=== PATIENT | female | born 1950 | race Caucasian/White ===

== ENCOUNTER → 2018-02-27 09:40 | Outpatient (CLI) | payer OTHER, SELFPAY | LOC: MFPLAB 09:41 → LABSPEC 09:42 | PROVIDERS: Family Provider Family Medicine; Visit Provider Family Medicine | DX: R19.7 Diarrhea, unspecified (principal) | CPT/HCPCS: 87177; 87209; 87506 ==

== ENCOUNTER → 2018-04-19 08:34 | Outpatient (CLI) | payer OTHER, SELFPAY ==
--- NOTE | 2018-04-19 08:38 | BI_ITS ---
MAMMOGRAPHY - BILATERAL SCREENING REASON FOR EXAM: Female, 67 years old. Routine annual screening examination. PERTINENT HISTORY: Non-contributory. TECHNIQUE: Digital bilateral breast gautam (3D mammographic acquisition) in the CC and MLO projections. 2-D mediolateral oblique (MLO) and craniocaudad (CC) views of both breasts were obtained. CAD: Full Field Digital Mammography with Computer Added Detection was performed. COMPARISON: Comparison is made with prior examination dated April 23, 2017 and March 20, 2016. FINDINGS: Breast Composition: The breasts are heterogeneously dense, which may obscure small masses. There are no dominant masses or suspicious calcifications. Stable small benign appearing bilateral axillary lymph nodes. No other significant abnormalities are identified. There has been no significant change since the prior study. BI/SCREENING MAMM (CAD), BILAT IMPRESSION: Stable bilateral screening mammogram. Yearly follow-up mammogram recommended. (A) ASSESSMENT CATEGORY: BIRADS Category 2: Benign. A letter regarding these results will be sent to the patient by the facility within 30 days. Approximately 10% of breast cancers are not detected by mammography. A normal mammogram should not delay biopsy of a clinically suspicious abnormality. [id number] Electronically Signed: John Caceres MD at 8:18 EDT Tel [phone], Service support ,
== END ==
PROVIDERS: Family Provider Family Medicine; Visit Provider Family Medicine
DX: Z12.31 Encounter for screening mammogram for malignant neoplasm of breast (principal)
CPT/HCPCS: 77063; 77067

== ENCOUNTER → 2018-04-27 09:21 | Outpatient (CLI) | payer OTHER, SELFPAY ==
[2018-04-27 09:50] LABS: Absolute Neutrophil Count 3.9 X10^3/uL (2.0-7.7); Basophil# 0.04 X10^3/uL; Basophil% 0.7 % (0-1); Eosinophil# 0.11 X10^3/uL; Eosinophils% 1.9 % (0-5); Hematocrit 39.8 % (37-47); Hemoglobin 13.4 g/dl (12.0-15.0); Mean Corp Hgb Conc 33.7 g/gl (32-36); Mean Corpuscular Hgb 30.5 pg (27.0-32.0); Mean Corpuscular Volume 90.7 fL (81-99); Mean Platelet Vol. 10.8 fl (6.2-12.0); Monocyte# 0.38 X10^3/uL; Monocyte% 6.5 % (0-10); Neutrophil % 66.7 % (47-70); Platelet Count 254 K/mm3 (150-450); RBC Distribution Width SD 42.5 fl (35.1-43.9); Red Blood Count 4.39 M/mm3 (4.2-5.4); White Blood Count 5.8 K/mm3 (4.4-11.0)
[2018-04-27 09:53] LABS: POSITIVE COUNT NO; POSITIVE DIFFERENTIAL NO; POSITIVE MORPHOLOGY NO
[2018-04-27 10:15] LABS: Anion Gap 8 (5-15); BUN 19 mg/dL (7-18); BUN/Creat Ratio 21.7 RATIO (10-20); Chloride 108 mmol/L (98-107); Cholesterol 139 mg/dL (200); Creatinine, Serum 0.88 mg/dL (0.55-1.02); EST Glomerular Filtration Rate 68 mL/min (>60); Est Glom Filt Rate - Afr Amer 82 mL/min (>60); Glucose 98 mg/dL (74-106); High Density Lipoprotein 37 mg/dL; Potassium 4.2 mmol/L (3.5-5.1); Sodium Level 143 mmol/L (136-145); Triglycerides 54 mg/dL; Very Low Density Lipoprotein 11 mg/dL (5-40)
[2018-04-29 09:51] LABS: Vitamin D,25 Hydroxy 53.1 ng/mL (29.95-100.01)
== END ==
PROVIDERS: Family Provider Family Medicine; Visit Provider Family Medicine
DX: Z13.220 Encounter for screening for lipoid disorders (principal); E55.9 Vitamin D deficiency, unspecified; M51.36 Other intervertebral disc degeneration, lumbar region
CPT/HCPCS: 36415; 80048; 80061; 82306; 85025

== ENCOUNTER → 2018-06-10 08:27 | Outpatient (CLI) | payer MEDICARE, OTHER, SELFPAY ==
--- NOTE | 2018-06-10 08:32 | RAD_ITS ---
PROCEDURE: DOUBLE AIR-CONTRAST BARIUM ESOPHAGRAM. REASON FOR EXAM: Female, 68 years old. TECHNIQUE: After the administration of gas producing crystals, water, and barium solution orally, multiple images of the opacified gastrointestinal tract were obtained under fluoroscopic guidance. FLUOROSCOPY TIME (if supplied): (0:53) minutes/seconds COMPARISON: None available. FINDINGS: After the administration of gas producing crystals, water, and barium solution orally, multiple images of the opacified esophagus were obtained under fluoroscopic guidance. The swallowing mechanism appeared intact including with barium pill. There is mild delayed transit of barium bolus from the distal esophagus into the stomach with slight pooling of the barium within the distal esophagus and mildly delayed emptying into the stomach noted. However, no significant persistent mucosal irregularity is seen in the distal esophagus. No significant GE reflux is noted during the study with and without provocation. Esophagus appears normal in course and caliber without finding of abnormal stricture, dilatation, diverticula, intrinsic mass or extrinsic mass effect. There is no findings of hiatal hernia. IMPRESSION: Mild distal esophageal delayed emptying as described. Otherwise negative study. Electronically Signed: Alli Skinner, at 19:09 EDT Tel , Service support , RAD/Esophagus Only
== END ==
PROVIDERS: Family Provider Family Medicine; PCP Family Medicine; Visit Provider Family Medicine
DX: R13.10 Dysphagia, unspecified (principal)
CPT/HCPCS: 74220

== ENCOUNTER → 2019-03-14 11:05 | Outpatient (CLI) | payer MEDICARE, OTHER, SELFPAY ==
[2019-01-20 09:07] VITALS: BMI 35.7
--- NOTE | 2019-03-14 11:21 | EKG12_ITS ---
Test Reason : PREOP Blood Pressure : / mmHG Vent. Rate : 067 BPM Atrial Rate : 067 BPM P-R Int : 154 ms QRS Dur : 084 ms QT Int : 382 ms P-R-T Axes : 037 046 027 degrees QTc Int : 403 ms Normal sinus rhythm Normal ECG Confirmed by LILIANE ROSADO ([id number]), technical writer and editor KENDRA HURD ([id number]) on 03/17/2019 2:02:02 PM Referred By: Rahul Rolle Confirmed By:LILIANE ROSADO
[2019-03-14 11:53] LABS: Hematocrit 40.3 % (37-47); Hemoglobin 13.2 g/dl (12.0-15.0); Mean Corp Hgb Conc 32.8 g/gl (32-36); Mean Corpuscular Hgb 29.6 pg (27.0-32.0); Mean Corpuscular Volume 90.4 fL (81-99); Mean Platelet Vol. 10.7 fl (6.2-12.0); Platelet Count 282 K/mm3 (150-450); RBC Distribution Width SD 42.6 fl (35.1-43.9); Red Blood Count 4.46 M/mm3 (4.2-5.4); Scan Indicated on CBC? Y/N NO; White Blood Count 6.7 K/mm3 (4.4-11.0)
[2019-03-14 12:31] LABS: Anion Gap 5 (5-15); BUN 16 mg/dL (7-18); BUN/Creat Ratio 18.8 RATIO (10-20); Calcium,Total 8.8 mg/dL (8.5-10.1); Chloride 108 mmol/L (98-107); Creatinine, Serum 0.85 mg/dL (0.55-1.02); EST Glomerular Filtration Rate 70 mL/min (>60); Est Glom Filt Rate - Afr Amer 85 mL/min (>60); Glucose 90 mg/dL (74-106); Potassium 4.2 mmol/L (3.5-5.1); Sodium Level 140 mmol/L (136-145)
== END ==
PROVIDERS: Family Provider Family Medicine; PCP Family Medicine; Referring Provider Orthopaedic Surgery; Visit Provider Orthopaedic Surgery
DX: Z01.818 Encounter for other preprocedural examination (principal); Z01.810 Encounter for preprocedural cardiovascular examination
CPT/HCPCS: 36415; 80048; 85027; 93005

== ENCOUNTER → 2019-04-22 | Outpatient (CLI) | payer MEDICARE, OTHER, SELFPAY ==
[2019-01-20 09:07] VITALS: BMI 35.7
--- NOTE | 2019-04-22 08:05 | BI_ITS ---
MAMMOGRAPHY - BILATERAL SCREENING REASON FOR EXAM: Female, 68 years old. Routine annual screening examination. PERTINENT HISTORY: Non-contributory. TECHNIQUE: Digital bilateral breast ilda (3D mammographic acquisition) in the CC and MLO projections. 2-D mediolateral oblique (MLO) and craniocaudad (CC) views of both breasts were obtained. CAD: Full Field Digital Mammography with Computer Added Detection was performed. COMPARISON: Comparison is made with prior study dated April 19, 2018 and April 23, 2017. FINDINGS: Breast Composition: The breasts are heterogeneously dense, which may obscure small masses. There are no dominant masses or suspicious calcifications. Stable small bilateral axillary lymph nodes. No other significant abnormalities are identified. There has been no significant change since the prior study. BI/SCREEN MAMM (CAD) W/ILDA BILAT IMPRESSION: Stable bilateral screening mammogram. Yearly follow-up mammogram recommended. (A) ASSESSMENT CATEGORY: BIRADS Category 2: Benign. A letter regarding these results will be sent to the patient by the facility within 30 days. Approximately 10% of breast cancers are not detected by mammography. A normal mammogram should not delay biopsy of a clinically suspicious abnormality. [id number] Electronically Signed: John Caceres, at 8:57 EDT , Service support ,
== END | disposition home or self-care (01) ==
PROVIDERS: PCP Family Medicine; Referring Provider Obstetrics & Gynecology; Visit Provider Obstetrics & Gynecology
DX: Z12.31 Encounter for screening mammogram for malignant neoplasm of breast (principal)
CPT/HCPCS: 77063; 77067

== ENCOUNTER → 2020-04-16 09:26 | Outpatient (CLI) | payer MEDICARE, OTHER, SELFPAY ==
[2019-10-07 15:49] VITALS: BMI 35.7
[2020-04-16 10:20] LABS: Anion Gap 3 (5-15); BUN 20 mg/dL (7-18); BUN/Creat Ratio 23.6 RATIO (10-20); Chloride 110 mmol/L (98-107); Creatinine, Serum 0.85 mg/dL (0.55-1.02); EST Glomerular Filtration Rate 70 mL/min (>60); Est Glom Filt Rate - Afr Amer 85 mL/min (>60); Glucose 101 mg/dL (74-106); Potassium 4.1 mmol/L (3.5-5.1); Sodium Level 141 mmol/L (136-145)
== END ==
PROVIDERS: PCP Family Medicine; Referring Provider Family Medicine; Visit Provider Family Medicine
DX: Z13.1 Encounter for screening for diabetes mellitus (principal); Z13.220 Encounter for screening for lipoid disorders
CPT/HCPCS: 36415; 80048

== ENCOUNTER → 2020-04-23 10:34 | Outpatient (CLI) | payer MEDICARE, OTHER, SELFPAY ==
[2019-10-07 15:49] VITALS: BMI 35.7
--- NOTE | 2020-04-23 10:36 | BI_ITS ---
MAMMOGRAPHY - BILATERAL SCREENING REASON FOR EXAM: Female, 69 years old. Routine annual screening examination. PERTINENT HISTORY: Non-contributory. TECHNIQUE: Digital bilateral breast ilda (3D mammographic acquisition) in the CC and MLO projections. 2-D mediolateral oblique (MLO) and craniocaudad (CC) views of both breasts were obtained. CAD: Full Field Digital Mammography with Computer Added Detection was performed. COMPARISON: Comparison is made with prior study dated April 22, 2019 and April 19, 2018. FINDINGS: Breast Composition: The breasts are heterogeneously dense, which may obscure small masses. There are no dominant masses or suspicious calcifications. Small benign-appearing bilateral axillary lymph nodes. No other significant abnormalities are identified. There has been no significant change since the prior study. BI/SCREEN MAMM (CAD) W/ILDA BILAT IMPRESSION: Stable bilateral screening mammogram. Yearly follow-up mammogram recommended. (A) ASSESSMENT CATEGORY: BIRADS Category 2: Benign. A letter regarding these results will be sent to the patient by the facility within 30 days. Approximately 10% of breast cancers are not detected by mammography. A normal mammogram should not delay biopsy of a clinically suspicious abnormality. [id number] Electronically Signed: John Caceres, at 12:04 EDT , Service support ,
== END ==
PROVIDERS: PCP Family Medicine; Referring Provider Family Medicine; Visit Provider Family Medicine
DX: Z12.31 Encounter for screening mammogram for malignant neoplasm of breast (principal)
CPT/HCPCS: 77063; 77067

== ENCOUNTER → 2020-07-02 10:15 | Outpatient (CLI) | payer MEDICARE, OTHER, SELFPAY ==
[2020-05-20 10:41] VITALS: BMI 35.7
[2020-07-02 11:48] LABS: Erythrocyte Sedimentation Rate 34 mm/hr (0-30)
[2020-07-02 11:50] LABS: Absolute Lymphocyte Count 1.74 X10^3/uL (0.83-4.51); Absolute Neutrophil Count 5.3 X10^3/uL (2.0-7.7); Basophil# 0.07 X10^3/uL; Basophil% 0.9 % (0-1); Eosinophil# 0.17 X10^3/uL; Eosinophils% 2.2 % (0-5); Hematocrit 40.3 % (37-47); Hemoglobin 13.1 g/dL (12.0-15.0); Lymphocyte # 1.74 X10^3/ul (4.0); Lymphocyte % 22.2 % (19-41); Mean Corp Hgb Conc 32.5 g/dL (32-36); Mean Corpuscular Hgb 29.8 pg (27.0-32.0); Mean Corpuscular Volume 91.6 fL (81-99); Mean Platelet Vol. 10.7 fl (6.2-12.0); Monocyte# 0.51 X10^3/uL; Monocyte% 6.5 % (0-10); NRBC Flagged by Analyzer 0 % (0-5); Neutrophil # 5.26 X10^3/uL (2.7-7.7); Neutrophil % 67.2 % (47-70); Platelet Count 269 K/mm3 (150-450); RBC Distribution Width SD 43.2 fl (35.1-43.9); White Blood Count 7.8 K/mm3 (4.4-11.0)
[2020-07-02 12:17] LABS: CRP 8.03 mg/L (0.0-3.0)
== END ==
PROVIDERS: PCP Family Medicine; Referring Provider Physician Assistant Surgical; Visit Provider Physician Assistant Surgical
DX: M25.562 Pain in left knee (principal); Z96.652 Presence of left artificial knee joint
CPT/HCPCS: 36415; 85025; 85652; 86140

== ENCOUNTER → 2020-07-05 09:20 | Outpatient (CLI) | payer MEDICARE, OTHER, SELFPAY ==
[2020-05-20 10:41] VITALS: BMI 35.7
[2020-07-05 09:45] LABS: Pathologist Comment May follow
[2020-07-05 10:54] LABS: RBC /Synovial Fluid 0.085 10^6/uL (0); Synovial Fld Mononuclear WBC % 71.9 %; Synovial Fld Polynuclear WBC # 0.242 10^3/uL; Synovial Fld Polynuclear WBC % 28.1 %
[2020-07-05 10:59] LABS: AUTO B FLUID DILUENT BKGD CT WBC <0.1 RBC <0.01 (W<.1,R<.01); Appearance /Synovial Fluid Cloudy (CLEAR); Color / Synovial Fluid Red (Pale Yellow); Source- Body Fluid SYNOVIAL
[2020-07-05 11:07] LABS: CRYSTALS, BODY FLUID Other, see comment
[2020-07-05 11:36] LABS: Lymph 24 %; Monocyte /Synovial Fluid 50 %; Neutrophil 24 % (0-25); Plasma Cell /Synovial Fluid 2 %
[2020-07-05 11:37] LABS: Body Fluid QC Type(s) BF1Q,BF2Q
[2020-07-06 13:56] LABS: Pathologist Review Reviewed
== END ==
PROVIDERS: PCP Family Medicine; Referring Provider Physician Assistant Surgical; Visit Provider Physician Assistant Surgical
DX: Z96.652 Presence of left artificial knee joint (principal)
CPT/HCPCS: 87070; 87075; 87205; 89050; 89051; 89060

== ENCOUNTER → 2020-07-26 08:38 | Outpatient (CLI) | payer MEDICARE, OTHER, SELFPAY ==
[2020-07-14 10:13] VITALS: BMI 34.0
--- NOTE | 2020-07-26 08:40 | CDU_ITS ---
Reason For Study: Bruit Rt. Velocities/BP Lt. Velocities/BP Prox CCA 101/19 cm/sec. Prox CCA 98/25 cm/sec. Mid CCA 93/17 cm/sec. Mid CCA 83/22 cm/sec. Dist CCA 73/17 cm/sec. Dist CCA 81/22 cm/sec. Prox ICA 76/22 cm/sec. Prox ICA 109/30 cm/sec. Mid ICA 95/27 cm/sec. Mid ICA 121/36 cm/sec. Dist ICA 96/23 cm/sec. Dist ICA 111/32 cm/sec. Rt. ICA/CCA = 1.0. Lt. ICA/CCA = 1.5. Prox ECA 71/9 cm/sec. Prox ECA 71/7 cm/sec. Rt. Vert. 56/15 cm/sec. Lt. Vert. 60/18 cm/sec. Right Extracranial There is intimal thickening but no significant atherosclerotic plaque noted in the right common carotid artery. There is homogeneous, irregular atherosclerotic plaque noted in the right internal carotid artery. There is intimal thickening but no significant atherosclerotic plaque noted in the right external carotid artery. Antegrade flow is noted in the right vertebral artery. Left Extracranial There is intimal thickening but no significant atherosclerotic plaque noted in the left common carotid artery. There is heterogeneous, irregular atherosclerotic plaque noted in the left internal carotid artery. There is heterogeneous, smooth atherosclerotic plaque noted in the left external carotid artery. Antegrade flow is noted in the left vertebral artery. Procedure Carotid Duplex [id number]. Exam performed in department. Interpretation Summary Mild (<50%) stenosis right extracranial internal carotid. Mild (<50%) stenosis left extracranial internal carotid. Flow within the vertebral arteries is antegrade bilaterally. Ordering Physician: Ryan Moore Referring Physician: Aly Cruz Performed By: Marge Simon, MISTICS, RVT
--- NOTE | 2020-07-26 08:40 | ECHOD_ITS ---
Reason For Study: Murmur Procedure This was a 2D Doppler, Color Flow transthoracic echocardiogram. Exam performed in department. Left Ventricle Normal LV size. Left ventricular systolic function is normal. The estimated ejection fraction is 60 %. Stage 2 diastolic dysfunction. No regional wall motion abnormalities noted. Right Ventricle Normal right ventricle. Atria Normal left atrium. Normal right atrium. Mitral Valve There is moderate mitral annular calcification. Mild (1+) eccentric mitral valve insufficiency. Tricuspid Valve Normal tricuspid valve. Mild (1+) tricuspid valve insufficiency. Pulmonary artery systolic pressure is 35 mmHg. Aortic Valve Trisinus/trileaflet aortic valve. Mild focal aortic valve calcification. Peak aortic valve gradient 53 mmHg. Mean aortic valve gradient 25 mmHg. Calculated aortic valve area (continuity equation) is .98 cm2. Moderate aortic stenosis. Pulmonic Valve Normal pulmonic valve. Great Vessels Normal aortic root. The pulmonary artery is normal size. Normal inferior vena cava. Pericardium/Pleural No pericardial effusion. MMode/2D Measurements & Calculations LVIDd: 4.5 cm IVSd: 1.2 cm LVOT diam: 2.0 cm LVIDs: 2.4 cm LVPWd: 1.3 cm LVOT area: 3.3 cm2 RVDd: 3.1 cm FS: 47.4 % Ao root diam: 3.0 cm LAV(MOD-bp): 59.7 ml LVAd ap4: 22.5 cm2 LA dimension: 3.5 cm LAV(MOD-bp) Indexed: 30.8 ml/m2 EDV(MOD-sp4): 58.3 ml LAV(MOD-sp2): 51.9 ml EDV(sp4-el): 58.4 ml LAV(MOD-sp4): 61.6 ml LVAs ap4: 11.4 cm2 ESV(MOD-sp4): 20.0 ml ESV(sp4-el): 18.8 ml EF(MOD-sp4): 65.7 % EF(sp4-el): 67.9 % SV(MOD-sp4): 38.3 ml SV(sp4-el): 39.7 ml Aortic Valve Planimetry: 0.84 cm2 LA A4 area: 20.7 cm2 RA A4 area: 13.5 cm2 Time Measurements MV dec time: 0.33 sec Doppler Measurements & Calculations MV E max valdemar: 139.7 cm/sec Lat Peak E' Valdemar: 6.6 cm/sec Med Peak E' Valdemar: 5.6 cm/sec MV A max valdemar: 115.9 cm/sec E/E' lat: 21.2 E/E' med: 24.9 MV E/A: 1.2 MV V2 max: 160.8 cm/sec MV P1/2t max valdemar: 160.8 cm/sec Ao V2 max: 364.2 cm/sec MV max P.3 mmHg MV P1/2t: 107.0 msec Ao max P.1 mmHg MV V2 mean: 92.1 cm/sec Ao V2 mean: 225.8 cm/sec MV mean P.0 mmHg MV dec slope: 440.0 cm/sec2 Ao mean P.2 mmHg MV V2 VTI: 52.8 cm MVA(P1/2t): 2.1 cm2 Ao V2 VTI: 96.2 cm MVA(VTI): 1.9 cm2 JONAH(I,D): 1.0 cm2 JONAH(V,D): 0.98 cm2 LV V1 max: 108.8 cm/sec MR max valdemar: 630.1 cm/sec SV(LVOT): 98.0 ml LV V1 max P.7 mmHg MR max P.8 mmHg LV V1 mean P.6 mmHg MR mean valdemar: 506.0 cm/sec LV V1 mean: 75.3 cm/sec MR mean P.0 mmHg LV V1 VTI: 29.8 cm MR VTI: 249.6 cm PA V2 max: 81.9 cm/sec TR max valdemar: 277.6 cm/sec TR max P.8 mmHg Interpretation Summary Normal LV size. Left ventricular systolic function is normal. The estimated ejection fraction is 60 %. Stage 2 diastolic dysfunction. Mean aortic valve gradient 25 mmHg. Calculated aortic valve area (continuity equation) is .98 cm2. Moderate aortic stenosis. Ordering Physician: Ryan Moore Referring Physician: Aly Cruz Performed By: Vahe Friend RCS
== END ==
PROVIDERS: PCP Family Medicine; Referring Provider Internal Medicine Cardiovascular Disease; Visit Provider Internal Medicine Cardiovascular Disease
DX: R01.1 Cardiac murmur, unspecified (principal); R42 Dizziness and giddiness
CPT/HCPCS: 93306; 93880

== ENCOUNTER → 2021-01-12 11:28 | Outpatient (CLI) | payer MEDICARE, OTHER, SELFPAY ==
[2020-08-10 09:09] VITALS: BMI 34.0
[2021-01-12 10:15] VITALS: BMI 33.5
--- NOTE | 2021-01-12 11:28 | CT_ITS ---
STUDY: CT MAXILLOFACIAL SINUSES REASON FOR EXAM: Female, 70 years old. SINUSITIS RADIATION DOSAGE (If Supplied By Facility): CTDIvol = ( 33.06 ) mGy, DLP = ( 804.92 ) mGycm TECHNIQUE: The patient was scanned in a multi detector CT scanner. High resolution axial imaging was performed without the administration of intravenous contrast material. Sagittal and coronal images were reconstructed. Individualized dose optimization techniques were used for this CT. COMPARISON: None. FINDINGS: FRONTAL SINUSES: Normal aeration, without mucosal inflammatory disease. ETHMOIDAL SINUSES: Normal aeration, without mucosal inflammatory disease. MAXILLARY SINUSES: Normal aeration, without mucosal inflammatory disease. SPHENOIDAL SINUSES: Normal aeration, without mucosal inflammatory disease. There is patency of the bilateral maxillary infundibuli with normal uncinate processes, ethmoid bullae, and hiatus semilunaris. Normal bilateral middle turbinates. Normal bilateral inferior turbinates. Normal midline nasal septum. There is patency of the bilateral nasal airways. The visualized osseous structures are normal. The visualized bilateral orbital contents are normal. CT/Sinus/Facial Bone IMPRESSION: Normal CT examination of the maxillofacial sinuses. Electronically Signed: Joe Mendiola MD at 12:10 EST , Service support ,
[2021-01-12 12:06] LABS: Hematocrit 42.2 % (37-47); Hemoglobin 13.4 g/dL (12.0-15.0); Mean Corp Hgb Conc 31.8 g/dL (32-36); Mean Corpuscular Hgb 29.5 pg (27.0-32.0); Mean Platelet Vol. 10.4 fl (6.2-12.0); Platelet Count 276 K/mm3 (150-450); RBC Distribution Width CV 12.9 % (11.6-14.6); RBC Distribution Width SD 44.4 fl (35.1-43.9); Red Blood Count 4.54 M/mm3 (4.2-5.4); White Blood Count 8.1 K/mm3 (4.4-11.0)
[2021-01-12 12:09] LABS: International Normalized Ratio 1.1; Prothrombin Time (Protime)PT. 13.2 SECONDS (11.7-14.9)
[2021-01-12 12:55] LABS: Anion Gap 4 (5-15); BUN 20 mg/dL (7-18); BUN/Creat Ratio 22.9 RATIO (10-20); Calcium,Total 9.2 mg/dL (8.5-10.1); Chloride 107 mmol/L (98-107); Creatinine, Serum 0.87 mg/dL (0.55-1.02); EST Glomerular Filtration Rate 68 mL/min (>60); Est Glom Filt Rate - Afr Amer 82 mL/min (>60); Glucose 97 mg/dL (74-106); Potassium 4.5 mmol/L (3.5-5.1); Sodium Level 141 mmol/L (136-145)
== END ==
PROVIDERS: Internal Medicine Cardiovascular Disease; PCP Family Medicine; Referring Provider Otolaryngology; Visit Provider Otolaryngology
DX: J32.8 Other chronic sinusitis (principal); R07.89 Other chest pain
CPT/HCPCS: 36415; 70486; 71046; 80048; 85027; 85610

== ENCOUNTER 2021-01-13 06:59 | Day surgery (SDC) | payer MEDICARE, OTHER, SELFPAY ==
[2020-08-10 09:09] VITALS: BMI 34.0
[2021-01-12 09:01] VITALS: BMI 34.0
[2021-01-12 10:15] VITALS: BMI 33.5
--- NOTE | 2021-01-12 11:27 | RAD_ITS ---
STUDY: X-RAY CHEST REASON FOR EXAM: Female, 70 years old. Preop for heart catheter TECHNIQUE: PA and lateral views of the chest. COMPARISON: 2013 FINDINGS: The lungs are clear and expanded. There is no demonstrated pleural abnormality. Normal size heart. Normal mediastinum and blanka. Normal visualized pulmonary arteries. There is atherosclerotic calcification of the aortic arch with tortuosity. There are diffuse degenerative changes of the visualized thoracic spine. Normal visualized ribs, clavicles, and shoulders. There is no demonstrated abnormality of the visualized soft tissue structures of the upper abdomen. RAD/Chest PA and Lateral IMPRESSION: No acute pulmonary process Electronically Signed: Jeo Mendiola MD at 12:08 EST , Service support ,
--- NOTE | 2021-01-13 03:31 | HP_ITS ---
HPI HPI History of Present Illness Surgical H&P: Yes Details: 70-year-old lady with no previous cardiac history but a family history of coronary artery disease who underwent a coronary calcium score in April 2019. A coronary calcium score was noted to be 185. She went to see a primary care physician for routine physical and was noted to have a louder murmur. She has complained of occasional dizziness. She has had no diaphoresis no near syncope or syncope and no chest pain. She has been on very little medications. She underwent an echocardiogram on 07/26/2020 that showed moderate aortic valve stenosis. She states 3 days ago noting exertional back pain associated with bilateral arm heaviness and diaphoresis. This resolved with rest. She denied associated chest pain, SOB or nausea. She rated the back pain/heaviness a 4-5/10. She also notices arm heaviness when driving and while sitting. She notices an increase in fatigue over the last week. Pt denies chest, jaw, or neck discomfort. Her exercise tolerance is stable. Pt denies symptoms of CHF, palpitations, dizziness, near syncopal or syncopal episodes. Pt denies edema or claudication issues. Pt. denies orthopnea, PND, or myalgia. She states yesterday noting lower blood pressure at home with systolic 110s/40- 50s. She states lightheadedness infrequently. Intake Vital Signs 01/12/21 Height 5 ft 4 in 01/12/21 Weight: 195 lb 01/12/21 BMI 33.5 01/12/21 BP 132/78 H 01/12/21 Blood Pressure Location Lt brachial 01/12/21 Position Sitting 01/12/21 Respiration 18 01/12/21 Pulse 67 01/12/21 Pulse Source Monitor 01/12/21 Pulse Oximetry (%) 97 Intake Visit Reasons: CP needs cath per [employer] In[employer] Knitting Required: No Is patient in pain?: No Allergies latex Allergy (Verified 01/12/21 10:11) Rash adhesive tape Adverse Reaction (Verified 01/12/21 10:11) Rash duloxetine [From Cymbalta] Adverse Reaction (Verified 01/12/21 10:11) loopy Medications Escitalopram Oxalate [Lexapro] 5 mg PO DAILY 03/08/17 [History Confirmed 01/12/21] Ca 600 mg-D3 800 unit-magnes 40 cr-xnru-ias-dorita-boron chewable tablet 1 tab PO DAILY 07/13/20 [History Confirmed 01/12/21] cinnamon bark 500 mg capsule 500 mg PO DAILY 07/13/20 [History Confirmed 01/12/21] cholecalciferol (vitamin D3) 50 mcg (2,000 unit) capsule 50 mcg PO DAILY 07/14/20 [History Confirmed 01/12/21] aspirin 81 mg tablet,delayed release 81 mg PO DAILY 01/12/21 [History Confirmed 01/12/21] vitamin B complex 1 tab PO DAILY 01/12/21 [History Confirmed 01/12/21] [facility] Medical History (Updated 01/11/21 @ 15:39 by Tosin Blancas) Constricting chest pain often radiating down left arm (Acute) Diaphoresis (Acute) Exertional chest pain (Acute) Nonrheumatic aortic (valve) stenosis (Chronic) Segmental and somatic dysfunction of cervical region (Chronic) Segmental and somatic dysfunction of pelvic region (Chronic) Segmental and somatic dysfunction of lumbar region (Chronic) Segmental and somatic dysfunction of thoracic region (Chronic) DDD (degenerative disc disease), lumbar (Chronic) Anxiety and depression (Chronic) GERD (gastroesophageal reflux disease) (Chronic) Obesity (Chronic) Osteoarthritis (Chronic) Urethral caruncle (Chronic) Varicose veins of both lower extremities (Chronic) Surgical History History of bladder suspension procedure (Resolved) History of knee replacement procedure of left knee (Resolved) History of knee replacement procedure of right knee (Resolved) Family History Father , age 80 CAD (coronary artery disease), Onset Age: 62 Myocardial infarction, Onset Age: 62 Mother CAD (coronary artery disease), Onset Age: 68 CABG Diabetes Brother Diabetes CAD (coronary artery disease) Heart disease Valve replacement/ CABG/ CEA Brother Diabetes Heart disease Pacemaker Brother Heart disease Valve Replacement Social History (Updated 01/12/21 @ 12:45 by Aly Simon 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, 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) Smoking Status: Never smoker alcohol intake: never ROS Const Const: Positive for fatigue; negative for weakness, body ache, fever(s) or chills ENT ENT: Negative for dizziness or Nosebleed/epistaxis Cardio Chest Pain: No Palpitations: No Edema: None Muscle aches with walking: None Resp Respiratory: Positive for Cough; negative for SOB with activity, SOB at rest, SOB orthopnea\SOB lying down or paroxysmal nocturnal dyspnea GI GI: Negative nausea, vomiting blood/hematemesis, bright, red blood in stools or black,tarry stools : Negative for hematuria or frequent nighttime urination/ nocturia Musc Musc: Negative for muscle aches/ myalgia Skin Skin: Negative non-healing lesions or rash Neuro Neuro: Positive for lightheadedness; negative for dizziness, near syncope, syncope, orthostatic symptoms or weakness Endo Endo: Positive for fatigue Allergy Allergy/Immunology: Negative for rash Cardiology Exam Const Appearance: cooperative, healthy appearing, comfortable and no acute distress Nutritional Appearance: well nourished and obese Orientation: alert, awake and oriented x3 Head Head: normal to inspection Ears: hearing grossly normal bilaterally Nose: external nose normal Face and Sinus: face symmetric Mouth: oral mucosae normal Eyes General: appearance normal, both eyes and all related structures Eyelids: eyelids normal EOM: EOM intact bilaterally Neck Neck: normal visual inspection and no JVD Carotids: normal carotid upstroke Chest Chest inspection: normal inspection of the chest, symmetric chest movement and normal respiratory effort; negative cough Auscultation: Bilateral: Clear to Auscultation Cardio Palpation: normal PMI Rate: regular rate Rhythm: regular rhythm Heart sounds: S1 normal, S2 normal and murmur; negative rub or gallop Murmur: Grade 3/6, early systolic and RLSB GI GI: normal to inspection and obese Neuro General: alert, awake, oriented x3 and CN's II-XI intact bilaterally Skin Skin: no rashes or lesions noted Extremities Pulses: Normal: Right Posterior Tibial Pulse, Left Posterior Tibial Pulse, Right Radial Pulse, Left Radial Pulse Lower Extremity Edema: None: Bilateral Psych Psychological: normal affect Assessment & Plan 1. Shoulder blade pain M89.8X1 Plan This is the main concern today. She has noted exertional back pain, arm heaviness, and diaphoresis that may be considered an anginal equivalent. Her EKG today in office shows sinus rhythm at a rate of 71 beats minute, ME interval 150, QTc 389, and QRS 82. There are no acute ST or T wave changes. She will proceed with heart catheterization to assess further. Based on results, further recommendation will be made. 2. Nonrheumatic aortic (valve) stenosis I35.0 Plan Her most recent echocardiogram in July 2020 showed an ejection fraction of 60%, stage II diastolic dysfunction, moderate aortic valve stenosis with a peak aortic valve gradient of 53 mmHg, mean aortic valve gradient of 25 mmHg, and a calculated aortic valve area of 0.98 cm?. This will be followed over time. It is unclear if this is contributing to her symptoms. Depending on long-term progression, further recommendation will be made. Plan Detail Other Orders Orders: 12 Lead EKG performed by [facility] Today R07.89, R07.9 Additional Comments Thank you for allowing us to participate in the patients plan of care, if you have any questions please do not hesitate to call. This note was generated using a voice recognition system and there may be incorrect words, spelling or punctuation that were not noted when reviewing the office note prior to saving. Goals Decrease pain Decrease spasm Decrease inflammation Barriers DDD Follow Up Keep as is Coding Level of Care Code Off vis,est,level 4 Diagnoses Shoulder blade pain M89.8X1 Nonrheumatic aortic (valve) stenosis I35.0 Coding Level of Care Code Off vis,est,level 4 Diagnoses Shoulder blade pain M89.8X1 Nonrheumatic aortic (valve) stenosis I35.0 Supplemental Info Supplemental Information Echocardiogram from 07/26/2020: Interpretation Summary Normal LV size. Left ventricular systolic function is normal. The estimated ejection fraction is 60 %. Stage 2 diastolic dysfunction. Mean aortic valve gradient 25 mmHg. Calculated aortic valve area (continuity equation) is .98 cm2. Moderate aortic stenosis. Diagnostics Electrocardiogram 01/12/21 Echocardiogram 07/26/20 Chest X-Ray 01/12/21
--- NOTE | 2021-01-13 08:56 | ECHOD_ITS ---
Reason For Study: MURMUR Procedure This was a 2D Doppler, Color Flow transthoracic echocardiogram. Exam performed portable in patient room. Left Ventricle Normal LV size. Left ventricular systolic function is normal. The estimated ejection fraction is 65 %. No regional wall motion abnormalities noted. Mitral Valve There is mild mitral annular calcification. Tricuspid Valve Normal tricuspid valve. Mild (1+) tricuspid valve insufficiency. Pulmonary artery systolic pressure is 30 mmHg. Aortic Valve Trisinus/trileaflet aortic valve. Mild focal aortic valve calcification. Peak aortic valve gradient 53 mmHg. Mean aortic valve gradient 32 mmHg. Moderate aortic stenosis. Calculated aortic valve area (continuity equation) is 0.96 cm2. Mild (1+) aortic valve insufficiency. Pericardium/Pleural No pericardial effusion. MMode/2D Measurements & Calculations LVOT diam: 2.0 cm SV(MOD-sp4): 57.6 ml LVAd ap4: 28.0 cm2 LVOT area: 3.1 cm2 EDV(MOD-sp4): 90.0 ml EDV(sp4-el): 94.0 ml LVAs ap4: 14.9 cm2 ESV(MOD-sp4): 32.4 ml ESV(sp4-el): 32.6 ml EF(MOD-sp4): 64.0 % EF(sp4-el): 65.4 % SV(sp4-el): 61.5 ml Aortic Valve Planimetry: 0.82 cm2 Doppler Measurements & Calculations Ao V2 max: 364.3 cm/sec AI max laisha: 302.2 cm/sec LV V1 max: 112.4 cm/sec Ao max P.2 mmHg AI max P.5 mmHg LV V1 max P.1 mmHg Ao V2 mean: 269.9 cm/sec AI dec slope: 185.2 cm/sec2 LV V1 mean P.9 mmHg Ao mean P.9 mmHg AI P1/2t: 477.9 msec LV V1 mean: 81.0 cm/sec Ao V2 VTI: 96.7 cm LV V1 VTI: 31.0 cm JONAH(I,D): 1.0 cm2 JONAH(V,D): 0.96 cm2 SV(LVOT): 96.8 ml TR max laisha: 257.4 cm/sec TR max P.5 mmHg Interpretation Summary Normal LV size. Left ventricular systolic function is normal. The estimated ejection fraction is 65 %. Mild focal aortic valve calcification. Mean aortic valve gradient 32 mmHg. Mild (1+) aortic valve insufficiency. Moderate aortic stenosis. Calculated aortic valve area (continuity equation) is 0.96 cm2. Compared to prior study, there is no significant change. Ordering Physician: Ryan Moore Referring Physician: MERLYN SANON Performed By: Ruth Coronado RDCS
--- NOTE | 2021-01-13 09:02 | CL.D_ITS ---
Patient Name: RYAN WILL Study Date: 01/13/2021 Performing: Ryan Moore MD Ht: 64.17 inches 163 cm : 1950 Wt: 198.42 lbs 90 kg Age: 70 Gender: female BSA: 1.95 PROCEDURE(S) PERFORMED [id number]/COR/LV CLINICAL PROFILE AND INDICATIONS Indications: Suspected CAD Heart Failure: None Stress/Imaging Stress/Image Study Performed: No CAD Presentations: Symptom unlikely to be ischemic. CONCLUSIONS Normal coronary arteries Normal LV size, wall motion,and systolic function Aortic Valve Stenosis- Moderate RECOMMENDATIONS Medical therapy Repeat echo to asses AV. DESCRIPTION OF PROCEDURE The patient arrived to the procedure lab. The risks and benefits of the procedure as well as a full d escription of our services here and current unavailability of surgical backup were fully explained to the patient and/or their significant other prior to the catheterization. The Timeout was completed, verifying the correct patient and procedure. The patient's procedural site was prepped and draped in the usual fashion. Local anesthetic was given subcutaneously to right radial region with Lidocaine 2% . Using a modified Seldinger technique, arterial access was obtained via the right radial artery, a 6 Fr sheath was inserted. Right Coronary Artery selective angiography was then performed in multiple v iews using a 5 Fr. 4.0 Elizabeth catheter. Left Coronary Artery selective angiography was performed in mu ltiple views using a 5 Fr. 4.0 Elizabeth catheter. Left Ventriculography was performed in SALAS projection using a 5 Fr. Pigtail catheter. LV to AO pullback pressures were then recorded.The arterial sheath was pulled and a TR Band was applied for hemostasis CORONARY ANGIOGRAPHY DOMINANCE: Right Dominant LEFT HEART ASSESSMENT Left Ventricular Ejection Fraction: by Echo 75 % Normal Left Ventricular systolic function LEFT MAIN: Angiographically normal LEFT ANTERIOR DESCENDING ARTERY: No significant disease noted CIRCUMFLEX ARTERY: No significant disease noted RIGHT CORONARY ARTERY: No significant disease noted VALVE FINDINGS: Aortic Valve Calcification - moderate AORTIC ROOT: Dilated COMPLICATIONS No Complications PROCEDURE MEDICATIONS Versed 1 mg IV Fentanyl 50 mcg IV Versed 1 mg IV Oxygen: 2 L/min via nasal cannula Heparin diluted in 23cc Heparinized saline. Patient given 10cc IA of this solution. 01/13/2021 08:35: 12 Verapamil 2.5mg, Ntg 100mcgs, 2000 units of Heparin diluted in 23cc Heparinized saline. Patient give n 10cc IA of this solution. 01/13/2021 08:35:12 SUMMARY OF HEMODYNAMIC DATA Time AIR REST ECG 07:26:57 AO 117/57 (82) SA 08:38:25 LV 173/2, 8 08:44:28 LV 170/1, 10 08:44:35 LV 165/5, 11 08:45:25 LVp 156/49, 57 08:45:48 AOp 145/60 (94) 08:45:53 Signed By Ryan Moore MD On 01/13/2021 09:01:46 Ryan Moore MD
== END 2021-01-13 10:35 | disposition home or self-care (01) ==
PROVIDERS: PCP Family Medicine; Referring Provider Internal Medicine Cardiovascular Disease; Visit Provider Internal Medicine Cardiovascular Disease
DX: I35.0 Nonrheumatic aortic (valve) stenosis (principal); R42 Dizziness and giddiness; M89.8X1 Other specified disorders of bone, shoulder; Z79.82 Long term (current) use of aspirin; Z82.49 Family history of ischemic heart disease and other diseases of the circulatory system; Z88.8 Allergy status to other drugs, medicaments and biological substances; Z91.040 Latex allergy status
CPT/HCPCS: 71046; 93306; 93458; 99152; 99153; J7040; Q9967; A4216; C1769; C1894

== ENCOUNTER → 2021-02-28 13:13 | Outpatient (CLI) | payer MEDICARE, OTHER, SELFPAY ==
[2021-02-16 14:43] VITALS: BMI 33.5
--- NOTE | 2021-02-28 13:26 | MRI_ITS ---
STUDY: MRI LUMBAR SPINE WITHOUT CONTRAST REASON FOR EXAM: Female, 70 years old. Pain TECHNIQUE: Standardized fat and water weighted pulse sequences were obtained in the sagittal and axial planes. COMPARISON: X-ray 02/16/2021 FINDINGS: T12-L1: Normal endplates. Normal disc height, hydration and morphology. Normal bilateral facet joints. Normal central canal and bilateral lateral recesses. Normal bilateral intervertebral neural foramina. Normal lumbar lordosis. There is no substantial scoliosis. Normal conus medullaris that terminates at the L1. L1-2: Normal endplates. Normal disc height, hydration and morphology. Normal bilateral facet joints. Normal central canal and bilateral lateral recesses. Normal bilateral intervertebral neural foramina. L2-3: Mild bilateral facet hypertrophy and moderate ligament flavum hypertrophy. Moderate bilobed disc protrusion produces severe spinal stenosis with the moderate bilateral lateral recess stenosis and mild bilateral neural foraminal stenosis. L3-4: Mild bilateral facet hypertrophy and severe ligament flavum hypertrophy. Moderate bilobed disc protrusion produces severe spinal stenosis with moderate bilateral lateral recess stenosis and moderate bilateral neural foraminal stenosis with abutment of the exiting L3 nerve roots bilaterally. L4-5: Severe bilateral facet hypertrophy and moderate ligament flavum hypertrophy. 5 mm of anterolisthesis of L4 and L5 with a mild broad disc protrusion produces severe spinal stenosis with moderate bilateral lateral recess stenosis and moderate bilateral neural foraminal stenosis with abutment of the exiting L4 nerve roots bilaterally. L5-S1: Mild bilateral facet hypertrophy and ligament flavum hypertrophy. Mild broad disc protrusion produces mild spinal stenosis and mild bilateral neural foraminal stenosis. Normal visualized sacral ala. Mild friction related edema of the posterior subcutaneous fat. MRI/Spine Lumbar (Routine) IMPRESSION: Multilevel degenerative changes, as described above. Electronically Signed: Garret Villanueva MD at 15:44 EDT Tel , Service support ,
== END ==
PROVIDERS: PCP Family Medicine; Referring Provider Orthopaedic Surgery; Visit Provider Orthopaedic Surgery
DX: M54.16 Radiculopathy, lumbar region (principal); M48.062 Spinal stenosis, lumbar region with neurogenic claudication
CPT/HCPCS: 72148

== ENCOUNTER → 2021-05-20 09:11 | Outpatient (CLI) | payer MEDICARE, OTHER, SELFPAY ==
[2021-03-10 10:26] VITALS: BMI 33.5
[2021-05-20 10:10] LABS: Cholesterol 171 mg/dL (200); High Density Lipoprotein 42 mg/dL; Triglycerides 47 mg/dL; Very Low Density Lipoprotein 9 mg/dL (5-40)
== END ==
PROVIDERS: PCP Family Medicine; Visit Provider Family Medicine
DX: E66.9 Obesity, unspecified (principal)
CPT/HCPCS: 36415; 80061

== ENCOUNTER → 2021-06-29 10:49 | Outpatient (CLI) | payer MEDICARE, OTHER, SELFPAY ==
[2021-03-10 10:26] VITALS: BMI 33.5
--- NOTE | 2021-06-29 10:50 | BI_ITS ---
MAMMOGRAPHY - BILATERAL SCREENING REASON FOR EXAM: Female, 71 years old. Routine annual screening examination. PERTINENT HISTORY: Non-contributory. TECHNIQUE: Digital bilateral breast ilda (3D mammographic acquisition) in the CC and MLO projections. 2-D mediolateral oblique (MLO) and craniocaudad (CC) views of both breasts were obtained. CAD: Full Field Digital Mammography with Computer Added Detection was performed. COMPARISON: Comparison is made with prior study dated 04/23/2020 and 04/22/2019. FINDINGS: Breast Composition: The breasts are heterogeneously dense, which may obscure small masses. There is a questionable 5.7 mm nodular density in the upper lateral aspect of the right breast. Correlation with ultrasound is recommended. Stable small benign-appearing bilateral axillary nodes. No other significant abnormalities are identified. BI/SCRN MAMM (CAD)W/ILDA BILAT IMPRESSION: Possible 5.7 mm nodular density in the upper lateral aspect of the right breast. Correlation with ultrasound is recommended. ASSESSMENT CATEGORY: BIRADS Category 0: Incomplete. Need additional imaging evaluation. A letter regarding these results will be sent to the patient by the facility within 30 days. Approximately 10% of breast cancers are not detected by mammography. A normal mammogram should not delay biopsy of a clinically suspicious abnormality. [id number] Electronically Signed: John Caceres MD at 12:03 EDT , Service support ,
== END ==
PROVIDERS: PCP Family Medicine; Referring Provider Family Medicine; Visit Provider Family Medicine
DX: Z12.31 Encounter for screening mammogram for malignant neoplasm of breast (principal)
CPT/HCPCS: 77063; 77067

== ENCOUNTER → 2021-07-05 14:05 | Outpatient (CLI) | payer MEDICARE, OTHER, SELFPAY ==
--- NOTE | 2021-07-05 14:09 | US_ITS ---
STUDY: ULTRASOUND BREAST - RIGHT REASON FOR EXAM: Female, 71 years old. Abnormal screening mammogram. TECHNIQUE: Axial and longitudinal images of the RIGHT breast were performed with a high resolution ultrasound transducer. # OF IMAGES: 38 COMPARISON: 06/29/2021 FINDINGS: RIGHT Breast: Heterogeneous background echotexture. At 9 o''clock, 3 cm from nipple, ultrasound confirms a 4 mm oval parallel circumscribed anechoic mass consistent with a small cyst corresponding to the mass seen on mammography.: US/Breast Limited Unilateral IMPRESSION: Ultrasound confirms a 4 mm cyst corresponding mass seen on mammography. ASSESSMENT CATEGORY: BIRADS Category 2: Benign. A letter regarding these results will be sent to the patient by the facility within 30 days. Electronically Signed: Garret Villanueva MD at 15:22 EDT Tel , Service support ,
--- NOTE | 2021-07-05 14:14 | BD_ITS ---
STUDY: DUAL ENERGY X-RAY ABSORPTIOMETRY / DXA REASON FOR EXAM: Female, 71 years old. M85.89. Patient is postmenopausal. TECHNIQUE: Bone Mineral Density (BMD) measurements of lumbar spine and bilateral hips were obtained. COMPARISON: Comparison is made with prior study dated 02/28/2012. FINDINGS: Lumbar Spine (L1-L4): g/cm2 (1.020) / T-score (0.4) / Z-score (2.5) Findings are suggestive of normal bone density with a low fracture risk. Left Femur Total: g/cm2 (0.841) / T-score (-0.8) / Z-score (0.9) Left Femoral Neck: g/cm2 (0.706) / T-score (-1.3) / Z-score (0.7) Right Femur Total: g/cm2 (0.840) / T-score (-0.8) / Z-score (0.8) Right Femoral Neck: g/cm2 (0.718) / T-score (-1.2) / Z-score (0.8) The T-Scores on the most recent prior examination were: Lumbar Spine (L1-L4): There has been worsening of bone density since the previous examination. Left Femur Total: which represents a worsening of 9.9%. Right Femur Total: which represents a worsening of 3.2%. BD/Dexa Bone Density Study IMPRESSION: The patient is considered osteopenic as outlined below according to World Obie Organization (WHO) criteria with a low fracture risk. There has been worsening of bone density since the previous examination. Reference Information: The T-score is the number of standard deviations above or below the standard which is normal for young adults at their peak bone mineral density. The World Health Organization (WHO) interprets the T-scores as follows: Above -1 Normal bone density Between -1 and -2.5 Osteopenia Equal to / or below -2.5 Osteoporosis As a practical clinical guideline, osteopenia may be graded as follows: Mild -1 through -1.5 Moderate -1.6 through -2.0 Severe -2.1 through -2.4 The Z-score is the number of standard deviations above or below age-matched controls. A Z-score of less than -1.5 would be considered abnormal. References: 1. NIH Osteoporosis and Related Bone Diseases www osteo.org 2. International Society for Clinical Densitometry www iscd.org 3. National Osteoporosis Foundation www nof.org Electronically Signed: John Caceres MD at 13:14 EDT , Service support ,
== END ==
PROVIDERS: PCP Family Medicine; Referring Provider Family Medicine; Visit Provider Family Medicine
DX: M85.80 Other specified disorders of bone density and structure, unspecified site (principal); N60.01 Solitary cyst of right breast; Z78.0 Asymptomatic menopausal state
CPT/HCPCS: 76642; 77080

== ENCOUNTER 2021-12-14 09:46 | Outpatient (CLI) | payer MEDICARE, OTHER, SELFPAY ==
--- NOTE | 2021-12-14 09:53 | RAD_ITS ---
STUDY: X-RAY - LEFT SHOULDER REASON FOR EXAM: Female, 71 years old. BILAT SHOULDER PAIN TECHNIQUE: 4 view(s) of the shoulder. COMPARISON: None. FINDINGS: Normal glenohumeral articulation. Normal acromioclavicular joint. Normal acromion. Normal humeral head and visualized proximal humerus. The soft tissue structures are unremarkable. Normal visualized pulmonary apex. RAD/Shoulder min 2 Views IMPRESSION: Normal x-ray examination of the shoulder. Electronically Signed: Garret Villanueva MD at 11:07 EST ,
--- NOTE | 2021-12-14 09:54 | RAD_ITS ---
STUDY: X-RAY - RIGHT SHOULDER REASON FOR EXAM: Female, 71 years old. Bilateral shoulder pain. TECHNIQUE: Lower view(s) of the shoulder. COMPARISON: None. FINDINGS: Osteopenia. Normal glenohumeral articulation. Mild arthrosis of the AC joint. Normal acromion. Normal humeral head and visualized proximal humerus. The soft tissue structures are unremarkable. Normal visualized pulmonary apex. RAD/Shoulder min 2 Views IMPRESSION: Osteopenia with mild arthrosis of the AC joint. No acute abnormality or erosive changes. Electronically Signed: Karl Carrillo MD at 11:23 EST ,
== END 2021-12-14 23:59 | disposition home or self-care (01) ==
LOC: RAD 09:51
PROVIDERS: PCP Family Medicine; Referring Provider Anesthesiology Pain Medicine; Visit Provider Anesthesiology Pain Medicine
DX: M25.511 Pain in right shoulder (principal); M25.512 Pain in left shoulder
CPT/HCPCS: 73030

== ENCOUNTER 2022-01-16 12:50 | Outpatient (CLI) | payer MEDICARE, OTHER, SELFPAY ==
--- NOTE | 2022-01-17 12:29 | EKG12_ITS ---
Test Reason : PREOP Blood Pressure : / mmHG Vent. Rate : 075 BPM Atrial Rate : 075 BPM P-R Int : 144 ms QRS Dur : 084 ms QT Int : 362 ms P-R-T Axes : 044 054 048 degrees QTc Int : 404 ms Normal sinus rhythm Normal ECG Confirmed by PASCUAL LOCKETT, TEDDY ([id number]), assistant editor KENDRA HURD ([id number]) on 01/19/2022 10:08:28 AM Referred By: Shawn ROSADO Confirmed By:TEDDY GARNER MD
[2022-01-17 13:18] LABS: Absolute Lymphocyte Count 1.88 X10^3/uL (0.83-4.51); Absolute Neutrophil Count 5.5 X10^3/uL (2.0-7.7); Basophil# 0.07 X10^3/uL; Basophil% 0.9 % (0-1); Eosinophil# 0.13 X10^3/uL; Eosinophils% 1.6 % (0-5); Hematocrit 41.6 % (37-47); Hemoglobin 13.6 g/dL (12.0-15.0); Lymphocyte # 1.88 X10^3/ul (0.83-4.51); Mean Corp Hgb Conc 32.7 g/dL (32-36); Mean Corpuscular Hgb 29.8 pg (27.0-32.0); Mean Platelet Vol. 10.6 fl (6.2-12.0); Monocyte# 0.57 X10^3/uL; NRBC Flagged by Analyzer 0 % (0-5); Neutrophil # 5.49 X10^3/uL (2.7-7.7); Neutrophil % 67.3 % (47-70); Platelet Count 299 K/mm3 (150-450); RBC Distribution Width CV 13.1 % (11.6-14.6); RBC Distribution Width SD 43.6 fl (35.1-43.9); Red Blood Count 4.57 M/mm3 (4.2-5.4); White Blood Count 8.2 K/mm3 (4.4-11.0)
[2022-01-17 13:37] LABS: Magnesium 2.1 mg/dL (1.6-2.6)
[2022-01-17 13:49] LABS: Anion Gap 5 (5-15); BUN 23 mg/dL (7-18); BUN/Creat Ratio 25.1 RATIO (10-20); Calcium,Total 9.5 mg/dL (8.5-10.1); Chloride 109 mmol/L (98-107); Creatinine, Serum 0.92 mg/dL (0.55-1.02); EST Glomerular Filtration Rate 64 mL/min (>60); Est Glom Filt Rate - Afr Amer 77 mL/min (>60); Glucose 96 mg/dL (74-106); Potassium 4.1 mmol/L (3.5-5.1); Sodium Level 139 mmol/L (136-145)
[2022-01-17 14:28] LABS: HIV - WCH Non-Reactive (Nonreactive); Hepatitis B Surface Antibody Non-Reactive; Hepatitis C Antibody Non-Reactive (Nonreactive)
[2022-01-19 08:24] LABS: Hepatitis A AB, Total Positive (Negative)
== END 2022-01-16 23:59 | disposition home or self-care (01) ==
LOC: PAT 02-14 12:51
PROVIDERS: Anesthesiology; PCP Family Medicine; Visit Provider Orthopaedic Surgery
DX: Z01.818 Encounter for other preprocedural examination (principal); Z01.810 Encounter for preprocedural cardiovascular examination; Z01.812 Encounter for preprocedural laboratory examination
CPT/HCPCS: 36415; 80048; 83735; 85025; 86703; 86706; 86708; 86803; 87081; 93005

== ENCOUNTER 2022-01-23 08:53 | Outpatient (CLI) | payer MEDICARE, OTHER, SELFPAY ==
--- NOTE | 2022-01-23 08:54 | ECHOD_ITS ---
Version 2 Reason For Study: MURMUR Procedure This was a 2D Doppler, Color Flow transthoracic echocardiogram. Exam performed in department. Left Ventricle Normal LV size. Mild concentric left ventricular hypertrophy. Left ventricular systolic function is normal. The estimated ejection fraction is 65 %. Stage 1 diastolic dysfunction. No regional wall motion abnormalities noted. Right Ventricle Normal RV size. Normal systolic function. Atria Normal left atrium. Normal right atrium. Mitral Valve There is moderate mitral annular calcification. Mild (1+) mitral valve insufficiency. Tricuspid Valve Normal tricuspid valve. Mild (1+) tricuspid valve insufficiency. Pulmonary artery systolic pressure is 37 mmHg. Aortic Valve Trisinus/trileaflet aortic valve. Mild focal aortic valve calcification. Peak aortic valve gradient 62 mmHg. Mean aortic valve gradient 39 mmHg. Severe aortic stenosis. Mild (1+) aortic valve insufficiency. Great Vessels Normal aortic root. The pulmonary artery is normal size. Normal inferior vena cava. Pericardium/Pleural No pericardial effusion. MMode/2D Measurements & Calculations LVIDd: 3.6 cm IVSd: 1.2 cm LVOT diam: 2.0 cm LVIDs: 2.3 cm LVPWd: 1.2 cm LVOT area: 3.1 cm2 RVDd: 3.2 cm FS: 36.0 % Ao root diam: 3.1 cm LAV(MOD-bp): 31.0 ml LVAd ap4: 22.3 cm2 LAV(MOD-bp) Indexed: 15.7 ml/m2 LVLd ap4: 6.4 cm LAV(MOD-sp2): 31.8 ml EDV(MOD-sp4): 65.0 ml LAV(MOD-sp4): 30.8 ml EDV(sp4-el): 66.0 ml LVAs ap4: 11.3 cm2 LVLs ap4: 5.5 cm ESV(MOD-sp4): 19.0 ml ESV(sp4-el): 19.5 ml EF(MOD-sp4): 70.8 % EF(sp4-el): 70.5 % SV(MOD-sp4): 46.0 ml SV(sp4-el): 46.5 ml LA A4 area: 14.0 cm2 LA dimension(2D): 3.3 cm RA A4 area: 10.3 cm2 Time Measurements MV dec time: 0.39 sec Doppler Measurements & Calculations MV E max valdemar: 96.5 cm/sec Lat Peak E' Valdemar: 8.0 cm/sec Med Peak E' Valdemar: 9.1 cm/sec MV A max valdemar: 141.2 cm/sec E/E' lat: 12.1 E/E' med: 10.7 MV E/A: 0.68 Ao V2 max: 394.3 cm/sec AI max valdemar: 326.6 cm/sec LV V1 max: 125.1 cm/sec Ao max P.2 mmHg AI max P.7 mmHg LV V1 max P.3 mmHg Ao V2 mean: 300.0 cm/sec LV V1 mean P.3 mmHg Ao mean P.9 mmHg AI dec slope: 223.7 cm/sec2 LV V1 mean: 85.0 cm/sec Ao V2 VTI: 85.6 cm AI P1/2t: 427.6 msec LV V1 VTI: 28.7 cm JONAH(I,D): 1.0 cm2 JONAH(V,D): 0.99 cm2 SV(LVOT): 89.4 ml PA V2 max: 147.8 cm/sec TR max valdemar: 286.6 cm/sec TR max P.9 mmHg MV P1/2t-pr_phl: 106.2 msec ECHO/Echo Complete Interpretation Summary Normal LV size. Mild concentric left ventricular hypertrophy. Left ventricular systolic function is normal. The estimated ejection fraction is 65 %. Stage 1 diastolic dysfunction. Peak aortic valve gradient 62 mmHg. Mean aortic valve gradient 39 mmHg. Pulmonary artery systolic pressure is 37 mmHg. Mild focal aortic valve calcification. Severe aortic stenosis. The aortic stenosis is worse. Ordering Physician: Ryan Moore Referring Physician: TEDDY SIMON Performed By: Ruth Coronado RDCS
== END 2022-01-23 23:59 | disposition home or self-care (01) ==
LOC: CVS 08:53
PROVIDERS: PCP Family Medicine; Referring Provider Internal Medicine Cardiovascular Disease; Visit Provider Internal Medicine Cardiovascular Disease
DX: I35.0 Nonrheumatic aortic (valve) stenosis (principal); R01.1 Cardiac murmur, unspecified
CPT/HCPCS: 93306

== ENCOUNTER → 2022-03-28 | Outpatient (CLI) | payer MEDICARE, OTHER, SELFPAY ==
[2022-03-28 12:25] LABS: Hemoglobin 12.6 g/dL (12.0-15.0); Mean Corp Hgb Conc 31.5 g/dL (32-36); Mean Corpuscular Hgb 29.1 pg (27.0-32.0); Mean Corpuscular Volume 92.4 fL (81-99); Platelet Count 218 K/mm3 (150-450); RBC Distribution Width CV 13.1 % (11.6-14.6); RBC Distribution Width SD 44.3 fl (35.1-43.9); Red Blood Count 4.33 M/mm3 (4.2-5.4); White Blood Count 7.1 K/mm3 (4.4-11.0)
[2022-03-28 12:52] LABS: Anion Gap 5 (5-15); BUN 20 mg/dL (7-18); BUN/Creat Ratio 24.2 RATIO (10-20); Calcium,Total 9.1 mg/dL (8.5-10.1); Chloride 111 mmol/L (98-107); Creatinine, Serum 0.83 mg/dL (0.55-1.02); EST Glomerular Filtration Rate 72 mL/min (>60); Est Glom Filt Rate - Afr Amer 87 mL/min (>60); Glucose 117 mg/dL (74-106); Sodium Level 140 mmol/L (136-145)
== END | disposition home or self-care (01) ==
LOC: LAB 11:29
PROVIDERS: PCP Family Medicine; Visit Provider Family Medicine
DX: I35.0 Nonrheumatic aortic (valve) stenosis (principal)
CPT/HCPCS: 36415; 80048; 85027

== ENCOUNTER → 2022-04-05 | Outpatient (CLI) | payer MEDICARE, OTHER, SELFPAY ==
--- NOTE | 2022-04-05 12:00 | ECHOD_ITS ---
Reason For Study: Valve Replacement Eval Procedure This was a 2D Doppler, Color Flow transthoracic echocardiogram. The study was technically difficult. Exam performed in department. Left Ventricle Normal LV size. Mild concentric left ventricular hypertrophy. Left ventricular systolic function is normal. Stage 1 diastolic dysfunction. No regional wall motion abnormalities noted. Right Ventricle Normal RV size. Normal systolic function. Atria Normal left atrium. Normal right atrium. Mitral Valve Normal mitral valve. Tricuspid Valve Normal tricuspid valve. Mild tricuspid valve insufficiency. Pulmonary artery systolic pressure is 30 mmHg. Aortic Valve Peak aortic valve gradient 24 mmHg. Mean aortic valve gradient 13 mmHg. Mild aortic stenosis. Bioprosthetic aortic valve. Pulmonic Valve Normal pulmonic valve. Great Vessels Normal aortic root. Pericardium/Pleural No pericardial effusion. MMode/2D Measurements & Calculations LVIDd: 4.0 cm IVSd: 1.3 cm LVOT diam: 1.9 cm LVIDs: 2.6 cm LVPWd: 1.4 cm LVOT area: 3.0 cm2 RVDd: 3.5 cm FS: 34.2 % Ao root diam: 3.2 cm LAV(MOD-bp): 49.6 ml LA A4 area: 16.9 cm2 LA dimension: 3.6 cm LAV(MOD-bp) Indexed: 25.2 ml/m2 LAV(MOD-sp2): 56.0 ml LAV(MOD-sp4): 42.9 ml RA A4 area: 13.3 cm2 Time Measurements MV dec time: 0.29 sec Doppler Measurements & Calculations MV E max valdemar: 124.2 cm/sec Lat Peak E' Valdemar: 5.3 cm/sec Med Peak E' Valdemar: 6.2 cm/sec MV A max valdemar: 157.6 cm/sec E/E' lat: 23.5 E/E' med: 20.0 MV E/A: 0.79 MV V2 max: 164.7 cm/sec MV P1/2t max valdemar: 136.8 cm/sec Ao V2 max: 244.4 cm/sec MV max P.8 mmHg MV P1/2t: 106.8 msec Ao max P.9 mmHg MV V2 mean: 91.6 cm/sec MV dec slope: 375.1 cm/sec2 Ao V2 mean: 166.2 cm/sec MV mean P.9 mmHg Ao mean P.6 mmHg MV V2 VTI: 46.4 cm MVA(P1/2t): 2.1 cm2 Ao V2 VTI: 53.8 cm MVA(VTI): 2.2 cm2 JONAH(I,D): 1.9 cm2 JONAH(V,D): 1.7 cm2 LV V1 max: 144.4 cm/sec MR max valdemar: 601.4 cm/sec SV(LVOT): 102.8 ml LV V1 max P.3 mmHg MR max P.7 mmHg LV V1 mean P.8 mmHg LV V1 mean: 102.6 cm/sec LV V1 VTI: 34.8 cm PA V2 max: 97.3 cm/sec TR max valdemar: 258.3 cm/sec TR max P.7 mmHg ECHO/Echo Complete Interpretation Summary Normal LV size. Left ventricular systolic function is normal. Stage 1 diastolic dysfunction. Mean aortic valve gradient 13 mmHg. Mild aortic stenosis. Bioprosthetic aortic valve. Mild concentric left ventricular hypertrophy. The aortic valve is new. Ordering Physician: Ryan Moore Referring Physician: Jovon Deras Performed By: Vahe Friend RCS
== END | disposition home or self-care (01) ==
LOC: CVS 11:57
PROVIDERS: PCP Family Medicine; Visit Provider Internal Medicine Cardiovascular Disease
DX: I35.0 Nonrheumatic aortic (valve) stenosis (principal)
CPT/HCPCS: 93306

== ENCOUNTER 2022-04-25 12:20 | Inpatient (IN) | payer MEDICARE, OTHER, SELFPAY ==
[2022-04-13 11:55] LABS: Absolute Lymphocyte Count 1.88 X10^3/uL (0.83-4.51); Absolute Neutrophil Count 4.8 X10^3/uL (2.0-7.7); Basophil# 0.08 X10^3/uL; Eosinophil# 0.21 X10^3/uL; Eosinophils% 2.7 % (0-5); Hematocrit 40.3 % (37-47); Hemoglobin 12.7 g/dL (12.0-15.0); Lymphocyte # 1.88 X10^3/ul (0.83-4.51); Lymphocyte % 24.4 % (19-41); Mean Corp Hgb Conc 31.5 g/dL (32-36); Mean Platelet Vol. 10.9 fl (6.2-12.0); Monocyte# 0.71 X10^3/uL; Monocyte% 9.2 % (0-10); NRBC Flagged by Analyzer 0 % (0-5); Neutrophil # 4.79 X10^3/uL (2.7-7.7); Neutrophil % 62.3 % (47-70); Platelet Count 256 K/mm3 (150-450); RBC Distribution Width SD 43.7 fl (35.1-43.9); Red Blood Count 4.38 M/mm3 (4.2-5.4); White Blood Count 7.7 K/mm3 (4.4-11.0)
[2022-04-13 12:16] LABS: Magnesium 2.3 mg/dL (1.6-2.6)
--- NOTE | 2022-04-24 14:28 | HP.PCM_ITS ---
History and Physical [facility] [place] [address] OFFICE VISIT Date of Service:? 04/17/22 MR#: [id number] Acct: [id number] Name:RYAN BUSTILLO Rep #: [id number] : 1950 ? ? Provider: Dr. Edmond Merino, DO Age/Sex:? 71/F ? ? Location: [facility] Status: Signed Intake Intake Visit Reasons:?lumbar spine Is patient in pain?: Yes Allergies latex Allergy (Verified 04/17/22 08:34) Rashadhesive tape Adverse Reaction (Verified 04/17/22 08:34) Rashduloxetine [From Cymbalta] Adverse Reaction (Verified 04/17/22 08:34) loopy Medications escitalopram oxalate 5 mg PO DAILY 03/08/17 [History Confirmed 04/17/22] cinnamon bark 500 mg capsule 500 mg PO DAILY 07/13/20 [History Confirmed 04/17/22] cholecalciferol (vitamin D3) 50 mcg (2,000 unit) capsule 50 mcg PO DAILY 07/14/20 [History Confirmed 04/17/22] aspirin 81 mg tablet,delayed release 81 mg PO DAILY 01/12/21 [History Confirmed 04/17/22] vitamin B complex 1 tab PO DAILY 01/12/21 [History Confirmed 04/17/22] gabapentin 300 mg capsule 300 mg PO QHS 02/16/21 [History Confirmed 04/17/22] clopidogrel 75 mg PO DAILY 04/11/22 [History Confirmed 04/17/22] PFSH Medical History? Anxiety and depression Arthritis Back pain Cardiology follow-up encounter DDD (degenerative disc disease), lumbar Diaphoresis GERD (gastroesophageal reflux disease) History of echocardiogram History of steroid therapy History of transcatheter aortic valve replacement (TAVR) (02/27/22) History of trigger finger Leg cramps Non-smoker Nonrheumatic aortic (valve) stenosis Obesity Osteoarthritis Post-menopausal Segmental and somatic dysfunction of cervical region Segmental and somatic dysfunction of lumbar region Segmental and somatic dysfunction of pelvic region Segmental and somatic dysfunction of thoracic region Urethral caruncle Varicose veins of both lower extremities Wears hearing aid Surgical History? History of bladder suspension procedure History of knee replacement procedure of left knee History of knee replacement procedure of right knee History of left heart catheterization (01/13/21) History of surgery Hx of dilation and curettage Hx of hysterectomy Family History? Father?? ,? age 80 CAD (coronary artery disease),? Onset Age: 62 Myocardial infarction,? Onset Age: 62Mother?? CAD (coronary artery disease),? Onset Age: 68 ?? ? CABG DiabetesBrother Diabetes CAD (coronary artery disease) Heart disease ?? ? Valve replacement/ CABG/ CEABrother Diabetes Heart disease ?? ? PacemakerBrother Heart disease ?? ? Valve Replacement Social History? Smoking Status:? Never smoker alcohol intake:? never HPI lumbar spine Details: Parts of this documentation were recorded by a scribe, this documentation accurately reflects the service provided and the decisions made by me, Dr. Edmond Merino, DO 04/17/22 [id number]. RYAN WEBSTER is a 71 year old F here today for her preop appointment for her lumbar spine. She states that she continues to have low back pain and denies any changes in her symptoms. She denies any changes in her medications. Mrs. Webster is here for her preop prior to her surgery in 8 days.? She is scheduled for decompression laminectomies at L4-5 L3-4 and L2-3.? She has been cleared for surgery by cardiology.? We discussed the surgery how it would be done what to expect postoperatively etc. she is in the company of her today.? I answered all her questions.? We also spoke of possible risks and complications associated with the surgery including possibility of , coma, paralysis, dural leak, infection, blood clot in the legs, blood clot in the lungs, myocardial infarction, among others.? I will see her again at surgery in 8 days. Coding Level of Care Code Off vis,est,level 2 Diagnoses Spinal stenosis of lumbar region at multiple levels? M48.061 Time Spent (min) 20 Assessment and Plan
[2022-04-25] VITALS (17 sets, daily range): BP systolic 110–151; BP diastolic 49–66; PULSE 58–99; RESP 10–188; TEMP 36.3–36.8; O2SAT 96–100; BMI 36.1; BMI 36.5
[2022-04-25 06:06] LABS: Bedside Glucose 107 mg/dL (74-106)
[2022-04-25] MEDS: Acetaminophen 500 MG Tablet 1000 MG PO ×3 (06:22→20:43)
[2022-04-25] MEDS: Lactated Ringers 1,000 ML 15 ML IV ×4 (06:40→14:24)
--- NOTE | 2022-04-25 07:00 | RAD_ITS ---
STUDY: X-RAY - LUMBAR SPINE REASON FOR EXAM: Female, 71 years old. LAMINECTOMY L4-5 TECHNIQUE: 1 view(s) of the lumbar spine were obtained. COMPARISON: None FINDINGS: A single lateral radiograph of lumbar spine was obtained in operating room during lumbar spine surgery.. RAD/Spine 1 View Any Level IMPRESSION: Lumbar spine surgery. Electronically Signed: Garret Villanueva MD at 9:36 EDT ,
[2022-04-25] MEDS: Cefazolin 2 GM in 0.9% Normal Saline 100 ML IV (08:15)
[2022-04-25] MEDS: Heparin 10,000 UNITS/10 ML Vial 10000 UNITS (08:42)
[2022-04-25] MEDS: THROMBIN (RECOMBINANT) 20,000 UNIT VIAL 20000 UNIT TOPICAL (08:42)
[2022-04-25] MEDS: Thrombin 5,000 IU Kit (PSA) 5,000 IU Vial 5000 IU TOPICAL (11:18)
--- NOTE | 2022-04-25 12:30 | PCM.OPRPT ---
Report of Operation Description of Surgical Findings:: Preoperative diagnosis: Severe spinal stenosis L4-5, L3-4, and L2-3 Postoperative diagnosis: The same Procedures: #1 laminectomy decompression L4-5 CPT code 78408 #2 laminectomy decompression L3-4 CPT code 84008/51 #3 laminectomy decompression L2-3 CPT code 21205/51 Surgeon: Dr. Merino field administrative assistant: Holly ANNE Second Drone Operator: Sarah Shah NP Anesthesia: General endotracheal anesthesia administered by [facility] EBL: 300 cc with 125 cc given back via the Cell Saver for a net loss of 175 cc Drains: None Complications: Dural tear Procedure: Patient was taken to the OR where she was placed under general endotracheal anesthesia while still on her gurney. A Erazo catheter was inserted. Neuro monitoring placed their leads on the patient. He was then placed in the prone position on the Leon frame. After appropriate positioning with care to protect her bony prominences her breasts her brachial plexus bilaterally her ulnar nerves in her neck and facial features the back was prepped and draped in standard fashion. I made a longitudinal incision centered over L4-5 and L3-4. Subcutaneous were opened the size of the length of the skin incision. Then opened the lumbar fascia to the left of the spinous processes and elevated the paravertebral muscles off the lamina of 4 and the spinous process of 4 on the left. We then put a marker in place and an intraoperative x-ray was taken. This confirmed that we were indeed at the L4-5 level. This was then marked. I extended the incision on the skin to make sure I could get to the L2 and L3 spinous processes. We then elevated the paravertebral muscles off the lamina of 3 on the lamina of 2 also. Out over the facets. This was also done on the right side in the same fashion elevating the paravertebral muscles off the lamina for 3 and 2 and out over the facets. The self-retaining super slide retractors were then put in place. Removed extra soft tissue here and there, cauterizing it. Bleeding was at times a bit brisk but we were able to continue holding hemostasis. We started the procedure with the bone scalpel by release of the ligamentum flavum off the top of the L5 lamina and then cut the interspinous ligament between the spinous process of 4 and spinous process of L5. We then used the bone scalpel to cut the lamina of L4 for starters. We did this on the opposite side also. However we were having a hard time releasing the bone and the decision was made at that time to proceed in the standard fashion and use double-action rongeurs to remove the spinous process of L4. Identified the midline and the ligamentum flavum I released the ligamentum flavum off the underside of the lamina of L4 and began the laminotomy with 45 degree Kerrison rongeurs both 3 mm and 4 mm this was a slow process but we were able to make a laminotomy large enough and then remove the ligamentum flavum flavum in retrograde fashion with a 45 degree Kerrison rongeurs I went all the way out lateral and open the lateral recesses on both sides the left side was finished later when I went to the other side of the OR bed. Then removed the spinous process of L3 in the same fashion with double-action rongeurs I released the ligamentum flavum off the underside of the lamina for and the laminotomy was carried out. The decompression almost completed when during one of the bites of the ligamentum flavum the dura tore open and we were able to actually see several little nerve rootlets. We packed it with a cottonoid in order to finish the decompression at this level pushing the rootlets down I was able to finish opening the lateral recess on both sides. Then The cottonoid in place and put another cottonoid over the top of that which held it quite well. I then removed the spinous process of L2 with double-action rongeurs and again the ligamentum flavum was released off the underside of the lamina of L2 and the laminotomy carried out with 45 degree Kerrison rongeurs both 3 and 4 mm. The ligamentum flavum was then removed using it split in the middle to began removing it with 45 degree Kerrison rongeurs all the way out to the lateral side on the right. We also somewhat opened it on the left however at this point I then moved to the opposite this side of the table and finished the decompression at at L4-5 and at L2-3. Note that the L3-4 had already been completed. We thoroughly irrigated with copious amounts of sterile saline we used Neotic membranes over the laminotomy of L4-5 and L2-3. Noted we thoroughly irrigated continually in the course of the case quite often. This is to prevent infection. Then finally remove the cottonoids off of the nerve rootlets in fact this with neurogenic. I put the 2 different layers of the DuraGen over this completely stopped the leak. Once this was done then I placed a layer of sealed directly over it to further protect the leak. He had a completely dry field at the end because of the dural leak the decision was made not to put a drain in the patient. This basically would serve as a large blood patch. Then approximated the paravertebral muscles themselves with a running stitch using #1 Vicryl. I then approximated the lumbar fascia with [id number] suture using #1 Vicryl the subcutaneous tissues were then approximated using in layers with 0 Vicryl and 2-0 Vicryl and finally the skin was approximated using skin clips. Sterile dressing was then applied. The patient was then recovered in the OR she was moved to her hospital bed in flat position and taken to recovery in satisfactory condition. The end of operative summary on Saumya Webster. This is Dr. Merino dictating.
[2022-04-25] MEDS: Lactated Ringers 1,000 ML 100 ML IV (14:57)
[2022-04-25] MEDS: oxyCODONE 5 MG Tablet PO ×2 (15:49→20:43)
[2022-04-25] MEDS: Cefazolin 1 GM/50 ML BAG IV ×2 (15:49→22:52)
[2022-04-25] MEDS: Ensure Surgery 237 ML LIQUID PO (15:50)
--- NOTE | 2022-04-25 17:15 | PN.HOSP_ITS ---
Subjective Subjective Patient was seen and examined today at the request of orthopedic surgery, she underwent a laminectomy with decompression from L2-L5. Patient had a dural tear and will be at bedrest until this Sunday. Chronic medical problems include degenerative disc disease of the lumbar spine, osteoarthritis, and an aortic valve replacement in February 2022 with a TAVR. At the time my examination, patient denies any shortness of breath or chest discomfort. Objective Data Objective Data Vital Signs: Vital Signs Temp Pulse Resp BP Pulse Ox FiO2 97.8 F 86 16 110/52 L 97 34 04/25/22 14:51 04/25/22 15:59 04/25/22 14:51 04/25/22 14:51 04/25/22 14:51 04/25/22 13:30 Oxygen Flow Rate (L/min) 4 Oxygen Delivery Method Room Air Weight: 95 kg Body Mass Index (BMI) 36.5 Intake & Output: Intake and Output for Last 24 Hours 04/23/22 04/24/22 04/25/22 23:59 23:59 23:59 Intake Total 3262 / 3262 Output Total 400 / 400 Balance 2862 / 2862 Lab / Micro Data Result Diagrams: 04/13/22 11:16 Labs: Laboratory Results - last 24 hr 04/25/22 06:03: POC Glucose 107 H Micro: Microbiology 04/13/22 11:16 Swab (Method) Nasal Screen MRSA/MSSA - Final Radiography Diagnostic Testing: Radiology Impression Spine X-Ray 04/25/22 07:00 IMPRESSION: Lumbar spine surgery. Electronically Signed: Garret Villanueva MD at 9:36 EDT , Rhythm Strip Rhythm Strip: Sinus Tach Physical Exam Const alert, oriented x3, no apparent distress and healthy appearing General Appearance: cooperative, well kempt and well developed Orientation / Consciousness: awake, oriented to person, oriented to place and oriented to time HEENT normocephalic, head/scalp atraumatic and moist oral mucous membranes Eyes PERRL, EOMs intact bilaterally and conjunctivae normal Neck nuchal rigidity, supple, no JVD, thyroid normal and no carotid bruits General: trachea midline Resp normal respiratory effort and clear to auscultation bilaterally Auscultation: Negative for rales, rhonchi or wheezes Cardio regular rate, regular rhythm, S1 normal heart sound, S2 normal heart sound, no rub and no gallops Cardio Narrative: Patient is a 2/6 systolic murmur noted at the apex GI normal to inspection, nondistended, normoactive bowel sounds, soft to palpation, non-tender and non-distended Extremity no clubbing, cyanosis or edema Skin no rashes or lesions noted General Skin Exam: no breakdown Neuro oriented x3, CN's II-XII intact bilaterally, no focal motor deficits and no sensory deficits noted Sensorium / Orientation: awake and alert Speech: speech normal Psych affect normal Assessment & Plan Assessment/Plan (1) Spinal stenosis of lumbar region at multiple levels: PLAN: Plan 1. Valvular heart disease of the aortic valve-status post TAVR February 2022- patient appears stable at this time, continue present medication except Plavix #2 degenerative disc disease of the lumbar spine-patient is on no medication for this at this time #3 spinal stenosis-status post laminectomy lumbar spine-orthopedic surgery is participating in her care, PT and OT will see the patient but she is currently at bedrest due to a dural tear. #4 osteoarthritis-complicates care, recovery, and prognosis Charges/Coding Visit Charges Inpatient E&M: 17331 Subs Hosp L2
[2022-04-25] MEDS: Gabapentin 300 MG Capsule PO (20:43)
[2022-04-26 02:51] VITALS: BMI 36.5
[2022-04-26 03:10] VITALS: BP 124/55; PULSE 86; RESP 18; TEMP 36.6; O2SAT 94
[2022-04-26] MEDS: Acetaminophen 500 MG Tablet 1000 MG PO ×3 (05:25→20:52)
[2022-04-26 06:51] VITALS: BMI 36.5
[2022-04-26 09:15] VITALS: BP 125/52; PULSE 81; RESP 18; TEMP 37.6; O2SAT 95
[2022-04-26] MEDS: Ensure Surgery 237 ML LIQUID PO ×2 (09:25→13:25)
--- NOTE | 2022-04-26 09:34 | PCM.PN.ORT ---
Objective Data Objective Data Postop day #1. Mrs. Webster is resting comfortably in her bed. She knows that she will stay flat on her back except to eat until Sunday at which time we will get her up. Neuro is completely intact she has excellent strength of the peroneals the EHL and anterior tib on both sides. She states that her leg pain is already better. She had leg pain even lying down before surgery and this just about all gone. She has little off and on numbness in the right foot. In my absence starting tomorrow my PA Holly Jarrett will round on the patient. Meg will get her up on Sunday. If she is doing well Sunday she may go home and if not certainly by Sunday if all goes well. Very pleased with her progress at this point. This is Dr. Merino dictating. Vital Signs: Vital Signs Temp Pulse Resp BP Pulse Ox FiO2 99.7 F H 81 18 125/52 H 95 34 04/26/22 09:15 04/26/22 09:15 04/26/22 09:15 04/26/22 09:15 04/26/22 09:15 04/25/22 13:30 Oxygen Flow Rate (L/min) 4 Oxygen Delivery Method Room Air Weight: 209 lb 7.026 oz Body Mass Index (BMI) 36.5 Intake & Output: Intake and Output for Last 24 Hours 04/24/22 04/25/22 04/26/22 23:59 23:59 23:59 Intake Total 4843.25 / 4843.25 Output Total 1600 / 1600 1300 / 1300 Balance 3243.25 / 3243.25 -1300 / -1300 Lab / Micro Data Result Diagrams: 04/13/22 11:16 Micro: Microbiology 04/13/22 11:16 Swab (Method) Nasal Screen MRSA/MSSA - Final Radiography Diagnostic Testing: Radiology Impression Spine X-Ray 04/25/22 07:00 IMPRESSION: Lumbar spine surgery. Electronically Signed: Garret Villanueva MD at 9:36 EDT , Rhythm Strip Rhythm Strip: Sinus Tach
[2022-04-26 10:00] VITALS: O2SAT 96
[2022-04-26] MEDS: oxyCODONE 5 MG Tablet PO (10:21)
--- NOTE | 2022-04-26 10:35 | CASEMGMT ---
MARIBELL ANN Assessment: Face to Face with pt for initial transition planning/care coordination assessment. RN MARISSA introduced self and role at [facility], pt voices understanding and consents to assessment. Pt is A/O x4 and answers all questions appropriately at this time. Pt lying in bed in no distress. Care providers, pharmacy, and demographics verified/updated. Admitting Dx: lumbar laminectomy decompression L4-5 PCP:[place] Specialists:Wilber, spine surgeon; Oscar, cardio; Belén, cardiac surgeon [facility]erred Pharmacy: [facility] [employer] Prescription Benefit: yes LW/HPOA: Pt states she has a LW/DPOA and her DPOA is her Paulo Webster. She is aware this is not on file at [facility] and she may bring in to be scanned into the chart. LNOK: Paulo Webster, Living Arrangements: Pt lives with in a single story house with 2 steps to enter with a rail. Pt reports she is normally I in ADL's and denies concerns at home. Transportation: Pt drives self typically. She states her is able to transport her until she can drive again. DME/HHC/SNF: Pt has a grab bar in the bathtub, shower chair and a cane and walker at home. She does not normally use AD. Pt denies hx of HHC or SNF stays. Pt states no concerns with going home at time of dc. Pt states no further concerns/needs. CM to follow. Advised pt to ask CM if any further question/concerns/needs arise, voices understanding. Pt Goal: Home Plan: Home
[2022-04-26 10:51] VITALS: BMI 36.5
--- NOTE | 2022-04-26 11:36 | CHAPLAIN ---
Type of Pastoral Visit _x__ Initial Visit ___ Follow-up Visit ___ On-call Visit ___ General Patient Visit ___ Spiritual Assessment ___ Family Conference ___ Bereavement ___ Rapid Response ___ Code Blue ___ Other (describe below) Pastoral Care Referral From _x__ Patient ___ Family ___ Nurse ___ Physician ___ Title Examiner ___ Community Health Nurse ___ Other (describe below) Sacrament/Intervention _x__ Active listening ___ Anointing ___ Faith ___ Bereavement ___ Communion ___ Dacia exploration ___ ___ Life review _x__ Prayer ___ Reconciliation ___ Sacrament of Sick _x__ Supportive presence ___ Wedding ___ Other (describe below) Pastoral Comments 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
[2022-04-26] MEDS: diazePAM 5 MG Tablet PO (12:18)
[2022-04-26] MEDS: Morphine 2 MG/ML Syringe IV (13:21)
[2022-04-26] MEDS: 0.9% Saline Lock 10 ML Syringe IV ×2 (13:21→16:20)
--- NOTE | 2022-04-26 13:30 | NURSING ---
Page out to Dr. Merino
[2022-04-26 14:00] VITALS: BP 128/64; PULSE 80; RESP 18; TEMP 37; O2SAT 97
--- NOTE | 2022-04-26 14:14 | NURSING ---
Page out to Dr. Merino.
[2022-04-26 14:17] VITALS: BMI 36.5
[2022-04-26] MEDS: Morphine 4 MG/ML Syringe IV (16:20)
[2022-04-26 17:49] VITALS: BP 164/50; PULSE 91; RESP 18; TEMP 38.2; O2SAT 98
[2022-04-26 18:37] LABS: Absolute Lymphocyte Count 1.39 X10^3/uL (0.83-4.51); Absolute Neutrophil Count 11.5 X10^3/uL (2.0-7.7); Basophil# 0.07 X10^3/uL; Basophil% 0.5 % (0-1); Eosinophil# 0.08 X10^3/uL; Eosinophils% 0.6 % (0-5); Hematocrit 33.8 % (37-47); Hemoglobin 11.1 g/dL (12.0-15.0); Lymphocyte # 1.39 X10^3/ul (0.83-4.51); Lymphocyte % 9.6 % (19-41); Mean Corp Hgb Conc 32.8 g/dL (32-36); Mean Corpuscular Hgb 29.4 pg (27.0-32.0); Mean Corpuscular Volume 89.4 fL (81-99); Mean Platelet Vol. 10.7 fl (6.2-12.0); Monocyte# 1.38 X10^3/uL; Monocyte% 9.6 % (0-10); NRBC Flagged by Analyzer 0 % (0-5); Neutrophil # 11.47 X10^3/uL (2.7-7.7); Neutrophil % 79.3 % (47-70); Platelet Count 186 K/mm3 (150-450); RBC Distribution Width CV 13.3 % (11.6-14.6); RBC Distribution Width SD 43.7 fl (35.1-43.9); Red Blood Count 3.78 M/mm3 (4.2-5.4); White Blood Count 14.5 K/mm3 (4.4-11.0)
[2022-04-26 18:51] VITALS: BMI 36.5
--- NOTE | 2022-04-26 18:57 | PCM.PN.HOSP ---
Subjective Subjective She was seen and examined today, she has no complaints of any fevers or chills. This afternoon patient ran a temperature of 100.7, I obtained a CBC which showed a white blood cell count of 14.5. I have ordered a CBC for tomorrow morning. I talked with the patient's TAVR surgeon today by phone, he states that the patient can remain off of Plavix, he prefers her to go home on a baby aspirin a day if possible however. Patient states she has some back spasms today which were treated with Valium and morphine. Objective Data Objective Data Vital Signs: Vital Signs Temp Pulse Resp BP Pulse Ox FiO2 100.7 F H 91 18 164/50 H 98 34 04/26/22 17:49 04/26/22 17:49 04/26/22 17:49 04/26/22 17:49 04/26/22 17:49 04/25/22 13:30 Oxygen Flow Rate (L/min) 4 Oxygen Delivery Method Room Air Weight: 95 kg Body Mass Index (BMI) 36.5 Intake & Output: Intake and Output for Last 24 Hours 04/24/22 04/25/22 04/26/22 23:59 23:59 23:59 Intake Total 4843.25 / 4843.25 450 / 450 Output Total 1600 / 1600 1300 / 1300 Balance 3243.25 / 3243.25 -850 / -850 Lab / Micro Data Result Diagrams: 04/26/22 18:20 Labs: Laboratory Results - last 24 hr 04/26/22 18:20: WBC 14.5 H, RBC 3.78 L, Hgb 11.1 L, Hct 33.8 L, MCV 89.4, MCH 29.4, MCHC 32.8, RDW Std Deviation 43.7, RDW Coeff of Jenaro 13.3, Plt Count 186, MPV 10.7, Immature Gran % (Auto) 0.400, Neut % (Auto) 79.3 H, Lymph % (Auto) 9.6 L, [place] % (Auto) 9.6, Eos % (Auto) 0.6, Baso % (Auto) 0.5, Absolute Neuts (auto) 11.5 H, Absolute Lymphs (auto) 1.39, Nucleated RBC % 0 Micro: Microbiology 04/13/22 11:16 Swab (Method) Nasal Screen MRSA/MSSA - Final Rhythm Strip Rhythm Strip: Sinus Tach Physical Exam Const alert, oriented x3, no apparent distress and healthy appearing General Appearance: cooperative, well kempt and well developed Orientation / Consciousness: awake, oriented to person, oriented to place and oriented to time HEENT normocephalic, head/scalp atraumatic and moist oral mucous membranes Eyes PERRL, EOMs intact bilaterally and conjunctivae normal Neck nuchal rigidity, supple, no JVD, thyroid normal and no carotid bruits General: trachea midline Resp normal respiratory effort, no retractions, no use of accessory muscles and clear to auscultation bilaterally Auscultation: Negative for rales, rhonchi or wheezes Cardio regular rate, regular rhythm, S1 normal heart sound, S2 normal heart sound, no rub and no gallops Cardio Narrative: There is a 2/6 systolic murmur noted at the apex and left sternal border GI normal to inspection, nondistended, normoactive bowel sounds, soft to palpation, non-tender and non-distended Extremity no clubbing, cyanosis or edema Skin no rashes or lesions noted General Skin Exam: no breakdown Neuro oriented x3, CN's II-XII intact bilaterally, no focal motor deficits and no sensory deficits noted Sensorium / Orientation: awake and alert Speech: speech normal Psych affect normal Assessment & Plan Assessment/Plan (1) Spinal stenosis of lumbar region at multiple levels: PLAN: Plan 1. 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 #4 osteoarthritis-complicates care, recovery, and prognosis #5 low-grade temperature-etiology unclear at this point, CBC will be repeated tomorrow, I do not feel the patient needs to be placed on any antibiotics at this time, incentive spirometry will be endorsed #6 leukocytosis-possibly secondary to stress reaction, CBC will be repeated tomorrow morning Charges/Coding Visit Charges Inpatient E&M: 67930 Subs Hosp L2
[2022-04-26 20:44] VITALS: BP 152/57; PULSE 87; RESP 18; TEMP 38.2; O2SAT 94
[2022-04-26] MEDS: Escitalopram Oxalate 10 MG Tablet 5 MG PO (20:52)
[2022-04-26] MEDS: Gabapentin 300 MG Capsule PO (20:52)
[2022-04-27 03:17] VITALS: BP 159/58; PULSE 79; RESP 18; TEMP 37.1; O2SAT 95
[2022-04-27] MEDS: oxyCODONE 5 MG Tablet PO ×3 (03:40→22:03)
[2022-04-27] MEDS: Ondansetron 4 MG/2 ML Vial IV (05:37)
[2022-04-27] MEDS: Acetaminophen 500 MG Tablet 1000 MG PO ×3 (05:37→21:57)
[2022-04-27] MEDS: 0.9% Saline Lock 10 ML Syringe IV (05:38)
[2022-04-27 06:25] LABS: Absolute Lymphocyte Count 1.21 X10^3/uL (0.83-4.51); Absolute Neutrophil Count 12.8 X10^3/uL (2.0-7.7); Basophil# 0.09 X10^3/uL; Basophil% 0.6 % (0-1); Eosinophil# 0.16 X10^3/uL; Lymphocyte # 1.21 X10^3/ul (0.83-4.51); Lymphocyte % 7.7 % (19-41); Mean Corp Hgb Conc 32.4 g/dL (32-36); Mean Corpuscular Hgb 29.2 pg (27.0-32.0); Mean Platelet Vol. 10.9 fl (6.2-12.0); Monocyte# 1.38 X10^3/uL; Monocyte% 8.8 % (0-10); NRBC Flagged by Analyzer 0 % (0-5); Neutrophil # 12.77 X10^3/uL (2.7-7.7); Neutrophil % 81.6 % (47-70); Platelet Count 192 K/mm3 (150-450); RBC Distribution Width CV 13.2 % (11.6-14.6); RBC Distribution Width SD 43.7 fl (35.1-43.9); Red Blood Count 4.11 M/mm3 (4.2-5.4); White Blood Count 15.7 K/mm3 (4.4-11.0)
[2022-04-27 07:48] VITALS: BP 160/58; PULSE 87; RESP 18; TEMP 37.4; O2SAT 95
--- NOTE | 2022-04-27 09:45 | PN.HOSP_ITS ---
Subjective Subjective Patient was seen and examined today, her white blood cell count is still elevated, she is running a low-grade fever but she only complains of feeling slightly nauseous. She Does not complain of any cough, chills, or shortness of breath. I had a brief discussion with Dr. Merino today regarding patient care, I do not feel the patient needs a work-up for infection at this time, according to Dr. Merino, the patient has had no drainage from her incisional area. This area is being checked daily by his care team. Objective Data Objective Data Vital Signs: Vital Signs Temp Pulse Resp BP Pulse Ox FiO2 99.3 F H 87 18 160/58 H 95 34 04/27/22 07:48 04/27/22 07:48 04/27/22 07:48 04/27/22 07:48 04/27/22 07:48 04/25/22 13:30 Oxygen Flow Rate (L/min) 4 Oxygen Delivery Method Room Air Weight: 95 kg Body Mass Index (BMI) 36.5 Intake & Output: Intake and Output for Last 24 Hours 04/25/22 04/26/22 04/27/22 23:59 23:59 23:59 Intake Total 4843.25 / 4843.25 800 / 800 Output Total 1600 / 1600 2950 / 2950 1000 / 1000 Balance 3243.25 / 3243.25 -2150 / -2150 -1000 / -1000 Lab / Micro Data Result Diagrams: 04/27/22 05:38 Labs: Laboratory Results - last 24 hr 04/26/22 18:20: WBC 14.5 H, RBC 3.78 L, Hgb 11.1 L, Hct 33.8 L, MCV 89.4, MCH 29.4, MCHC 32.8, RDW Std Deviation 43.7, RDW Coeff of Jenaro 13.3, Plt Count 186, MPV 10.7, Immature Gran % (Auto) 0.400, Neut % (Auto) 79.3 H, Lymph % (Auto) 9.6 L, [place] % (Auto) 9.6, Eos % (Auto) 0.6, Baso % (Auto) 0.5, Absolute Neuts (auto) 11.5 H, Absolute Lymphs (auto) 1.39, Nucleated RBC % 0 04/27/22 05:38: WBC 15.7 H, RBC 4.11 L, Hgb 12.0, Hct 37.0, MCV 90.0, MCH 29.2, MCHC 32.4, RDW Std Deviation 43.7, RDW Coeff of Jenaro 13.2, Plt Count 192, MPV 10.9, Immature Gran % (Auto) 0.300, Neut % (Auto) 81.6 H, Lymph % (Auto) 7.7 L, [place] % (Auto) 8.8, Eos % (Auto) 1.0, Baso % (Auto) 0.6, Absolute Neuts (auto) 12.8 H, Absolute Lymphs (auto) 1.21, Nucleated RBC % 0 Micro: Microbiology 04/13/22 11:16 Swab (Method) Nasal Screen MRSA/MSSA - Final Rhythm Strip Rhythm Strip: Sinus Tach Physical Exam Const alert, oriented x3, no apparent distress and healthy appearing General Appearance: cooperative, well kempt and well developed Orientation / Consciousness: awake, oriented to person, oriented to place and oriented to time HEENT normocephalic, head/scalp atraumatic and moist oral mucous membranes Eyes PERRL, EOMs intact bilaterally and conjunctivae normal Neck nuchal rigidity, supple, no JVD, thyroid normal and no carotid bruits General: trachea midline Resp normal respiratory effort, no retractions, no use of accessory muscles and clear to auscultation bilaterally Auscultation: Negative for rales, rhonchi or wheezes Cardio regular rate, regular rhythm, S1 normal heart sound, S2 normal heart sound, no rub and no gallops Cardio Narrative: There is a 2/6 systolic murmur noted at the apex and left sternal border GI normal to inspection, nondistended, normoactive bowel sounds, soft to palpation, non-tender and non-distended Extremity no clubbing, cyanosis or edema Skin no rashes or lesions noted General Skin Exam: no breakdown Neuro oriented x3, CN's II-XII intact bilaterally, moves all extremities, no focal motor deficits and no sensory deficits noted Sensorium / Orientation: awake and alert Speech: speech normal Psych affect normal Assessment & Plan Assessment/Plan (1) Spinal stenosis of lumbar region at multiple levels: PLAN: Plan 1. Valvular heart disease of the aortic valve-status post TAVR February 2022-akash tient appears stable at this time, continue present medication except Plavix, it will be planned that the patient will not resume Plavix after discharge from the hospital. It was recommended by her TAVR surgeon that she be placed on a baby aspirin daily when she goes home. #2 degenerative disc disease of the lumbar spine-patient is on no medication for this at this time #3 spinal stenosis-status post laminectomy lumbar spine-orthopedic surgery is participating in her care, PT and OT will see the patient but she is currently at bedrest due to a dural tear. Patient will get up tomorrow with physical therapy. #4 osteoarthritis-complicates care, recovery, and prognosis #5 low-grade temperature-etiology unclear at this point, I will observe for any temperature spikes, patient does not have any signs of infection at this time. #6 leukocytosis-possibly secondary to stress reaction, CBC will be repeated tomorrow morning Charges/Coding Visit Charges Inpatient E&M: 77703 Subs Hosp L2
--- NOTE | 2022-04-27 10:24 | PCM.PN.ORT ---
Subjective Subjective The patient was seen and examined. Upon entering the room the patient was resting comfortably in her bed. She has been laying flat on her back due to a dural tear except when she eats. She did have some back spasms about 1 hour ago but Valium, morphine and oxycodone have decreased them dramatically. Previously the spasms were in her back, buttocks and legs, but today it was just in her low back. She states she is having minimal pain over the incision site and she thinks it is only because she has been laying on it 28/05. Right foot still has some tingling, but it is less. All of her leg pain that she had before surgery is gone. She denies fever, chills, nausea, vomiting, chest pains and shortness of breath. On 04/26/2022 the patient was running a fever of 100.7 and CBC showed a white blood cell count of 14.5. This morning the patient's temperature was 99.3 and white blood cell count was 15.7. Objective Data Objective Data Vital Signs: Vital Signs Temp Pulse Resp BP Pulse Ox FiO2 99.3 F H 87 18 160/58 H 95 34 04/27/22 07:48 04/27/22 07:48 04/27/22 07:48 04/27/22 07:48 04/27/22 07:48 04/25/22 13:30 Oxygen Flow Rate (L/min) 4 Oxygen Delivery Method Room Air Weight: 209 lb 7.026 oz Body Mass Index (BMI) 36.5 Intake & Output: Intake and Output for Last 24 Hours 04/25/22 04/26/22 04/27/22 23:59 23:59 23:59 Intake Total 4843.25 / 4843.25 800 / 800 Output Total 1600 / 1600 2950 / 2950 1000 / 1000 Balance 3243.25 / 3243.25 -2150 / -2150 -1000 / -1000 Lab / Micro Data Result Diagrams: 04/27/22 05:38 Labs: Laboratory Results - last 24 hr 04/26/22 18:20: WBC 14.5 H, RBC 3.78 L, Hgb 11.1 L, Hct 33.8 L, MCV 89.4, MCH 29.4, MCHC 32.8, RDW Std Deviation 43.7, RDW Coeff of Jenaro 13.3, Plt Count 186, MPV 10.7, Immature Gran % (Auto) 0.400, Neut % (Auto) 79.3 H, Lymph % (Auto) 9.6 L, [place] % (Auto) 9.6, Eos % (Auto) 0.6, Baso % (Auto) 0.5, Absolute Neuts (auto) 11.5 H, Absolute Lymphs (auto) 1.39, Nucleated RBC % 0 04/27/22 05:38: WBC 15.7 H, RBC 4.11 L, Hgb 12.0, Hct 37.0, MCV 90.0, MCH 29.2, MCHC 32.4, RDW Std Deviation 43.7, RDW Coeff of Jenaro 13.2, Plt Count 192, MPV 10.9, Immature Gran % (Auto) 0.300, Neut % (Auto) 81.6 H, Lymph % (Auto) 7.7 L, [place] % (Auto) 8.8, Eos % (Auto) 1.0, Baso % (Auto) 0.6, Absolute Neuts (auto) 12.8 H, Absolute Lymphs (auto) 1.21, Nucleated RBC % 0 Micro: Microbiology 04/13/22 11:16 Swab (Method) Nasal Screen MRSA/MSSA - Final Rhythm Strip Rhythm Strip: Sinus Tach Physical Exam Narrative Upon inspection of bilateral lower extremities she was wearing thigh high SILVANA hose and SCD's. Dressing is dry and intact. No signs concerning for infection. No signs of hematoma formation. Able to plantarflex, dorsiflex, wiggle toes. Able to dorsiflex big toe. Soft compartments. Negative Homans. Intact sensation to light touch throughout both lower extremities. Palpable pedal pulses. Const alert, oriented x3 and no apparent distress General Appearance: cooperative Assessment & Plan Assessment/Plan (1) Orthopedic aftercare: PLAN: Postop day #2, Laminectomy decompression L2-3, L3-4, L4-5. The patient is doing well overall. States that her leg pain is gone. She did have some low back spasms about 1 hour ago that have resolved with medication. She has been lying flat except to eat. Sunday morning she is allowed to get up with the help of PT and do some walking. OT/PT orders have been placed by Dr. Merino. Will monitor for headaches or other changes due to dural tear. Will continue to monitor low grade fever, white blood cell count and spasms with the help of the hospitalist. If she is doing well will consider discharge Sunday afternoon or Sunday morning. The patient's questions were answered and she and her are in agreement with the plan.
[2022-04-27] MEDS: diazePAM 5 MG Tablet 10 MG PO ×2 (13:41→21:57)
[2022-04-27 14:30] VITALS: BP 144/62; PULSE 93; RESP 18; TEMP 37.4; O2SAT 98
[2022-04-27] MEDS: Morphine 2 MG/ML Syringe IV (14:40)
[2022-04-27] MEDS: Escitalopram Oxalate 10 MG Tablet 5 MG PO (21:56)
[2022-04-27] MEDS: Gabapentin 300 MG Capsule PO (21:57)
[2022-04-27 23:00] VITALS: BP 131/60; PULSE 85; RESP 18; TEMP 36.9; O2SAT 97
[2022-04-28 05:00] VITALS: BP 140/61; PULSE 80; RESP 18; TEMP 36.7; O2SAT 97
[2022-04-28 05:10] LABS: Absolute Lymphocyte Count 1.92 X10^3/uL (0.83-4.51); Absolute Neutrophil Count 9.3 X10^3/uL (2.0-7.7); Basophil# 0.08 X10^3/uL; Basophil% 0.6 % (0-1); Eosinophil# 0.47 X10^3/uL; Eosinophils% 3.7 % (0-5); Hematocrit 36.5 % (37-47); Hemoglobin 11.8 g/dL (12.0-15.0); Lymphocyte # 1.92 X10^3/ul (0.83-4.51); Lymphocyte % 15.1 % (19-41); Mean Corp Hgb Conc 32.3 g/dL (32-36); Mean Corpuscular Hgb 29.2 pg (27.0-32.0); Mean Corpuscular Volume 90.3 fL (81-99); Monocyte# 0.91 X10^3/uL; Monocyte% 7.1 % (0-10); NRBC Flagged by Analyzer 0 % (0-5); Neutrophil # 9.28 X10^3/uL (2.7-7.7); Neutrophil % 72.9 % (47-70); Platelet Count 196 K/mm3 (150-450); RBC Distribution Width CV 13.1 % (11.6-14.6); RBC Distribution Width SD 43.2 fl (35.1-43.9); Red Blood Count 4.04 M/mm3 (4.2-5.4); White Blood Count 12.7 K/mm3 (4.4-11.0)
[2022-04-28] MEDS: diazePAM 5 MG Tablet 10 MG PO ×2 (06:10→21:04)
[2022-04-28] MEDS: Acetaminophen 500 MG Tablet 1000 MG PO ×3 (06:10→21:10)
[2022-04-28 09:06] VITALS: BP 133/44; PULSE 78; RESP 16; TEMP 36.9; O2SAT 95
[2022-04-28 09:15] VITALS: O2SAT 98
[2022-04-28] MEDS: oxyCODONE 5 MG Tablet PO ×3 (09:15→21:04)
--- NOTE | 2022-04-28 10:47 | PCM.PN.ORT ---
Subjective Subjective Patient was seen and examined today. She was sitting up at about 30-45 degrees eating breakfast comfortably when I entered the room. She states that she did well overnight and was able to sleep from 10PM until just after 4 AM. She has had some low back pain and spasms, but they have not been as bad as previously and were not in her buttocks or legs. Right foot still has some tingling. She denies fever, chills, nausea, vomiting, chest pains and shortness of breath. Objective Data Objective Data Vital Signs: Vital Signs Temp Pulse Resp BP Pulse Ox FiO2 98.5 F 78 16 133/44 H 95 34 04/28/22 09:06 04/28/22 09:06 04/28/22 09:06 04/28/22 09:06 04/28/22 09:06 04/25/22 13:30 Oxygen Flow Rate (L/min) 4 Oxygen Delivery Method Room Air Weight: 209 lb 7.026 oz Body Mass Index (BMI) 36.5 Intake & Output: Intake and Output for Last 24 Hours 04/26/22 04/27/22 04/28/22 23:59 23:59 23:59 Intake Total 800 / 800 750 / 750 Output Total 2950 / 2950 2200 / 2750 1000 / 1000 Balance -2150 / -2150 -1450 / -2000 -1000 / -1000 Lab / Micro Data Result Diagrams: 04/28/22 04:42 Labs: Laboratory Results - last 24 hr 04/28/22 04:42: WBC 12.7 H, RBC 4.04 L, Hgb 11.8 L, Hct 36.5 L, MCV 90.3, MCH 29.2, MCHC 32.3, RDW Std Deviation 43.2, RDW Coeff of Jenaro 13.1, Plt Count 196, MPV 11.0, Immature Gran % (Auto) 0.600, Neut % (Auto) 72.9 H, Lymph % (Auto) 15.1 L, [place] % (Auto) 7.1, Eos % (Auto) 3.7, Baso % (Auto) 0.6, Absolute Neuts (auto) 9.3 H, Absolute Lymphs (auto) 1.92, Nucleated RBC % 0 Micro: Microbiology 04/13/22 11:16 Swab (Method) Nasal Screen MRSA/MSSA - Final Rhythm Strip Rhythm Strip: Sinus Tach Physical Exam Narrative Upon inspection of bilateral lower extremities she was wearing thigh high SILVANA hose and SCD's. Able to plantarflex, dorsiflex, wiggle toes. Able to dorsiflex big toe. Soft compartments. Negative Homans. Intact sensation to light touch throughout both lower extremities. Palpable pedal pulses. Dressing over lumbar spine is dry and intact. No concerning signs for infection. Able to roll on her side with assistance and this does not cause any low back pain. Const alert, oriented x3 and no apparent distress General Appearance: cooperative Assessment & Plan Assessment/Plan (1) Orthopedic aftercare: PLAN: Postop day #3, Laminectomy decompression L2-3, L3-4, L4-5. The patient states that she is doing well overall.Her leg pain that she had prior to surgery is gone. She slept well overnight. She has had some more low back spasms this morning but they have been less painful than what she had previously and are not radiating into her buttocks or legs. She has been laying flat since surgery except to eat due to a tear in the dura. She will get up this morning with the help of PT. Will monitor for headaches or other changes due to dural tear. She previously had a low grade fever and her white blood cell count was elevated. This morning her temperature was 98.5 degrees and her most recent white blood cell count was 12.7. We will asses how she does after she has been able to get up with PT and will consider discharge Sunday afternoon or Sunday. The patient's questions were answered and she and her are in agreement with the plan.
[2022-04-28 11:00] VITALS: BP 113/60; PULSE 70; RESP 18; TEMP 36.9; O2SAT 97
[2022-04-28] MEDS: Morphine 2 MG/ML Syringe IV (11:02)
[2022-04-28] MEDS: 0.9% Saline Lock 10 ML Syringe IV (11:02)
[2022-04-28] MEDS: Ondansetron 4 MG/2 ML Vial IV (11:02)
--- NOTE | 2022-04-28 14:38 | CASEMGMT ---
Social Work Per physician pt may benefit from Inpatient Rehab prior to returning home. SW met with pt and provided list of IRF providers including quality and resource use data nad consistent with the patient's preferred geographic region, medical needs and insurance network. Pt preferred provider is [facility] Inpatient Rehab. Referral made to Gianna in Inpatient Rehab and they are able to accept her when medically ready. SW met with pt and and informed of this. Pt stating she has done better with therapy this afternoon and may be able to return home. Pt aware that if she does not feel she is able to go home on day of discharge, she can go to . Plan: [facility] Inpatient Rehab vs. return home. [place]
[2022-04-28 14:52] VITALS: BP 117/50; PULSE 86; RESP 16; TEMP 37.2; O2SAT 93
--- NOTE | 2022-04-28 18:43 | PCM.PN.HOSP ---
Subjective Subjective Patient was seen and examined today, she got up today for the first time and several days and had severe pain running down her legs from her hip area. She states that the pain is somewhat better now, I asked her if she would consider going to the rehab unit at [facility] if necessary and she told me she would. I had a brief discussion with orthopedic surgery about her care today. Patient's white blood cell count has declined to 12.7 today. Patient remains afebrile. Patient's Erazo catheter was removed today. Objective Data Objective Data Vital Signs: Vital Signs Temp Pulse Resp BP Pulse Ox FiO2 99.0 F 86 16 117/50 L 93 34 04/28/22 14:52 04/28/22 14:52 04/28/22 14:52 04/28/22 14:52 04/28/22 14:52 04/25/22 13:30 Oxygen Flow Rate (L/min) 4 Oxygen Delivery Method Room Air Weight: 95 kg Body Mass Index (BMI) 36.5 Intake & Output: Intake and Output for Last 24 Hours 04/26/22 04/27/22 04/28/22 23:59 23:59 23:59 Intake Total 800 / 800 750 / 750 350 / 350 Output Total 2950 / 2950 2200 / 2750 1500 / 1500 Balance -2150 / -2150 -1450 / -2000 -1150 / -1150 Lab / Micro Data Result Diagrams: 04/28/22 04:42 Labs: Laboratory Results - last 24 hr 04/28/22 04:42: WBC 12.7 H, RBC 4.04 L, Hgb 11.8 L, Hct 36.5 L, MCV 90.3, MCH 29.2, MCHC 32.3, RDW Std Deviation 43.2, RDW Coeff of Jenaro 13.1, Plt Count 196, MPV 11.0, Immature Gran % (Auto) 0.600, Neut % (Auto) 72.9 H, Lymph % (Auto) 15.1 L, [place] % (Auto) 7.1, Eos % (Auto) 3.7, Baso % (Auto) 0.6, Absolute Neuts (auto) 9.3 H, Absolute Lymphs (auto) 1.92, Nucleated RBC % 0 Micro: Microbiology 04/13/22 11:16 Swab (Method) Nasal Screen MRSA/MSSA - Final Rhythm Strip Rhythm Strip: Sinus Tach Physical Exam Const alert, oriented x3, no apparent distress and healthy appearing General Appearance: cooperative, well kempt and well developed Orientation / Consciousness: awake, oriented to person, oriented to place and oriented to time HEENT normocephalic, head/scalp atraumatic and moist oral mucous membranes Eyes PERRL, EOMs intact bilaterally and conjunctivae normal Neck nuchal rigidity, supple, no JVD, thyroid normal and no carotid bruits General: trachea midline Resp normal respiratory effort, no retractions, no use of accessory muscles and clear to auscultation bilaterally Auscultation: Negative for rales, rhonchi or wheezes Cardio regular rate, regular rhythm, S1 normal heart sound, S2 normal heart sound, no rub and no gallops Cardio Narrative: There is a 2/6 systolic murmur noted at the apex and left sternal border GI normal to inspection, nondistended, normoactive bowel sounds, soft to palpation, non-tender and non-distended Extremity no clubbing, cyanosis or edema Skin no rashes or lesions noted General Skin Exam: no breakdown Neuro oriented x3, CN's II-XII intact bilaterally, moves all extremities, no focal motor deficits and no sensory deficits noted Sensorium / Orientation: awake and alert Speech: speech normal Psych affect normal Assessment & Plan Assessment/Plan (1) Spinal stenosis of lumbar region at multiple levels: PLAN: Plan 1. Valvular heart disease of the aortic valve-status post TAVR February 2022-patient appears stable at this time, continue present medication except Plavix, it will be planned that the patient will not resume Plavix after discharge from the hospital. It was recommended by her TAVR surgeon that she be placed on a baby aspirin daily when she goes home. #2 degenerative disc disease of the lumbar spine-patient is on no medication for this at this time #3 spinal stenosis-status post laminectomy lumbar spine-orthopedic surgery is participating in her care, PT and OT will see the patient but she is currently at bedrest due to a dural tear. Patient will get up tomorrow with physical therapy. Again I discussed going to a rehab facility with the patient today, she is not against this but would still prefer to go home, we will put in a referral for the rehab unit here at [facility] #4 osteoarthritis-complicates care, recovery, and prognosis #5 low-grade temperature-resolved at this time #6 leukocytosis-possibly secondary to stress reaction, this is improved, I do not think the patient needs a repeat CBC Charges/Coding Visit Charges Inpatient E&M: 16741 Subs Hosp L2
[2022-04-28 20:52] VITALS: BP 135/52; PULSE 85; RESP 16; TEMP 37.2; O2SAT 97
[2022-04-28] MEDS: Gabapentin 300 MG Capsule PO (21:04)
[2022-04-28] MEDS: Escitalopram Oxalate 10 MG Tablet 5 MG PO (21:05)
[2022-04-29 03:40] VITALS: BP 131/63; PULSE 80; RESP 16; TEMP 36.8; O2SAT 95
[2022-04-29] MEDS: Acetaminophen 500 MG Tablet 1000 MG PO ×3 (06:46→21:21)
[2022-04-29 08:32] VITALS: BP 122/78; PULSE 85; RESP 16; TEMP 36.7; O2SAT 96
[2022-04-29 09:00] VITALS: O2SAT 95
--- NOTE | 2022-04-29 09:45 | NURSING ---
Bladder scan:538cc No urine output on own. Straight cathed for 525cc
[2022-04-29] MEDS: Tamsulosin HCl 0.4 MG Capsule 0.8 MG PO (11:09)
--- NOTE | 2022-04-29 11:51 | PN.HOSP_ITS ---
Subjective Subjective Patient was seen and examined today, she states she was told by orthopedic surgery that if she voided she could leave today. Patient is feeling much better today and is more ambulatory. I have decided to place the patient on Flomax to try to expedite her voiding. I cautioned her about the fainting side effect that it might have and I also told nursing about this. Objective Data Objective Data Vital Signs: Vital Signs Temp Pulse Resp BP Pulse Ox FiO2 98.1 F 85 16 122/78 H 95 34 04/29/22 08:32 04/29/22 08:32 04/29/22 08:32 04/29/22 08:32 04/29/22 09:00 04/25/22 13:30 Oxygen Flow Rate (L/min) 4 Oxygen Delivery Method Room Air Weight: 95 kg Body Mass Index (BMI) 36.5 Intake & Output: Intake and Output for Last 24 Hours 04/27/22 04/28/22 04/29/22 23:59 23:59 23:59 Intake Total 750 / 750 1150 / 1150 Output Total 2200 / 2750 1974 / 1974 1050 / 1050 Balance -1450 / -2000 -825 / -825 -1050 / -1050 Lab / Micro Data Result Diagrams: 04/28/22 04:42 Micro: Microbiology 04/13/22 11:16 Swab (Method) Nasal Screen MRSA/MSSA - Final Rhythm Strip Rhythm Strip: Sinus Tach Physical Exam Const alert, oriented x3, no apparent distress and healthy appearing General Appearance: cooperative, well kempt and well developed Orientation / Consciousness: awake, oriented to person, oriented to place and oriented to time HEENT normocephalic, head/scalp atraumatic and moist oral mucous membranes Eyes PERRL, EOMs intact bilaterally and conjunctivae normal Neck nuchal rigidity, supple, no JVD, thyroid normal and no carotid bruits General: trachea midline Resp normal respiratory effort, no retractions, no use of accessory muscles and clear to auscultation bilaterally Auscultation: Negative for rales, rhonchi or wheezes Cardio regular rate, regular rhythm, S1 normal heart sound, S2 normal heart sound, no rub and no gallops Cardio Narrative: There is a 2/6 systolic murmur noted at the apex and left sternal border GI normal to inspection, nondistended, normoactive bowel sounds, soft to palpation, non-tender and non-distended Extremity no clubbing, cyanosis or edema Skin no rashes or lesions noted General Skin Exam: no breakdown Neuro oriented x3, CN's II-XII intact bilaterally, moves all extremities, no focal motor deficits and no sensory deficits noted Sensorium / Orientation: awake and alert Speech: speech normal Psych affect normal Assessment & Plan Assessment/Plan (1) Spinal stenosis of lumbar region at multiple levels: PLAN: Plan 1. 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 It was recommended by her TAVR surgeon that she be placed on a baby aspirin daily when she goes home. I have reinstructed her to resume a baby aspirin starting tomorrow #2 degenerative disc disease of the lumbar spine-patient is on no medication for this at this time #3 spinal stenosis-status post laminectomy lumbar spine-orthopedic surgery is participating in her care, PT and OT will see the patient but she is currently at bedrest due to a dural tear. Patient will get up tomorrow with physical therapy. Again I discussed going to a rehab facility with the patient today, she is not against this but would still prefer to go home, we will put in a referral for the rehab unit here at [facility] #4 osteoarthritis-complicates care, recovery, and prognosis #5 low-grade temperature-resolved at this time #6 leukocytosis-possibly secondary to stress reaction, this is improved, I do not think the patient needs a repeat CBC Charges/Coding Visit Charges Inpatient E&M: 34636 Subs Hosp L3
--- NOTE | 2022-04-29 12:20 | PN.ORTHO_ITS ---
Subjective Subjective Patient was seen and examined today. Patient was sitting up in bed at about 45 comfortably resting with to the bedside. Patient reports doing well overnight, reports she is able to get good rest while in-patient. Patient reports some spasms and lower back pain when moving about and starting to perform PT, but states they are short lived and go away rather quickly. Patient denies spasms radiating into the buttocks of leg any longer. Patient also denies any more tingling to her right foot, states she has not experienced any more of that today. She denies any fever, chills, nausea, vomiting, chest pains, or shortness of breath. Patient has still not been able to void by self at time of visit. Objective Data Objective Data Vital Signs: Vital Signs Temp Pulse Resp BP Pulse Ox FiO2 98.1 F 85 16 122/78 H 95 34 04/29/22 08:32 04/29/22 08:32 04/29/22 08:32 04/29/22 08:32 04/29/22 09:00 04/25/22 13:30 Oxygen Flow Rate (L/min) 4 Oxygen Delivery Method Room Air Weight: 209 lb 7.026 oz Body Mass Index (BMI) 36.5 Intake & Output: Intake and Output for Last 24 Hours 04/27/22 04/28/22 04/29/22 23:59 23:59 23:59 Intake Total 750 / 750 1150 / 1150 Output Total 2200 / 2750 1974 / 1974 1050 / 1050 Balance -1450 / -2000 -825 / -825 -1050 / -1050 Lab / Micro Data Result Diagrams: 04/28/22 04:42 Micro: Microbiology 04/13/22 11:16 Swab (Method) Nasal Screen MRSA/MSSA - Final Rhythm Strip Rhythm Strip: Sinus Tach Physical Exam Narrative Upon inspection of bilateral lower extremities she was wearing thigh high SILVANA hose and SCD's. Able to plantarflex, dorsiflex, wiggle toes bilaterally. Able to dorsiflex big toe. Soft compartments. No discoloration. Negative Homans. Intact sensation to light touch throughout both lower extremities. Palpable pedal pulses. Dressing over lumbar spine is dry and intact. No concerning signs for infection. Able to roll on her side without assistance and this does not cause any low back pain. Const alert, oriented x3, no apparent distress and well nourished General Appearance: cooperative and well developed Assessment & Plan Assessment/Plan (1) Spinal stenosis of lumbar region at multiple levels: PLAN: Plan (1) Orthopedic aftercare: PLAN: Postop day #4, Laminectomy decompression L2-3, L3-4, L4-5. The patient states that she is doing well overall. Her leg pain that she had prior to surgery is gone. She slept well overnight. Patient reports back spasms when getting up to do PT or sit in chair, but states they are short lived and go away rather quickly, spasms are no longer radiating into the buttocks or into the legs. Patient is now sitting up and walking around more. Patient reports performing stairs in PT this morning, felt good during this time. Patient is not to sit any longer than 30 minutes. Patient will continue to be monitored for headaches or any other changes due to dural tear. She previously had a low grade fever and with an elevated WBC. This morning her temperature was 98.1 degrees and her most recent white blood cell count was 12.7. Patient has not been able to void on own, given Flomax to see if this helps with urination. Must void befo re being sent home. Patient had PT Sunday morning where she did not do as well as anticipated, expressed concerns on being sent home. Patient will stay in-patient, if all goes well, expected discharge is Sunday. Patient and family both agree with plan of care, report they feel better staying until Sunday. The patient's questions were answered and she and her are in agreement with the plan.
[2022-04-29] MEDS: oxyCODONE 5 MG Tablet PO (13:18)
[2022-04-29 15:00] VITALS: BP 130/68; PULSE 80; RESP 14; TEMP 37; O2SAT 96
[2022-04-29] MEDS: Morphine 4 MG/ML Syringe IV (15:15)
[2022-04-29] MEDS: 0.9% Saline Lock 10 ML Syringe IV (15:15)
--- NOTE | 2022-04-29 15:15 | NURSING ---
INFORMED BY MANAGER INSTRUMENTATION PT REQUESTING TO HAVE MORPHINE. DISCUSSED WITH MANAGER INSTRUMENTATION VALIUM BUT AWARE PT STATES MORE PAIN THAN SPASMS. ALSO VERBALIZED PT REQUESTING MORPHINE, VALIUM, OXYIR GIVEN TOGETHER. DISCUSSED PAIN LEVEL WITH PATIENT. AT BEDSIDE. DISCUSSED SAFETY CONCERN OF GIVING MORPHINE, OXYIR, AND VALIUM TOGETHER AT SAME AT BEDSIDE STATES PT WAS GIVEN THESE THE OTHER DAY WHILE PATIENT WAS IN THE CHAIR DISCUSSED AFFECTS OF RESPIRATIONS, BLOOD PRESSURE, AND SAFETY CONCERNS WITH THIS PRACTICE. (DOCUMENTATION OF PREVIOUS MORPHINE/OXYIR/VALIUM ADMINISTRATION REVIEWED) DISCUSSED HOW MEDS ORDERS PO/IV. DISCUSSED IV NS FLUSH PRE/POST MORPHINE. DISCUSSED AMT OF OXYIR PATIENT IS RECEIVING. DISCUSSED PT NOT HAVING PAIN MEDICATION OVERNIGHT. DISCUSSED OTHER ORAL MEDICATIONS THAT COULD DISCUSSED WITH PHYSICIANS FOR PAIN CONTROL FOR DISCHARGE IV MORPHINE IS NOT AN OPTION FOR HOME PAIN CONTROL. PT STATES SHE DID NOT DISCUSS HER PAIN CONTROL WITH DAYANA CHAVEZ TODAY. DISCUSSED 1500 VITAL SIGNS PT TOLD PERSON ON THE PHONE SHE DID NOT HAVE HER TEMP CHECKED TODAY BUT HAD BEEN USING COOL RAGS ON HER FOREHEAD SHE FELT WARM. FRESH WASH CLOTHES PROVIDED. PT DENIES ALL FURTHER NEEDS. GENERAL ENGINEERING TEACHER CALLED AWAITING SUPPLIES FOR STRAIGHT CATH.
[2022-04-29 16:27] VITALS: BP 138/68; PULSE 90; RESP 16; TEMP 37.2; O2SAT 97
--- NOTE | 2022-04-29 18:31 | NURSING ---
Straight cath completed. Scanned 738cc bladder. Output less than 50cc by self Straight cath: 850cc out. Spoke with Insertion of Erazo ordered. Eraoz inserted and held in place by 10 cc. 16 FR draining yellow and patent and clear. Patient tolerated all procedures well with no complications.
[2022-04-29] MEDS: diazePAM 5 MG Tablet 10 MG PO (19:56)
[2022-04-29 20:13] VITALS: BP 149/53; PULSE 72; RESP 16; TEMP 36.7; O2SAT 97
[2022-04-29] MEDS: Escitalopram Oxalate 10 MG Tablet 5 MG PO (21:21)
[2022-04-29] MEDS: Gabapentin 300 MG Capsule PO (21:25)
[2022-04-30 02:13] VITALS: BP 129/60; PULSE 70; RESP 16; TEMP 36.8; O2SAT 96
[2022-04-30] MEDS: oxyCODONE 5 MG Tablet PO ×4 (03:12→21:39)
[2022-04-30] MEDS: Acetaminophen 500 MG Tablet 1000 MG PO ×3 (05:14→21:40)
[2022-04-30 07:35] VITALS: BP 124/57; PULSE 87; RESP 16; TEMP 36.2; O2SAT 95
[2022-04-30] MEDS: Tamsulosin HCl 0.4 MG Capsule 0.8 MG PO (12:00)
--- NOTE | 2022-04-30 12:16 | PCM.PN.ORT ---
Subjective Subjective Patient was seen and examined today. Patient was lying in bed at about 25 degrees comfortably. Patient reports doing well overnight, reports she was unable to void on her own so a Erazo catheter was reinserted. Patient denies much pain, was given morphine once when trying to get up, states the pain is really only in her legs probably due to limited movement throughout the day Patient states she did really well in PT this morning, did a fair amount of walking and was sitting up in the chair. Patient denies spasms this morning or last night, just the stiffness in her bilateral legs.Patient also denies any more tingling to her right foot, states she has not experienced any more of that today. She denies any fever, chills, nausea, vomiting, chest pains, or shortness of breath. Patient was given a double dose of Flomax this morning to help with inability to void. Objective Data Objective Data Vital Signs: Vital Signs Temp Pulse Resp BP Pulse Ox FiO2 97.1 F L 87 16 124/57 H 95 34 04/30/22 07:35 04/30/22 07:35 04/30/22 07:35 04/30/22 07:35 04/30/22 07:35 04/25/22 13:30 Oxygen Flow Rate (L/min) 4 Oxygen Delivery Method Room Air Weight: 209 lb 7.026 oz Body Mass Index (BMI) 36.5 Intake & Output: Intake and Output for Last 24 Hours 04/28/22 04/29/22 04/30/22 23:59 23:59 23:59 Intake Total 1150 / 1150 1800 / 1800 450 / 450 Output Total 1974 / 1974 2600 / 2600 1050 / 1050 Balance -825 / -825 -800 / -800 -600 / -600 Lab / Micro Data Result Diagrams: 04/28/22 04:42 Micro: Microbiology 04/13/22 11:16 Swab (Method) Nasal Screen MRSA/MSSA - Final Rhythm Strip Rhythm Strip: Sinus Tach Physical Exam Narrative Upon inspection of bilateral lower extremities she was wearing thigh high SILVANA hose and SCD's. Able to plantarflex, dorsiflex, wiggle toes?bilaterally. Able to dorsiflex big toe. Soft compartments. No discoloration. Negative Homans. Intact sensation to light touch throughout both lower extremities. Palpable pedal pulses. Dressing over lumbar spine is dry and intact. No concerning signs for infection. Able to roll on her side without assistance and this does not cause any low back pain. Const alert, oriented x3, no apparent distress and well nourished General Appearance: cooperative and well developed Assessment & Plan Assessment/Plan (1) Orthopedic aftercare: PLAN: Plan (1) Orthopedic aftercare: PLAN: Postop day #5, Laminectomy decompression L2-3, L3-4, L4-5. The patient states that she is doing well overall. Her leg pain that she had prior to surgery is gone. She slept well overnight. Patient denies any back spasms, states she has had more pain in her lower extremities bilaterally, more than likely due to stiffness and lack of movement. Patient reports once she starts moving her legs, pain goes away. Patient states she performed PT this morning and did really well as well as sat up in the chair for some time this morning. Patient is not to sit any longer than 30 minutes. Patient will continue to be monitored for headaches or any other changes due to dural tear. Patient no longer has fever, last temperature was 97.1, last WBC was 12.7, trending down. Patient has not been able to void on own, Erazo catheter was re-inserted yesterday late afternoon after in-and-outs were performed throughout the day. This morning patient was give a double dose of Flomax, per Dr. Merino, keep Erazo in till tomorrow morning where she then can be reevaluated. Must void before being sent home. Patient will remain in-patient, if all goes well, expected discharge is Sunday. Dr. Merino will round on patient tomorrow morning. Patient and family both agree with plan of care, report they feel better staying until Sunday. The patient's questions were answered and she and her are in agreement with the plan.
--- NOTE | 2022-04-30 13:10 | PN.HOSP_ITS ---
Subjective Subjective Patient was seen and examined today, she asked me if it was possible if she could go home today, I asked her to talk with her and consider whether she wanted to be discharged or not. I learned this afternoon, that the patient wishes to stay until tomorrow-she talked with orthopedic surgery about this. I gave the patient another dose of Flomax today, she may need to go home with a Erazo catheter and a leg bag if she cannot void. Objective Data Objective Data Vital Signs: Vital Signs Temp Pulse Resp BP Pulse Ox FiO2 97.1 F L 87 16 124/57 H 95 34 04/30/22 07:35 04/30/22 07:35 04/30/22 07:35 04/30/22 07:35 04/30/22 07:35 04/25/22 13:30 Oxygen Flow Rate (L/min) 4 Oxygen Delivery Method Room Air Weight: 95 kg Body Mass Index (BMI) 36.5 Intake & Output: Intake and Output for Last 24 Hours 04/28/22 04/29/22 04/30/22 23:59 23:59 23:59 Intake Total 1150 / 1150 1800 / 1800 450 / 450 Output Total 1974 / 1974 2600 / 2600 1050 / 1050 Balance -825 / -825 -800 / -800 -600 / -600 Lab / Micro Data Result Diagrams: 04/28/22 04:42 Micro: Microbiology 04/13/22 11:16 Swab (Method) Nasal Screen MRSA/MSSA - Final Rhythm Strip Rhythm Strip: Sinus Tach Physical Exam Const alert, oriented x3, no apparent distress and healthy appearing General Appearance: cooperative, well kempt and well developed Orientation / Consciousness: awake, oriented to person, oriented to place and oriented to time HEENT normocephalic, head/scalp atraumatic and moist oral mucous membranes Eyes PERRL, EOMs intact bilaterally and conjunctivae normal Neck nuchal rigidity, supple, no JVD, thyroid normal and no carotid bruits General: trachea midline Resp normal respiratory effort, no retractions, no use of accessory muscles and clear to auscultation bilaterally Auscultation: Negative for rales, rhonchi or wheezes Cardio regular rate, regular rhythm, S1 normal heart sound, S2 normal heart sound, no rub and no gallops Cardio Narrative: There is a 2/6 systolic murmur noted at the apex and left sternal border GI normal to inspection, nondistended, normoactive bowel sounds, soft to palpation, non-tender and non-distended Extremity no clubbing, cyanosis or edema Skin no rashes or lesions noted General Skin Exam: no breakdown Neuro oriented x3, CN's II-XII intact bilaterally, moves all extremities, no focal motor deficits and no sensory deficits noted Sensorium / Orientation: awake and alert Speech: speech normal Psych affect normal Assessment & Plan Assessment/Plan (1) Spinal stenosis of lumbar region at multiple levels: PLAN: Plan 1. 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 It was recommended by her TAVR surgeon that she be placed on a baby aspirin daily when she goes home. I have reinstructed her to resume a baby aspirin starting when she is discharged home #2 degenerative disc disease of the lumbar spine-patient is on no medication for this at this time #3 spinal stenosis-status post laminectomy lumbar spine-orthopedic surgery is participating in her care, continue PT and OT #4 osteoarthritis-complicates care, recovery, and prognosis #5 low-grade temperature-resolved at this time #6 leukocytosis-possibly secondary to stress reaction #7 urinary retention, etiology unclear-patient now has a Erazo catheter and, again I have written for Flomax for the patient, she may need to be discharged home on a short course of Flomax. Charges/Coding Visit Charges Inpatient E&M: 35864 Subs Hosp L2
[2022-04-30] MEDS: diazePAM 5 MG Tablet 10 MG PO ×2 (13:46→23:23)
[2022-04-30 13:57] VITALS: BP 158/59; PULSE 90; RESP 16; TEMP 36.7; O2SAT 98
[2022-04-30] MEDS: Ensure Surgery 237 ML LIQUID PO (17:28)
[2022-04-30 20:31] VITALS: BP 144/57; PULSE 72; RESP 16; TEMP 36.8; O2SAT 98
[2022-04-30] MEDS: Escitalopram Oxalate 10 MG Tablet 5 MG PO (21:39)
[2022-04-30] MEDS: Gabapentin 300 MG Capsule PO (21:39)
[2022-05-01 02:31] VITALS: BP 118/55; PULSE 80; RESP 16; TEMP 36.7; O2SAT 96
[2022-05-01] MEDS: Acetaminophen 500 MG Tablet 1000 MG PO ×3 (05:48→21:42)
[2022-05-01] MEDS: oxyCODONE 5 MG Tablet PO ×3 (05:51→19:41)
--- NOTE | 2022-05-01 07:20 | PN.HOSP_ITS ---
Subjective Subjective Patient is a 71-year-old lady admitted with spinal stenosis underwent laminectomy by orthopedic surgery on 04/25/2022. Hospitalist service was consulted to assist with management of patient medical comorbidities Objective Data Objective Data Vital Signs: Vital Signs Temp Pulse Resp BP Pulse Ox FiO2 98.1 F 80 16 118/55 L 96 34 05/01/22 02:31 05/01/22 02:31 05/01/22 02:31 05/01/22 02:31 05/01/22 02:31 04/25/22 13:30 Oxygen Flow Rate (L/min) 4 Oxygen Delivery Method Room Air Weight: 95 kg Body Mass Index (BMI) 36.5 Intake & Output: Intake and Output for Last 24 Hours 04/29/22 04/30/22 05/01/22 23:59 23:59 23:59 Intake Total 1800 / 1800 1200 / 1300 400 / 400 Output Total 2600 / 2600 1750 / 1750 Balance -800 / -800 -550 / -450 400 / 400 Lab / Micro Data Result Diagrams: 04/28/22 04:42 Micro: Microbiology 04/13/22 11:16 Swab (Method) Nasal Screen MRSA/MSSA - Final Rhythm Strip Rhythm Strip: Sinus Tach Physical Exam Narrative GENERAL: cooperative HEENT: Atraumatic; EYES; Anicteric, Normal Conjunctiva NECK; supple, normal thyroid, RESPIRATORY: Diminished to auscultation CARDIOVASCULAR: Regular S1 S2, GI: soft, normoactive bowel sounds, : No Renal angle tenderness; EXTREMITIES: No edema, no clubbing, MUSCULOSKELETAL: no muscle wasting NEURO: Awake; no lateralizing signs. SKIN: No Rash PSYCH; Flat affect Assessment & Plan Assessment/Plan (1) Spinal stenosis of lumbar region at multiple levels: PLAN: Plan Patient is a 71-year-old lady admitted with spinal stenosis underwent laminectomy by orthopedic surgery on 04/25/2022. Hospitalist service was cons ulted to assist with management of patient medical comorbidities 1. Spinal stenosis ? Status postlaminectomy postop care as per primary service 2. Urinary retention ? Patient managed with Flomax 3. Valvular heart disease of the aortic valve -status post TAVR February 2022 4. DVT prophylaxis -as per primary service Charges/Coding Visit Charges Inpatient E&M: 09454 Subs Hosp L2
[2022-05-01 08:03] VITALS: BP 150/60; PULSE 84; RESP 16; TEMP 36.8; O2SAT 97
[2022-05-01] MEDS: Ensure Surgery 237 ML LIQUID PO ×2 (08:05→11:26)
[2022-05-01 11:07] VITALS: O2SAT 98
[2022-05-01 13:13] VITALS: BP 158/62; PULSE 85; RESP 16; TEMP 36.4; O2SAT 97
--- NOTE | 2022-05-01 18:00 | CON.PCM_ITS ---
Assessment & Plan Assessment/Plan (1) Urinary retention: (2) Constipation: PLAN: Plan urine culture miralax for acute management of constipation straight cath TID to be done after a voiding attempt and recorded as a post void residual ok to continue flomax for now thank you for the consult! HPI Consult Data Date of Consult: 05/01/22 HPI Narrative Reason for Consultation: Postoperative urinary retention HPI Narrative: RYAN WILL, is a 71 F who underwent a spinal procedure last week. She has a longstanding urologic history with multiple managements for urinary incontinence including what sounds like a mid urethral sling, a urethral bulking procedure and some other procedure for what sounds like treatment for urge incontinence but she reports was not Botox. She cannot recall what it was but it worked wonderfully for her. Now at home she does not have issues with incontinence, retention, hematuria, urinary tract infections or constipation. The Erazo catheter was removed following her procedure on Sunday and she was unable to void. She was given Flomax over the weekend and a repeat trial of void today. She was able to void 100 cc and had a bladder scan residual of 500 cc. She has not having bowel movements, but has been mobile since the procedure. Of note, this spinal procedure was postponed for an emergency cardiac procedure. [facility] Medical History (Updated 05/01/22 @ 18:[address] Suri Alvarado MD) Anxiety and depression Arthritis Back pain Cardiology follow-up encounter DDD (degenerative disc disease), lumbar Diaphoresis GERD (gastroesophageal reflux disease) History of echocardiogram History of steroid therapy History of transcatheter aortic valve replacement (TAVR) (02/27/22) History of trigger finger Leg cramps Non-smoker Nonrheumatic aortic (valve) stenosis Obesity Osteoarthritis Post-menopausal Segmental and somatic dysfunction of cervical region Segmental and somatic dysfunction of lumbar region Segmental and somatic dysfunction of pelvic region Segmental and somatic dysfunction of thoracic region Urethral caruncle Urinary retention Varicose veins of both lower extremities Wears hearing aid Home Medications escitalopram oxalate 5 mg tablet 5 mg PO DAILY mood 03/08/17 [History Last Taken 04/24/22] cinnamon bark 500 mg capsule (Cinnamon) 500 mg PO DAILY supplement 07/13/20 [History Last Taken 04/24/22] cholecalciferol (vitamin D3) 50 mcg (2,000 unit) capsule 50 mcg PO DAILY supp lement 07/14/20 [History Last Taken 04/24/22] aspirin 81 mg tablet,delayed release (Adult Low Dose Aspirin) 81 mg PO DAILY heart health 01/12/21 [History Last Taken 04/17/22] vitamin B complex (B Complex-Vitamin B12) 1 tab PO DAILY supplement 01/12/21 [History Last Taken 04/24/22] gabapentin 300 mg capsule 300 mg PO QHS leg cramps 02/16/21 [History Last Taken 04/24/22] clopidogrel 75 mg tablet 75 mg PO DAILY blood thinner 04/11/22 [History Last Taken 04/24/22] biotin 500 mcg capsule 1 mg PO DAILY supplement 04/25/22 [History Last Taken Unknown] Allergy/AdvReac Type Severity Reaction Status Date / Time latex Allergy Rash Verified 04/25/22 06:09 duloxetine [From Cymbalta] AdvReac loopy Verified 04/25/22 06:09 Family History Father , age 80 CAD (coronary artery disease), Onset Age: 62 Myocardial infarction, Onset Age: 62 Mother CAD (coronary artery disease), Onset Age: 68 CABG Diabetes Brother Diabetes CAD (coronary artery disease) Heart disease Valve replacement/ CABG/ CEA Brother Diabetes Heart disease Pacemaker Brother Heart disease Valve Replacement Surgical History History of bladder suspension procedure History of knee replacement procedure of left knee History of knee replacement procedure of right knee History of left heart catheterization (01/13/21) History of surgery Hx of dilation and curettage Hx of hysterectomy Social History Smoking Status: Never smoker alcohol intake: never ROS Constitutional Constitutional: Reports other Details: Feels tired, hoping to go home soon. She is having trouble getting comfortable in the bed. Eyes Eyes: Reports systems reviewed and no addt'l complaints, except as documented ENT HEENT: Reports systems reviewed and no addt'l complaints, except as documented Cardiovascular Cardiovascular: Reports systems reviewed and no addt'l complaints, except as documented Respiratory/Chest Respiratory/Chest: Reports systems reviewed and no addt'l complaints, except as documented Gastrointestinal Gastrointestinal: Reports constipation and other Details: at home normally does not have bowel issues ; Denies nausea or vomiting Genitourinary Genitourinary: Reports as per HPI Musculoskeletal Musculoskeletal: Reports other Details: post operative from spinal surgery, likely expected discomfort and difficulty with ambulation and movement she is using walker Integumentary Integumentary: Reports systems reviewed and no addt'l complaints, except as documented Neurologic Neurologic: Reports systems reviewed and no addt'l complaints, except as documented Psychiatric Psychiatric: Reports systems reviewed and no addt'l complaints, except as documented Endocrine Endocrinology: Reports systems reviewed and no addt'l complaints, except as documented Hematologic/Lymphatic Hematologic/Lymphatic: Reports systems reviewed and no addt'l complaints, except as documented Physical Exam Const alert, oriented x3 and no apparent distress General Appearance: cooperative, comfortable and well kempt HEENT normocephalic, head/scalp atraumatic, external ears normal, external nose normal and moist oral mucous membranes Eyes General Eye: normal appearance of both eyes Neck supple General: trachea midline Chest Chest: symmetrical chest wall rise Resp normal respiratory effort, normal air movement and no retractions Cardio regular rate GI Palpation: soft Narrative: no catheter at this time Extremity Extremity Narrative: SCD's in place Skin no rashes or lesions noted Neuro oriented x3 and CN's II-XII intact bilaterally Psych mental status grossly normal and thought process normal Medical Records Data Attestation: I reviewed the patient's medical records Medical records narrative: I attempted to view previous imaging, but it was not done here and the computer would not open the report. Lab / Micro Data Attestation: I reviewed the patient's lab results. Result Diagrams: 04/28/22 04:42 Rhythm Strip Rhythm Strip: Sinus Tach
[2022-05-01] MEDS: Polyethylene Glycol 3350 BOWEL PREP PO ×6 (18:11→23:46)
[2022-05-01] MEDS: Tamsulosin HCl 0.4 MG Capsule 0.8 MG PO (18:11)
[2022-05-01 19:19] VITALS: BP 159/61; PULSE 95; RESP 18; TEMP 37; O2SAT 97
[2022-05-01] MEDS: diazePAM 5 MG Tablet 10 MG PO (19:46)
--- NOTE | 2022-05-01 19:49 | NURSING ---
pt st cathed for 300ml - then bladder scanned for 224ml
[2022-05-01] MEDS: Morphine 2 MG/ML Syringe IV (20:50)
[2022-05-01] MEDS: 0.9% Saline Lock 10 ML Syringe IV (20:51)
[2022-05-01] MEDS: Ondansetron 4 MG/2 ML Vial IV (20:51)
[2022-05-01] MEDS: Escitalopram Oxalate 10 MG Tablet 5 MG PO (21:44)
[2022-05-01] MEDS: Gabapentin 300 MG Capsule PO (21:47)
[2022-05-02] MEDS: Polyethylene Glycol 3350 BOWEL PREP PO ×4 (00:43→03:46)
[2022-05-02 00:55] VITALS: BP 133/64; PULSE 92; RESP 18; TEMP 37; O2SAT 94
[2022-05-02] MEDS: Acetaminophen 500 MG Tablet 1000 MG PO ×2 (05:15→14:20)
[2022-05-02 06:56] VITALS: BP 151/59; PULSE 89; RESP 18; TEMP 36.8; O2SAT 95
--- NOTE | 2022-05-02 07:41 | PN.HOSP_ITS ---
Subjective Subjective Patient had increased urinary retention, not able to spontaneous void for for 5 hours, incomplete emptying after surgery. Urologist recommended Erazo catheter and discharge and outpatient follow-up Objective Data Objective Data Vital Signs: Vital Signs Temp Pulse Resp BP Pulse Ox FiO2 98.2 F 89 18 151/59 H 95 34 05/02/22 06:56 05/02/22 06:56 05/02/22 06:56 05/02/22 06:56 05/02/22 06:56 04/25/22 13:30 Oxygen Flow Rate (L/min) 4 Oxygen Delivery Method Room Air Weight: 209 lb 7.026 oz Body Mass Index (BMI) 36.5 Intake & Output: Intake and Output for Last 24 Hours 04/30/22 05/01/22 05/02/22 23:59 23:59 23:59 Intake Total 1200 / 1300 1420 / 1420 1050 / 1050 Output Total 1750 / 1750 1945 / 1945 875 / 875 Balance -550 / -450 -525 / -525 175 / 175 Lab / Micro Data Result Diagrams: 04/28/22 04:42 Micro: Microbiology 04/13/22 11:16 Swab (Method) Nasal Screen MRSA/MSSA - Final Rhythm Strip Rhythm Strip: Sinus Tach Physical Exam Narrative Seen and examined. Patient has relief in the sciatica pain. She has mainly chronic back pain with radiation to left gluteal region and thigh. No burning micturition. No history of frequent UTI General: Alert, Oriented x3, Cooperative HEENT: Atraumatic, PERRLA, EOMI, Normocephalic Oral: No Gingival or Mucosal Lesions/ Ulcerations Neck: Supple, No JVD, Negative Carotid Bruits Lungs: Air entry diminished in bilateral lung bases. No crepitation/rhonchi Cardiovascular: Ejection systolic murmur over right second ICS. Status post TAVR. Regular Rhythm, Normal S1, Normal S2 Abdomen: Bowel Sounds Present, Soft, Non Tender, Non-Distended : Urine retention. Rec quires a straight catheterization. No renal angle tenderness. No suprapubic tenderness. Extremities: No edema, Capillary Refill Less than 3 Seconds Skin: No rashes, No breakdown Musculoskeletal: No Tenderness to Palpation of Joints or Extremities Neurological: Cranial nerves II-XII grossly intact, DTR 2+/4 and Symmetrical, Neuro grossly intact Psych/Mental Status: Normal Affect, Appropriate. Assessment & Plan Assessment/Plan (1) Spinal stenosis of lumbar region at multiple levels: PLAN: Plan Patient is a 71-year-old lady admitted with spinal stenosis underwent laminect [place] by orthopedic surgery on 04/25/2022. Hospitalist service was consulted to assist with management of patient medical comorbidities 1. Severe spinal stenosis L4-5, L3-4 and L2-3. Patient had laminectomy decompression. Postop urinary retention. 2. Urinary retention ? Patient managed with Flomax. Seen by urologist recommended Erazo cath and follow-up in outpatient 3. Valvular heart disease of the aortic valve -status post TAVR February 2022 4. DVT prophylaxis -as per primary service Charges/Coding Multi Select Codes Visit Charges Visit Charges: 61273 Subs Hosp L2
[2022-05-02] MEDS: Ensure Surgery 237 ML LIQUID PO (08:23)
[2022-05-02 08:24] VITALS: BP 135/60; PULSE 62; RESP 17; TEMP 36.8; O2SAT 93
--- NOTE | 2022-05-02 08:35 | PCM.PN.GU ---
Subjective Subjective Finally having bowel movements. Voiding is improving with 300 to 400 cc per void. Residuals remain elevated, the last one being 375 cc this morning. Objective Data Objective Data Vital Signs: Vital Signs Temp Pulse Resp BP Pulse Ox FiO2 98.3 F 62 17 135/60 H 93 34 05/02/22 08:24 05/02/22 08:24 05/02/22 08:24 05/02/22 08:24 05/02/22 08:24 04/25/22 13:30 Oxygen Flow Rate (L/min) 4 Oxygen Delivery Method Room Air Weight: 95 kg Body Mass Index (BMI) 36.5 Intake & Output: Intake and Output for Last 24 Hours 04/30/22 05/01/22 05/02/22 23:59 23:59 23:59 Intake Total 1200 / 1300 1420 / 1420 1050 / 1050 Output Total 1750 / 1750 1945 / 1945 1125 / 1125 Balance -550 / -450 -525 / -525 -75 / -75 Lab / Micro Data Attestation: I reviewed the patient's lab results. Result Diagrams: 04/28/22 04:42 Micro: Microbiology 04/13/22 11:16 Swab (Method) Nasal Screen MRSA/MSSA - Final Rhythm Strip Rhythm Strip: Sinus Tach Physical Exam Narrative Sitting comfortably in bed. Alert and oriented x3. Holding conversation appropriately. Abdomen soft. No Erazo catheter. HEENT normocephalic and head/scalp atraumatic Neck General: trachea midline Chest Chest: symmetrical chest wall rise Resp normal respiratory effort Effort and Inspection: able to speak in complete sentences Cardio regular rate Extremity Extremity Narrative: SCDs in place Assessment & Plan Assessment/Plan (1) Urinary retention: (2) Constipation: PLAN: Plan Constipation is improved with miralax voiding is improving but not good enough yet to go without catheter ok to discharge today with catheter to straight drain if she stays overnight, continue TID cathing stool softener at home after discharge continue flomax for now urine culture pending
[2022-05-02] MEDS: oxyCODONE 5 MG Tablet PO ×2 (08:45→14:20)
--- NOTE | 2022-05-02 14:51 | DCINST_ITS ---
Discharge Instructions Follow Up Care Test Results: Test results from this visit will be discussed in further detail at your follow- up appointment, if applicable. Discharge Plan Admission Admit Date/Time: 04/25/22 12:20 Primary Reason for Your Visit: back surgery Attending Provider: Edmond Merino Primary Care Provider: Jovon Deras Consulting Providers: Terry Becker ; Sudhakar Bedoya ; Suri Alvarado ; Иван Clemons Discharge Orders/Prescriptions Prescriptions: No Action cholecalciferol (vitamin D3) 50 mcg (2,000 unit) capsule 50 mcg PO DAILY cinnamon bark [Cinnamon] 500 mg capsule 500 mg PO DAILY aspirin [Adult Low Dose Aspirin] 81 mg tablet,delayed release (DR/EC) 81 mg PO DAILY Label Comments: LAST DOSE 04/17/22 vitamin B complex [B Complex-Vitamin B12] Tablet 1 tab PO DAILY gabapentin 300 mg capsule 300 mg PO QHS escitalopram oxalate 5 MG tablet 5 mg PO DAILY clopidogrel 75 mg tablet 75 mg PO DAILY Label Comments: LAST DOSE 04/17/22 - 7 DAYS PRIOR biotin 500 mcg Capsule 1 mg PO DAILY Referrals / Follow Up: Suri Alvarado MD [STAFF PHYSICIAN] - 05/09/22 1:30 pm Edmond Merino DO [STAFF PHYSICIAN] - 05/09/22 Jovon Deras MD [Primary Care Provider] - Disposition Disposition (needs filled in before D/C Order can be placed): Home, Self Care
--- NOTE | 2022-05-02 14:54 | PCM.DC.SUM ---
Providers Date of Admission: 04/25/22 Primary Care Physician: Dr. Jovon Deras MD Attending Physician: This is discharge summary on Saumya Webster. Mrs. Webster was admitted last Sunday a week ago and underwent a 3 level lumbar decompression at the L2-3 level, at the L3-4 level, and at the L4-5 level. We had the complication of a dural tear at the L3-4 level during surgery. We were able to get the leak under control with DuraGen and Flomax. Difference in her postop care however required her to stay flat in bed until last Sunday 3 days after her surgery. For she suffered some spasms in her legs and some spasms in her back which have since just about completely resolved. I did get her up on Sunday and she did well. Unfortunately she had difficulty urinating and we had to keep the catheter in and start Flomax. Yesterday Dr. Pace urological consultation. First thing that she did was order a laxative. This was very successful. Apparently her full bowel was changing the angle of her bladder causing her to have the difficulty in urinating. With the bowel emptied she is now able to urinate easily on her own. I removed her dressing on Sunday. The incision was dry and healing well as it is now. She has never had a headache since the procedure. At discharge she is doing very well. She has a walker already at home. Her fills her 2 medications that I gave her Valium and oxycodone. He did that yesterday. So her medications were already at home. Today she states that her legs feel much much better than they did prior to surgery which of course is why she had the surgery. Her backs not hurting too bad at all. I gave her directions to ambulate all she can with her walker at first. Already has an appointment to see me next Sunday at the office. That we will remove her clips at that time. She knows to call me in the event of any problems that she should encounter while at home. This is the end of discharge summary on Saumya Webster. This is Dr. Merino dictating. Consultations 04/25/22 12:53 Consult: Hospitalist Routine Consulting Provider: Terry Becker Reason for Consult: Medical Management EMERGENT Consult: No MD Notified: Yes Date Notified: 04/25/22 Time Notified: 14:54 Method of Notification: Text 05/01/22 16:55 Consult: Urology Routine Consulting Provider: Suri Alvarado Reason for Consult: urinary retention EMERGENT Consult: No MD Notified: Yes Date Notified: 05/01/22 Time Notified: 16:55 Method of Notification: office Reason For Visit: LUMBAR LAMINECTOMY DECOMPRESSION L4-5, Diagnosis Discharge Diagnosis (1) Urinary retention: Status: Acute Code(s): R33.9 - Retention of urine, unspecified (2) Constipation: Status: Acute Code(s): K59.00 - Constipation, unspecified Medications at Discharge Home Medications escitalopram oxalate 5 mg tablet 5 mg PO DAILY mood 03/08/17 cinnamon bark 500 mg capsule (Cinnamon) 500 mg PO DAILY supplement 07/13/20 cholecalciferol (vitamin D3) 50 mcg (2,000 unit) capsule 50 mcg PO DAILY supplement 07/14/20 aspirin 81 mg tablet,delayed release (Adult Low Dose Aspirin) 81 mg PO DAILY heart health 01/12/21 vitamin B complex (B Complex-Vitamin B12) 1 tab PO DAILY supplement 01/12/21 gabapentin 300 mg capsule 300 mg PO QHS leg cramps 02/16/21 clopidogrel 75 mg tablet 75 mg PO DAILY blood thinner 04/11/22 biotin 500 mcg capsule 1 mg PO DAILY supplement 04/25/22 Weight / BMI Weight Weight: 209 lb 7.026 oz Body Mass Index (BMI) 36.5 ABG / Lab / Microbiology Data Result Diagrams: 04/28/22 04:42 Microbiology: Microbiology 05/01/22 19:30 Urine, Catheterized Urine Culture - Preliminary Presumptive E. coli 04/13/22 11:16 Swab (Method) Nasal Screen MRSA/MSSA - Final Meaningful Use Info Meaningful Use Diagnoses (Choose all that apply): None applicable Discharge Plan Admission Admit Date/Time: 04/25/22 12:20 Primary Reason for Your Visit: back surgery Attending Provider: Edmond Merino Primary Care Provider: Jovon Deras Consulting Providers: Terry Becker ; Sudhakar Bedoya ; Suri Alvarado ; Иван Clemons Discharge Orders/Prescriptions Prescriptions: No Action cholecalciferol (vitamin D3) 50 mcg (2,000 unit) capsule 50 mcg PO DAILY cinnamon bark [Cinnamon] 500 mg capsule 500 mg PO DAILY aspirin [Adult Low Dose Aspirin] 81 mg tablet,delayed release (DR/EC) 81 mg PO DAILY Label Comments: LAST DOSE 04/17/22 vitamin B complex [B Complex-Vitamin B12] Tablet 1 tab PO DAILY gabapentin 300 mg capsule 300 mg PO QHS escitalopram oxalate 5 MG tablet 5 mg PO DAILY clopidogrel 75 mg tablet 75 mg PO DAILY Label Comments: LAST DOSE 04/17/22 - 7 DAYS PRIOR biotin 500 mcg Capsule 1 mg PO DAILY Referrals / Follow Up: Suri Alvarado MD [STAFF PHYSICIAN] - 05/09/22 1:30 pm Edmond Merino DO [STAFF PHYSICIAN] - 05/09/22 Jovon Deras MD [Primary Care Provider] - Disposition Disposition (needs filled in before D/C Order can be placed): Home, Self Care
[2022-05-02 15:40] VITALS: BP 130/62; PULSE 85; RESP 17; TEMP 36.2; O2SAT 94
== END 2022-05-02 16:11 | disposition home or self-care (01) | DRG 519 ==
LOC: SDC 12:49 → MS3 12:49
PROVIDERS: Anesthesiology; Internal Medicine; Admitting Provider Orthopaedic Surgery; PCP Family Medicine; Referring Provider Orthopaedic Surgery; Visit Provider Orthopaedic Surgery
PROC: 00UT0KZ Supplement Spinal Meninges with Nonautologous Tissue Substitute, Open Approach (ICD-10-PCS; CPT 63030; principal; 2022-04-25 07:00)
DX: M48.061 Spinal stenosis, lumbar region without neurogenic claudication (principal); G97.41 Accidental puncture or laceration of dura during a procedure; K59.00 Constipation, unspecified; Z79.82 Long term (current) use of aspirin; R33.9 Retention of urine, unspecified; Z79.02 Long term (current) use of antithrombotics/antiplatelets; Z95.2 Presence of prosthetic heart valve
CPT/HCPCS: 36415; 72020; 82962; 83735; 85025; 87081; 87086; 87088; 87186; 97116; 97162; 97166; 97530; 97535; 99251; J7120; A4216; G0463; J2405; J3475

== ENCOUNTER → 2022-06-27 | Outpatient (CLI) | payer MEDICARE, OTHER, SELFPAY ==
--- NOTE | 2022-06-27 16:21 | RAD_ITS ---
STUDY: X-RAY - LEFT ANKLE REASON FOR EXAM: Left ankle pain and swelling, no specific injury. TECHNIQUE: 3 view(s) of the ankle. COMPARISON: None. FINDINGS: Normal visualized distal tibia and fibula. Normal medial and lateral malleoli. Normal tibiotalar articulation and ankle mortise. Normal visualized talus and calcaneus. The visualized subtalar, talonavicular, calcaneocuboid and tarsal articulations are normal. There is soft tissue swelling. RAD/Ankle min 3 Views IMPRESSION: Soft tissue swelling. Otherwise, unremarkable x-ray examination of the left ankle. Electronically Signed: Brandon Bowie MD at 14:55 EDT ,
== END | disposition home or self-care (01) ==
LOC: MTRAD 16:20
PROVIDERS: PCP Family Medicine; Referring Provider Family Medicine; Visit Provider Family Medicine
DX: M25.572 Pain in left ankle and joints of left foot (principal); R60.0 Localized edema
CPT/HCPCS: 73610

== ENCOUNTER → 2022-06-28 | Outpatient (CLI) | payer MEDICARE, OTHER, SELFPAY ==
--- NOTE | 2022-06-28 10:32 | VDLE_ITS ---
Reason For Study: Leg edema RIGHT LEFT CFV is compressible, spontaneous, phasic, GSV is normal. competent and demonstrates normal CFV is compressible, spontaneous, phasic, augmentation. competent, and demonstrates normal Procedure augmentation. This is a venous duplex using B-mode, color FV is compressible, spontaneous, phasic, flow and spectral Doppler. competent and demonstrates normal Exam performed in department. augmentation. A preliminary report was called and/or faxed POP V is compressible, spontaneous, phasic, to Samantha. competent and demonstrates normal augmentation. T/P Trunk is compressible. Acute deep vein thrombosis is noted in the left PTV, PeroV and SoleusV. VL/Venous Duplex US, Unilateral Interpretation Summary Acute deep venous thrombosis left posterior tibial, peroneal, and soleus veins. Patent and compressible left great saphenous vein Normal flow patterns right common femoral vein Ordering Physician: Alda Slaughter Referring Physician: Jovon Deras Performed By: Lashaun Taylor RVT
== END | disposition home or self-care (01) ==
LOC: CVS 10:31
PROVIDERS: PCP Family Medicine; Referring Provider Family Medicine; Visit Provider Family Medicine
DX: M25.572 Pain in left ankle and joints of left foot (principal); R60.0 Localized edema
CPT/HCPCS: 93971

== ENCOUNTER → 2022-07-06 | Outpatient (CLI) | payer MEDICARE, OTHER, SELFPAY | END | disposition home or self-care (01) | PROVIDERS: PCP Family Medicine; Visit Provider Family Medicine | DX: R30.0 Dysuria (principal) | CPT/HCPCS: 87086; 87088 ==

== ENCOUNTER → 2022-09-12 | Outpatient (CLI) | payer MEDICARE, OTHER, SELFPAY ==
[2022-09-12 14:26] LABS: D-Dimer Quantitative (DVT/PE) 0.82 FEU/ug/m (0.27-0.49)
== END | disposition home or self-care (01) ==
LOC: MFPLAB 10:46
PROVIDERS: PCP Family Medicine; Visit Provider Family Medicine
DX: I82.4Z9 Acute embolism and thrombosis of unspecified deep veins of unspecified distal lower extremity (principal)
CPT/HCPCS: 36415; 85379

== ENCOUNTER → 2023-02-21 | Outpatient (CLI) | payer MEDICARE, OTHER, SELFPAY ==
--- NOTE | 2023-02-21 10:02 | ECHOD_ITS ---
Reason For Study: s/p TAVR Procedure This was a 2D Doppler, Color Flow transthoracic echocardiogram. Exam performed in department. Left Ventricle Normal LV size. Left ventricular systolic function is normal. The estimated ejection fraction is 65 %. Stage 1 diastolic dysfunction. No regional wall motion abnormalities noted. Right Ventricle Normal RV size. Normal systolic function. Atria Normal left atrium. Normal right atrium. Mitral Valve There is mild mitral annular calcification. Tricuspid Valve Normal tricuspid valve. Mild tricuspid valve insufficiency. Aortic Valve Peak aortic valve gradient 27 mmHg. Mean aortic valve gradient 16 mmHg. Bioprosthetic aortic valve. Pulmonic Valve Normal pulmonic valve. Great Vessels Normal aortic root. The pulmonary artery is normal size. Normal inferior vena cava. Pericardium/Pleural No pericardial effusion. MMode/2D Measurements & Calculations LVIDd: 3.4 cm IVSd: 1.5 cm LVOT diam: 1.9 cm LVIDs: 2.3 cm LVPWd: 1.2 cm LVOT area: 2.7 cm2 RVDd: 3.4 cm FS: 32.2 % Ao root diam: 3.1 cm LAV(MOD-bp): 35.4 ml LVAd ap4: 18.9 cm2 LAV(MOD-bp) Indexed: 18.1 ml/m2 LVLd ap4: 6.7 cm LAV(MOD-sp2): 24.8 ml EDV(MOD-sp4): 44.7 ml LAV(MOD-sp4): 49.6 ml EDV(sp4-el): 45.2 ml LVAs ap4: 9.5 cm2 LVLs ap4: 5.6 cm ESV(MOD-sp4): 14.9 ml ESV(sp4-el): 13.6 ml EF(MOD-sp4): 66.6 % EF(sp4-el): 69.8 % SV(MOD-sp4): 29.8 ml SV(sp4-el): 31.6 ml LA A4 area: 17.6 cm2 LA dimension(2D): 3.4 cm RA A4 area: 10.6 cm2 Time Measurements MV dec time: 0.38 sec Doppler Measurements & Calculations MV E max valdemar: 100.0 cm/sec Lat Peak E' Valdemar: 8.1 cm/sec Med Peak E' Valdemar: 5.1 cm/sec MV A max valdemar: 145.9 cm/sec E/E' lat: 12.4 E/E' med: 19.7 MV E/A: 0.69 MV V2 max: 136.6 cm/sec Ao V2 max: 261.6 cm/sec MV max P.5 mmHg MV dec slope: 266.1 cm/sec2 Ao max P.4 mmHg MV V2 mean: 82.3 cm/sec Ao V2 mean: 195.0 cm/sec MV mean P.0 mmHg Ao mean P.4 mmHg MV V2 VTI: 39.1 cm Ao V2 VTI: 52.3 cm AV (velocity ratio): 0.73 MVA(VTI): 2.6 cm2 JONAH(I,D): 2.0 cm2 JONAH(V,D): 1.8 cm2 LV V1 max: 175.5 cm/sec SV(LVOT): 102.6 ml PA V2 max: 104.5 cm/sec LV V1 max P.3 mmHg LV V1 mean P.1 mmHg LV V1 mean: 135.1 cm/sec LV V1 VTI: 38.1 cm TR max valdemar: 224.3 cm/sec TR max P.1 mmHg ECHO/Echo Complete Interpretation Summary Normal LV size. Left ventricular systolic function is normal. The estimated ejection fraction is 65 %. Stage 1 diastolic dysfunction. Bioprosthetic aortic valve. Mean aortic valve gradient 16 mmHg. Peak aortic valve gradient 27 mmHg. Ordering Physician: Ryan Moore Referring Physician: Jovon Dreas Performed By: Marge Simon, RDCS, RVT
== END | disposition home or self-care (01) ==
LOC: CVS 10:00
PROVIDERS: PCP Family Medicine; Visit Provider Internal Medicine Cardiovascular Disease
DX: I35.0 Nonrheumatic aortic (valve) stenosis (principal); Z95.2 Presence of prosthetic heart valve
CPT/HCPCS: 93306

== ENCOUNTER 2023-04-26 12:35 | Outpatient (CLI) | payer MEDICARE, OTHER, SELFPAY ==
[2023-04-26 13:46] LABS: ALB/GLOB Ratio 0.9 RATIO (0.9-2.4); AST(SGOT) 18 U/L (15-37); Alanine Aminotransfer ALT/SGPT 14 U/L (13-56); Albumin, Serum 3.4 g/dL (3.2-5.0); Alkaline Phosphatase 81 U/L (45-117); Anion Gap 4 (5-15); BUN 17 mg/dL (7-18); BUN/Creat Ratio 21.7 RATIO (10-20); Chloride 110 mmol/L (98-107); Cholesterol 164 mg/dL (200); Creatinine, Serum 0.78 mg/dL (0.55-1.02); EST Glomerular Filtration Rate 76 mL/min (>60); Est Glom Filt Rate - Afr Amer 92 mL/min (>60); Globulin 3.8 g/dL (2.2-4.2); Glucose 99 mg/dL (74-106); High Density Lipoprotein 37 mg/dL; Potassium 4.3 mmol/L (3.5-5.1); Protein, Total 7.2 g/dL (6.4-8.2); Sodium Level 140 mmol/L (136-145); Triglycerides 64 mg/dL; Very Low Density Lipoprotein 13 mg/dL (5-40)
[2023-04-26 13:47] LABS: Vitamin D,25 Hydroxy 103.4 ng/mL
== END 2023-04-26 23:59 | disposition home or self-care (01) ==
PROVIDERS: PCP Family Medicine; Referring Provider Family Medicine; Visit Provider Family Medicine
DX: Z13.220 Encounter for screening for lipoid disorders (principal); E55.9 Vitamin D deficiency, unspecified; E66.9 Obesity, unspecified
CPT/HCPCS: 36415; 80053; 80061; 82306

== ENCOUNTER → 2023-07-19 | Outpatient (CLI) | payer MEDICARE, OTHER, SELFPAY ==
--- NOTE | 2023-07-19 12:54 | BI_ITS ---
MAMMOGRAPHY - BILATERAL SCREENING REASON FOR EXAM: Female, 73 years old. Routine annual screening examination. PERTINENT HISTORY: Non-contributory. TECHNIQUE: Digital bilateral breast ilda (3D mammographic acquisition) in the CC and MLO projections. 2-D mediolateral oblique (MLO) and craniocaudad (CC) views of both breasts were obtained. CAD: Full Field Digital Mammography with Computer Added Detection was performed. COMPARISON: Comparison is made with prior study June 29, 2021 and April 23, 2020. FINDINGS: Breast Composition: The breasts are heterogeneously dense, which may obscure small masses. There are no dominant masses or suspicious calcifications. Stable 5.7 mm well-defined nodule in the upper lateral aspect of the right breast. This was demonstrated to be a small cyst on prior sonogram. No other significant abnormalities are identified. There has been no significant change since the prior study. BI/SCRN MAMM (CAD)W/ILDA BILAT IMPRESSION: Stable bilateral screening mammogram. Yearly follow-up mammogram recommended. (A) ASSESSMENT CATEGORY: BIRADS Category 2: Benign. A letter regarding these results will be sent to the patient by the facility within 30 days. Approximately 10% of breast cancers are not detected by mammography. A normal mammogram should not delay biopsy of a clinically suspicious abnormality. [id number] Electronically Signed: John Caceres MD at 13:50 EDT ,
== END | disposition home or self-care (01) ==
LOC: OPBI 12:53
PROVIDERS: PCP Family Medicine; Referring Provider Family Medicine; Visit Provider Family Medicine
DX: Z12.31 Encounter for screening mammogram for malignant neoplasm of breast (principal)
CPT/HCPCS: 77063; 77067

== ENCOUNTER → 2024-04-30 | Outpatient (CLI) | payer MEDICARE, OTHER, SELFPAY ==
[2024-04-30 12:03] LABS: ALB/GLOB Ratio 0.9 RATIO (0.9-2.4); AST(SGOT) 19 U/L (15-37); Alanine Aminotransfer ALT/SGPT 17 U/L (13-56); Albumin, Serum 3.4 g/dL (3.2-5.0); Alkaline Phosphatase 80 U/L (45-117); Anion Gap 5 (5-15); BUN 20 mg/dL (7-18); BUN/Creat Ratio 22.4 RATIO (10-20); Calcium,Total 9.1 mg/dL (8.5-10.1); Chloride 109 mmol/L (98-107); Creatinine, Serum 0.89 mg/dL (0.55-1.02); EST Glomerular Filtration Rate 65 mL/min (>60); Est Glom Filt Rate - Afr Amer 79 mL/min (>60); Globulin 3.9 g/dL (2.2-4.2); Glucose 89 mg/dL (74-106); Potassium 4.2 mmol/L (3.5-5.1); Protein, Total 7.3 g/dL (6.4-8.2); Sodium Level 140 mmol/L (136-145); Thyroid Stim Hormone (TSH) 2.07 uIU/mL (0.358-3.74)
== END | disposition home or self-care (01) ==
PROVIDERS: PCP Family Medicine; Referring Provider Family Medicine; Visit Provider Family Medicine
DX: T45.2X1A Poisoning by vitamins, accidental (unintentional), initial encounter (principal); M85.80 Other specified disorders of bone density and structure, unspecified site; E66.9 Obesity, unspecified
CPT/HCPCS: 36415; 80053; 82306; 84443

== ENCOUNTER → 2024-07-08 | Outpatient (CLI) | payer MEDICARE, OTHER, SELFPAY ==
--- NOTE | 2024-07-08 07:55 | ECHOD_ITS ---
Reason For Study: PROSTHETIC HEART VALVE (TAVR-2021) Procedure This was a 2D Doppler, Color Flow transthoracic echocardiogram. Exam performed in department. Left Ventricle Normal LV size. Left ventricular systolic function is normal. The left ventricular ejection fraction is 70 %. Stage 1 diastolic dysfunction. No regional wall motion abnormalities noted. Right Ventricle Normal RV size. Normal systolic function. Atria Normal left atrium. Normal right atrium. Mitral Valve Moderate mitral annular calcification extending into the posterior leaflet. Tricuspid Valve Normal tricuspid valve. Mild (1+) tricuspid valve insufficiency. Pulmonary artery systolic pressure is 33 mmHg. Aortic Valve Peak aortic valve gradient 33 mmHg. Mean aortic valve gradient 18 mmHg. Bioprosthetic aortic valve. Great Vessels Normal aortic root. The pulmonary artery is normal size. Inferior vena cava collapse with respiration. Pericardium/Pleural No pericardial effusion. MMode/2D Measurements & Calculations LVIDd: 3.8 cm IVSd: 1.3 cm LVOT diam: 1.9 cm LVIDs: 2.5 cm LVPWd: 1.1 cm LVOT area: 2.9 cm2 RVDd: 2.5 cm FS: 35.0 % Ao root diam: 3.2 cm LAV(MOD-bp): 63.2 ml LVAd ap4: 22.3 cm2 LAV(MOD-bp) Indexed: 31.8 ml/m2 LVLd ap4: 7.0 cm LAV(MOD-sp2): 62.0 ml EDV(MOD-sp4): 59.9 ml LAV(MOD-sp4): 56.1 ml EDV(sp4-el): 60.4 ml LVAs ap4: 11.2 cm2 LVLs ap4: 5.8 cm ESV(MOD-sp4): 20.2 ml ESV(sp4-el): 18.4 ml EF(MOD-sp4): 66.3 % EF(sp4-el): 69.5 % SV(MOD-sp4): 39.7 ml SV(sp4-el): 41.9 ml LA A4 area: 18.5 cm2 LA dimension(2D): 3.7 cm RA A4 area: 12.0 cm2 TAPSE: 2.3 cm Time Measurements MV dec time: 0.33 sec Doppler Measurements & Calculations MV E max valdemar: 123.3 cm/sec Lat Peak E' Valdemar: 9.1 cm/sec Med Peak E' Valdemar: 6.7 cm/sec MV A max valdemar: 124.8 cm/sec E/E' lat: 13.6 E/E' med: 18.4 MV E/A: 0.99 MV V2 max: 145.8 cm/sec MV P1/2t max valdemar: 148.1 cm/sec Ao V2 max: 288.1 cm/sec MV max P.5 mmHg MV P1/2t: 97.5 msec Ao max P.2 mmHg MV V2 mean: 84.6 cm/sec Ao V2 mean: 201.2 cm/sec MV mean P.3 mmHg MV dec slope: 444.8 cm/sec2 Ao mean P.2 mmHg MV V2 VTI: 48.2 cm MVA(P1/2t): 2.3 cm2 Ao V2 VTI: 69.7 cm AV (velocity ratio): 0.47 MVA(VTI): 2.0 cm2 JONAH(I,D): 1.4 cm2 JONAH(V,D): 1.3 cm2 LV V1 max: 131.3 cm/sec SV(LVOT): 94.3 ml PA V2 max: 107.2 cm/sec LV V1 max P.0 mmHg PA V2 mean: 77.7 cm/sec LV V1 mean P.9 mmHg LV V1 mean: 107.4 cm/sec LV V1 VTI: 32.5 cm TR max valdemar: 277.8 cm/sec TR max P.9 mmHg ECHO/Echo Complete Interpretation Summary Normal LV size. Left ventricular systolic function is normal. The left ventricular ejection fraction is 70 %. Stage 1 diastolic dysfunction. Bioprosthetic aortic valve. Mean aortic valve gradient 18 mmHg. Moderate mitral annular calcification extending into the posterior leaflet. Compared to the previous the above is essentially unchanged. Ordering Physician: Ryan Moore Referring Physician: Shannon Arguelles Performed By: Gissel Noble, DORCAS, RVT
== END | disposition home or self-care (01) ==
LOC: CVS 07:55
PROVIDERS: PCP Family Medicine; Referring Provider Internal Medicine Cardiovascular Disease; Visit Provider Internal Medicine Cardiovascular Disease
DX: Z95.2 Presence of prosthetic heart valve (principal)
CPT/HCPCS: 93306

== ENCOUNTER → 2024-07-21 | Outpatient (CLI) | payer MEDICARE, OTHER, SELFPAY ==
--- NOTE | 2024-07-21 12:27 | BI_ITS ---
MAMMOGRAPHY - BILATERAL SCREENING REASON FOR EXAM: Female, 74 years old. Routine annual screening examination. PERTINENT HISTORY: Non-contributory. TECHNIQUE: Digital bilateral breast ilda (3D mammographic acquisition) in the CC and MLO projections. 2-D mediolateral oblique (MLO) and craniocaudad (CC) views of both breasts were obtained. CAD: Full Field Digital Mammography with Computer Added Detection was performed. COMPARISON: Comparison is made with prior study July 19, 2023 and June 29, 2021. FINDINGS: Breast Composition: The breasts are heterogeneously dense, which may obscure small masses. There are no dominant masses or suspicious calcifications. Stable small benign-appearing bilateral axillary lymph nodes. No other significant abnormalities are identified. There has been no significant change since the prior study. BI/SCRN MAMM (CAD)W/ILDA BILAT IMPRESSION: Stable bilateral screening mammogram. Yearly follow-up mammogram recommended. (A) ASSESSMENT CATEGORY: BIRADS Category 2: Benign. A letter regarding these results will be sent to the patient by the facility within 30 days. Approximately 10% of breast cancers are not detected by mammography. A normal mammogram should not delay biopsy of a clinically suspicious abnormality. [id number] Electronically Signed: John Caceres MD at 13:14 EDT ,
== END | disposition home or self-care (01) ==
LOC: OPBI 12:27
PROVIDERS: PCP Family Medicine; Referring Provider Family Medicine; Visit Provider Family Medicine
DX: Z12.31 Encounter for screening mammogram for malignant neoplasm of breast (principal)
CPT/HCPCS: 77063; 77067

== ENCOUNTER → 2024-07-28 | Outpatient (CLI) | payer MEDICARE, OTHER, SELFPAY ==
--- NOTE | 2024-07-28 08:53 | CDU_ITS ---
Reason For Study: Carotid Stenosis, Abn Blood Flow Screening Rt. Velocities/BP Lt. Velocities/BP Prox CCA 92/15 cm/sec. Prox CCA 83/17 cm/sec. Mid CCA 82/10 cm/sec. Mid CCA 86/18 cm/sec. Dist CCA 65/12 cm/sec. Dist CCA 75/16 cm/sec. Prox ICA 70/13 cm/sec. Prox ICA 140/29 cm/sec. Mid ICA 86/26 cm/sec. Mid ICA 105/30 cm/sec. Dist ICA 104/25 cm/sec. Dist ICA 109/30 cm/sec. Rt. ICA/CCA = 1.3. Lt. ICA/CCA = 1.6. Prox ECA 74/8 cm/sec. Prox ECA 83/8 cm/sec. Rt. Vert. 59/15 cm/sec. Lt. Vert. 45/10 cm/sec. Right Extracranial There is intimal thickening but no significant atherosclerotic plaque noted in the right common carotid artery. There is homogeneous, smooth atherosclerotic plaque noted in the right internal carotid artery. There is intimal thickening but no significant atherosclerotic plaque noted in the right external carotid artery. Antegrade flow is noted in the right vertebral artery. Left Extracranial There is heterogeneous, irregular atherosclerotic plaque noted in the left common carotid artery. There is heterogeneous, irregular atherosclerotic plaque noted in the left internal carotid artery. There is heterogeneous, smooth atherosclerotic plaque noted in the left external carotid artery. Antegrade flow is noted in the left vertebral artery. Procedure Carotid Duplex [id number]. This is a Carotid Duplex examination using B-mode, color flow and specral Doppler. Exam performed in department. VL/Carotid Duplex Ultrasound Interpretation Summary Mild (<50%) stenosis right extracranial internal carotid. Moderate (50-69%) stenosis left extracranial internal carotid. Patent and antegrade vertebrals bilaterally. Ordering Physician: Yumiko Kwong Referring Physician: Remy Arguelles Performed By: Marge Simon, RDCS, RVT
== END | disposition home or self-care (01) ==
LOC: CVS 08:53
PROVIDERS: PCP Family Medicine; Referring Provider Nurse Practitioner Gerontology; Visit Provider Nurse Practitioner Gerontology
DX: I65.23 Occlusion and stenosis of bilateral carotid arteries (principal); I82.409 Acute embolism and thrombosis of unspecified deep veins of unspecified lower extremity; Z95.2 Presence of prosthetic heart valve
CPT/HCPCS: 93880

== ENCOUNTER → 2025-02-09 | Outpatient (CLI) | payer MEDICARE, OTHER, SELFPAY ==
[2025-02-09 10:50] LABS: Erythrocyte Sedimentation Rate 16 mm/hr (0-30)
[2025-02-09 10:51] LABS: Absolute Neutrophil Count 3.9 X10^3/uL (2.0-7.7); Basophil# 0.05 X10^3/uL; Basophil% 0.8 % (0-1); Eosinophil# 0.15 X10^3/uL; Eosinophils% 2.3 % (0-5); Hematocrit 39.6 % (37-47); Hemoglobin 13.1 g/dL (12.0-15.0); Lymphocyte % 29.3 % (19-41); Mean Corp Hgb Conc 33.1 g/dL (32-36); Mean Corpuscular Hgb 29.4 pg (27.0-32.0); Mean Corpuscular Volume 88.8 fL (81-99); Mean Platelet Vol. 11.8 fl (6.2-12.0); Monocyte# 0.47 X10^3/uL; Monocyte% 7.2 % (0-10); NRBC Flagged by Analyzer 0 % (0-5); Neutrophil % 60.1 % (47-70); Platelet Count 219 K/mm3 (150-450); RBC Distribution Width CV 12.7 % (11.6-14.6); RBC Distribution Width SD 41.5 fl (35.1-43.9); Red Blood Count 4.46 M/mm3 (4.2-5.4); White Blood Count 6.5 K/mm3 (4.4-11.0)
[2025-02-09 11:09] LABS: CRP < 3.00 mg/L (0.0-3.0)
== END | disposition home or self-care (01) ==
LOC: LAB 10:01
PROVIDERS: PCP Family Medicine; Referring Provider Specialist; Visit Provider Specialist
DX: T84.84XA Pain due to internal orthopedic prosthetic devices, implants and grafts, initial encounter (principal); Z96.652 Presence of left artificial knee joint
CPT/HCPCS: 36415; 85025; 85652; 86140

== ENCOUNTER → 2025-04-14 | Outpatient (CLI) | payer MEDICARE, OTHER, SELFPAY ==
[2025-04-14 10:46] LABS: Absolute Lymphocyte Count 1.92 X10^3/uL (0.83-4.51); Absolute Neutrophil Count 4.9 X10^3/uL (2.0-7.7); Basophil# 0.07 X10^3/uL; Basophil% 0.9 % (0-1); Eosinophil# 0.25 X10^3/uL; Eosinophils% 3.2 % (0-5); Hematocrit 41.1 % (37-47); Hemoglobin 13.7 g/dL (12.0-15.0); Lymphocyte # 1.92 X10^3/ul (0.83-4.51); Lymphocyte % 24.8 % (19-41); Mean Corp Hgb Conc 33.3 g/dL (32-36); Mean Corpuscular Hgb 29.9 pg (27.0-32.0); Mean Corpuscular Volume 89.7 fL (81-99); Mean Platelet Vol. 11.1 fl (6.2-12.0); Monocyte# 0.54 X10^3/uL; NRBC Flagged by Analyzer 0 % (0-5); Neutrophil # 4.93 X10^3/uL (2.7-7.7); Neutrophil % 63.8 % (47-70); Platelet Count 251 K/mm3 (150-450); RBC Distribution Width CV 13.6 % (11.6-14.6); RBC Distribution Width SD 44.4 fl (35.1-43.9); Red Blood Count 4.58 M/mm3 (4.2-5.4); White Blood Count 7.7 K/mm3 (4.4-11.0)
[2025-04-14 11:36] LABS: ALB/GLOB Ratio 1.3 RATIO (0.9-2.4); AST(SGOT) 27 U/L (<=31); Alanine Aminotransfer ALT/SGPT 14 U/L (<=34); Albumin, Serum 3.8 g/dL (3.4-4.8); Alkaline Phosphatase 75 U/L (35-104); Anion Gap 12 (5-15); BUN 14 mg/dL (4-19); BUN/Creat Ratio 16.6 RATIO (10-20); Calcium,Total 9.3 mg/dL (7.6-11.0); Carbon Dioxide 21.3 mmol/L (21.0-32.0); Chloride 107 mmol/L (98-108); Creatinine, Serum 0.84 mg/dL (0.70-1.20); EST Glomerular Filtration Rate 72 (>60); Glucose 108 mg/dL (70-99); Potassium 4.1 mmol/L (3.3-5.1); Protein, Total 6.8 g/dL (5.9-8.4); Sodium Level 141 mmol/L (133-145); Total Bilirubin 0.49 mg/dL (0.00-1.30)
--- OUTSIDE RECORDS SUMMARY | 2025-04-14 21:48 | XMS RPT_ITS | CCD ---
Author Organization [facility] Care Team Providers Care Telecommunications Switch Technician Name Role Phone Dossi Ellie RODGERS Unavailable LATOYA PITTS Unavailable Unavailable Merlyn Chambers Unavailable Unavailable Ellie Thornton DC Unavailable Dr. Merlyn Cruz Primary Care Provider 1([facility])[phone] Dr. Merlyn Cruz Referring Provider 1([facility])[phone] Ellie Thornton Attending Provider 1([facility])[phone] Edmond Merino Attending Provider 1([facility])[phone] Dr. Jovon Will Attending Provider 1([facility])[phone] Dr. Edmond Merino Referring Provider 1([facility])[phone] Dr. Jovon Deras Primary Care Provider 1([facility])[phone] Dr. Ryan Moore Attending Provider 1([facility])[phone] Evelyne Saldivar Attending Provider Unavailable Dr. Jovon Deras Referring Provider 1([facility])[phone] Jovon Deras MD Primary Care Provider 1([facility])[phone] Dr. Merlyn Cruz Primary Care Provider 1([facility])[phone] Dr. Merlyn Cruz Referring Provider 1([facility])[phone] Edmond Merino Other Provider 1([facility])[phone] Edmond Merino Admit Provider 1([facility])[phone] Calvin Becker Attending Provider 1([facility])[phone] Dr. Calvin Becker Other Provider 1([facility])[phone] DAYANA Moreno Attending Provider 1([facility])[phone] DAGO Shah Attending Provider 1([facility])[phone] Dr. Sudhakar Bedoya Attending Provider Unavailable Dr. Sudhakar Bedoya Other Provider Unavailable Jenny, Dr. Mccord Other Provider Deonte, Dr. Oates Other Provider Dr. Jovon Deras Primary Care Provider Dr. Jovon Deras Referring Provider Dr. Edmond Merino Attending Provider Evelyne Saldivar Attending Provider Unavailable Dr. Ryan Moore Attending Provider Dr. Edmond Merino Referring Provider Dr. Suri Alvarado Other Provider Deonte, Dr. Oates Attending Provider Deonte, Dr. Oates Other Provider Dr. Alli Benavides Attending Provider Augusta, Dr. Sigala Primary Care Provider Dr. Jovon Deras Referring Provider Dr. Edmond Merino Attending Provider Dr. Alli Benavides Attending Provider Augusta, Dr. Sigala Primary Care Provider Dr. Ryan Moore Attending Provider Dr. Jovon Deras Primary Care Provider Dr. Jovon Deras Referring Provider Varghese SCRUGGS, DEHYDRATION UNIT OPERATOR-C Yumiko Attending Provider Remy Goodman MD Primary Care Provider Jake Boyle PA-C Unavailable Remy Goodman MD Primary Care Provider Liliana LOCKETT, Dr. Hill Attending Provider [phone] Dr. Sergio Ford MD Referring Provider [phone] REMY GOODMAN Primary Care Unavailable JUN DONOVAN Referring Unavailable JAKE SURESH Attending Unavailable Remy Goodman Primary Care Unavailable Maxine, Chalon Attending Unavailable Maxine, Chalon Referring Unavailable Oscar, Ryan Attending Unavailable Oscar, [place] Referring Unavailable Maxine, Chalon Primary Care Unavailable Maxine, Chalon Primary Care Unavailable Maxine, Chalon Attending Unavailable Maxine, Chalon Referring Unavailable Maxine, Chalon Primary Care Unavailable Kwong DEHYDRATION UNIT OPERATOR, Yumiko Attending Unavailable Varghese DEHYDRATION UNIT OPERATOR, Yumiko Referring Unavailable Maxine, Chalon Primary Care Unavailable Referred, Self Attending Unavailable Maxine, Chalon Attending Unavailable Maxine, Chalon Referring Unavailable Maxine, Chalon Primary Care Unavailable Edmond Merino Attending Unavailable Maxine, Chalon Primary Care Unavailable Varghese DEHYDRATION UNIT OPERATOR, Yumiko Referring Unavailable Joaquim, Juvencio Attending Unavailable Maxine, Chalon Primary Care Unavailable Kwong DEHYDRATION UNIT OPERATOR, Yuimko Attending Unavailable Oscar, [place] Attending Unavailable Maxine, Chalon Primary Care Unavailable Maxine, Chalon Primary Care Unavailable [place], Juvencio Attending Unavailable Oscar, [place] Attending Unavailable Maxine, Chalon Primary Care Unavailable Jovon Deras Referring Unavailable Liliana, Sergio Referring Unavailable LilianaSergio Attending Unavailable Maxine, Chalon Primary Care Unavailable Allergies Allergy Classification Reported Allergen(s) Allergy Type Date of Onset Reaction(s) Facility (16 sources) natural latex rubber; Translations: [LATEX] allergy to substance 07-03-20 [facility] Work Phone: (7 sources) Adhesive Tape Propensity to adverse reactions 01-25-20 [facility] (13 sources) DULoxetine Drug Allergy 01-25-20 [facility] (14 sources) Latex Allergy to substance 01-25-20 [facility] Work Phone: (3 sources) DULoxetine Drug Allergy 02-07-20 [facility] Work Phone: (2 sources) Adhesive Tape Drug Allergy 07-14-20 [facility] (2 sources) Latex Allergy to substance 07-03-20 [facility] (1 source) DULoxetine Drug Allergy 06-05-20 [facility] (1 source) Latex Drug allergy (disorder) 06-05-20 [facility] Medications Current Medications Medication Drug Class(es) Dates Sig (Normalized) Sig (Original) acetaminophen 325 mg oral tablet (1 source) Start: 02-27-2022 take 650 mg by mouth every four hours for pain 650 mg, Oral, EVERY 4 HOURS PRN, Starting on 02/27/22 at 1310, Until Discontinued, Other, Pain (1-10) Give in addition to any other pain medication ordered at same time for any pain indication. Post-op aspirin 81 mg delayed release oral tablet (17 sources) Platelet Aggregation Inhibitor, Nonsteroidal Anti-inflammatory Drug Start: 01-12-2021 Aspirin (Adult Low Dose Aspirin) 81 mg tablet,delayed release (DR/EC) Active 81 mg PO DAILY January 12, 2021 1:00am B Complex Vitamins (VITAMIN B COMPLEX PO) (2 sources) B Complex Vitamins (VITAMIN B COMPLEX PO) Take by mouth daily. Active B Complex Vitamins (VITAMIN B COMPLEX) TABS (1 source) B Complex Vitamins (VITAMIN B COMPLEX) TABS Take by mouth daily 0 Active biotin 5 mg oral tablet (10 sources) Start: 06-05-2024 take 1 tablet by mouth once daily Biotin 5 mg tablet Active 5 mg PO DAILY June 05, 2024 12:00am Start: 04-25-2022 End: 04-28-2024 take 1 mg by mouth once daily Biotin 500 mcg Capsule Discontinued 1 mg PO DAILY April 25, 2022 12:00am April 28, 2024 2:08pm Start: 04-25-2022 take 1 mg by mouth once daily Biotin Active 1 MG PO DAILY April 25, 2022 12:00am take 1 capsule by mo uth once daily biotin 5 MG capsule Take 5 mg by mouth daily. Active cinnamon bark 500 mg oral capsule (16 sources) Start: 07-13-2020 take 1 capsule by mouth once daily Cinnamon Bark (Cinnamon) 500 mg capsule Active 500 mg PO DAILY July 13, 2020 12:00am Cranberry (3 sources) Non-Standardized Food Allergenic Extract, Non-Standardized Plant Allergenic Extract Start: 06-05-2024 take 1 capsule by mouth once daily at mealtime Cranberry 500 mg capsule Active 500 mg PO DAILY June 05, 2024 12:00am administer with meals Cranberry 500 MG capsule Take 500 mg by mouth. Active docosahexaenoic acid 120 mg / eicosapentaenoic acid 180 mg oral capsule (1 source) take 1 capsule by mouth once daily [place]-3 Fatty Acids (FISH OIL) 1000 MG CAPS Take 1,000 mg by mouth daily 0 Active escitalopram 10 mg oral tablet (17 sources) Serotonin Reuptake Inhibitor Start: 02-28-20 escitalopram (LEXAPRO) tablet 5 mg Start: 03-08-2017 take 1 tablet by veronica th once daily Escitalopram Oxalate 5 MG tablet Active 5 mg PO DAILY March 08, 2017 12:00am fluticasone propionate 0.05 mg/actuat metered dose nasal spray (3 sources) Corticosteroid Start: 06-24-2024 fluticasone (F lonase) 50 MCG/ACT nasal spray 06/24/2024 Active Start: 06-05-2024 Fluticasone Pr opionate 50 mcg/actuation spray,suspension Active NMA INTRANASAL June 05, 2024 12:00am [place]-3 Fatty Acids (Fish Oil) Capsule (6 sources) Start: 01-16-2022 take 1 capsule by mouth once daily [place]-3 Fatty Acids (Fish Oil) Capsule Active 1250 MG PO DAILY January 16, 2022 1:43pm perflutren lipid microspheres (DEFINITY) injection 1.65 mg (1 source) Start: 02-27-2022 End: 03-02-2022 1.65 mg (1.5 mL), IntraVENous, IMG ONCE PRN, Starting on 02/27/22 at 1310, Until Maryana 03/02/22 at 1309, Other, Suboptimal Echo Image Administer up to 1.65 mg via slow IVP for suboptimal echocardiogram enhancement. M ay administer as concentrated dose or diluted in 8.5 mL of 0.9% sodium chloride for a total volume of 10 mL. May administer as divided doses to reach optimal image enhancement. simvastatin 20 mg oral tablet (2 sources) HMG-CoA Reductase Inhibitor Start: 08-04-2024 End: 11-02-2024 take 1 tablet by mouth once daily in the evening simvastatin (Zocor) 20 MG tablet Indications: Left carotid stenosis Take 1 tablet (20 mg) by mouth every evening. 90 tablet 08/04/2024 11/02/2024 Active Vitamin B Complex (B Complex-Vitamin B12) tablet (13 sources) Start: 01-12-2021 take 1 tablet by mouth once daily Vitamin B Complex (B Complex-Vitamin B12) tablet Active 1 TABLET PO DAILY January 12, 2021 11:16am Start: 01-12-2021 Vitamin B Comp tawnya (B Complex-Vitamin B12) tablet Active 1 {tbl} PO DAILY January 12, 2021 1:00am Start: 01-12-2021 take 1 tablet by veronica th once daily Vitamin B Complex (B Complex-Vitamin B12) tablet Active 1 TABLET PO DAILY January 12, 2021 12:00am Start: 01-12-2021 take 1 tablet by veronica th once daily Vitamin B Complex (B Complex-Vitamin B12) tablet Active 1 TABLET PO DAILY January 12, 2021 1:00am yeast defense (1 source) Start: 06-05-2024 yeast defense Active PO June 05, 2024 12:00am Completed/Discontinued Medications Medication Drug Class(es) Dates Sig (Normalized) Sig (Original) acetaminophen 325 mg / HYDROcodone bitartrate 5 mg oral tablet (13 sources) Opioid Agonist Start: 03-14-2017 End: 07-13-2020 Hydrocodone-Acetami nophen 1 TABLET tablet Discontinued 1 - 2 {tbl} PO EVERY 6 HOURS NEEDED as needed for Mild-Moderate (pain scale 1-5) 0 March 14, 2017 12:00am July 13, 2020 9:12pm Start: 03-14-2017 End: 07-13-2020 take 1 tablet by mouth every six hours as needed Hydrocodone-Acetaminophen Discontinued 1 - 2 TABLET PO EVERY 6 HOURS NEEDED 0 March 14, 2017 12:00am July 13, 2020 9:12pm acetaminophen 325 mg / oxyCODONE hydrochloride 5 mg oral tablet (6 sources) Opioid Agonist Start: 06-07-2022 End: 06-17-2022 Oxycodone-Acetaminophen 5-32 5 mg tablet Discontinued 1 {tbl} PO EVERY 6 HOURS as needed for pain 40 June 07, 2022 June 16, 2022 12:00am June 17, 2022 12:05am Start: 06-07-2022 End: 06-17-2022 take 1 tablet by mouth every six hours Oxycodone-Acetaminophen Discontinued 1 TABLET PO EVERY 6 HOURS 40 June 07, 2022 June 17, 2022 12:05am apixaban 5 mg oral tablet (6 sources) Factor Xa Inhibitor Start: 06-28-2022 End: 04-17-2023 take 1 tablet by mouth once Apixaban (Eliquis Dvt-Pe Treat 30d Start) 5 mg (74 tabs) tablets,dose pack Discontinued 5 mg PO ONCE June 28, 2022 12:00am April 17, 2023 9:51am Calcium (13 sources) Phosphate Binder, Calcium Start: 07-13-2020 End: 01-24-2022 take 1 tablet by mouth once daily Zo-Z3-Nth-Zinc-Mechanical Engineering Intern-M ang-Aledo (Caltrate 600-D Plus Minerals) 600 mg calcium- 800 unit-40 mg tablet,chewable Discontinued 1 TABLET PO DAILY July 13, 2020 9:12pm January 24, 2022 10:17am Start: 07-13-2020 End: 01-24-2022 Pn-D6-Kee-Gnbd-Blw-Buaf-Boro n (Caltrate 600-D Plus Minerals) 600 mg calcium- 800 unit-40 mg tablet,chewable Discontinued 1 {tbl} PO DAILY July 13, 2020 12:00am January 24, 2022 10:17am Start: 07-13-2020 End: 01-24-2022 take 1 tablet by mouth once daily Kx-M4-Ior-Ygfc-Vip-Vpmu-Aledo (Caltrate 600-D Plus Minerals) 600 mg calcium- 800 unit-40 mg tablet,chewable Discontinued 1 TABLET PO DAILY July 12, 2020 11:00pm January 24, 2022 9:17am Start: 07-13-2020 End: 01-24-2022 take 1 tablet by mouth once daily Fr-P8-Awc-Yard-Rnc-Wsfi-Aledo (Caltrate 600-D Plus Minerals) 600 mg calcium- 800 unit-40 mg tablet,chewable Discontinued 1 TABLET PO DAILY July 13, 2020 12:00am January 24, 2022 10:17am cholecalciferol 0.05 mg oral capsule (14 sources) Vitamin D Start: 07-14-2020 End: 06-05-2024 take 1 capsule by mouth once daily Cholecalciferol (Vitamin D3) 50 mcg (2,000 unit) capsule Discontinued 50 ug PO DAILY July 14, 2020 12:00am June 05, 2024 10:39am clopidogrel 75 mg oral tablet (10 sources) [id number] Platelet Inhibitor Start: 04-11-2022 End: 05-26-2022 take 1 tablet by mouth once daily Clopidogrel 75 mg tablet Discontinued 75 mg PO DAILY April 11, 2022 12:00am May 26, 2022 10:20am Start: 02-28-2022 take 1 tablet by veronica th once daily clopidogrel (PLAVIX) 75 MG tablet Take 1 tablet by mouth daily 30 tablet 2 02/28/2022 Active Start: 02-28-2022 take 75 mg by mouth once daily 75 mg, Oral, DAILY, First dose on Sun02/28/22 at 0900, Until Discontinued Start: 02-27-2022 take 1 dose by mouth once 300 mg, Oral, ONCE, 1 dose, On Sun02/27/22 at 1330, Post-op gabapentin 300 mg oral capsule (20 sources) Anti-epileptic Agent Start: 02-16-2021 End: 04-28-2024 take 1 capsule by mouth at bedtime Gabapentin 300 mg capsule Discontinued 300 mg PO AT BEDTIME February 16, 2021 12:00am April 28, 2024 2:08pm Start: 03-08-2017 End: 01-12-2021 take 1 capsule by mouth once daily Gabapentin 300 MG capsule Discontinued 300 mg PO DAILY March 08, 2017 12:00am January 12, 2021 11:15am methylPREDNISolone 4 mg oral tablet (12 sources) Corticosteroid Start: 06-01-2022 End: 10-17-2022 take 1 tablet by mouth once daily Methylprednisolone (Medrol (Marino)) 4 mg tablets,dose pack Discontinued 4 mg PO DAILY June 01, 2022 4:16pm October 17, 2022 10:59am 24 hr mirabegron 25 mg extended release oral tablet (13 sources) beta3-Adrenergic Agonist Start: 03-08-2017 End: 07-13-2020 take 1 tablet by mouth once daily Mirabegron 25 MG tablet extended release 24 hr Discontinued 25 mg PO DAILY March 08, 2017 12:00am July 13, 2020 9:12pm oxyCODONE hydrochloride 5 mg oral tablet (6 sources) Opioid Agonist Start: 05-26-2022 End: 06-05-2022 take 1 tablet by mouth twice daily as needed for pain Oxycodone 5 mg tablet Discontinued 5 mg PO TWICE A DAY as needed for pain 24 08May 26, 2022 June 04, 2022 12:00am June 05, 2022 12:03am pantoprazole 40 mg delayed release oral tablet (1 source) Proton Pump Inhibitor Start: 02-27-2022 take 40 mg by mouth once daily 40 mg, Oral, DAILY, First dose on Sun02/27/22 at 1330, Until Discontinued Do not crush or break. Post-op 5 ml sodium chloride 9 mg/ml injection (5 sources) Start: 02-27-2022 take 1 dose intravenously twice daily 5-40 mL, IntraVENous, EVERY 12 HOURS SCHEDULED (2 times per day), First dose on Sun02/27/22 at 2100, Until Discontinued For Line Patency: Peripheral IV = 5 mL; Midline or Central Line = 10 mL/lumen. & nbsp;If following IV push medication, administer flush at same rate as the IV push. Flush volume is determined by type of infusion therapy being given. Fo r non-viscous solutions use: Peripheral IV = 5 mL Midline or Central Line = 10 mL/lumen For viscous solutions (i.e. blood components, parenteral nutrition, contrast media, or after obtaining blood sample) use: Peripheral IV = 10 mL Midline or Central Line = 20 mL/lumen Post-op Start: 02-27-2022 End: 03-02-2022 5-40 mL, IntraVENous, PRN, S tarting on Sun02/27/22 at 1310, Until Maryana 03/02/22 at 1309, Line Care, Per Senior Marketing Coordinator Request May use order for Line Care after every IV line use and Agitated Saline Bubble Study. Administration for Bubble Study per food service employee request for only. Remove 1 mL 0.9% sodium chloride from 10 mL syringe for creating agitated saline. If following IV push medication, administer flush at same rate as the IV push. Flush volume is determined by type of infusion therapy being given. For non-viscous solutions use: Peripheral IV = 5 mL Midline or Central Line = 10 mL/lumen For viscous solutions (i.e. blood components, parenteral nutrition, contrast media, or after obtaining blood sample) use: Peripheral IV = 10 mL Midline or Central Line = 20 mL/lumen Start: 02-27-2022 End: 02-27-2022 0.9 % sodium chloride infusi on Problems Active Problems Problem Classification Problem Date Documented Da te Episodic/Chronic Complication of device; implant or graft (1 source) Pain due to internal orthopedic prosthetic devices, implants and grafts, initial encounter; Translations: [Pain due to internal orthopedic prosthetic devices, implants and grafts, initial encounter] Onset: 02-13-2025 Episodic Conditions associated with dizziness or vertigo (13 sources) Lightheadedness; Translations: [Dizziness and giddiness] 08-20-2021 Episodic Diabetes mellitus without complication (1 source) Hyperglycemia, unspecified; Translations: [Hyperglycemia, unspecified] Onset: 03-26-2025 Episodic Genitourinary symptoms and ill-defined conditions (10 sources) Retention of urine; Translations: [Retention of urine, unspecified] Episodic Heart valve disorders (20 sources) Aortic stenosis, non-rheumatic ; Translations: [Nonrheumatic aortic (valve) stenosis] Onset: 02-06-2022 Chronic Comment on above: A 23 CELSO S3 VALVE IMPLANTATION. 02/27/22 Heart valve disorders (13 sources) Heart murmur; Translations: [Cardiac murmur, unspecified] 07-26-2020 Episodic Nonspecific chest pain (20 sources) Chest pain; Translations: [Other chest pain] 01-23-2022 Episodic Occlusion or stenosis of precerebral arteries (6 sources) Left carotid artery stenosis; Translations: [Occlusion and stenosis of left carotid artery] Onset: 08-04-2024 08-04-2024 Chronic Other aftercare (7 sources) Follow-up status; Translations: [Encounter for other orthopedic aftercare] 04-27-2022 Episodic Other aftercare (3 sources) Encounter for other orthopedic aftercare; Translations: [Unspecified orthopedic aftercare] Episodic Other bone disease and musculoskeletal deformities (20 sources) Segmental and somatic dysfunction; Translations: [Segmental and somatic dysfunction of lumbar region] Onset: 07-03-2016 08-01-2016 Episodic Other gastrointestinal disorders (7 sources) Constipation; Translations: [Constipation, unspecified] 05-10-2022 Episodic Other gastrointestinal disorders (3 sources) Constipation, unspecified; Translations: [Constipation, unspecified] Episodic Other nutritional; endocrine; and metabolic disorders (15 sources) Obesity; Translations: [Obesity, unspecified] Onset: 03-09-2022 01-23-2022 Chronic Other nutritional; endocrine; and metabolic disorders (1 source) Obesity, unspecified; Translations: [Obesity, unspecified] Onset: 03-26-2025 Chronic Other skin disorders (13 sources) Excessive sweating; Translations: [Generalized hyperhidrosis] 08-20-2021 Episodic Phlebitis; thrombophlebitis and thromboembolism (6 sources) Deep venous thrombosis of lower extremity; Translations: [Acute embolism and thrombosis of unspecified deep veins of unspecified lower extremity] 06-28-2022 Episodic Comment on above: Left leg Residual codes; unclassified (6 sources) History of operative procedure on lumbar spinal structure; Translations: [Other specified postprocedural states] 05-10-2022 Episodic Residual codes; unclassified (6 sources) Other specified postprocedural states; Translations: [Other postprocedural status] Episodic Spondylosis; intervertebral disc disorders; other back problems (20 sources) Degeneration of lumbar intervertebral disc; Translations: [Other intervertebral disc degeneration, lumbar region] Chronic Spondylosis; intervertebral disc disorders; other back problems (20 sources) Lumbar radiculopathy; Translations: [Radiculopathy, lumbar region] Onset: 07-03-2016 07-03-2016 Episodic Past or Other Problems Problem Classification Problem Date Documented Da te Episodic/Chronic Other acquired deformities (20 sources) Nonallopathic lesion of the pelvic region; Translations: [Other biomechanical lesions of pelvic region] Onset: 07-03-2016 Resolved: 08-29-2016 08-29-2016 Episodic Other bone disease and musculoskeletal deformities (20 sources) Pelvic somatic dysfunction; Translations: [Segmental and somatic dysfunction] Onset: 07-03-2016 08-29-2016 Episodic Other screening for suspected conditions (not mental disorders or infectious disease) (1 source) Encounter for screening mammogram for malignant neoplasm of breast; Translations: [Encounter for screening mammogram for malignant neoplasm of breast] Onset: 08-12-2024 Episodic Poisoning by other medications and drugs (1 source) Poisoning by vitamins, accidental (unintentional), initial encounter; Translations: [Poisoning by vitamins, accidental (unintentional), initial encounter] Onset: 05-06-2024 Episodic Results Test Name Value Interpretation Reference Range Facility 36 03-18-2025 36 Chart reviewed, 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 Moore. Spoke with patient and would like to establish with DR. Melissa. Would also like her to establish with Dr. Melissa as well as he follows with DR. Moore. Kelly Pinto to call patient to schedule Normal [facility] 36 Patient called requesting an appt w/ PB d/t him replacing a valve for her Normal [facility] Absolute neutrophil countOrd ered By: Sergio Ford on 02-09-2025 Neutrophils (Bld) [#/Vol] 3.9 10*3/uL 2.0-7.7 [facility] Basophil percentageOrdered B y: Sergio Luismer on 02-09-2025 Basophils/100 WBC (Bld) 0.8 % 0-1 [facility] CBC W/Diff, Automatedon Absolute Lymph 1.90 X10 3/uL Normal 0.83-4.51 [facility] Comment on above: Performed By: #### L [id number], L100.0100, L101.9900 #### [facility] [address] [place], [address] Absolute Neut 3.9 X10 3/uL Normal 2.0-7.7 [facility] Comment on above: Performed By: #### L [id number], L100.0100, [id number] #### [facility] [address] [place], [address] Basophils/100 WBC (Bld) 0.8 % Normal 0-1 [facility] Comment on above: Performed By: #### L [id number], L100.0100, [id number] #### [facility] [address] [place], [address] Eosinophils/100 WBC (Bld) 2.3 % Normal 0-5 [facility] Comment on above: Performed By: #### L [id number], L100.0100, L101.9900 #### [facility] [address] [place], [address] Erythrocyte distribution width (RBC) [Ratio] 12.7 % Normal 11.6-14.6 [facility] Comment on above: Performed By: #### L [id number], L100.0100, [id number] #### [facility] [address] [place], [address] Hematocrit (Bld) [Volume fraction] 39.6 % Normal 37-47 [facility] Comment on above: Performed By: #### L [id number], L100.0100, [id number] #### [facility] [address] [place], [address] Hemoglobin (Bld) [Mass/Vol] 13.1 g/dL Normal 12.0-15.0 [facility] Comment on above: Performed By: #### L [id number], L100.0100, [id number] #### [facility] [address] [place], [address] IG% 0.300 Normal 0.0-0.9 [facility] Comment on above: Result Comment: IG% - Immature Granulocytes (promyelocytes, myelocytes and metamyelocytes) > 1% indicates that a LEFT SHIFT is Present. Performed By: #### L [id number], L100.0100, L101.9900 #### [facility] [address] [place], [address] Lymphocytes/100 WBC (Bld) 29.3 % Normal 19-41 [facility] Comment on above: Performed By: #### L [id number], L100.0100, [id number] #### [facility] [address] [place], [address] MCH (RBC) [Entitic mass] 29.4 pg Normal 27.0-32.0 [facility] Comment on above: Performed By: #### L [id number], L100.0100, [id number] #### [facility] [address] [place], [address] MCHC (RBC) [Mass/Vol] 33.1 g/dL Normal 32-36 [facility] Comment on above: Performed By: #### L [id number], L100.0100, [id number] #### [facility] [address] [place], [address] MCV (RBC) [Entitic vol] 88.8 fL Normal 81-99 [facility] Comment on above: Performed By: #### L [id number], L100.0100, [id number] #### [facility] [address] [place], [address] Monocytes/100 WBC (Bld) 7.2 % Normal 0-10 [facility] Comment on above: Performed By: #### L 501.6710, L100.0100, L101.9900 #### [facility] [address] [place], [address] Neutrophils/100 WBC (Bld) 60.1 % Normal 47-70 [facility] Comment on above: Performed By: #### L 501.6710, L100.0100, L101.9900 #### [facility] [address] [place], [address] Nucleated RBC (Bld) [#/Vol] 0 10*3/uL Normal 0-5 [facility] Comment on above: Performed By: #### L 501.6710, L100.0100, L101.9900 #### [facility] [address] [place], [address] Platelet mean volume (Bld) [Entitic vol] 11.8 fL Normal 6.2-12.0 [facility] Comment on above: Performed By: #### L 501.6710, L100.0100, L101.9900 #### [facility] [address] [place], [address] Platelets (Bld) [#/Vol] 219 10*3/uL Normal 150-450 [facility] Comment on above: Performed By: #### L 501.6710, L100.0100, L101.9900 #### [facility] [address] [place], [address] RBC (Bld) [#/Vol] 4.46 10*6/uL Normal 4.2-5.4 [facility] Comment on above: Performed By: #### L 501.6710, L100.0100, L101.9900 #### [facility] [address] [place], [address] RDW SD 41.5 fl Normal 35.1-43.9 [facility] Comment on above: Performed By: #### L 501.6710, L100.0100, L101.9900 #### [facility] [address] [place], [address] WBC (Bld) [#/Vol] 6.5 10*3/uL Normal 4.4-11.0 [facility] Comment on above: Performed By: #### L 501.6710, L100.0100, L101.9900 #### [facility] [address] [place], [address] CRPon 02-09-2025 C-REACTIVE PROT < 3.00 Normal 0.0-3.0 [facility] Comment on above: Performed By: #### L 501.6710, L100.0100, L101.9900 #### [facility] [address] [place], [address] CRP [Mass/Vol]Ordered By: St antonio Ford on 02-09-2025 C-Reactive Protein Extended Range < 3.00 mg/L 0.0-3.0 [facility] Eosinophil percentageOrdered By: Sergio Ford on 02-09-2025 Eosinophils/100 WBC (Bld) 2.3 % 0-5 [facility] Erythrocyte Sed Rateon 02-09 SED RATE 16 mm/hr Normal 0-30 [facility] Comment on above: Performed By: #### L 501.6710, L100.0100, L101.9900 #### [facility] [place], [address] Erythrocyte distribution wid th (RBC) [Ratio]Ordered By: Sergio Ford on 02-09-2025 Erythrocyte distribution width (RBC) [Entitic vol] 41.5 fL 35.1-43.9 [facility] Erythrocyte distribution wid th ratioOrdered By: Sergio Ford on 02-09-2025 Erythrocyte distribution width (RBC) [Ratio] 12.7 % 11.6-14.6 [facility] Erythrocyte sedimentation ra teOrdered By: Sergio Ford on 02-09-2025 ESR (Bld) [Velocity] 16 mm/h 0-30 [facility] Hematocrit Auto (Bld) [Volum e fraction]Ordered By: Sergio Ford on 02-09-2025 Hematocrit (Bld) [Volume fraction] 39.6 % 37-47 [facility] Hemoglobin measurementOrdere d By: Sergio Ford on 02-09-2025 Hemoglobin (Bld) [Mass/Vol] 13.1 g/dL 12.0-15.0 [facility] Immature granulocytes/100 WB C Auto (Bld)Ordered By: Sergio Ford on 02-09-2025 Immature granulocytes/100 WBC (Bld) 0.300 % 0.0-0.9 [facility] Comment on above: IG% - Immature Granu locytes (promyelocytes, myelocytes and metamyelocytes) > 1% indicates that a LEFT SHIFT is Present. Lymphocytes Auto (Unsp spec) [#/Vol]Ordered By: Sergio Ford on 02-09-2025 Lymphocytes (Bld) [#/Vol] 1.90 10*3/uL 0.83-4.51 [facility] Lymphocytes/100 WBC Auto (Un sp spec)Ordered By: Sergio Ford on 02-09-2025 Lymphocytes/100 WBC (Bld) 29.3 % 19-41 [facility] MCV (mean corpuscular volume ) determinationOrdered By: Sergio Ford on 02-09-2025 MCV (RBC) [Entitic vol] 88.8 fL 81-99 [facility] Mean corpuscular hemoglobin (MCH) determinationOrdered By: Sergio Ford on 02-09-2025 MCH (RBC) [Entitic mass] 29.4 pg 27.0-32.0 [facility] Mean corpuscular hemoglobin concentration (MCHC) determinationOrdered By: Sergio Ford on 02-09-2025 MCHC (RBC) [Mass/Vol] 33.1 g/dL 32-36 [facility] Mean platelet volume determi nationOrdered By: Sergio Ford on 02-09-2025 Platelet mean volume (Bld) [Entitic vol] 11.8 fL 6.2-12.0 [facility] Monocyte percentageOrdered B y: Sergio Ford on 02-09-2025 Monocytes/100 WBC (Bld) 7.2 % 0-10 [facility] Neutrophil percentageOrdered By: Sergio Ford on 02-09-2025 Neutrophils/100 WBC (Bld) 60.1 % 47-70 [facility] Nucleated red blood cell per centageOrdered By: Sergio Ford on 02-09-2025 Nucleated RBC/100 WBC (Bld) [Ratio] 0 % 0-5 [facility] Platelet countOrdered By: St antonio Ford on 02-09-2025 Platelets (Bld) [#/Vol] 219 10*3/uL 150-450 [facility] RBC Auto (Bld) [#/Vol]Ordere d By: Sergio Ford on 02-09-2025 RBC (Bld) [#/Vol] 4.46 10*6/uL 4.2-5.4 [facility] White blood cell (WBC) count Ordered By: Sergio Ford on 02-09-2025 WBC (Bld) [#/Vol] 6.5 10*3/uL 4.4-11.0 [facility] Office Visiton 08-04-2024 Follow-up visit [id number] Saumya Reardon 1950 F Date Provider Department Center 08/04/2024 [id number] BOYLE [facility] JONAH None Family History Problem Relation Age of Onset Heart attack Father Heart Surgery Mother Heart Surgery Brother Pacemaker Brother Family Status - Relation Status Age at Father Mother Brother Alive Level of Service:26177 [place] OFFICE/OUTPATIENT NEW LOW MDM 30 MINUTES Reason for Visit and Comments: New Patient [542] - (ref Jun ANNE) DEHYDRATION UNIT OPERATOR eval for carotid stenosis, CU (Images in Media) 07/28/24 Normal [facility] Carotid Duplex Ultrasoundon 07-28-2024 Carotid Duplex Ultrasound [facility] Cardiovascular Services [address] [place] [address] Carotid Duplex Ultrasound 07/28/24 0906 MR#: [id number] Acct: [id number] Name: SAUMYA REARDON Rep #: [id number] : 1950 74 From: Juvencio March MD Attending Dr: Yumiko Kwong DEHYDRATION UNIT OPERATOR-C Status: MATT GOMEZ Ordering Dr: Yumiko Kwong DEHYDRATION UNIT OPERATOR DEHYDRATION UNIT OPERATOR-C Date: 07/28/24 Location: [facility] Sex: F C Admitted: Reason For Study: Carotid Stenosis, Abn Blood Flow Screening Rt. Velocities/BP Lt. Velocities/BP Prox CCA 92/15 cm/sec. Prox CCA 83/17 cm/sec. Mid CCA 82/10 cm/sec. Mid CCA 86/18 cm/sec. Dist CCA 65/12 cm/sec. Dist CCA 75/16 cm/sec. Prox ICA 70/13 cm/sec. Prox ICA 140/29 cm/sec. Mid ICA 86/26 cm/sec. Mid ICA 105/30 cm/sec. Dist ICA 104/25 cm/sec. Dist ICA 109/30 cm/sec. Rt. ICA/CCA = 1.3. Lt. ICA/CCA = 1.6. Prox ECA 74/8 cm/sec. Prox ECA 83/8 cm/sec. Rt. Vert. 59/15 cm/sec. Lt. Vert. 45/10 cm/sec. Right Extracranial There is intimal thickening but no significant atherosclerotic plaque noted in the right common carotid artery. There is homogeneous, smooth atherosclerotic plaque noted in the right internal carotid artery. There is intimal thickening but no significant atherosclerotic plaque noted in the right external carotid artery. Antegrade flow is noted in the right vertebral artery. Left Extracranial There is heterogeneous, irregular atherosclerotic plaque noted in the left common carotid artery. There is heterogeneous, irregular atherosclerotic plaque noted in the left internal carotid artery. There is heterogeneous, smooth atherosclerotic plaque noted in the left external carotid artery. Antegrade flow is noted in the left vertebral artery. Procedure Carotid Duplex 51218. This is a Carotid Duplex examination using B-mode, color flow and specral Doppler. Exam performed in department. VL/Carotid Duplex Ultrasound Interpretation Summary Mild (<50%) stenosis right extracranial internal carotid. Moderate (50-69%) stenosis left extracranial internal carotid. Patent and antegrade vertebrals bilaterally. Ordering Physician: Yumiko Kwong Referring Physician: Remy Goodman Performed By: Marge Simon, RDIHSAN, RVT 07/28/241927 Date Juvencio March MD CC: DEHYDRATION UNIT OPERATOR-C Yumiko Kwong; Dr. Remy Goodman MD Date Dictated: 07/28/24905 Date Transcribed: 07/28/241927 Personal Financial Counselor: Signed [facility] 36on 07-24-2024 36 Chart reviewed, jasmeet ent had TAVR completed 02/07/22. Follows with Dr. Moore at the [place] [facility]. Spoke with patient and Dr. Moore's office. 07/18 patient had blood flow screening the showed >50% stenosis in bilateral carotid arteries. Dr. Moore's office stated carotid US has been ordered but not scheduled. Advised patient to have US scheduled. Dr. Moore's office will put in referral to [facility] Vascular department. Provided phone number to patient and advised to call Dr. Moore's office for any further concerns. Verbalized understanding. Normal [facility] 36 Patient called b/c P B did her TAVR and she c/o a partially blocked carotid artery and is requesting an appt w/ PB. Normal [facility] SCRN MAMM (CAD)W/ILDA BILATo n 07-21-2024 SCRN MAMM (CAD)W/ILDA BILAT [facility] Imaging Services [address] [place], [place] [address] SCRN MAMM (CAD)W/ILDA BILAT MR#: [id number] Acct: [id number] Name: SAUMYA REARDON Rep #: [id number] : 1950 F 74 From: John saleem MD PCP: Dr. Remy Goodman MD Status: [facility] Study: SCRN MAMM (CAD)W/ILDA BILAT Date of Exam: 07/06 04/28 Exam# [id number] Ordering Dr: [place] [id number] MAMMOGRAPHY - BILATERAL SCREENING REASON FOR EXAM: Female, 74 years old. Routine annual screening examination. PERTINENT HISTORY: Non-contributory. TECHNIQUE: Digital bilateral breast ilda (3D mammographic acquisition) in the CC and MLO projections. 2-D mediolateral oblique (MLO) and craniocaudad (CC) views of both breasts were obtained. CAD: Full Field Digital Mammography with Computer Added Detection was performed. COMPARISON: Comparison is made with prior study July 19, 2023 and June 29, 2021. FINDINGS: Breast Composition: The breasts are heterogeneously dense, which may obscure small masses. There are no dominant masses or suspicious calcifications. Stable small benign-appearing bilateral axillary lymph nodes. No other significant abnormalities are identified. There has been no significant change since the prior study. BI/SCRN MAMM (CAD)W/ILDA BILAT IMPRESSION: Stable bilateral screening mammogram. Yearly follow-up mammogram recommended. (A) ASSESSMENT CATEGORY: BIRADS Category 2: Benign. A letter regarding these results will be sent to the patient by the facility within 30 days. Approximately 10% of breast cancers are not detected by mammography. A normal mammogram should not delay biopsy of a clinically suspicious abnormality. [id number] Electronically Signed: John Caceres MD at 13:14 EDT Reading Location ID and State: [facility] / [place] , Service support , CC: Dr. Remy Goodman MD Personal Financial Counselor: Signed Normal [facility] Echo Completeon 07-08-2024 Echo Complete [facility] Cardiovascular Services [address] [place] [address] Echo Complete 07/08/24 0813 MR#: [id number] Acct: [id number] Name: SAUMYA REARDON Rep #: [id number] : 1950 74 From: Ryan Moore MD Attending Dr: Dr. Ryan Moore MD Status: MATT GOMEZ Ordering Dr: Ryan Moore MD Date: 07/08/24 Location: [facility] Sex: F C Admitted: Reason For Study: PROSTHETIC HEART VALVE (TAVR-2021) Procedure This was a 2D Doppler, Color Flow transthoracic echocardiogram. Exam performed in department. Left Ventricle Normal LV size. Left ventricular systolic function is normal. The left ventricular ejection fraction is 70 %. Stage 1 diastolic dysfunction. No regional wall motion abnormalities noted. Right Ventricle Normal RV size. Normal systolic function. Atria Normal left atrium. Normal right atrium. Mitral Valve Moderate mitral annular calcification extending into the posterior leaflet. Tricuspid Valve Normal tricuspid valve. Mild (1+) tricuspid valve insufficiency. Pulmonary artery systolic pressure is 33 mmHg. Aortic Valve Peak aortic valve gradient 33 mmHg. Mean aortic valve gradient 18 mmHg. Bioprosthetic aortic valve. Great Vessels Normal aortic root. The pulmonary artery is normal size. Inferior vena cava collapse with respiration. Pericardium/Pleural No pericardial effusion. MMode/2D Measurements Calculations LVIDd: 3.8 cm IVSd: 1.3 cm LVOT diam: 1.9 cm LVIDs: 2.5 cm LVPWd: 1.1 cm LVOT area: 2.9 cm2 RVDd: 2.5 cm FS: 35.0 % Ao root diam: 3.2 cm LAV(MOD-bp): 63.2 ml LVAd ap4: 22.3 cm2 LAV(MOD-bp) Indexed: 31.8 ml/m2 LVLd ap4: 7.0 cm LAV(MOD-sp2): 62.0 ml EDV(MOD-sp4): 59.9 ml LAV(MOD-sp4): 56.1 ml EDV(sp4-el): 60.4 ml LVAs ap4: 11.2 cm2 LVLs ap4: 5.8 cm ESV(MOD-sp4): 20.2 ml ESV(sp4-el): 18.4 ml EF(MOD-sp4): 66.3 % EF(sp4-el): 69.5 % SV(MOD-sp4): 39.7 ml SV(sp4-el): 41.9 ml LA A4 area: 18.5 cm2 LA dimension(2D): 3.7 cm RA A4 area: 12.0 cm2 TAPSE: 2.3 cm Time Measurements MV dec time: 0.33 sec Doppler Measurements Calculations MV E max laisha: 123.3 cm/sec Lat Peak E' Laisha: 9.1 cm/sec Med Peak E' Laisha: 6.7 cm/sec MV A max laisha: 124.8 cm/sec E/E' lat: 13.6 E/E' med: 18.4 MV E/A: 0.99 MV V2 max: 145.8 cm/sec MV P1/2t max laisha: 148.1 cm/sec Ao V2 max: 288.1 cm/sec MV max P.5 mmHg MV P1/2t: 97.5 msec Ao max P.2 mmHg MV V2 mean: 84.6 cm/sec Ao V2 mean: 201.2 cm/sec MV mean P.3 mmHg MV dec slope: 444.8 cm/sec2 Ao mean P.2 mmHg MV V2 VTI: 48.2 cm MVA(P1/2t): 2.3 cm2 Ao V2 VTI: 69.7 cm AV (velocity ratio): 0.47 MVA(VTI): 2.0 cm2 JONAH(I,D): 1.4 cm2 JONAH(V,D): 1.3 cm2 LV V1 max: 131.3 cm/sec SV(LVOT): 94.3 ml PA V2 max: 107.2 cm/sec LV V1 max P.0 mmHg PA V2 mean: 77.7 cm/sec LV V1 mean P.9 mmHg LV V1 mean: 107.4 cm/sec LV V1 VTI: 32.5 cm TR max laisha: 277.8 cm/sec TR max P.9 mmHg ECHO/Echo Complete Interpretation Summary Normal LV size. Left ventricular systolic function is normal. The left ventricular ejection fraction is 70 %. Stage 1 diastolic dysfunction. Bioprosthetic aortic valve. Mean aortic valve gradient 18 mmHg. Moderate mitral annular calcification extending into the posterior leaflet. Compared to the previous the above is essentially unchanged. Ordering Physician: Ryan Moore Referring Physician: Shannon Goodman Performed By: Gissel Noble, RDCS, RVT 07/08/241033 Date Ryan Moore MD CC: Dr. Remy Goodman MD; Dr. Ryan Moore MD Date Dictated: 07/08/24812 Date Transcribed: 07/08/241033 Personal Financial Counselor: Signed Normal [facility] Cardiology Visit Reporton Cardiology Visit Report [facility] [address] [place] [address]. [address] [place] [address] OFFICE VISIT Date of Service: 06/05/24 MR#: [id number] Acct: [id number] Name: SAUMYA REARDON Rep #: [id number] : 1950 Provider: Dr. Ryan Moore MD Age/Sex: 74/F Location: [facility] Status: Signed [facility] History of Present Illness Details: This is a 74-year-old lady who presents to the office today for a cardiovascular follow-up visit. She has no previous cardiac history, but a family history of coronary artery disease. She was noted to have aortic stenosis detected by physical exam as well as by echocardiogram. Her previous echocardiogram had demonstrated moderately severe aortic stenosis and she underwent a cardiac catheterization in January 2021. It demonstrated essentially normal coronary arteries. She underwent implantation of a transfemoral transcatheter aortic valve replacement with a 23 CELSO S3 valve implantation without complications. Postoperatively she did have an echocardiogram which demonstrated an ejection fraction of 71% and a peak mean gradient of 34 over 19 mmHg. She underwent an echocardiogram 02/21/2023 which demonstrated an ejection fraction of 65%, and a mean aortic valve gradient 16 mmHg, and peak aortic valve gradient 27 mmHg. From a cardiac standpoint, the patient is doing well. She denies any palpitations, chest pain, pressure or heaviness. She denies SOB, Orthopnea, and PND. She does not have bleeding issues; no blood in urine, stool or nosebleeds. She denies any decrease in energy level, myalgias, or claudication. She does not have edema, or sudden weight gain. She denies dizziness, lightheadedness, syncopal or near syncopal episodes, and headaches. Intake Vital Signs 04/17/23 09:47 06/05/24 10:36 Height 5 ft 4 in 5 ft 4 in Weight: 210 lb BMI 36.0 BP 131/69 H Blood Pressure Location Lt brachial Position Sitting Respiration 16 Pulse 71 Pulse Source Monitor Intake Visit Reasons: 1 Y FU Shank Sander Required: No Accompanied by: Is patient in pain?: No Allergies latex Allergy (Verified 06/05/24 10:39) Rash duloxetine (From Cymbalta) Adverse Reaction (Verified 06/05/24 10:39) loopy Medications ???Medication ???Instructions ???Recorded ???Confirmed ???Type escitalopram oxalate 5 mg tablet 5 mg PO DAILY mood 03/08/17 06/05/24 History cinnamon bark 500 mg capsule 500 mg PO DAILY supplement 07/13/20 06/05/24 History (Cinnamon) aspirin 81 mg tablet,delayed 81 mg PO DAILY heart health 01/12/21 06/05/24 History release (Adult Low Dose Aspirin) vitamin B complex (B 1 tab PO DAILY supplement 01/12/21 06/05/24 History Complex-Vitamin B12 tablet) biotin 5 mg tablet 5 mg PO DAILY 06/05/24 06/05/24 History cranberry 500 mg capsule 500 mg PO DAILY 06/05/24 06/05/24 History fluticasone propionate 50 spray intranasal 06/05/24 06/05/24 History mcg/actuation nasal spray,suspension yeast defense PO 06/05/24 History Have you fallen in the past year?: No PFSH Medical History Urinary retention History of echocardiogram Cardiology follow-up encounter History of transcatheter aortic valve replacement (TAVR) (02/27/22) Wears hearing aid Post-menopausal History of steroid therapy Arthritis Back pain Non-smoker Leg cramps History of trigger finger Diaphoresis Nonrheumatic aortic (valve) stenosis Osteoarthritis Urethral caruncle Varicose veins of both lower extremities Anxiety and depression GERD (gastroesophageal reflux disease) Obesity Segmental and somatic dysfunction of cervical region Segmental and somatic dysfunction of pelvic region Segmental and somatic dysfunction of lumbar region Segmental and somatic dysfunction of thoracic region DDD (degenerative disc disease), lumbar Surgical History History of back surgery History of surgery Hx of dilation and curettage Hx of hysterectomy History of left heart catheterization (01/13/21) History of knee replacement procedure of left knee History of knee replacement procedure of right knee History of bladder suspension procedure Family History Father , age 80 CAD (coronary artery disease), Onset Age: 62 Myocardial infarction, Onset Age: 62 Mother CAD (coronary artery disease), Onset Age: 68 CABG Diabetes Brother Diabetes CAD (coronary artery disease) Heart disease Valve replacement/ CABG/ CEA Brother Diabetes Heart disease Pacemaker Brother Heart disease Valve Replacement Social History Smoking Status: Never smoker alcohol intake: never ROS Const Const (more content not included)... Normal [facility] Comprehensive Metabolic Prof ilon 04-30-2024 Albumin [Mass/Vol] 3.4 g/dL Normal 3.2-5.0 [facility] Comment on above: Order Comment: Order Date: 04/22/24 Order Info: 0786-1 - CMP Order Info: 3015-3 - TSH Performed By: #### L 506.1000, L501.9520, L500.4050 #### [facility] [address] [place], [address] Albumin/Globulin [Mass ratio] 0.9 {ratio} Normal 0.9-2.4 [facility] Comment on above: Order Comment: Order Date: 04/22/24 Order Info: 0786-1 - CMP Order Info: 3016-01 - TSH Performed By: #### L 506.1000, L501.9520, L500.4050 #### [facility] [address] [place], [address] ALK P 80 U/L Normal 45-117 [facility] Comment on above: Order Comment: Order Date: 04/22/24 Order Info: 0786-1 - CMP Order Info: 3016-01 - TSH Performed By: #### L 506.1000, L501.9520, L500.4050 #### [facility] [address] [place], [address] ALT [Catalytic activity/Vol] 17 U/L Normal 13-56 [facility] Comment on above: Order Comment: Order Date: 04/22/24 Order Info: 0786-1 - CMP Order Info: 3015-3 - TSH Performed By: #### L 506.1000, L501.9520, L500.4050 #### [facility] [address] [place], [address] AST [Catalytic activity/Vol] 19 U/L Normal 15-37 [facility] Comment on above: Order Comment: Order Date: 04/22/24 Order Info: 07-1 - CMP Order Info: 3015-3 - TSH Performed By: #### L 506.1000, L501.9520, L500.4050 #### [facility] [address] [place], [address] Bilirubin [Mass/Vol] 0.50 mg/dL Normal 0.20-1.00 [facility] Comment on above: Order Comment: Order Date: 04/22/24 Order Info: 785-1 - CMP Order Info: 3 - TSH Result Comment: For patients on eltrombopag therapy, use of Dimension Perry TBIL is not recommended. Performed By: #### L 506.1000, L501.9520, L500.4050 #### [facility] [address] [place], [address] BUN/CRE 22.4 RATIO High 10-20 [facility] Comment on above: Order Comment: Order Date: 04/22/24 Order Info: 0786- - CMP Order Info: 3 - TSH Performed By: #### L 506.1000, L501.9520, L500.4050 #### [facility] [address] [place], [address] CA,Total 9.1 mg/dL Normal 8.5-10.1 [facility] Comment on above: Order Comment: Order Date: 04/22/24 Order Info: 0786-1 - CMP Order Info: 3015-3 - TSH Performed By: #### L 506.1000, L501.9520, L500.4050 #### [facility] [address] [place], [address] Chloride [Moles/Vol] 109 mmol/L High 98-107 [facility] Comment on above: Order Comment: Order Date: 04/22/24 Order Info: 0786-1 - CMP Order Info: 3016-01 - TSH Performed By: #### L 506.1000, L501.9520, L500.4050 #### [facility] [address] [place], [address] CO2 [Moles/Vol] 26.0 mmol/L Normal 21.0-32.0 [facility] Comment on above: Order Comment: Order Date: 04/22/24 Order Info: 785-11 - CMP Order Info: 3016-01 - TSH Performed By: #### L 506.1000, L501.9520, L500.4050 #### [facility] [address] [place], [address] Creatinine [Mass/Vol] 0.89 mg/dL Normal 0.55-1.02 [facility] Comment on above: Order Comment: Order Date: 04/22/24 Order Info: 785-11 - CMP Order Info: 3016-01 - TSH Result Comment: The validity of the calculated GFR GFRAA in patients over 70 years has not been determined. Clinical correlation is essential. Performed By: #### L 506.1000, L501.9520, L500.4050 #### [facility] [address] [place], [address] EST GFR - AA 79 mL/min Normal >60 [facility] Comment on above: Order Comment: Order Date: 04/22/24 Order Info: 785-11 - CMP Order Info: 3016-01 - TSH Result Comment: Afri can Cuban GFR Calc Performed By: #### L 506.1000, L501.9520, L500.4050 #### [facility] [address] [place], [address] GAP 5 Normal 5-15 [facility] Comment on above: Order Comment: Order Date: 04/22/24 Order Info: 785-11 - CMP Order Info: 3016-01 - TSH Performed By: #### L 506.1000, L501.9520, L500.4050 #### [facility] [address] [place], [address] GFR/1.73 sq M.predicted among non-blacks MDRD (S/P/Bld) [Vol rate/Area] 65 mL/min/{1.73_m2} Normal >60 [facility] Comment on above: Order Comment: Order Date: 04/22/24 Order Info: 07 - CMP Order Info: 3 - TSH Result Comment: Non- GFR Calc Performed By: #### L 506.1000, L501.9520, L500.4050 #### [facility] [address] [place], [address] Globulin (S) [Mass/Vol] 3.9 g/dL Normal 2.2-4.2 [facility] Comment on above: Order Comment: Order Date: 04/22/24 Order Info: 0786- - CMP Order Info: 3016-01 - TSH Performed By: #### L 506.1000, L501.9520, L500.4050 #### [facility] [address] [place], [address] Glucose [Mass/Vol] 89 mg/dL Normal 74-106 [facility] Comment on above: Order Comment: Order Date: 04/22/24 Order Info: 0786- - CMP Order Info: 3016-01 - TSH Performed By: #### L 506.1000, L501.9520, L500.4050 #### [facility] [address] [place], [address] Potassium [Moles/Vol] 4.2 mmol/L Normal 3.5-5.1 [facility] Comment on above: Order Comment: Order Date: 04/22/24 Order Info: [id number] - CMP Order Info: 3 - TSH Performed By: #### L 506.1000, L501.9520, L500.4050 #### [facility] [address] [place], [address] Sodium [Moles/Vol] 140 mmol/L Normal 136-145 [facility] Comment on above: Order Comment: Order Date: 04/22/24 Order Info: 0786-1 - [facility] Order Info: 3015-3 - TSH Performed By: #### L 506.1000, L501.9520, L500.4050 #### [facility] [address] [place], [address] T PROT 7.3 g/dL Normal 6.4-8.2 [facility] Comment on above: Order Comment: Order Date: 04/22/24 Order Info: 0786- - [facility] Order Info: 3015-3 - TSH Performed By: #### L 506.1000, L501.9520, L500.4050 #### [facility] [address] [place], [address] Urea nitrogen [Mass/Vol] 20 mg/dL High 7-18 [facility] Comment on above: Order Comment: Order Date: 04/22/24 Order Info: 0786-1 - [facility] Order Info: 3015-3 - TSH Performed By: #### L 506.1000, L501.9520, L500.4050 #### [facility] [address] [place], [address] Thyroid Stim Hormone (TSH)on 04-30-2024 TSH 2.07 uIU/mL Normal 0.358-3.74 [facility] Comment on above: Order Comment: Order Date: 04/22/24 Order Info: [id number] - [facility] Order Info: 3016-3 - TSH Performed By: #### L 506.1000, L501.9520, L500.4050 #### [facility] [address] [place], [address] Vitamin D,25 Hydroxyon 04-30 Vitamin D 25-OH 71.0 ng/mL Normal [facility] Comment on above: Order Comment: Order Date: 04/22/24 Order Info: [id number] - VITD25 Result Comment: Meg min D 25(OH) Status Range Deficiency <20 ng/mL (50nmol/L) Insufficiency 20 - 30 ng/mL (50 - 75 nmol/L) Sufficiency 30 - 100 ng/mL (75 - 250 nmol/L) Toxicity >100 ng/mL (>250 nmol/L) Performed By: #### L 506.1000, L501.9520, L500.4050 #### [facility] [place], [address] Orthopedic Visit Reporton Orthopedic Visit Report [facility] [address] [place] [address] OFFICE VISIT Date of Service: 04/28/24 MR#: [id number] Acct: [id number] Name: SAUMYA REARDON Rep #: [id number] : 1950 Provider: Dr. Edmond lui DO Age/Sex: 73/F Location: [facility] Status: Signed Intake Vital Signs 04/17/23 09:47 Height 5 ft 4 in Intake Visit Reasons: LUMBAR SPINE Chief Complaint: Lumbar Spine Accompanied by: Self Is patient in pain?: No Allergies latex Allergy (Verified 04/28/24 14:07) Rash duloxetine (From Cymbalta) Adverse Reaction (Verified 04/28/24 14:07) loopy Medications ???Medication ???Instructions ???Recorded ???Confirmed ???Type escitalopram oxalate 5 mg tablet 5 mg PO DAILY mood 03/08/17 04/28/24 History cinnamon bark 500 mg capsule 500 mg PO DAILY supplement 07/13/20 04/28/24 History (Cinnamon) cholecalciferol (vitamin D3) 50 50 mcg PO DAILY supplement 07/14/20 04/28/24 History mcg (2,000 unit) capsule aspirin 81 mg tablet,delayed 81 mg PO DAILY heart health 01/12/21 04/28/24 History release (Adult Low Dose Aspirin) vitamin B complex (B 1 tab PO DAILY supplement 01/12/21 04/28/24 History Complex-Vitamin B12 tablet) Have you fallen in the past year?: No PFSH Medical History Urinary retention History of echocardiogram Cardiology follow-up encounter History of transcatheter aortic valve replacement (TAVR) (02/27/22) Wears hearing aid Post-menopausal History of steroid therapy Arthritis Back pain Non-smoker Leg cramps History of trigger finger Diaphoresis Nonrheumatic aortic (valve) stenosis Osteoarthritis Urethral caruncle Varicose veins of both lower extremities Anxiety and depression GERD (gastroesophageal reflux disease) Obesity Segmental and somatic dysfunction of cervical region Segmental and somatic dysfunction of pelvic region Segmental and somatic dysfunction of lumbar region Segmental and somatic dysfunction of thoracic region DDD (degenerative disc disease), lumbar Surgical History History of back surgery History of surgery Hx of dilation and curettage Hx of hysterectomy History of left heart catheterization (01/13/21) History of knee replacement procedure of left knee History of knee replacement procedure of right knee History of bladder suspension procedure Family History Father , age 80 CAD (coronary artery disease), Onset Age: 62 Myocardial infarction, Onset Age: 62 Mother CAD (coronary artery disease), Onset Age: 68 CABG Diabetes Brother Diabetes CAD (coronary artery disease) Heart disease Valve replacement/ CABG/ CEA Brother Diabetes Heart disease Pacemaker Brother Heart disease Valve Replacement Social History Smoking Status: Never smoker alcohol intake: never HPI LUMBAR SPINE Details: This documentation accurately reflects the service provided and the decisions made by me, Dr. Edmond Merino, DO 04/28/24 8084. Part of today???s visit was documented by Emily Hung ATC, acting as scribe. SAUMYA REARDON is a 73 year old F here today for lumbar spine follow-up after surgery on 04/25/2022. Patient just had some questions following her back surgery and before Dr. Merino retires. Patient states she gets some pain every once in a while when she is doing specific things and activities. Mrs. Reardon wanted to come by for 1 last visit before I retire basically to ask what and what she should not be doing long-term regarding her low back. A couple of years ago or more now I did a 3 level decompression on her and she has done very well. Talked about perhaps some things to avoid but she is very functional. She is able to ride her lawnmower and cut her grass and she has been doing the weed eating to but I told her to quit using the weedeater because it puts her back in the mechanical disadvantage. She had a recent trip to [place] with her for a family reunion and they drove 7 hours 1 day and 6 hours the next and her back held up very well. I answered every single one of her questions. I wished her the best for her future and that of her Binu. Coding Level of Care Code No Charge Diagnoses Status post lumbar surgery Z98.890 Time Spent (min) 20 Assessment and Plan Assessment and Plan (1) Status post lumbar surgery: Status: Acute Plan Details Goals Barriers: Goals Decrease pain Decrease spasm Decrease inflammation Barriers Previous lumbar surgery Clinical Quality Measures Falls Risk Screening/Assistive Devices Have you fallen in the past year?: No 04/28/24 1533 D (more content not included)... Normal [facility] Basophil percentageOrdered B y: Annalee Jose on 04-26-2023 Bilirubin [Mass/Vol] 0.50 mg/dL 0.20-1.00 [facility] Comment on above: For patients on eltr ombopag therapy, use of Dimension Perry TBIL is not recommended. Chloride [Moles/Vol] 110 mmol/L 98-107 [facility] Cholesterol [Mass/Vol] 164 mg/dL <200 [facility] Comment on above: <200 mg/dL Desirable 200-240 mg/dL Borderline >240 mg/dL High Risk Glucose [Mass/Vol] 99 mg/dL 74-106 [facility] Potassium [Moles/Vol] 4.3 mmol/L 3.5-5.1 [facility] Protein [Mass/Vol] 7.2 g/dL 6.4-8.2 [facility] Sodium [Moles/Vol] 140 mmol/L 136-145 [facility] Triglyceride [Mass/Vol] 64 mg/dL <199 [facility] Comment on above: The drugs N-Acetylcy steine and Metamizole may falsely depress this assay.Serum Triglycerides Reference Interval Normal <150 mg/dL Borderline high 150 - 199 mg/dL High 200 - 499 mg/dL Very High > or = 500 mg/dL Laboratory - Chemistry and C hemistry - challengeOrdered By: Annalee Garcia on 04-26-2023 ALP [Catalytic activity/Vol] 81 U/L 45-117 [facility] ALT [Catalytic activity/Vol] 14 U/L 13-56 [facility] CO2 [Moles/Vol] 26.0 mmol/L 21.0-32.0 [facility] Globulin (S) [Mass/Vol] 3.8 g/dL 2.2-4.2 [facility] Urea nitrogen/Creatinine [Mass ratio] 21.7 mg/mg 10-20 [facility] No Panel InformationOrdered By: Annalee Garcia on 04-26-2023 Estimated GFR (MDRD) Amer 92 mL/min >60 [facility] Comment on above: GFR Calc Estimated GFR (MDRD) Non-Af Amer 76 mL/min >60 [facility] Comment on above: Non- GFR Calc Vitamin D 25-Hydroxy 103.4 ng/mL [facility] Comment on above: Vitamin D 25(OH) Sta tus Range Deficiency <20 ng/mL (50nmol/L) Insufficiency 20 - 30 ng/mL (50 - 75 nmol/L) Sufficiency 30 - 100 ng/mL (75 - 250 nmol/L) Toxicity >100 ng/mL (>250 nmol/L)Evidence suggests that patients undergoing fluorescein dye angiography can retain small amounts of fluorescein in the body for up to 48 to 72 hours post-treatment. In the cases of patients with renal insufficiency, retention could be much longer. Samples containing fluorescein can produce falsely elevated values when tested with the Advia Centaur Vitamin D assay. With fluorescein interference, observed Vitamin D values can be as high as >150 ng/mL (>375 nmol/L). Samples should be resubmitted post fluorescein clearance to ensure there is no interference with Vitamin D test results. Serum or plasma albumin kemi urement (mass/volume)Ordered By: Annalee Garcia on 04-26-2023 Albumin [Mass/Vol] 3.4 g/dL 3.2-5.0 [facility] Serum or plasma albumin/glob ulin mass ratioOrdered By: Annalee Garcia on 04-26-2023 Albumin/Globulin [Mass ratio] 0.9 {ratio} 0.9-2.4 [facility] Serum or plasma calcium kemi urement (mass/volume)Ordered By: Annalee Garcia on 04-26-2023 Calcium [Mass/Vol] 9.0 mg/dL 8.5-10.1 [facility] Serum or plasma cholesterol in HDL measurement (mass/volume)Ordered By: Annalee Garcia on 04-26-2023 Cholesterol in HDL [Mass/Vol] 37 mg/dL >40 [facility] Comment on above: The drugs N-Acetylcy steine and Metamizole may falsely depress this assay. Reference Range HDL <40 mg/dL Low HDL Cholesterol HDL >or= 60 mg/dL High HDL Cholesterol Serum or plasma cholesterol in VLDL measurement (mass/volume)Ordered By: Annalee Garcia on 04-26-2023 Cholesterol in VLDL [Mass/Vol] 13 mg/dL 5-40 [facility] Serum or plasma creatinine m easurement (mass/volume)Ordered By: Annalee Garcia on 04-26-2023 Creatinine [Mass/Vol] 0.78 mg/dL 0.55-1.02 [facility] Comment on above: The validity of the calculated GFR & GFRAA in patients over 70 years has not been determined. Clinical correlation is essential. Serum or plasma low density lipoprotein (LDL) cholesterol measurement (mass/volume)Ordered By: Annalee Garcia on 04-26-2023 Cholesterol in LDL [Mass/Vol] 114 mg/dL 0-130 [facility] Serum or plasma urea nitroge n measurement (mass/volume)Ordered By: Annalee Garcia on 04-26-2023 Urea nitrogen [Mass/Vol] 17 mg/dL 7-18 [facility] Thin prep Papanicolaou smear with manual screeningOrdered By: Annalee Garcia on 04-26-2023 Thin prep Papanicolaou smear with manual screening 18 U/L 15-37 [facility] Thin prep Papanicolaou smear with manual screening 4 5-15 [facility] No Panel Informationon 09-12 D-Dimer Quantitative (PE/DVT) 0.82 FEU/ug/m 0.27-0.49 [facility] Work Phone: Comment on above: D-Dimer ELEVATED (>0 .49): Additional studies and clinicalassessments are indicated to conclude diagnosis of:Deep Vein Thrombosis (DVT) or Pulmonary Embolism (PE)CRITICAL VALUE VERIFIED. CALLED TO DELROY REYNA ([facility])09/12/22 1425 Willie Fiore.RESULTS READ BACK BY SAME. Absolute lymphocyte counton 04-28-2022 Lymphocytes Auto (Unsp spec) [#/Vol] 1.92 10*3/uL 0.83-4.51 [facility] Work Phone: [phone] Basophil percentageon 2021 Basophils/100 WBC (Bld) 0.6 % 0-1 [facility] Work Phone: [phone] Eosinophils/100 WBC (Bld) 3.7 % 0-5 [facility] Work Phone: [phone] Neutrophils (Bld) [#/Vol] 9.3 10*3/uL 2.0-7.7 [facility] Work Phone: [phone] Neutrophils/100 WBC (Bld) 72.9 % 47-70 [facility] Work Phone: [phone] WBC (Bld) [#/Vol] 12.7 10*3/uL 4.4-11.0 [facility] Work Phone: Blood erythrocytes count (nu mber/volume)on 04-28-2022 RBC (Bld) [#/Vol] 4.04 10*6/uL 4.2-5.4 [facility] Work Phone: Blood hemoglobin measurement (mass/volume)on 04-28-2022 Hemoglobin (Bld) [Mass/Vol] 11.8 g/dL 12.0-15.0 [facility] Work Phone: [phone] Blood lymphocytes/100 leukoc yteson 04-28-2022 Lymphocytes/100 WBC (Bld) 15.1 % 19-41 [facility] Work Phone: Blood monocytes/100 leukocyt eson 04-28-2022 Monocytes/100 WBC (Bld) 7.1 % 0-10 [facility] Work Phone: [phone] Blood platelet mean volumeon 04-28-2022 Platelet mean volume (Bld) [Entitic vol] 11.0 fL 6.2-12.0 [facility] Work Phone: Determination of erythrocyte mean corpuscular volume (MCV)on 04-28-2022 MCV (RBC) [Entitic vol] 90.3 fL 81-99 [facility] Work Phone: Hematocrit Auto (Bld) [Volum e fraction]on 04-28-2022 Hematocrit (Bld) [Volume fraction] 36.5 % 37-47 [facility] Work Phone: Laboratory - Hematology and Cell countson 04-28-2022 Erythrocyte distribution width (RBC) [Entitic vol] 43.2 fL 35.1-43.9 [facility] Work Phone: Erythrocyte distribution width (RBC) [Ratio] 13.1 % 11.6-14.6 [facility] Work Phone: Immature granulocytes/100 WBC (Bld) 0.600 % 0.0-0.9 [facility] Work Phone: Comment on above: IG% - Immature Granu locytes (promyelocytes, myelocytes and metamyelocytes) > 1% indicates that a LEFT SHIFT is Present. MCH (RBC) [Entitic mass] 29.2 pg 27.0-32.0 [facility] Work Phone: Nucleated RBC/100 WBC (Bld) [Ratio] 0 % 0-5 [facility] Work Phone: MCHC Auto (RBC) [Mass/Vol]on 04-28-2022 MCHC (RBC) [Mass/Vol] 32.3 g/dL 32-36 [facility] Work Phone: Platelets bldon 04-28-2022 Platelets (Bld) [#/Vol] 196 10*3/uL 150-450 [facility] Work Phone: Glucose Glucometer (BldC) [M ass/Vol]on 06-21-2022 Glucose [Mass/Vol] 107 mg/dL 74-106 [facility] Work Phone: Comment on above: MANAGEMENT OF PATIEN T CARE PER NURSING PROTOCOL Laboratory - Chemistry and C hemistry - challengeon 04-13-2022 Magnesium [Mass/Vol] 2.3 mg/dL 1.6-2.6 [facility] Work Phone: Basophil percentageon 2021 Chloride [Moles/Vol] 111 mmol/L 98-107 [facility] Work Phone: Glucose [Mass/Vol] 117 mg/dL 74-106 [facility] Work Phone: Comment on above: Fasting Glucose resu lt from 100 to 125 mg/dL suggests IMPAIRED HOMEOSTASIS per A.D.A. criteria. Potassium [Moles/Vol] 4.0 mmol/L 3.5-5.1 [facility] Work Phone: Sodium [Moles/Vol] 140 mmol/L 136-145 [facility] Work Phone: WBC (Bld) [#/Vol] 7.1 10*3/uL 4.4-11.0 [facility] Work Phone: Blood erythrocytes count (nu mber/volume)on 03-28-2022 RBC (Bld) [#/Vol] 4.33 10*6/uL 4.2-5.4 [facility] Work Phone: Blood hemoglobin measurement (mass/volume)on 03-28-2022 Hemoglobin (Bld) [Mass/Vol] 12.6 g/dL 12.0-15.0 [facility] Work Phone: Blood platelet mean volumeon 03-28-2022 Platelet mean volume (Bld) [Entitic vol] 11.0 fL 6.2-12.0 [facility] Work Phone: Determination of erythrocyte mean corpuscular volume (MCV)on 03-28-2022 MCV (RBC) [Entitic vol] 92.4 fL 81-99 [facility] Work Phone: Hematocrit Auto (Bld) [Volum e fraction]on 03-28-2022 Hematocrit (Bld) [Volume fraction] 40.0 % 37-47 [facility] Work Phone: Laboratory - Chemistry and C hemistry - challengeon 03-28-2022 CO2 [Moles/Vol] 24.0 mmol/L 21.0-32.0 [facility] Work Phone: Urea nitrogen/Creatinine [Mass ratio] 24.2 mg/mg 10-20 [facility] Work Phone: Laboratory - Hematology and Cell countson 03-28-2022 Erythrocyte distribution width (RBC) [Entitic vol] 44.3 fL 35.1-43.9 [facility] Work Phone: Erythrocyte distribution width (RBC) [Ratio] 13.1 % 11.6-14.6 [facility] Work Phone: MCH (RBC) [Entitic mass] 29.1 pg 27.0-32.0 [facility] Work Phone: MCHC Auto (RBC) [Mass/Vol]on 03-28-2022 MCHC (RBC) [Mass/Vol] 31.5 g/dL 32-36 [facility] Work Phone: No Panel Informationon 03-28 Estimated GFR (MDRD) Amer 87 mL/min >60 [facility] Work Phone: Comment on above: GFR Calc Estimated GFR (MDRD) Non-Af Amer 72 mL/min >60 [facility] Work Phone: Comment on above: Non- GFR Calc Platelets bldon 03-28-2022 Platelets (Bld) [#/Vol] 218 10*3/uL 150-450 [facility] Work Phone: Serum or plasma calcium kemi urement (mass/volume)on 03-28-2022 Calcium [Mass/Vol] 9.1 mg/dL 8.5-10.1 [facility] Work Phone: Serum or plasma creatinine m easurement (mass/volume)on 03-28-2022 Creatinine [Mass/Vol] 0.83 mg/dL 0.55-1.02 [facility] Work Phone: Comment on above: The validity of the calculated GFR & GFRAA in patients over 70 years has not been determined. Clinical correlation is essential. Serum or plasma urea nitroge n measurement (mass/volume)on 03-28-2022 Urea nitrogen [Mass/Vol] 20 mg/dL 7-18 [facility] Work Phone: Thin prep Papanicolaou smear with manual screeningon 03-28-2022 Thin prep Papanicolaou smear with manual screening 03 09-15 [facility] Work Phone: Basic Metabolic Panelon - Anion gap [Moles/Vol] 8 mmol/L Normal 3-13 [facility] Comment on above: Performed By: #### H ZONIA BMP3 #### [facility] [address] [place] [address] Calcium [Mass/Vol] 9.0 mg/dL Normal 8.4-10.4 [facility] Comment on above: Performed By: #### Kevin BRAR BMP3 #### [facility] [address] [place], [place] CO2 [Moles/Vol] 23 mmol/L Normal 22-30 [facility] Comment on above: Performed By: #### H ZONIA BMP3 #### [facility] [address] [place] [address] Glucose [Mass/Vol] 116 mg/dL High 70-100 [facility] Comment on above: Performed By: #### H ZONIA BMP3 #### [facility] [address] [place] [address] Urea nitrogen [Mass/Vol] 17 mg/dL Normal 9-20 [facility] Comment on above: Performed By: #### H ZONIA BMP3 #### [facility] [address] [place], [place] Creatinine [Mass/Vol] 0.84 mg/dL Normal 0.52-1.25 [facility] Comment on above: Performed By: #### H ZONIA BMP3 #### [facility] [address] [place], [place] GFR/1.73 sq M.predicted among blacks MDRD (S/P/Bld) [Vol rate/Area] 79.5 mL/min/{1.73_m2} Normal >[address] [facility] Comment on above: Performed By: #### H ZONIA, BMP3 #### [facility] [address] [place], [place] GFR/1.73 sq M.predicted among non-blacks MDRD (S/P/Bld) [Vol rate/Area] 68.6 mL/min/{1.73_m2} Normal >[address] [facility] Comment on above: Result Comment: KDIG O guidelines provide the following GFR categories: Stage GFR(ml/min/1.73 m2) Terms G1 >=90 Normal or high G2 60-89 Mildly decreased* G3a 45-59 Mildly to moderately decreased G3b 30-44 Moderately to severely decreased G4 15-29 Severely decreased G5 <15 Kidney failure *Relative to young adult level. In the absence of evidence of kidney damage, neither GFR category G1 nor G2 fulfill the criteria for CKD. The CKD-EPI equation is validated in individuals 18 years of age and older. Currently the best equation for estimating glomerular filtration rate (GFR) from serum creatinine in children is the Bedside Martino equation. It is less accurate in patients with extremes of muscle mass, restriction of dietary protein, ingestion of creatine, extra-renal metabolism of creatinine, or treatment with medications that affect renal tubular creatinine secretion. Performed By: #### H ZONIA BMP3 #### [facility] [address] [place], [place] Chloride [Moles/Vol] 108 mmol/L High 98-107 [facility] Comment on above: Performed By: #### H ZONIA, BMP3 #### [facility] [address] [place], [place] Potassium [Moles/Vol] 4.0 mmol/L Normal 3.5-5.1 [facility] Comment on above: Performed By: #### H TYSON BRAR3 #### [facility] [address] [place] [address] Sodium [Moles/Vol] 139 mmol/L Normal 135-145 [facility] Comment on above: Performed By: #### H TYSON BRAR3 #### [facility] [address] [place] [address] Anion gap [Moles/Vol] 8 mmol/L 3 - 13 mmol/L [facility] Calcium [Mass/Vol] 9.0 mg/dL 8.4 - 10. 4 mg/dL [facility] Chloride [Moles/Vol] 108 mmol/L High 98 - 10 7 mmol/L [facility] CO2 [Moles/Vol] 23 mmol/L 22 - 30 mmol/L [facility] Creatinine [Mass/Vol] 0.84 mg/dL 0.52 - 1.25 mg/dL [facility] EGFR IF NonAfrican Cuban 68.6 mL/min >60 [facility] Comment on above: KDIGO guidelines pro vide the following GFR categories: Stage GFR(ml/min/1.73 m2) Terms G1 >=90 Normal or high G2 60-89 Mildly decreased* G3a 45-59 Mildly to moderately decreased G3b 30-44 Moderately to severely decreased G4 15-29 Severely decreased G5 <15 Kidney failure *Relative to young adult level. In the absence of evidence of kidney damage, neither GFR category G1 nor G2 fulfill the criteria for CKD. The CKD-EPI equation is validated in individuals 18 years of age and older. Currently the best equation for estimating glomerular filtration rate (GFR) from serum creatinine in children is the Bedside Martino equation. It is less accurate in patients with extremes of muscle mass, restriction of dietary protein, ingestion of creatine, extra-renal metabolism of creatinine, or treatment with medications that affect renal tubular creatinine secretion. GFR/1.73 sq M.predicted among blacks MDRD (S/P/Bld) [Vol rate/Area] 79.5 mL/min/{1.73_m2} >60 [facility] Glucose [Mass/Vol] 116 mg/dL High 70 - 100 mg/dL [facility] Interpretation and review of laboratory results Abnormal [facility] Potassium [Moles/Vol] 4.0 mmol/L 3.5 - 5.1 mmol/L [facility] Sodium [Moles/Vol] 139 mmol/L 135 - 145 mmol/L [facility] Urea nitrogen (BldV) [Mass/Vol] 17 mg/dL 9 - 20 mg/dL [facility] Test Performed by [address] [address] [facility] CBCon 02-28-2022 Hematocrit (Bld) [Volume fraction] 37.2 % 35.0 - 47.0 % [facility] Hemoglobin.gastrointes tinal spec 1 Ql (Stl) 12.2 g/dL 11.7 - 16.0 g/dL [facility] MCH (RBC) [Entitic mass] 29.0 pg 26.0 - 34.0 pg [facility] MCHC (RBC) [Mass/Vol] 32.9 % 32.0 - 36.0 % [facility] MCV (RBC) [Entitic vol] 88.4 fL 79.0 - 98.0 fL [facility] Platelet distribution width (Bld) [Ratio] 13.4 % 11.5 - 14.5 % [facility] Platelet mean volume (Bld) [Entitic vol] 9.2 fL 7.4 - 10.4 fL [facility] Platelets (Bld) [#/Vol] 249 10*3/uL 140 - 440 10*3/uL [facility] RBC (Bld) [#/Vol] 4.21 10*6/uL 3.80 - 5.2 0 10*6/uL [facility] WBC (Bld) [#/Vol] 9.4 10*3/uL 3.6 - 10.7 10*3/uL [facility] Test Performed by [address] [address] [facility] ECHO Complete 2D W Doppler W Coloron 02-28-2022 TRANSTHORACIC ECHOCARDIOGRAM PATIENT: Saumya Reardon STUDY DATE: 02/28/2022 : 1950 AGE: 71 HT/WT: 160 cm (63 92.5 kg (203.6 in) lb) GENDER: F BP: 107 / 50 LOCATION: [facility] PATIENT Inpatient main STATUS: *ORDERING PHYSICIAN: * Jun Guzman *READING PHYSICIAN: * Clint, *CHIEF POWER DISPATCHER: * Francisca Sanders [facility], Graciela AE -- INDICATIONS: Non-rheumatic (I35.0). -- HISTORY: S/P TAVR 1 day. #23mm Pierre Celso S3 bioprosthetic valve. -- CONCLUSIONS SUMMARY: 1. Left ventricle: The cavity size is normal. Wall thickness is mildly increased. Systolic function is normal by the biplane method of disks. The estimated ejection fraction is 71%. There are no regional wall motion abnormalities. Doppler parameters are consistent with abnormal left ventricular relaxation (grade 1 diastolic dysfunction). 2. Mitral valve: Moderately calcified annulus. There is trivial, less than 1+ regurgitation. The peak diastolic gradient is 7 mm Hg. 3. Aortic valve: There is a #23mm Pierre Celso S3 bioprosthetic valve. There is no regurgitation. The peak systolic velocity is 2.9 m/sec. The mean systolic gradient is 19 mm Hg. The peak systolic gradient is 34 mm Hg. Dimensionless index: 0.51. The valve area by the velocity-time integral method is 1.6 cm^2. The valve area index by the velocity-time integral method is 0.8 cm^2/m^2. 4. Pericardium, extracardiac: There is no pericardial effusion. 5. Inferior vena cava: The vessel is normal. The IVC collapses by greater than 50% with inspiration. -- STUDY DATA: Complete transthoracic echocardiogram. Procedure: Image quality was suboptimal. Intravenous imaging enhancement (Definity) was administered. Definity lot #: [id number]. M-mode, complete 2D, complete spectral Doppler, and color flow Doppler images were acquired and archived for permanent storage and are available for subsequent review. Study status: Routine. Patient status: Inpatient. -- FINDINGS LEFT VENTRICLE: The cavity size is normal. Wall thickness is mildly increased. Systolic function is normal by the biplane method of disks. The estimated ejection fraction is 71%. There are no regional wall motion abnormalities. Doppler parameters are consistent with abnormal left ventricular relaxation (grade 1 diastolic dysfunction). RIGHT VENTRICLE: The cavity size is normal. Systolic function is normal. Right ventricular systolic pressure is within the normal range. VENTRICULAR SEPTUM: There is no evidence of a ventricular septal defect. LEFT ATRIUM: The atrium is normal in size. RIGHT ATRIUM: The atrium is normal in size. ATRIAL SEPTUM: Color Doppler shows no shunt. MITRAL VALVE: Moderately calcified annulus. Doppler: There is trivial, less than 1+ regurgitation. The peak diastolic gradient is 7 mm Hg. AORTIC VALVE: There is a #23mm Pierre Celso S3 bioprosthetic valve. Doppler: There is no regurgitation. Dimensionless index: 0.51. The valve area by the velocity-time integral method is 1.6 cm^2. The valve area index by the velocity-time integral method is 0.8 cm^2/m^2. The mean systolic gradient is 19 mm Hg. The peak systolic gradient is 34 mm Hg. The peak systolic velocity is 2.9 m/sec. TRICUSPID VALVE: Structurally normal valve. Doppler: There is trivial, less than 1+ regurgitation. PULMONIC VALVE: Structurally normal valve. Doppler: There is trivial, less than 1+ regurgitation. AORTA: The aorta is normal. PULMONARY ARTERY: Main pulmonary artery: Normal. PERICARDIUM: There is no pericardial effusion. SYSTEMIC VEINS: Inferior vena cava: The vessel is normal. The IVC collapses by greater than 50% with inspiration. -- Measurements Value Reference Ascending aorta ID, A-P, S 2.7 cm Ascending aorta ID/bsa, A-P, S 1.4 cm/m^2 Left ventricle Value Reference LV ID, ED 4.1 cm 3.8 - 5.2 LV ID, ES 2.2 cm 2.2 - 3.5 LV ID/bsa, ED (L) 2.1 cm/m^2 2.3 - 3.1 LV ID/bsa, ES (L) 1.1 cm/m^2 1.3 - 2.1 LV PW thickness, ED (H) 1.3 (more content not included)... [facility] Graciela Jaramillo M D - 02/28/2022 TRANSTHORACIC ECHOCARDIOGRAM PATIENT: Saumya Reardon STUDY DATE: 02/28/2022 : 1950 AGE: 71 HT/WT: 160 cm (63 92.5 kg (203.6 in) lb) GENDER: F BP: 107 / 50 LOCATION: [facility] PATIENT Inpatient main STATUS: *ORDERING PHYSICIAN: * Jun Guzman *READING PHYSICIAN: * Clint, *CHIEF POWER DISPATCHER: * Graciela Esquivel RDCS, AE -- INDICATIONS: Non-rheumatic (I35.0). -- HISTORY: S/P TAVR 1 day. #23mm Pierre Celso S3 bioprosthetic valve. -- CONCLUSIONS SUMMARY: 1. Left ventricle: The cavity size is normal. Wall thickness is mildly increased. Systolic function is normal by the biplane method of disks. The estimated ejection fraction is 71%. There are no regional wall motion abnormalities. Doppler parameters are consistent with abnormal left ventricular relaxation (grade 1 diastolic dysfunction). 2. Mitral valve: Moderately calcified annulus. There is trivial, less than 1+ regurgitation. The peak diastolic gradient is 7 mm Hg. 3. Aortic valve: There is a #23mm Pierre Celso S3 bioprosthetic valve. There is no regurgitation. The peak systolic velocity is 2.9 m/sec. The mean systolic gradient is 19 mm Hg. The peak systolic gradient is 34 mm Hg. Dimensionless index: 0.51. The valve area by the velocity-time integral method is 1.6 cm^2. The valve area index by the velocity-time integral method is 0.8 cm^2/m^2. 4. Pericardium, extracardiac: There is no pericardial effusion. 5. Inferior vena cava: The vessel is normal. The IVC collapses by greater than 50% with inspiration. -- STUDY DATA: Complete transthoracic echocardiogram. Procedure: Image quality was suboptimal. Intravenous imaging enhancement (Definity) was administered. Definity lot #: [id number]. M-mode, complete 2D, complete spectral Doppler, and color flow Doppler images were acquired and archived for permanent storage and are available for subsequent review. Study status: Routine. Patient status: Inpatient. -- FINDINGS LEFT VENTRICLE: The cavity size is normal. Wall thickness is mildly increased. Systolic function is normal by the biplane method of disks. The estimated ejection fraction is 71%. There are no regional wall motion abnormalities. Doppler parameters are consistent with abnormal left ventricular relaxation (grade 1 diastolic dysfunction). RIGHT VENTRICLE: The cavity size is normal. Systolic function is normal. Right ventricular systolic pressure is within the normal range. VENTRICULAR SEPTUM: There is no evidence of a ventricular septal defect. LEFT ATRIUM: The atrium is normal in size. RIGHT ATRIUM: The atrium is normal in size. ATRIAL SEPTUM: Color Doppler shows no shunt. MITRAL VALVE: Moderately calcified annulus. Doppler: There is trivial, less than 1+ regurgitation. The peak diastolic gradient is 7 mm Hg. AORTIC VALVE: There is a #23mm Pierre Celso S3 bioprosthetic valve. Doppler: There is no regurgitation. Dimensionless index: 0.51. The valve area by the velocity-time integral method is 1.6 cm^2. The valve area index by the velocity-time integral method is 0.8 cm^2/m^2. The mean systolic gradient is 19 mm Hg. The peak systolic gradient is 34 mm Hg. The peak systolic velocity is 2.9 m/sec. TRICUSPID VALVE: Structurally normal valve. Doppler: There is trivial, less than 1+ regurgitation. PULMONIC VALVE: Structurally normal valve. Doppler: There is trivial, less than 1+ regurgitation. AORTA: The aorta is normal. PULMONARY ARTERY: Main pulmonary artery: Normal. PERICARDIUM: There is no pericardial effusion. SYSTEMIC VEINS: Inferior vena cava: The vessel is normal. The IVC collapses by greater than 50% with inspiration. -- Measurements Value Reference Ascending aorta ID, A-P, S 2.7 cm Ascending aorta ID/bsa, A-P, S 1.4 cm/m^2 Left ventricle Value Reference LV ID, ED 4.1 cm 3.8 - 5.2 LV ID, ES 2.2 cm 2.2 - 3.5 LV ID/bsa, ED (L) 2.1 cm/m^2 2.3 - 3.1 LV ID/bsa, ES (L) 1.1 cm/m^2 1.3 - 2.1 LV PW thickness, ED (H) 1.3 cm 0.6 - 0.9 LV PW/LV ID ratio, ED 0.31 LV wall mass (H) 211 g 66 - 150 LV wall mass/bsa (H) 108 g/m^2 44 - 88 Stroke volume/bsa, 1-p A2C 11.9 ml/m^2 LV end-diastolic volume, 1-p A4C 109 ml 48 - 140 LV end-systolic volume, 1-p A4C 24 ml 12 - 60 LV end-diastolic volume, 2-p 76 ml 46 - 106 LV end-systolic volume, 2-p 22 ml 14 (more content not included)... [employer] Work Phone: ECHO Complete 2D W Doppler W ColorOrdered By: Graciela Jaramillo on 02-28-2022 [employer] Work Phone: Echo Complete w/wo Contrasto n 02-28-2022 Echo Complete w/wo Contrast Patient Name: SAUMYA REARDON Ultrasound ACCESSION EXAM DATE/TIME PROCEDURE ORDERING PROVIDER [id number] 02/28/2022 08:22 EDT Echo Complete w/wo KAEL GUZMAN MICHELLE Contrast Reason For Exam (Echo Complete w/wo Contrast) post op TAVR Report TRANSTHORACIC ECHOCARDIOGRAM PATIENT: Saumya Reardon STUDY DATE: 02/28/2022 : 1950 AGE: 71 HT/WT: 160 cm (63 92.5 kg (203.6 in) lb) GENDER: F BP: 107 / 50 LOCATION: [facility] PATIENT Inpatient main STATUS: *ORDERING PHYSICIAN: * Jun Guzman *READING PHYSICIAN: * Clint, *CHIEF POWER DISPATCHER: Graciela Wilkerson RDCS, AE -- INDICATIONS: Non-rheumatic (I35.0). -- HISTORY: S/P TAVR 1 day. #23mm Pierre Celso S3 bioprosthetic valve. -- CONCLUSIONS SUMMARY: 1. Left ventricle: The cavity size is normal. Wall thickness is mildly increased. Systolic function is normal by the biplane method of disks. The estimated ejection fraction is 71%. There are no regional wall motion abnormalities. Doppler parameters are consistent with abnormal left ventricular relaxation (grade 1 diastolic dysfunction). 2. Mitral valve: Moderately calcified annulus. There is trivial, less than 1+ regurgitation. The peak diastolic gradient is 7 mm Hg. 3. Aortic valve: There is a #23mm Pierre Celso S3 bioprosthetic valve. There is no regurgitation. The peak systolic velocity is 2.9 m/sec. The mean systolic gradient is 19 mm Hg. The peak systolic gradient is 34 mm Hg. Dimensionless index: 0.51. The valve area by the velocity-time integral method is 1.6 cm^2. The valve area index by the velocity-time integral method is 0.8 cm^2/m^2. 4. Pericardium, extracardiac: There is no pericardial effusion. 5. Inferior vena cava: The vessel is normal. The IVC collapses by greater than 50% with inspiration. -- STUDY DATA: Complete transthoracic echocardiogram. Procedure: Image Ultrasound Report quality was suboptimal. Intravenous imaging enhancement (Definity) was administered. Definity lot #: [id number]. M-mode, complete 2D, complete spectral Doppler, and color flow Doppler images were acquired and archived for permanent storage and are available for subsequent review. Study status: Routine. Patient status: Inpatient. -- FINDINGS LEFT VENTRICLE: The cavity size is normal. Wall thickness is mildly increased. Systolic function is normal by the biplane method of disks. The estimated ejection fraction is 71%. There are no regional wall motion abnormalities. Doppler parameters are consistent with abnormal left ventricular relaxation (grade 1 diastolic dysfunction). RIGHT VENTRICLE: The cavity size is normal. Systolic function is normal. Right ventricular systolic pressure is within the normal range. VENTRICULAR SEPTUM: There is no evidence of a ventricular septal defect. LEFT ATRIUM: The atrium is normal in size. RIGHT ATRIUM: The atrium is normal in size. ATRIAL SEPTUM: Color Doppler shows no shunt. MITRAL VALVE: Moderately calcified annulus. Doppler: There is trivial, less than 1+ regurgitation. The peak diastolic gradient is 7 mm Hg. AORTIC VALVE: There is a #23mm Pierre Celso S3 bioprosthetic valve. Doppler: There is no regurgitation. Dimensionless index: 0.51. The valve area by the velocity-time integral method is 1.6 cm^2. The valve area index by the velocity-time integral method is 0.8 cm^2/m^2. The mean systolic gradient is 19 mm Hg. The peak systolic gradient is 34 mm Hg. The peak systolic velocity is 2.9 m/sec. TRICUSPID VALVE: Structurally normal valve. Doppler: There is trivial, less than 1+ regurgitation. PULMONIC VALVE: Structurally normal valve. Doppler: There is trivial, less than 1+ regurgitation. AORTA: The aorta is normal. PULMONARY ARTERY: Main pulmonary artery: Normal. PERICARDIUM: There is no pericardial effusion. SYSTEMIC VEINS: Inferior vena cava: The vessel is normal. The IVC collapses by greater than 50% with inspiration. -- Measurements Value Reference Ascending aorta ID, A-P, S 2.7 cm Ascending aorta ID/bsa, A-P, S 1.4 cm/m^2 Left ventricle Value Reference LV ID, ED 4.1 cm 3.8 - 5.2 LV ID, ES 2.2 cm 2.2 - 3.5 LV ID/bsa, ED (L) 2.1 cm/m^2 2.3 - 3.1 LV ID/bsa, ES (L) 1.1 cm/m^2 1.3 - 2.1 LV PW thickness, ED (H) 1.3 cm 0.6 - 0.9 LV PW/LV ID ratio, ED 0.31 LV wall mass (H) 211 g 66 - 150 LV wall mass/bsa (H) 108 g/m^2 44 - 88 Stroke volume/bsa, 1-p (more content not included)... Normal [facility] Hemogramon 02-28-2022 Erythrocyte distribution width (RBC) [Ratio] 13.4 % Normal 11.5-14.5 [facility] Comment on above: Performed By: #### H ZONIA, BMP3 #### [facility] [address] [place], [place] Hematocrit (Bld) [Volume fraction] 37.2 % Normal 35.0-47.0 [facility] Comment on above: Performed By: #### H ZONIA, BMP3 #### [facility] [address] [place] [address], [place] Hemoglobin (Bld) [Mass/Vol] 12.2 g/dL Normal 11.7-16.0 [facility] Comment on above: Performed By: #### H ZONIA, BMP3 #### [facility] [address] [place], [place] MCH (RBC) [Entitic mass] 29.0 pg Normal 26.0-34.0 [facility] Comment on above: Performed By: #### H EMOMyriam, BMP3 #### [facility] [address] [place] [address], [place] MCHC 32.9 % Normal 32.0-36.0 [facility] Comment on above: Performed By: #### H EMOMyriam, BMP3 #### [facility] [address] [place], [place] MCV (RBC) [Entitic vol] 88.4 fL Normal 79.0-98.0 [facility] Comment on above: Performed By: #### H EMOG, BMP3 #### [facility] [address] [place], [place] Platelet mean volume (Bld) [Entitic vol] 9.2 fL Normal 7.4-10.4 [facility] Comment on above: Performed By: #### H EMOG, BMP3 #### [facility] [address] [place], [place] Platelets (Bld) [#/Vol] 249 10*3/uL Normal 140-440 [facility] Comment on above: Performed By: #### H ZONIA BMP3 #### [facility] [address] [place], [place] RBC (Bld) [#/Vol] 4.21 10*6/uL Normal 3.80-5.20 [facility] Comment on above: Performed By: #### H ZONIA BMP3 #### [facility] [address] [place] [address], [place] WBC (Bld) [#/Vol] 9.4 10*3/uL Normal 3.6-10.7 [facility] Comment on above: Performed By: #### H ZONIA BMP3 #### [facility] [address], [place] Basic Metabolic Panelon 04-2 Calcium [Mass/Vol] 8.5 mg/dL Normal 8.4-10.4 [facility] Comment on above: Performed By: #### H ZONIA BMP3 ####[id number] [place], [place] Glucose [Mass/Vol] 100 mg/dL Normal 70-100 [facility] Comment on above: Performed By: #### H ZONIA BMP3 ####[facility] [employer] [id number] [place], [place] Urea nitrogen [Mass/Vol] 18 mg/dL Normal 9-20 [facility] Comment on above: Performed By: #### H ZONIA BMP3 ####[facility] [employer] [id number] [place], [place] Anion gap [Moles/Vol] 4 mmol/L Normal 3-13 [facility] Comment on above: Performed By: #### H ZONIA BMP3 ####[facility] [employer] [id number] [place], [place] CO2 [Moles/Vol] 25 mmol/L Normal 22-30 [facility] Comment on above: Performed By: #### H ZONIA BMP3 ####[facility] [employer] [id number] [place], [place] Creatinine [Mass/Vol] 0.71 mg/dL Normal 0.52-1.25 [facility] Comment on above: Performed By: #### H ZONIA BMP3 ####[facility] [employer] [id number] [place] [address] GFR/1.73 sq M.predicted among blacks MDRD (S/P/Bld) [Vol rate/Area] mL/min/{1.73_m2} Normal >60 [facility] Comment on above: Performed By: #### H ZONIA BMP3 ####[id number] [place] [address] GFR/1.73 sq M.predicted among non-blacks MDRD (S/P/Bld) [Vol rate/Area] 84.0 mL/min/{1.73_m2} Normal >60 [facility] Comment on above: Result Comment: KDIG O guidelines provide the following GFR categories: Stage GFR(ml/min/1.73 m2) Terms G1 >=90 Normal or high G2 60-89 Mildly decreased* G3a 45-59 Mildly to moderately decreased G3b 30-44 Moderately to severely decreased G4 15-29 Severely decreased G5 <15 Kidney failure *Relative to young adult level. In the absence of evidence of kidney damage, neither GFR category G1 nor G2 fulfill the criteria for CKD. The CKD-EPI equation is validated in individuals 18 years of age and older. Currently the best equation for estimating glomerular filtration rate (GFR) from serum creatinine in children is the Bedside Martino equation. It is less accurate in patients with extremes of muscle mass, restriction of dietary protein, ingestion of creatine, extra-renal metabolism of creatinine, or treatment with medications that affect renal tubular creatinine secretion. Performed By: #### H ZONIA BMP3 ####[facility] [employer] [id number] [place] [address] Potassium [Moles/Vol] 3.9 mmol/L Normal 3.5-5.1 [facility] Comment on above: Performed By: #### H ZONIA BMP3 ####[facility] [employer] [id number] [place] [address] Chloride [Moles/Vol] 108 mmol/L High 98-107 [facility] Comment on above: Performed By: #### H PAIGE BRAR ####[facility] [id number] [place] [address] Sodium [Moles/Vol] 137 mmol/L Normal 135-145 [facility] Comment on above: Performed By: #### H PAIGE BRAR ####[facility] [place] [address] Anion gap [Moles/Vol] 4 mmol/L 3 - 13 mmol/L [facility] Calcium [Mass/Vol] 8.5 mg/dL 8.4 - 10. 4 mg/dL [facility] Chloride [Moles/Vol] 108 mmol/L High 98 - 10 7 mmol/L [facility] CO2 [Moles/Vol] 25 mmol/L 22 - 30 mmol/L [facility] Creatinine [Mass/Vol] 0.71 mg/dL 0.52 - 1.25 mg/dL [facility] EGFR IF NonAfrican Cuban 84.0 mL/min >60 [facility] Comment on above: KDIGO guidelines pro vide the following GFR categories: Stage GFR(ml/min/1.73 m2) Terms G1 >=90 Normal or high G2 60-89 Mildly decreased* G3a 45-59 Mildly to moderately decreased G3b 30-44 Moderately to severely decreased G4 15-29 Severely decreased G5 <15 Kidney failure *Relative to young adult level. In the absence of evidence of kidney damage, neither GFR category G1 nor G2 fulfill the criteria for CKD. The CKD-EPI equation is validated in individuals 18 years of age and older. Currently the best equation for estimating glomerular filtration rate (GFR) from serum creatinine in children is the Bedside Martino equation. It is less accurate in patients with extremes of muscle mass, restriction of dietary protein, ingestion of creatine, extra-renal metabolism of creatinine, or treatment with medications that affect renal tubular creatinine secretion. GFR/1.73 sq M.predicted among blacks MDRD (S/P/Bld) [Vol rate/Area] mL/min/{1.73_m2} >60 mL/min [facility] Glucose [Mass/Vol] 100 mg/dL 70 - 100 mg/dL [facility] Interpretation and review of laboratory results Abnormal [facility] Potassium [Moles/Vol] 3.9 mmol/L 3.5 - 5.1 mmol/L [facility] Sodium [Moles/Vol] 137 mmol/L 135 - 145 mmol/L [facility] Urea nitrogen (BldV) [Mass/Vol] 18 mg/dL 9 - 20 mg/dL [facility] Test Performed by [id number] [place] [address] LAB [facility] CBCon 02-27-2022 Hematocrit (Bld) [Volume fraction] 34.8 % Low 35.0 - 47.0 % [facility] Hemoglobin.gastrointes tinal spec 1 Ql (Stl) 11.4 g/dL Low 11.7 - 16.0 g/dL [facility] Interpretation and review of laboratory results Abnormal [facility] MCH (RBC) [Entitic mass] 29.4 pg 26.0 - 34.0 pg [facility] MCHC (RBC) [Mass/Vol] 32.8 % 32.0 - 36.0 % [facility] MCV (RBC) [Entitic vol] 89.9 fL 79.0 - 98.0 fL [facility] Platelet distribution width (Bld) [Ratio] 13.3 % 11.5 - 14.5 % [facility] Platelet mean volume (Bld) [Entitic vol] 9.3 fL 7.4 - 10.4 fL [facility] Platelets (Bld) [#/Vol] 225 10*3/uL 140 - 440 10*3/uL [facility] RBC (Bld) [#/Vol] 3.87 10*6/uL 3.80 - 5.2 0 10*6/uL [facility] WBC (Bld) [#/Vol] 6.6 10*3/uL 3.6 - 10.7 10*3/uL [facility] Test Performed by [facility], [address] [place] [id number] [place] [address] LAB [facility] Hemogramon 02-27-2022 Erythrocyte distribution width (RBC) [Ratio] 13.3 % Normal 11.5-14.5 [facility] Comment on above: Performed By: #### H PAIGE BRAR ####[id number] [place] [address] Hematocrit (Bld) [Volume fraction] 34.8 % Low 35.0-47.0 [facility] Comment on above: Performed By: #### H PAIGE BRAR ####[facility] [place], [place] Hemoglobin (Bld) [Mass/Vol] 11.4 g/dL Low 11.7-16.0 [facility] Comment on above: Performed By: #### H ZONIA BMP3 ####[id number] [place], [place] MCH (RBC) [Entitic mass] 29.4 pg Normal 26.0-34.0 [facility] Comment on above: Performed By: #### H ZONIA BMP3 ####[address] MCHC 32.8 % Normal 32.0-36.0 [facility] Comment on above: Performed By: #### Kevin BRAR BMP3 ####[address] MCV (RBC) [Entitic vol] 89.9 fL Normal 79.0-98.0 [facility] Comment on above: Performed By: #### H ZONIA BMP3 ####[address] Platelet mean volume (Bld) [Entitic vol] 9.3 fL Normal 7.4-10.4 [facility] Comment on above: Performed By: #### Kevin BRAR BMP3 ####[address] Platelets (Bld) [#/Vol] 225 10*3/uL Normal 140-440 [facility] Comment on above: Performed By: #### H ZONIA BMP3 ####[address] RBC (Bld) [#/Vol] 3.87 10*6/uL Normal 3.80-5.20 [facility] Comment on above: Performed By: #### Kevin BRAR BMP3 ####[address] WBC (Bld) [#/Vol] 6.6 10*3/uL Normal 3.6-10.7 [facility] Comment on above: Performed By: #### H [facility] ####[id number] [place] [address] Leukodepleted Red Cellson Leukodepleted Red Cells Leukodepleted Red Cells: [id number] released 02/27/22 19:17 [facility] Unit Blood Type: A Unit Blood Rh: POS Blood Product Code: AS1 Unit Number: [id number] Unit Status: released Barcoded Unit Number: =[id number] Barcoded Product Code: = Barcoded ABO/Rh: =%6200 Unit Expiration: Leukodepleted Red Cells: [id number] released 02/27/22 19:17 [facility] Unit Blood Type: A Unit Blood Rh: POS Blood Product Code: AS1 Unit Number: [id number] Unit Status: released Barcoded Unit Number: =[id number] Barcoded Product Code: = Barcoded ABO/Rh: =%6200 Unit Expiration: Normal [facility] Comment on above: Performed By: #### T SGL ####[facility]#### [facility] ####[address] [address] OPERATIVE REPORTon 2 Ordered by an unspecified provider. [facility] Op Noteon 02-27-2022 Op Note Operative Report DATE PERFORMED: 02/27/2022 PREOPERATIVE DIAGNOSES: Severe symptomatic calcific aortic stenosis. POSTOPERATIVE DIAGNOSES: Same. PROCEDURE: Transcatheter aortic valve replacement with a 23-mm Pierre Sapiens S3 valve via a right transfemoral approach. SURGEONS: Genesis Lynn DO MS Interventional Cardiologists: 1. Barry Melissa M.D. INDICATIONS: The patient is an 71-year-old female with severe, symptomatic aortic valvular stenosis who was reviewed in the valve clinic and the valve conference and deemed a candidate for TAVR. The pros, cons, risks, benefits, and alternatives of transcatheter aortic valve replacement were reviewed with the patient, and questions were answered, they provided informed consent and wished to proceed with the procedure. Anesthesia: Local/MAC Complications: None PROCEDURE: The patient was taken to the operating room. The patient was prepped and draped. Using Seldinger technique we placed a left femoral artery 6-Burundian sheath percutaneously. A 5 Burundian pigtail was advanced over a guidewire into the ascending aorta and parked in the right sinus of Valsalva. A 6 romansh right venous sheath was placed in the femoral vein. A balloon catheter tip was advanced into the RV and secured. Good capture was achieved. The right common femoral artery was then accessed percutaneously using Seldinger technique. The patient was heparinized. The artery was preclosed with the placement of two Perclose devices. Using the seldinger technique, a 14-Burundian Celso E-sheath was introduced over the wire into the descending aorta. The aortic valve was transversed with a 5F AL1 catheter and 0.035 straight wire. This was exchanged for a pre-shaped Amplatz ExtraStiff wire. A 23 mm Celso S3 valve was advanced through the sheath into the descending thoracic aorta. We then mounted the valve into the balloon area using the pusher . Then we flex the catheter and advance it through the arch and ascending aorta and across the aortic valve annulus. Depth of deployment was adjusted. We started rapid ventricular pacing.The pigtail was removed from the right sinus. This abolished ejection and dropped the blood pressure bellow 40mmHg. We then inflated the balloon and deployed the valve. Pacing was stopped. The patient tolerated this well. The valve was noted to seat well and function normally and there was good filling of the coronary arteries on fluoroscopy without aortic insufficiency and a gradient of 0 by pullback hemodynamics. The pacing wire and sheaths were removed and perclose stitches synched down. Protamine was given to reverse the systemic effects of heparin. Hemostasis was achieved after pressure held. The patient was transferred stable to the recovery room. Genesis Lynn DO, MS Cardiothoracic Surgery [facility] CR Chest PA/LATon 02-21-2022 CR Chest PA/LAT Patient Name: SAUMYA REARDON Diagnostic Radiology ACCESSION EXAM DATE/TIME PROCEDURE ORDERING PROVIDER [id number] 02/21/2022 10:35 EDT CR Chest PA and LAT FRANKLYN MCCLURE MEGGAN CPT code 10490 Reason For Exam (CR Chest PA and LAT) TAVR Report CHEST X-RAY PA and lateral CLINICAL INDICATION: Chest pain PA and lateral radiographs of the chest were obtained. COMPARISON: None FINDINGS: The cardiac silhouette is within normal limits. No focal consolidation is seen within the lungs. No pleural effusion or pneumothorax is identified. Degenerative changes of the thoracic spine are noted. IMPRESSION: No acute cardiopulmonary process. Report Dictated on Final Dictated: 02/21/2022 12:54 pm Dictating Physician: MD LOVETT JASON Signed Date and Time: 02/21/2022 12:55 pm Signed by: MD LOVETT JASON Transcribed Date and Time: 02/21/2022 12:54 Normal [facility] CTA Chest/Abdomen/Pelvis w/ + w/o contraon 02-21-2022 CTA Chest/Abdomen/Pelvis w/ + w/o contra Patient Name: SAUMYA REARDON Computed Tomography ACCESSION EXAM DATE/TIME PROCEDURE ORDERING PROVIDER [id number] 02/21/2022 10:33 EDT CTA Chest/Abdomen/Pelvis MD MELISSA PETER w/ + w/o contra CPT code 91766 [id number] Reason For Exam (CTA Chest/Abdomen/Pelvis w/ + w/o contra) TAVR Addendum Addendum: FINDINGS: Airway: Patent. Lungs: Clear. No consolidation major volume loss or effusion. No significant nodules. Chest wall unremarkable. No mediastinal adenopathy. Within the abdomen, no free air. Bowel pattern nonobstructive. No free fluid. No discrete inflammation of bowel visualized. No appendicitis or diverticulitis. Negative liver, gallbladder, pancreas, spleen, adrenal glands kidneys and urinary bladder for active disease. No adenopathy seen. Degenerative change of the spine noted. No spinal compression seen. No significant bone lesions. IMPRESSION: There is no acute pulmonary or abdominal process identified. Limited by lack of oral contrast. Report Dictated on Final Addendum Dictated: 02/24/2022 4:27 pm Addendum Dictating Physician: MD GROVER JOHN Signed Date and Time: 02/24/2022 4:34 pm Signed by: MD GROVER JOHN Transcribed Date and Time: 02/24/2022 4:27 Report [facility] Valve [facility] Cardiovascular CTA Indication: 71 year-old woman with severe aortic stenosis, being Computed Tomography Report evaluated for transcatheter aortic valve implantation. Technique: Computed tomography of the heart, thoracoabdominal aorta, and iliofemoral system was performed using a [employer] Aquilion One 320 detector scanner. Images were reconstructed and analyzed on an advanced post-processing 3D workstation. Contrast: 100 mL Total DLP: 878.60 mGy-cm Study Quality: Excellent Extracardiac Findings: For a complete description of extracardiac structures, please refer to the accompanying radiology addendum. Cardiac Chambers: The pericardium is unremarkable. The left and right ventricles are normal in size. There is left ventricular hypertrophy. The left atrium is mildly dilated. The left atrial appendage is normal in appearance. The right atrium is normal in size. Coronary Arteries: The coronaries have normal origins. There is a pattern of right coronary dominance. There is evidence of coronary atherosclerosis. The present study was not optimized for evaluation of the coronary arteries. Mitral Valve: The mitral annulus has severe calcification, without significant extension into the LVOT. The anterior mitral leaflet is free of the LVOT during systole. Aortic Valve: The aortic valve is tricuspid and moderately calcified. Predicted deployment angle (3-cusp view): KOREAN 6, CAU 12 Aortic Annulus: Dimensions: 2.32 x 1.89 cm Area: 3.36 cm2 Perimeter: 66.4 mm Left coronary height: 15.1 mm Right Coronary height: 13.5 mm Aorta and Iliofemoral System: All vascular measurements are minimal luminal diameters using a centerline technique. Aortic Root and Thoracic Aorta: Sinuses of Valsalva: 28 mm Sinotubular junction: 25 mm Mid ascending Aorta: 35 mm Abdominal Aorta: Infrarenal: 14 mm Bifurcation: 14 mm Right Iliac System: High bifurcation Calcification: Minimal. Tortuosity: Minimal. RCIA: 9 mm REIA: 6 mm RCFA: 6 mm Left Iliac System: High bifurcation Calcification: Minimal. Tortuosity: Minimal. LCIA: 9 mm ABHILASH: 7 mm Computed Tomography Report LCFA: 7 mm CONCLUSIONS: 1. Calcific aortic stenosis, with descriptive anatomy and annular / aortic root measurements as detailed above. 2. Patent bilateral iliofemoral system as detailed above. Report Dictated on Final Dictated: 02/23/2022 3:33 pm Dictating Physician: MD. RAMÍREZ, CALVIN LEON Signed Date and Time: 02/23/2022 3:51 pm Signed by: MD. RAMÍREZ, CALVIN LEON Transcribed Date and Time: 02/23/2022 3:33 Report last revised on 02/24/2022 16:34 EDT by MD REILLY, MERLYN Normal [facility] Comp Metabolic Panelon 02-21 ALT [Catalytic activity/Vol] 17 U/L Normal 0-34 [facility] Comment on above: Result Comment: The ALT test is performed by an updated assay method. Please note that the reference intervals have been changed and are now sex specific. Performed By: #### C MP3, BNP3, HEMDF #### [facility] [address] [place], [place] Calcium [Mass/Vol] 8.9 mg/dL Normal 8.4-10.4 [facility] Comment on above: Performed By: #### C MP3, BNP3, HEMDF #### [facility] [address] [place], [place] ALP [Catalytic activity/Vol] 73 U/L Normal 38-126 [facility] Comment on above: Performed By: #### C MP3, BNP3, HEMDF #### [facility] [address] [place], [place] Anion gap [Moles/Vol] 7 mmol/L Normal 3-13 [facility] Comment on above: Performed By: #### C MP3, BNP3, HEMDF #### [facility] [address] [place], [place] AST [Catalytic activity/Vol] 39 U/L Normal 15-46 [facility] Comment on above: Performed By: #### C MP3, BNP3, HEMDF #### [facility] [address] [place], [place] Bilirubin [Mass/Vol] 0.5 mg/dL Normal 0.2-1.3 [facility] Comment on above: Performed By: #### C MP3, BNP3, HEMDF #### [facility] [address] [place], [place] CO2 [Moles/Vol] 26 mmol/L Normal 22-30 [facility] Comment on above: Performed By: #### C MP3, BNP3, HEMDF #### [facility] [address] [place], [place] Creatinine [Mass/Vol] 0.90 mg/dL Normal 0.52-1.25 [facility] Comment on above: Performed By: #### C MP3, BNP3, HEMDF #### [address] GFR/1.73 sq M.predicted among blacks MDRD (S/P/Bld) [Vol rate/Area] 73.1 mL/min/{1.73_m2} Normal >[address] [facility] Comment on above: Performed By: #### C MP3, BNP3, HEMDF #### [address] GFR/1.73 sq M.predicted among non-blacks MDRD (S/P/Bld) [Vol rate/Area] 63.1 mL/min/{1.73_m2} Normal >[address] [facility] Comment on above: Result Comment: KDIG O guidelines provide the following GFR categories: Stage GFR(ml/min/1.73 m2) Terms G1 >=90 Normal or high G2 60-89 Mildly decreased* G3a 45-59 Mildly to moderately decreased G3b 30-44 Moderately to severely decreased G4 15-29 Severely decreased G5 <15 Kidney failure *Relative to young adult level. In the absence of evidence of kidney damage, neither GFR category G1 nor G2 fulfill the criteria for CKD. The CKD-EPI equation is validated in individuals 18 years of age and older. Currently the best equation for estimating glomerular filtration rate (GFR) from serum creatinine in children is the Bedside Martino equation. It is less accurate in patients with extremes of muscle mass, restriction of dietary protein, ingestion of creatine, extra-renal metabolism of creatinine, or treatment with medications that affect renal tubular creatinine secretion. Performed By: #### C MP3, BNP3, HEMDF #### [facility] [address] [place] [address] Glucose [Mass/Vol] 83 mg/dL Normal 70-100 [facility] Comment on above: Performed By: #### C MP3, BNP3, HEMDF #### [facility] [address] [place] [address] Protein [Mass/Vol] 7.0 g/dL Normal 6.3-8.2 [facility] Comment on above: Performed By: #### C MP3, BNP3, HEMDF #### [place] [address] [place] [address] Urea nitrogen [Mass/Vol] 15 mg/dL Normal 9-20 [facility] Comment on above: Performed By: #### C MP3, BNP3, HEMDF #### [place] [address] [place] [address] Potassium [Moles/Vol] 4.2 mmol/L Normal 3.5-5.1 [facility] Comment on above: Performed By: #### C MP3, BNP3, HEMDF #### [place] [address] [place] [address] Sodium [Moles/Vol] 134 mmol/L Low 135-145 [facility] Comment on above: Performed By: #### C MP3, BNP3, HEMDF #### [place] [address] [place] [address] Albumin [Mass/Vol] 3.7 g/dL Normal 3.5-5.0 [facility] Comment on above: Performed By: #### C MP3, BNP3, HEMDF #### [place] [address] [place] [address] Chloride [Moles/Vol] 101 mmol/L Normal 98-107 [facility] Comment on above: Performed By: #### C MP3, BNP3, HEMDF #### [place] [address] [place] [address] Hemogram w/ Autodiffon 02-21 Abs Baso Cnt 0.1 10*3/uL Normal 0.0-0.2 [facility] Comment on above: Performed By: #### C MP3, BNP3, HEMDF #### [place] [address] [place], [place] Abs Neutrophile Cnt 5.0 10*3/uL Normal 1.8-7.0 [facility] Comment on above: Performed By: #### C MP3, BNP3, HEMDF #### [place] [address] [place], [place] Basophils/100 WBC (Bld) 0.9 % Normal 0.0-2.0 [facility] Comment on above: Performed By: #### C MP3, BNP3, HEMDF #### [place] [address] [place], [place] Eosinophils (Bld) [#/Vol] 0.2 10*3/uL Normal 0.0-0.5 [facility] Comment on above: Performed By: #### C MP3, BNP3, HEMDF #### [place] [address] [place], [place] Eosinophils/100 WBC (Bld) 2.8 % Normal 1.0-6.0 [facility] Comment on above: Performed By: #### C MP3, BNP3, HEMDF #### [address] Erythrocyte distribution width (RBC) [Ratio] 13.2 % Normal 11.5-14.5 [facility] Comment on above: Performed By: #### C MP3, BNP3, HEMDF #### [place] [address] [place], [place] Granulocytes/100 WBC (Bld) 65.1 % Normal 40.0-80.0 [facility] Comment on above: Performed By: #### C MP3, BNP3, HEMDF #### [address] Hematocrit (Bld) [Volume fraction] 38.2 % Normal 35.0-47.0 [facility] Comment on above: Performed By: #### C MP3, BNP3, HEMDF #### [address] [place], [place] Hemoglobin (Bld) [Mass/Vol] 12.7 g/dL Normal 11.7-16.0 [facility] Comment on above: Performed By: #### C MP3, BNP3, HEMDF #### [facility] [address] [place], [place] Lymphocytes (Bld) [#/Vol] 1.8 10*3/uL Normal 1.0-4.3 [facility] Comment on above: Performed By: #### C MP3, BNP3, HEMDF #### [facility] [address] [place], [place] Lymphocytes/100 WBC (Bld) 24.0 % Normal 20.0-40.0 [facility] Comment on above: Performed By: #### C MP3, BNP3, HEMDF #### [place] [address] [place], [place] MCH (RBC) [Entitic mass] 29.7 pg Normal 26.0-34.0 [facility] Comment on above: Performed By: #### C MP3, BNP3, HEMDF #### [place] [address] [place], [place] MCHC 33.3 % Normal 32.0-36.0 [facility] Comment on above: Performed By: #### C MP3, BNP3, HEMDF #### [place] [address] [place], [place] MCV (RBC) [Entitic vol] 89.2 fL Normal 79.0-98.0 [facility] Comment on above: Performed By: #### C MP3, BNP3, HEMDF #### [facility] [address] [place], [place] Monocytes (Bld) [#/Vol] 0.6 10*3/uL Normal 0.0-0.8 [facility] Comment on above: Performed By: #### C MP3, BNP3, HEMDF #### [place] [address] [place], [place] Monocytes/100 WBC (Bld) 7.2 % Normal 2.0-10.0 [facility] Comment on above: Performed By: #### C MP3, BNP3, HEMDF #### [place] [address] [place], [place] Platelet mean volume (Bld) [Entitic vol] 9.2 fL Normal 7.4-10.4 [facility] Comment on above: Performed By: #### C MP3, BNP3, HEMDF #### [place] [address] [place], [place] Platelets (Bld) [#/Vol] 257 10*3/uL Normal 140-440 [facility] Comment on above: Performed By: #### C MP3, BNP3, HEMDF #### [place] [address] [place], [place] RBC (Bld) [#/Vol] 4.29 10*6/uL Normal 3.80-5.20 [facility] Comment on above: Performed By: #### C MP3, BNP3, HEMDF #### [place] [address] [place], [place] WBC (Bld) [#/Vol] 7.7 10*3/uL Normal 3.6-10.7 [facility] Comment on above: Performed By: #### C MP3, BNP3, HEMDF #### [place] [address] [place], [place] NT pro BNPon 02-21-2022 Natriuretic peptide B (Bld) [Mass/Vol] 226 pg/mL High 0-125 [facility] Comment on above: Performed By: #### C MP3, BNP3, HEMDF #### [place] [address] [place], [place] TS GELon 02-21-2022 TS GEL ABO Group: A Rh, Gel: POS Antibody Screen Gel: NEG Normal [facility] Comment on above: Performed By: #### T SGL ####[facility]#### [facility] ####[address] [address] Absolute lymphocyte counton 03-15-2022 Lymphocytes Auto (Unsp spec) [#/Vol] 1.88 10*3/uL 0.83-4.51 [facility] Work Phone: Basophil percentageon 2021 Basophils/100 WBC (Bld) 0.9 % 0-1 [facility] Work Phone: Chloride [Moles/Vol] 109 mmol/L 98-107 [facility] Work Phone: Eosinophils/100 WBC (Bld) 1.6 % 0-5 [facility] Work Phone: Glucose [Mass/Vol] 96 mg/dL 74-106 [facility] Work Phone: [phone] Neutrophils (Bld) [#/Vol] 5.5 10*3/uL 2.0-7.7 [facility] Work Phone: [phone] Neutrophils/100 WBC (Bld) 67.3 % 47-70 [facility] Work Phone: [phone] Potassium [Moles/Vol] 4.1 mmol/L 3.5-5.1 [facility] Work Phone: Sodium [Moles/Vol] 139 mmol/L 136-145 [facility] Work Phone: WBC (Bld) [#/Vol] 8.2 10*3/uL 4.4-11.0 [facility] Work Phone: [phone] Blood erythrocytes count (nu mber/volume)on 01-17-2022 RBC (Bld) [#/Vol] 4.57 10*6/uL 4.2-5.4 [facility] Work Phone: Blood hemoglobin measurement (mass/volume)on 01-17-2022 Hemoglobin (Bld) [Mass/Vol] 13.6 g/dL 12.0-15.0 [facility] Work Phone: Blood lymphocytes/100 leukoc yteson 01-17-2022 Lymphocytes/100 WBC (Bld) 23.0 % 19-41 [facility] Work Phone: Blood monocytes/100 leukocyt eson 01-17-2022 Monocytes/100 WBC (Bld) 7.0 % 0-10 [facility] Work Phone: Blood platelet mean volumeon 01-17-2022 Platelet mean volume (Bld) [Entitic vol] 10.6 fL 6.2-12.0 [facility] Work Phone: Determination of erythrocyte mean corpuscular volume (MCV)on 01-17-2022 MCV (RBC) [Entitic vol] 91.0 fL 81-99 [facility] Work Phone: HIV 1 and HIV-2 antibody ass ay with HIV-1 p24 antigen detectionon 01-17-2022 HIV 1+2 Ab+HIV1 p24 Ag IA Ql Non-Reactive Nonreactive [facility] Work Phone: Hematocrit Auto (Bld) [Volum e fraction]on 01-17-2022 Hematocrit (Bld) [Volume fraction] 41.6 % 37-47 [facility] Work Phone: Laboratory - Chemistry and C hemistry - challengeon 01-17-2022 CO2 [Moles/Vol] 25.0 mmol/L 21.0-32.0 [facility] Work Phone: Urea nitrogen/Creatinine [Mass ratio] 25.1 mg/mg 10-20 [facility] Work Phone: Magnesium [Mass/Vol] 2.1 mg/dL 1.6-2.6 [facility] Work Phone: Laboratory - Hematology and Cell countson 01-17-2022 Erythrocyte distribution width (RBC) [Entitic vol] 43.6 fL 35.1-43.9 [facility] Work Phone: Erythrocyte distribution width (RBC) [Ratio] 13.1 % 11.6-14.6 [facility] Work Phone: Immature granulocytes/100 WBC (Bld) 0.200 % 0.0-0.9 [facility] Work Phone: Comment on above: IG% - Immature Granu locytes (promyelocytes, myelocytes and metamyelocytes) > 1% indicates that a LEFT SHIFT is Present. MCH (RBC) [Entitic mass] 29.8 pg 27.0-32.0 [facility] Work Phone: Nucleated RBC/100 WBC (Bld) [Ratio] 0 % 0-5 [facility] Work Phone: MCHC Auto (RBC) [Mass/Vol]on 01-17-2022 MCHC (RBC) [Mass/Vol] 32.7 g/dL 32-36 [facility] Work Phone: No Panel Informationon 01-17 Estimated GFR (MDRD) Amer 77 mL/min >60 [facility] Work Phone: Comment on above: GFR Calc Estimated GFR (MDRD) Non-Af Amer 64 mL/min >60 [facility] Work Phone: Comment on above: Non- GFR Calc Hepatitis A Antibody Total Positive Negative [facility] Work Phone: Comment on above: Performed at: [place] [id number] Director: Robert Agarwal PhD, Phone: [phone] Hepatitis C Antibody Non-Reactive Nonreactive [facility] Work Phone: Comment on above: Non Reactive: < 0.8 Equivocal: >/= 0.8 to < 1.0 Reactive: >/= 1.0The CDC recommends that a reactive/equivocal HCV antibody result be followed up by the HCV Nucleic Acid Amplificationtest (131165) Nasal Screen MRSA/MSSA [facility] Work Phone: Platelets bldon 01-17-2022 Platelets (Bld) [#/Vol] 299 10*3/uL 150-450 [facility] Work Phone: Serum hepatitis B virus surf kandy antibody IgG detectionon 01-17-2022 HBV surface IgG Ql (S) Non-Reactive [facility] Work Phone: Comment on above: Non Reactive: Incons istent with immunity less than <10 mIU/mL Reactive: Consistent with immunity greater than or equal to 10 mIU/mL Serum or plasma calcium kemi urement (mass/volume)on 01-17-2022 Calcium [Mass/Vol] 9.5 mg/dL 8.5-10.1 [facility] Work Phone: Serum or plasma creatinine m easurement (mass/volume)on 01-17-2022 Creatinine [Mass/Vol] 0.92 mg/dL 0.55-1.02 [facility] Work Phone: Comment on above: The validity of the calculated GFR & GFRAA in patients over 70 years has not been determined. Clinical correlation is essential. Serum or plasma urea nitroge n measurement (mass/volume)on 01-17-2022 Urea nitrogen [Mass/Vol] 23 mg/dL 7-18 [facility] Work Phone: Thin prep Papanicolaou smear with manual screeningon 01-17-2022 Thin prep Papanicolaou smear with manual screening 5 -15 [facility] Work Phone: Office Visit: Spine Visit- [facility] back [place] 09-25-2017 Documentation of current medications (procedure) Done Invalid Interpretation Code [facility] [facility] [employer] Work Phone: Documentation of current medications (procedure) T Invalid Interpretation Code [facility] [employer] [facility] [employer] Work Phone: [phone] Office Visit: Spine Visit- [facility] back [place] 09-20-2017 Documentation of current medications (procedure) Done Invalid Interpretation Code [facility] [facility] [employer] Work Phone: [phone] Documentation of current medications (procedure) T Invalid Interpretation Code [facility] [facility] [employer] Work Phone: [phone] Office Visit: Spine Visit- [facility] back pain 09-18-2017 Documentation of current medications (procedure) Done Invalid Interpretation Code [facility] Work Phone: [phone] Documentation of current medications (procedure) T Invalid Interpretation Code [employer] Work Phone: Office Visit: Spine Visit- [facility] 09-13-2017 Documentation of current medications (procedure) Done Invalid Interpretation Code [facility] Work Phone: Documentation of current medications (procedure) T Invalid Interpretation Code [facility] Work Phone: Office Visit: Spine Visit- [facility] back painon 09-10-2017 Documentation of current medications (procedure) Done Invalid Interpretation Code [facility] Work Phone: Documentation of current medications (procedure) T Invalid Interpretation Code [facility] Work Phone: CNOVon 05-25-2017 CNOV Office Visit (SEPIDEH) SAUMYA MONTANA ([id number]) 1950 [facility] Time Provider Department05/25/17 10:00 AM CHERI ALY (KAEL) SEPIDEH During your visit today, we recorded the following information about you: Pulse Blood pressure Weight Height 77/minute 162/72 98.9 kg 1.6 Estebanaroldodl ABHISHEK Aly 05/25/2017 10:24 AM SignedHPI:Overactive Bladder Follow-up: The patient was seen today for a medicationfollow-up for overactive bladder. She is currently taking Myrbetriq, which [employer] is working great. She occasionally dribbles a small amount of urinewhen she waits too long to go to the bathroom. She is making it through thenight without having to get up and is dry in the morning.Current Outpatient Prescriptions:VENTOLIN HFA 90 mcg/actuation inhaler INHALE TWO PUFFS EVERY 4 HOURS NEEDEDazelastine (ASTELIN,ASTEPRO) 0.1% nasal spray Use 1 Strang in each nostril twicedaily.fluticasone (FLONASE) 50 mcg/actuation nasal sprayescitalopram oxalate (LEXAPRO) 5 mg tabletPREMARIN vaginal creamgabapentin (NEURONTIN) 300 mg capsuleMYRBETRIQ 25 mg Tb24 Take 1 tablet by mouth once daily.mirabegron (MYRBETRIQ) 25 mg Tb24 Take 1 tablet by mouth once daily.No current facility-administered medications for this visit.ALLERGIESAllergen Reactions- Latex UnknownHISTORIESNo family history on file.No past medical history on file.No past surgical history on file.Social History Marital status: Spouse name: Years of education: Number of children:Social History Main Topics Smoking status: Never Smoker Alcohol use: No Comment: caffeine- very little Drug use: No Sexual activity: NoREVIEW OF SYSTEMS:Constitutional: No weight loss or weight gain. No fatigue. No chills. No fevers.Gastrointestinal : No loss of appetite. No nausea/ vomiting. No heartburn. Noabdominal pain. No blood in stool. No persistent diarrhea. No persistentconstipation. No rectal bleeding. No fecal incontinence.Genitourin nancy: No increased frequency. No increased urgency. No dysuria. Nohematuria. No nocturia. + urinary incontinence--occasiona l. No difficultyemptying the bladder. No vaginal discharge. No abnormal vaginal bleeding. Nopelvic pain or pressure. No menstrual or menopausal problem.PHYSICAL EXAM:BP 162/72 Pulse 77 Ht 160 cm (5' 2.99ANDquot;) Wt 98.9 kg (218 lb) BMI38.63 kg/m2BP recheck 132/72Post Void Residual:Done, by ultrasound yielded 0 ml.URINALYSISDipstick urinalysis was not done.ASSESSMENT:Encount er Diagnosis ICD-10-CM1. Urge incontinence N39.412. Urgency of urination R39.153. Atrophic vaginitis N95.24. Feeling of incomplete bladder emptying R39.14 US MSR POST-VOID RESID URINEPLAN:Overactive Bladder: Medication with improvement: Given the improvement inurinary symptoms with the Myrbetriq provided, she will continue with themedication as directed. She will follow up periodically to assess hercontinued relief.Faviola Boucher, Maral Pitts CNP 05/25/2017 10:15 AM SignedOveractive BladderWhat is an overactive bladder?Overactive bladder represents a collection of symptoms that include:urinary urgency -- failure to be able to postpone the need to urinatefrequency of urination -- the need to urinate at least eight times per dayurge incontinence -- leakage of urine when one gets the urge to urinatenocturia -- the need to get up and urinate at least two times per nightWhat causes an overactive bladder?Urine leakage and bladder control problems can have many possible causes. Theseinclude:Weak pelvic muscles -- muscles that have become stretched and weak due topregnancy and childbirth, which in turn have let the bladder sag out ofposition and have stretched the opening of the urethra causing urine leakage.Nerve damage -- sending signals to the brain and bladder to empty at the wrongtime. Diseases that can cause nerve damage include diabetes, Parkinson?s,multiple sclerosis, and stroke. Trauma that can cause nerve damage includespelvic or back surgery, herniated disc, and radiation.Medications, alcohol, caffeine -- these products can dull the nerves, affectingthe signal to the brain, resulting in bladder overflow. Diuretics and caffeinecan cause rapid bladder filling and may cause bladder leakage.Infection -- a urinary tract infection can irritate bladder nerves and causethe bladder to squeeze without warning.Excess weight -- being overweight puts pressure on the bladder and contributesto urge incontinence.Estrogen deficiency after menopause -- may contribute to loss of urine due tourgency. Ask your doctor if vaginal-only estrogen therapy is right for you.This is different from ANDquot;systemicANDquot ; hormone therapy, which is absorbedthroughout the body.How is overactive bladder treated?Bladder over activity is a very common condition. It is very treatable, butrequires assistance from both the doctor and the patient. Treatment can rangefrom behavioral modification techniques to drugs to neuromodulation.Behavio ral modification techniques to help your overactive bladderKeep a logDuring a typical day, write down your fluid intake, the number of times thatyou urinate, the number of accidents and when they occur (after coughing,sneezing, laughing, because you were not able to reach the bathroom in time,etc.).Monitor your dietEliminate or decrease foods or beverages that may worsen bladder symptoms.These include:TeaCoffeeAlcoho lChocolateCaffeinated soft drinks (even decaffeinated coffee and tea contain somecaffeine)Dewitt juices and fruitsTomatoes and tomato-based productsSpicy and acidic foods and drinksFoods and drinks containing artificial sweetenersMaintain bowel regularityConstipation can place added pressure on the bladder and have a negative effecton bladder function. By keeping healthy bowel habits, you may be able to avoidconstipation and help to lessen bladder symptoms. The following are somesuggestions for maintaining bowel regularity:Increase fiber intake by eating foods such as beans, pasta, oatmeal, brancereal, whole wheat bread, and fresh fruits and vegetables.Every morning take 2 tablespoons of this mixture: 1 cup apple sauce, 1 cupunprocessed wheat bran, and ? cup prune juice.Exercise to maintain regular bowel movements.If you continue to have bowel problems, see your doctor.Maintain a healthy weightBeing overweight can add pressure on your bladder, which may contribute tobladder control problems. If you are overweight, weight loss can reducepressure on your bladder.Stop smokingCigarette smoking is irritating to the bladder muscle. Repeated coughing spasmsdue to smoker's cough can cause urine leakage.Drink plenty of non-irritating fluidsPeople with bladder symptoms often drink fewer liquids so they don't have tourinate as often. You should regularly drink about 3 to 4 glasses of liquidsper day. Try to spread them out as evenly as possible throughout the day.Drinking fewer fluids causes you to produce more concentrated (dark yellow,strong-smelling) urine. Highly concentrated urine is irritating to the bladderand may actually cause more frequent urination. Limit your intake starting 2 or3 hours before going to bed.Decrease or eliminate beverages that may worsen bladder symptoms. These includetea, coffee, alcohol, caffeinated soft drinks, citrus juices, and drinks thatcontain artificial sweeteners.Begin bladder retrainingWhen you have overactive bladder, over time your bladder muscles becomeconditioned to react in a certain way. By retraining these muscles, you canhold urine better. Bladder retraining involves working with a healthcareprofessional to learn how to resist or inhibit the feeling of urgency; postponevoiding; and urinate according to a timetable (rather than in response to afeeling of urgency).To begin bladder training you should start with your current voiding interval.For example, if you urinate every hour on average, this would be your currentvoiding interval. Once the beginning voiding interval has been established, youtrain your bladder to urinate on schedule. For example, you will need tourinate every 2 hours while awake with no voiding in between the interval. Ifyou develop urgency in between the voiding intervals, immediately sit down in acomfortable position, take slow deep breaths in and out of your mouth, and tryto imagine yourself in a favorite vacation spot or use some other relaxationtechnique until the urge passes. Then proceed to the bathroom. Empty thebladder around the clock at first. Don't wait until the last minute. Forexample, start every 2 hours, and if you have remained dry, then increase thetime between urinations. If you are wet, then decrease that time to every hour,and gradually increase the time between bathroom visits. If you normally goevery hour, try to increase it to 1 hour and 15 minutes between visits.When you can maintain your new schedule without accident for 1 to 2 weeks, tryincreasing the time between bathroom visits by an additional 15 minutes untilyou reach an interval you feel comfortable with. The goal is to reach aninterval of 2 to 4 hours between bathroom visits.Stick to the schedule as much as possible.Control the urgeThe pathak to bladder retraining is developing the ability to control urinaryurges. When you experience a sudden urge, the following strategies may help:Stop what you are doing and stay put. Sit down when possible, or stand quietly.Remain very still. When you are still, it is easier to control your urge.Squeeze your pelvic floor muscles quickly several times. Do not relax fully inbetween.Relax the rest of your body. Take a few deep breaths to help you relax and letgo of your tension.Concentrate on suppressing the urge feeling.Wait until the urge subsides.Walk to the bathroom at a normal pace. Do not mcgill. Continue squeezing yourpelvic floor muscles quickly while you walk.Be patient. An entire bladder retraining program usually takes at least 6 to 8weeks to produce results.Talk to your doctor about the best way to manage the symptoms of overactivebladder. He or she may recommend a combination of overactive bladder medicationand bladder retraining to help you achieve the best outcome.Drug treatmentsDrugs can work very well to return normal function to the bladder. The typeselected is based on the specific bladder control problem. Treatment usuallybegins at a low dose followed by a gradual dose increase. The intent is to usethe lowest effective dose, which in turn will reduce the risk of experiencingside effects. Ask your doctor about the risks and benefits of using thefollowing commonly prescribed drugs:Anticholinergic medicationsThese medications control muscle spasms in the bladder:Oxybutynin (Ditropan?), oxybutynin XL (Ditropan XL?), oxybutynin TDDS(Oxytrol?)Propanthe line (Pro-Banthine?)Dicyclom ine (Antispas?, Bentyl?, Di-Spaz?, Dibent?, Or-Tyl?, Spasmoject?)Tolterodine (Detrol?)Solifenacin (Vesicare?)Fesoterodine (Toviaz?)Darifenacin (Enablex?)Trospium (Sanctura XR?)Oxybutinin Gel (Gelnique?)Antidepressa nt medication:Imipramine (Norfranil?, Tipramine?, Trofranil?)Nerve stimulationSacral nerve stimulation: Sacral nerve stimulation is a therapy thatelectrically stimulates the nerves that control the bladder. A small device (aneurotransmitter) is implanted under the skin in the upper buttock area. Thedevice sends mild electrical impulses through a lead (a wire) close to thesacral nerve (a nerve located in the lower back). The impulses, in turn, helpprovider bladder control.Nerve stimulation is a reversible treatment that is considered whenconservative treatments have not worked or have not been tolerated.Conservative treatments include behavioral therapies (diet modifications,biofeedba ck, bladder retraining, pelvic muscle exercises) and medications.Sacral nerve stimulation will not cure bladder control problems, but it canreduce the number of voids and/or the number of wetting episodes.Useful links on the internet for overactive bladderwww.fda.gov/opac om/lowlit/bladprb.htmlw ww.nafc.orgwww.urologyc shin.magdahttp://kidney .niddk.nih.govwww.coco [facility].org/urology? Copyright 4070-[address] [facility]. All rights reserved -____ Allergies As of Date: 05/25/2017 Noted Allergy ReactionLATEX 08/18/2016 16 - UnknownDate Reviewed: 05/25/2017Reviewed by: Cheri Carter) Jermain - Fully AssessedPrimary Visit Diagnosis:Urge incontinence [N39.41] Other Visit Diagnoses:Urgency of urination [R39.15] Atrophic vaginitis [N95.2] Feeling of incomplete bladder emptying [R39.14]Order(s):US MSR POST-VOID RESID URINE [[id number]] Order #: [id number] MYRBETRIQ 25 mg [id number] 1 tablet by mouth once daily.Disp: 90 tabletRfl: 3Prescriptions as of 05/25/2017 Sig: MYRBETRIQ 25 MG TABLET,EXTEND* Take 1 tablet by mouth once d* VENTOLIN HFA 90 MCG/ACTUATION* INHALE TWO PUFFS EVERY 4 HOUR* AZELASTINE 137 MCG (0.1 %) NA* Use 1 Strang in each nostril t* FLUTICASONE 50 MCG/ACTUATION * ESCITALOPRAM 5 MG TABLET PREMARIN 0.625 MG/GRAM VAGINA* GABAPENTIN 300 MG CAPSULEMedication notes this encounter VENTOLIN HFA 90 MCG/ACTUATION AEROSOL INHALER >> ABHISHEK Nguyen 05/25/2017 10:21 AM >> CHERI BIRCH SunMay 25, 2017 10:21 AM AZELASTINE 137 MCG (0.1 %) NASAL SPRAY AEROSOL >> ABHISHEK Nguyen 05/25/2017 10:21 AM >> CHERI BIRCH SunMay 25, 2017 10:21 AM FLUTICASONE 50 MCG/ACTUATION NASAL SPRAY,SUSPENSION >> ABHISHEK Nguyen 05/25/2017 10:21 AM >> JERMAIN WEISSCHERI Roseanne May 25, 2017 10:21 AMProblem List As Of Date 05/25/2017 Noted Resolved Feeling of incomplete bladder emptying [R39.14] INVALID FOR* Atrophic vaginitis [N95.2] INVALID FOR* Urgency of urination [R39.15] INVALID FOR* Urge incontinence [N39.41] INVALID FOR* Other instructions from your clinician: Overactive Bladder What is an overactive bladder? Overactive bladder represents a collection of symptoms that include: urinary urgency -- failure to be able to postpone the need to urinate frequency of urination -- the need to urinate at least eight times per day urge incontinence -- leakage of urine when one gets the urge to urinate nocturia -- the need to get up and urinate at least two times per night What causes an overactive bladder? Urine leakage and bladder control problems can have many possible causes. These include: Weak pelvic muscles -- muscles that have become stretched and weak due to and childbirth, which in turn have let the bladder sag out of position and have stretched the opening of the urethra causing urine leakage. Nerve damage -- sending signals to the brain and bladder to empty at the wrong time. Diseases that can cause nerve damage include diabetes, Parkinson?s, multiple sclerosis, and stroke. Trauma that can cause nerve damage includes pelvic or back surgery, herniated disc, and radiation. Medications, alcohol, caffeine -- these products can dull the nerves, affecting the signal to the brain, resulting in bladder overflow. Diuretics and caffeine can cause rapid bladder filling and may cause bladder leakage. Infection -- a urinary tract infection can irritate bladder nerves and cause the bladder to squeeze without warning. Excess weight -- being overweight puts pressure on the bladder and contributes to urge incontinence. Estrogen deficiency after menopause -- may contribute to loss of urine due to urgency. Ask your doctor if vaginal-only estrogen therapy is right for you. This is different from systemic hormone therapy, which is absorbed throughout the body. How is overactive bladder treated? Bladder over activity is a very common condition. It is very treatable, but requires assistance from both the doctor and the patient. Treatment can range from behavioral modification techniques to drugs to neuromodulation. Behavioral modification techniques to help your overactive bladder Keep a log During a typical day, write down your fluid intake, the number of times that you urinate, the number of accidents and when they occur (after coughing, sneezing, laughing, because you were not able to reach the bathroom in time, etc.). Monitor your diet Eliminate or decrease foods or beverages that may worsen bladder symptoms. These include: Tea Coffee Alcohol Chocolate Caffeinated soft drinks (even decaffeinated coffee and tea contain some caffeine) Dewitt juices and fruits Tomatoes and tomato-based products Spicy and acidic foods and drinks Foods and drinks containing artificial sweeteners Maintain bowel regularity Constipation can place added pressure on the bladder and have a negative effect on bladder function. By keeping healthy bowel habits, you may be able to avoid constipation and help to lessen bladder symptoms. The following are some suggestions for maintaining bowel regularity: Increase fiber intake by eating foods such as beans, pasta, oatmeal, bran cereal, whole wheat bread, and fresh fruits and vegetables. Every morning take 2 tablespoons of this mixture: 1 cup apple sauce, 1 cup unprocessed wheat bran, and ? cup prune juice. Exercise to maintain regular bowel movements. If you continue to have bowel problems, see your doctor. Maintain a healthy weight Being overweight can add pressure on your bladder, which may contribute to bladder control problems. If you are overweight, weight loss can reduce pressure on your bladder. Stop smoking Cigarette smoking is irritating to the bladder muscle. Repeated coughing spasms due to smoker's cough can cause urine leakage. Drink plenty of non-irritating fluids People with bladder symptoms often drink fewer liquids so they don't have to urinate as often. You should regularly drink about 3 to 4 glasses of liquids per day. Try to spread them out as evenly as possible throughout the day. Drinking fewer fluids causes you to produce more concentrated (dark yellow, strong-smelling) urine. Highly concentrated urine is irritating to the bladder and may actually cause more frequent urination. Limit your intake starting 2 or 3 hours before going to bed. Decrease or eliminate beverages that may worsen bladder symptoms. These include tea, coffee, alcohol, caffeinated soft drinks, citrus juices, and drinks that contain artificial sweeteners. Begin bladder retraining When you have overactive bladder, over time your bladder muscles become conditioned to react in a certain way. By retraining these muscles, you can hold urine better. Bladder retraining involves working with a healthcare professional to learn how to resist or inhibit the feeling of urgency; postpone voiding; and urinate according to a timetable (rather than in response to a feeling of urgency). To begin bladder training you should start with your current voiding interval. For example, if you urinate every hour on average, this would be your current voiding interval. Once the beginning voiding interval has been established, you train your bladder to urinate on schedule. For example, you will need to urinate every 2 hours while awake with no voiding in between the interval. If you develop urgency in between the voiding intervals, immediately sit down in a comfortable position, take slow deep breaths in and out of your mouth, and try to imagine yourself in a favorite vacation spot or use some other relaxation technique until the urge passes. Then proceed to the bathroom. Empty the bladder around the clock at first. Don't wait until the last minute. For example, start every 2 hours, and if you have remained dry, then increase the time between urinations. If you are wet, then decrease that time to every hour, and gradually increase the time between bathroom visits. If you normally go every hour, try to increase it to 1 hour and 15 minutes between visits. When you can maintain your new schedule without accident for 1 to 2 weeks, try increasing the time between bathroom visits by an additional 15 minutes until you reach an interval you feel comfortable with. The goal is to reach an interval of 2 to 4 hours between bathroom visits. Stick to the schedule as much as possible. Control the urge The pathak to bladder retraining is developing the ability to control urinary urges. When you experience a sudden urge, the following strategies may help: Stop what you are doing and stay put. Sit down when possible, or stand quietly. Remain very still. When you are still, it is easier to control your urge. Squeeze your pelvic floor muscles quickly several times. Do not relax fully in between. Relax the rest of your body. Take a few deep breaths to help you relax and let go of your tension. Concentrate on suppressing the urge feeling. Wait until the urge subsides. Walk to the bathroom at a normal pace. Do not mcgill. Continue squeezing your pelvic floor muscles quickly while you walk. Be patient. An entire bladder retraining program usually takes at least 6 to 8 weeks to produce results. Talk to your doctor about the best way to manage the symptoms of overactive bladder. He or she may recommend a combination of overactive bladder medication and bladder retraining to help you achieve the best outcome. Drug treatments Drugs can work very well to return normal function to the bladder. The type selected is based on the specific bladder control problem. Treatment usually begins at a low dose followed by a gradual dose increase. The intent is to use the lowest effective dose, which in turn will reduce the risk of experiencing side effects. Ask your doctor about the risks and benefits of using the following commonly prescribed drugs: Anticholinergic medications These medications control muscle spasms in the bladder: Oxybutynin (Ditropan?), oxybutynin XL (Ditropan XL?), oxybutynin TDDS (Oxytrol?) Propantheline (Pro-Banthine?) Dicyclomine (Antispas?, Bentyl?, Di-Spaz?, Dibent?, Or-Tyl?, Spasmoject?) Tolterodine (Detrol?) Solifenacin (Vesicare?) Fesoterodine (Toviaz?) Darifenacin (Enablex?) Trospium (Sanctura XR?) Oxybutinin Gel (Gelnique?) Antidepressant medication: Imipramine (Norfranil?, Tipramine?, Trofranil?) Nerve stimulation Sacral nerve stimulation: Sacral nerve stimulation is a therapy that electrically stimulates the nerves that control the bladder. A small device (a neurotransmitter) is implanted under the skin in the upper buttock area. The device sends mild electrical impulses through a lead (a wire) close to the sacral nerve (a nerve located in the lower back). The impulses, in turn, help provider bladder control. Nerve stimulation is a reversible treatment that is considered when conservative treatments have not worked or have not been tolerated. Conservative treatments include behavioral therapies (diet modifications, biofeedback, bladder retraining, pelvic muscle exercises) and medications. Sacral nerve stimulation will not cure bladder control problems, but it can reduce the number of voids and/or the number of wetting episodes. Useful links on the internet for overactive bladder www.fda.gov/opacom/lowl it/bladprb.html www.nafc.org www.urologychannel.com http://kidney.niddk.nih .gov www.[facility].org /urology ?Copyright 9740-[address] [facility]. All rights reserved Pres criptions ordered this encounter Disp Refills Start End MYRBETRIQ 25 MG TABLET,EXTENDED RELE* 90 t* 3 05/25/2017 Route: ORAL Sig: Take 1 tablet by mouth once daily.Medications Discontinued During This Encounter MYRBETRIQ 25 mg Tb24 90 t* 3 05/09/2016 05/25/2017 Route: ORAL Sig: Take 1 tablet by mouth once daily. Disc: Reason for discontinue is not on file. mirabegron (MYRBETRIQ) 25 mg Tb24 30 t* 5 08/21/2016 05/25/2017 Route: ORAL Sig: Take 1 tablet by mouth once daily. Disc: Duplicate EntryLevel of Service: [facility] PATIENT VISIT LEVEL 3 [[id number]]Disposition: Return in about 1 year (around 05/25/2018) for OAB med check.Follow-up and Disposition History RecordedLetter TextEncounter Number: [id number] Status:Closed by CHERI BIRCH on 05/25/17 [facility] PROGRESSon 05-25-2017 PROGRESS HNO ID: [id number]: Cheri (Kael) JermainService: (none)Author Type: Nurse PractitionerType: Progress NotesFiled: 05/25/2017 10:24 AMNote Text:HPI:Overactive Bladder Follow-up: The patient was seen today for a medicationfollow-up for overactive bladder. She is currently taking Myrbetriq,which she reports is working great. She occasionally dribbles a smallamount of urine when she waits too long to go to the bathroom. She ismaking it through the night without having to get up and is dry in themorning.Current Outpatient Prescriptions:VENTOLIN HFA 90 mcg/actuation inhaler INHALE TWO PUFFS EVERY 4 HOURS ASNEEDEDazelastine (ASTELIN,ASTEPRO) 0.1% nasal spray Use 1 Strang in each nostriltwice daily.fluticasone (FLONASE) 50 mcg/actuation nasal sprayescitalopram oxalate (LEXAPRO) 5 mg tabletPREMARIN vaginal creamgabapentin (NEURONTIN) 300 mg capsuleMYRBETRIQ 25 mg Tb24 Take 1 tablet by mouth once daily.mirabegron (MYRBETRIQ) 25 mg Tb24 Take 1 tablet by mouth once daily.No current facility-administered medications for this visit.ALLERGIESAllergen Reactions- Latex UnknownHISTORIESNo family history on file.No past medical history on file.No past surgical history on file.Social History Marital status: Spouse name: Years of education: Number of children:Social History Main Topics Smoking status: Never Smoker Alcohol use: No Comment: caffeine- very little Drug use: No Sexual activity: NoREVIEW OF SYSTEMS:Constitutional: No weight loss or weight gain. No fatigue. No chills. Nofevers.Gastrointestin al: No loss of appetite. No nausea/ vomiting. No heartburn.No abdominal pain. No blood in stool. No persistent diarrhea. Nopersistent constipation. No rectal bleeding. No fecal incontinence.Genitourin nancy: No increased frequency. No increased urgency. No dysuria.No hematuria. No nocturia. + urinary incontinence--occasiona l. Nodifficulty emptying the bladder. No vaginal discharge. No abnormal vaginalbleeding. No pelvic pain or pressure. No menstrual or menopausal problem.PHYSICAL EXAM:BP 162/72 Pulse 77 Ht 160 cm (5' 2.99) Wt 98.9 kg (218 lb) BMI38.63 kg/m2BP recheck 132/72Post Void Residual:Done, by ultrasound yielded 0 ml.URINALYSISDipstick urinalysis was not done.ASSESSMENT:Encount er Diagnosis ICD-10-CM1. Urge incontinence N39.412. Urgency of urination R39.153. Atrophic vaginitis N95.24. Feeling of incomplete bladder emptying R39.14 US MSR POST-VOID RESIDURINEPLAN:Overacti ve Bladder: Medication with improvement: Given the improvementin urinary symptoms with the Myrbetriq provided, she will continue withthe medication as directed. She will follow up periodically to assess hercontinued relief.Latoya Pitts NP-Bernardino Aly, ABHISHEK Normal [facility] Office Visit: Spine Visiton 07-03-2016 Tobacco smoking status Never Invalid Interpretation Code [facility] Work Phone: [phone] [facility] Never smoker Invalid Interpretation Code [facility] Work Phone: [phone] Culture, urine Bacteria identified Cx Nom (U) Presumptive E. coli [facility] Work Phone: Bacteria identified Cx Nom (U) Mixed Gram Pos & Gram Neg Org [facility] Work Phone: No Panel Information Nasal Screen MRSA/MSSA [facility] Work Phone: Vital Signs Date Time Vital Sign Value Performing Clinician Justin castillo 08-04-2024 13:31-0400 Body height 161.3 cm Jake Boyle [employer] Work Phone: [facility] [employer] 08-04-2024 13:31-0400 Body mass index (BMI) [Ratio] 36.27 kg/m2 Jake Boyle [employer] Work Phone: [facility] [employer] 08-04-2024 13:31-0400 Body weight 94.35 kg Jake Riveranes [employer] Work Phone: [facility] [employer] 08-04-2024 13:31-0400 Diastolic blood pressure 78 mm[Hg] Jake Boyle PA-C Work Phone: [employer] 08-04-2024 13:31-0400 Heart rate 72 /min Jakemarjorie Riveranes [employer] Work Phone: [employer] 08-04-2024 13:31-0400 Respiratory rate 18 /min Jakemarjorie Riveranes [employer] Work Phone: [facility] [employer] 08-04-2024 13:31-0400 SaO2% (BldA) [Mass fraction] 98 % Jake Ollie CHANCE Work Phone: [facility] 08-04-2024 13:31-0400 Systolic blood pressure 132 mm[Hg] Jake Boyle ROBSON Work Phone: [facility] 04-17-2023 09:47-0400 Body height 162.[address] Jovon Deras Work Phone: [facility] 04-17-2023 09:47-0400 Body mass index (BMI) [Ratio] 34.7 kg/m2 Dr. Jovon Deras Work Phone: [facility] 04-17-2023 09:47-0400 Body weight 91.[address] Jovon Deras Work Phone: [facility] 04-17-2023 09:47-0400 Diastolic blood pressure 63 mm[Hg] Dr. Jovon Deras Work Phone: [facility] 04-17-2023 09:47-0400 Heart rate 66 /min Dr. Jovon Deras Work Phone: [facility] 04-17-2023 09:47-0400 Respiratory rate 18 /min Dr. Jovon Deras Work Phone: [facility] 04-17-2023 09:47-0400 SaO2% (BldA) [Mass fraction] 99 % Dr. Jovon Deras Work Phone: [facility] 04-17-2023 09:47-0400 Systolic blood pressure 101 mm[Hg] Dr. Jovon Deras Work Phone: [facility] 05-02-2022 15:40-0400 Body temperature 97.2 [degF] Dr. Merlyn Cruz Work Phone: [facility] Work Phone: 05-02-2022 15:40-0400 Diastolic blood pressure 62 mm[Hg] Dr. Merlyn Cruz Work Phone: [facility] Work Phone: 05-02-2022 15:40-0400 Heart rate 85 /min Dr. Merlyn Cruz Work Phone: [facility] Work Phone: 05-02-2022 15:40-0400 Respiratory rate 17 /min Dr. Merlyn Cruz Work Phone: [facility] Work Phone: 05-02-2022 15:40-0400 SaO2% (BldA) [Mass fraction] 94 % Dr. Merlyn Cruz Work Phone: [facility] Work Phone: 05-02-2022 15:40-0400 Systolic blood pressure 130 mm[Hg] Dr. Merlyn Cruz Work Phone: [facility] Work Phone: 04-25-2022 14:51-0400 Body height 161.[address] Merlyn Cruz Work Phone: [facility] Work Phone: 04-25-2022 14:51-0400 Body mass index (BMI) [Ratio] 36.5 kg/m2 Dr. Merlyn Cruz Work Phone: [facility] Work Phone: 04-25-2022 14:51-0400 Body weight [address] Merlyn Cruz Work Phone: [facility] Work Phone: 04-25-2022 14:30-0400 Inhaled oxygen flow rate 4 L/min Dr. Jovon Deras Work Phone: [facility] Work Phone: 04-25-2022 13:30-0400 Inhaled oxygen concentration 34 % Dr. Merlyn Cruz Work Phone: [facility] Work Phone: 04-13-2022 10:52-0400 Body mass index (BMI) [Ratio] 34.8 kg/m2 Dr. Merlyn Cruz Work Phone: [facility] Work Phone: 04-13-2022 10:52-0400 Body weight 92.[address] Merlyn Cruz Work Phone: [facility] Work Phone: 04-13-2022 10:52-0400 Heart rate 74 /min Dr. Merlyn Cruz Work Phone: [facility] Work Phone: 04-13-2022 10:52-0400 Respiratory rate 16 /min Dr. Merlyn Cruz Work Phone: [facility] Work Phone: 04-13-2022 10:52-0400 SaO2% (BldA) [Mass fraction] 98 % Dr. Merlyn Cruz Work Phone: [facility] Work Phone: 02-28-2022 08:00-0400 Body temperature 98.71 [degF] Barry Melissa MD Work Phone: [facility] 02-28-2022 08:00-0400 Diastolic blood pressure 53 mm[Hg] Barry Melissa MD Work Phone: [facility] 02-28-2022 08:00-0400 Heart rate 78 /min Barry Melissa MD Work Phone: [facility] 02-28-2022 08:00-0400 Respiratory rate 16 /min Barry Melissa MD Work Phone: [facility] 02-28-2022 08:00-0400 SaO2% (BldA) [Mass fraction] 96 % Barry Melissa MD Work Phone: [facility] 02-28-2022 08:00-0400 Systolic blood pressure 136 mm[Hg] Barry Melissa MD Work Phone: [facility] 02-27-2022 12:11-0400 Body height 161.3 cm Barry Melissa MD Work Phone: [facility] 02-27-2022 08:57-0400 Body mass index (BMI) [Ratio] 35.57 kg/m2 Barry Melissa MD Work Phone: [facility] 02-27-2022 08:57-0400 Body weight 92.53 kg Barry Melissa MD Work Phone: [facility] 01-24-2022 08:48-0400 Body mass index (BMI) [Ratio] 35 kg/m2 Dr. Merlyn Cruz Work Phone: [facility] Work Phone: 01-24-2022 08:48-0400 Body weight 92.[address] Merlyn Cruz Work Phone: [facility] Work Phone: 01-24-2022 08:48-0400 Diastolic blood pressure 72 mm[Hg] Dr. Merlyn Cruz Work Phone: [facility] Work Phone: 01-24-2022 08:48-0400 Heart rate 74 /min Dr. Merlyn Cruz Work Phone: [facility] Work Phone: 01-24-2022 08:48-0400 Respiratory rate 16 /min Dr. Merlyn Cruz Work Phone: [facility] Work Phone: 01-24-2022 08:48-0400 SaO2% (BldA) [Mass fraction] 97 % Dr. Merlyn Cruz Work Phone: [facility] Work Phone: 01-24-2022 08:48-0400 Systolic blood pressure 129 mm[Hg] Dr. Merlyn Cruz Work Phone: [facility] Work Phone: 01-24-2022 08:48-0400 Body height 162.[address] Merlyn Cruz Work Phone: [facility] Work Phone: 01-24-2022 08:48-0400 Body mass index (BMI) [Ratio] 35 kg/m2 Dr. Merlyn Cruz Work Phone: [facility] Work Phone: 01-24-2022 08:48-0400 Body weight 92.[address] Merlyn Cruz Work Phone: [facility] Work Phone: 01-24-2022 08:48-0400 Diastolic blood pressure 72 mm[Hg] Dr. Merlyn Cruz Work Phone: [facility] Work Phone: 01-24-2022 08:48-0400 Heart rate 74 /min Dr. Merlyn Cruz Work Phone: [facility] Work Phone: 01-24-2022 08:48-0400 Respiratory rate 16 /min Dr. Merlyn Cruz Work Phone: [facility] Work Phone: 01-24-2022 08:48-0400 SaO2% (BldA) [Mass fraction] 97 % Dr. Merlyn Cruz Work Phone: [facility] Work Phone: 01-24-2022 08:48-0400 Systolic blood pressure 129 mm[Hg] Dr. Merlyn Cruz Work Phone: [facility] Work Phone: 07-03-2016 14:45-0400 Body height 165.1 cm Ellie Dossi DC Work Phone: [facility] Work Phone: 07-03-2016 14:45-0400 Body mass index (BMI) [Ratio] 36.61 kg/m2 Ellie Dossi DC Work Phone: [facility] Work Phone: 07-03-2016 14:45-0400 Body weight 99.79 kg Ellie Dossi DC Work Phone: [facility] Work Phone: 07-03-2016 14:45-0400 Weight 99.79 kg Ellie Thornton ANA MARIA [facility] Work Phone: Encounters Encounter Date Encounter Type Care Provider Facility Start: 03-26-2025 ambulatory Chalon Maxine Facility:[facility] Start: 02-09-2025 End: 02-09-2025 ambulatory Remy Goodman MD Work Phone: [facility] Work Phone: Start: 02-09-2025 End: 02-09-[address] Sergio Ford MD -Laboratory Work Phone: Start: 02-09-2025 End: 02-09-2025 ambulatory Sergio Ford Facility:[facility] Start: 08-04-2024 End: 08-04-2024 Office outpatient new 30 minutes Jake Boyle PA-C Work Phone: [facility] [place] Comment on above: Left carotid stenosi s (Primary Dx) Start: 08-04-2024 End: 08-04-2024 ambulatory CHALON MAXINE [facility] Start: 07-29-2024 ambulatory Chalon Maxine [facility] Start: 07-28-2024 ambulatory Chalon Maxine [facility] Start: 07-28-2024 End: 07-28-2024 ambulatory Chalon Maxine Facility:[facility] Start: 07-21-2024 End: 07-21-2024 ambulatory Chalon Maxine Facility:[facility] Start: 07-15-2024 ambulatory Chalon Maxine Facility:[facility] Start: 07-08-2024 ambulatory Ryan Oscar [facility] Start: 07-08-2024 End: 07-08-2024 ambulatory Ryan Oscar Facility:[facility] Start: 06-05-2024 End: 06-05-2024 ambulatory [place] Oscar Facility:[facility] Start: 04-30-2024 End: 04-30-2024 ambulatory Chalon Maxine Facility:[facility] Start: 04-28-2024 End: 04-28-2024 ambulatory Edmond Merino Facility:[facility] Start: 07-19-2023 End: 07-19-[address] Jovon Deras Work Phone: [facility] Work Phone: Start: 07-19-2023 End: 07-19-[address] Jovon Deras Work Phone: [facility]-Outpatient Breast Imaging Work Phone: Start: 04-26-2023 End: 04-26-[address] Jovon Deras Work Phone: [facility]-Laboratory Work Phone: Start: 04-17-2023 End: 04-17-[address] Jovon Deras Work Phone: [facility] Work Phone: Start: 02-21-2023 Non-patient / Non-visit Dr. Jovon Deras Work Phone: [facility] Start: 02-21-2023 End: 02-21-[address] Jovon Deras Work Phone: [facility] Work Phone: Start: 02-21-2023 End: 02-21-[address] [facility] Start: 09-12-2022 End: 09-12-[address] Jovon Deras Work Phone: [facility] Work Phone: Start: 09-12-2022 End: 09-12-[address] Jovon Deras Work Phone: [facility]-Laboratory, [facility] Start: 07-19-2022 End: 07-19-[address] Jovon Deras Work Phone: [facility] Start: 07-06-2022 End: 07-06-[address] Jovon Deras Work Phone: [facility]-Laboratory, Specimen Start: 06-28-2022 Non-patient / Non-visit Dr. Jovon Deras Work Phone: [facility] Start: 06-28-2022 End: 06-28-[address] Jovon Deras Work Phone: [facility] Work Phone: Start: 06-28-2022 End: 06-28-[address] Jovon Deras Work Phone: [facility]-Cardiovascular Services Start: 06-27-2022 End: 06-27-[address] Jovon Deras Work Phone: [facility] Work Phone: Start: 06-27-2022 End: 06-27-[address] Jovon Deras Work Phone: [facility]-Radiology, [place] Start: 06-07-2022 End: 06-07-[address] Jovon Deras Work Phone: [facility] Start: 05-10-2022 End: 05-10-[address] Jovon Deras Work Phone: [facility] Start: 05-02-2022 Non-patient / Non-visit Dr. Merlyn Cruz Work Phone: [facility] Start: 05-02-2022 Non-patient / Non-visit Dr. Jovon Deras Work Phone: [facility] Start: 05-01-2022 Non-patient / Non-visit Dr. Merlyn Cruz Work Phone: [facility] Start: 04-30-2022 Non-patient / Non-visit Dr. Merlyn Cruz Work Phone: [facility] Start: 04-29-2022 Non-patient / Non-visit Dr. Merlyn Cruz Work Phone: [facility] Start: 04-28-2022 Non-patient / Non-visit Dr. Merlyn Cruz Work Phone: [facility] Start: 04-28-2022 Non-patient / Non-visit Dr. Merlyn Cruz Work Phone: [facility] Start: 04-27-2022 Non-patient / Non-visit Dr. Merlyn Cruz Work Phone: [facility] Start: 04-26-2022 Non-patient / Non-visit Dr. Merlyn Cruz Work Phone: [facility] Start: 04-26-2022 Non-patient / Non-visit Dr. Merlyn Cruz Work Phone: [facility] Start: 04-25-2022 Non-patient / Non-visit Dr. Merlyn Cruz Work Phone: [facility] Start: 04-25-2022 Non-patient / Non-visit Dr. Merlyn Cruz Work Phone: [facility] Start: 04-25-2022 End: 05-02-2022 Evaluation and management of inpatient Dr. Merlyn Cruz Work Phone: [facility]-Medical Surgical 3 Start: 04-24-2022 Non-patient / Non-visit Dr. Merlyn Cruz Work Phone: [facility] Start: 04-17-2022 End: 04-17-[address] Merlyn Cruz Work Phone: [facility] Start: 04-13-2022 End: 04-13-[address] Merlyn Cruz Work Phone: [facility] Start: 04-05-2022 Non-patient / Non-visit Dr. Merlyn Cruz Work Phone: [facility] Start: 04-05-2022 End: 04-05-[address] [facility] Start: 04-01-2022 Non-patient / Non-visit Dr. Merlyn Cruz Work Phone: [facility] Start: 03-28-2022 End: 03-28-[address] Merlyn Cruz Work Phone: [facility]-Laboratory Start: 03-15-2022 End: 03-15-[address] Merlyn Cruz Work Phone: [facility] Start: 03-02-2022 Non-patient / Non-visit Dr. Merlyn Cruz Work Phone: [facility] Start: 02-27-2022 End: 02-28-2022 Evaluation and management of inpatient Barry Melissa MD Work Phone: [facility] Comment on above: Arrived Start: 01-24-2022 End: 01-24-[address] Merlyn Cruz Work Phone: [facility] Start: 01-23-2022 Non-patient / Non-visit Dr. Merlyn Cruz Work Phone: [facility] Start: 01-23-2022 Non-patient / Non-visit Dr. Merlyn Cruz Work Phone: [facility] Start: 01-23-2022 End: 01-23-[address] Merlyn Cruz Work Phone: [facility] Start: 01-18-2022 End: 01-18-[address] Merlyn Cruz Work Phone: [facility] Start: 01-17-2022 Non-patient / Non-visit Dr. Merlyn Cruz Work Phone: [facility] Start: 01-16-2022 End: 01-16-[address] Merlyn Cruz Work Phone: [facility]-Pre-Admission Testing Start: 01-06-2022 End: 01-06-[address] Merlyn Cruz Work Phone: [facility] Start: 12-14-2021 End: 12-14-[address] Merlyn Cruz Work Phone: [facility]-Radiology, [facility] Start: 12-05-2021 End: 12-05-[address] Merlyn Cruz Work Phone: [facility] Start: 05-24-2018 Ambulatory LATOYA PITTS [facility] y:[facility] Procedures Date Procedure Procedure Detail Performing Clinician Start: 07-19-2023 Screening mammography Pedrito Deras Work Phone: Start: 06-27-[address] Emily Deras Work Phone: Start: 04-25-2022 Laminectomy,Lumbar M icro Decompression (Not Applicable) Dr. 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 - [employer] Work Phone: Start: 02-28-2022 Ecg routine ecg w/le ast 12 lds w/i&r Jun L Rufino [employer] Work Phone: Start: 02-28-2022 Basic metabolic pane l calcium total Jun Guzman [employer] Work Phone: Start: 02-27-2022 Ecg routine ecg w/le ast 12 lds w/i&r Jun Guzman [employer] Work Phone: Start: 02-27-2022 Basic metabolic pane l calcium total Jun Guzman [employer] - [employer] Work Phone: Start: 02-27-2022 OPERATIVE REPORT Physic eloisa Generic Start: 01-17-2022 Nasal Screen MRSA/MSSA Dr. Merlyn Cruz Work Phone: Start: 12-14-2021 End: 12-14-2021 Plain X-ray of shoulder Dr. Merlyn Cruz Work Phone: Start: 09-25-2017 End: 09-25-2017 Chiropractic manipulative tx spinal 3-4 regions Ellie B Dossi DC Work Phone: Start: 09-20-2017 End: 09-20-2017 Chiropractic manipulative tx spinal 3-4 regions Ellie B Dossi DC Work Phone: Start: 09-18-2017 End: 09-19-2017 Chiropractic manipulative tx spinal 3-4 regions Ellie B Dossi DC Work Phone: Start: 09-13-2017 End: 09-13-2017 Chiropractic manipulative tx spinal 3-4 regions Ellie B Dossi DC Work Phone: Start: 09-10-2017 End: 09-10-2017 Chiropractic manipulative tx spinal 3-4 regions Ellie B Dossi DC Work Phone: Start: 08-15-2017 End: 08-16-2017 Chiropractic manipulative tx spinal 3-4 regions Ellie B Dossi DC Work Phone: Start: 08-15-2017 End: 08-15-2017 Documentation of current medications Ellie Dossi DC Work Phone: Start: 08-15-2017 End: 08-16-2017 Chiropractic manipulative tx spinal 3-4 regions Ellie B Dossi DC Work Phone: Start: 07-17-2017 End: 07-17-2017 Documentation of current medications Ellie Dossi DC Work Phone: Start: 07-17-2017 End: 07-18-2017 Chiropractic manipulative tx spinal 3-4 regions Ellie B Dossi DC Work Phone: Start: 07-17-2017 End: 07-18-2017 Chiropractic manipulative tx spinal 3-4 regions Ellie B Dossi DC Work Phone: Start: 04-26-2017 End: 04-26-2017 Chiropractic manipulative tx spinal 3-4 regions Ellie B Dossi DC Work Phone: Start: 04-26-2017 End: 04-26-2017 Documentation of current medications Ellie Dossi DC Work Phone: Start: 04-26-2017 End: 04-26-2017 Chiropractic manipulative tx spinal 3-4 regions Ellie B Dossi DC Work Phone: Start: 11-23-2016 End: 11-23-2016 Chiropractic manipulative tx spinal 3-4 regions Ellie B Dossi DC Work Phone: Start: 11-23-2016 End: 11-23-2016 Chiropractic manipulative tx spinal 3-4 regions Ellie B Dossi DC Work Phone: Start: 11-21-2016 End: 11-21-2016 Chiropractic manipulative tx spinal 3-4 regions Ellie B Dossi DC Work Phone: Start: 11-21-2016 End: 11-21-2016 Chiropractic manipulative tx spinal 3-4 regions Ellie B Dossi DC Work Phone: Start: 11-09-2016 End: 11-09-2016 Chiropractic manipulative tx spinal 3-4 regions Ellie B Dossi DC Work Phone: Start: 11-09-2016 End: 11-09-2016 Chiropractic manipulative tx spinal 3-4 regions Ellie B Dossi DC Work Phone: Start: 10-24-2016 End: 10-24-2016 Chiropractic manipulative tx spinal 3-4 regions Ellie B Dossi DC Work Phone: Start: 10-24-2016 End: 10-24-2016 Chiropractic manipulative tx spinal 3-4 regions Ellie B Dossi DC Work Phone: Start: 10-10-2016 End: 10-10-2016 Chiropractic manipulative tx spinal 3-4 regions Ellie B Dossi DC Work Phone: Start: 10-10-2016 End: 10-10-2016 Chiropractic manipulative tx spinal 3-4 regions Ellie B Dossi DC Work Phone: Start: 10-05-2016 End: 10-05-2016 Chiropractic manipulative tx spinal 3-4 regions Ellie B Dossi DC Work Phone: Start: 10-05-2016 End: 10-05-2016 Chiropractic manipulative tx spinal 3-4 regions Ellie B Dossi DC Work Phone: Start: 09-19-2016 End: 09-19-2016 Chiropractic manipulative tx spinal 3-4 regions Ellie B Dossi DC Work Phone: Start: 09-19-2016 End: 09-19-2016 Chiropractic manipulative tx spinal 3-4 regions Ellie B Dossi DC Work Phone: Start: 09-05-2016 End: 09-05-2016 Chiropractic manipulative tx spinal 3-4 regions Ellie B Dossi DC Work Phone: Start: 09-05-2016 End: 09-05-2016 Chiropractic manipulative tx spinal 3-4 regions Ellie B Dossi DC Work Phone: Start: 08-29-2016 End: 08-29-2016 Chiropractic manipulative tx spinal 3-4 regions Ellie B Dossi DC Work Phone: Start: 08-29-2016 End: 08-29-2016 Chiropractic manipulative tx spinal 3-4 regions Ellie B Dossi DC Work Phone: Start: 08-15-2016 End: 08-15-2016 Chiropractic manipulative tx spinal 1-2 regions Ellie B Dossi DC Work Phone: Start: 08-15-2016 End: 08-15-2016 Chiropractic manipulative tx spinal 1-2 regions Ellie B Dossi DC Work Phone: Start: 08-08-2016 End: 08-08-2016 Chiropractic manipulative tx spinal 3-4 regions Ellie B Dossi DC Work Phone: Start: 08-08-2016 End: 08-08-2016 Chiropractic manipulative tx spinal 3-4 regions Ellie B Dossi DC Work Phone: Start: 08-01-2016 End: 08-01-2016 Chiropractic manipulative tx spinal 3-4 regions Ellie B Dossi DC Work Phone: Start: 08-01-2016 End: 08-01-2016 Chiropractic manipulative tx spinal 3-4 regions Ellie B Dossi DC Work Phone: Start: 07-25-2016 End: 07-25-2016 Chiropractic manipulative tx spinal 3-4 regions Ellie B Dossi DC Work Phone: Start: 07-25-2016 End: 07-25-2016 Chiropractic manipulative tx spinal 3-4 regions Ellie B Dossi DC Work Phone: Start: 07-18-2016 End: 07-18-2016 Chiropractic manipulative tx spinal 3-4 regions Ellie B Dossi DC Work Phone: Start: 07-17-2016 End: 07-18-2016 Chiropractic manipulative tx spinal 3-4 regions Ellie B Dossi DC Work Phone: Start: 07-17-2016 End: 07-17-2016 Chiropractic manipulative tx spinal 3-4 regions Ellie B Dossi DC Work Phone: Start: 07-13-2016 End: 07-13-2016 Chiropractic manipulative tx spinal 3-4 regions Ellie B Dossi DC Work Phone: Start: 07-13-2016 End: 07-13-2016 Chiropractic manipulative tx spinal 3-4 regions Ellie B Dossi DC Work Phone: Start: 07-11-2016 End: 07-11-2016 Chiropractic manipulative tx spinal 3-4 regions Ellie B Dossi DC Work Phone: Start: 07-11-2016 End: 07-11-2016 Chiropractic manipulative tx spinal 3-4 regions Ellie B Dossi DC Work Phone: Start: 07-06-2016 End: 07-06-2016 Chiropractic manipulative tx spinal 3-4 regions Ellie B Dossi DC Work Phone: Start: 07-06-2016 End: 07-06-2016 Chiropractic manipulative tx spinal 3-4 regions Ellie B Dossi DC Work Phone: Start: 07-03-2016 End: 07-03-2016 Spine, lumbosacral; 2 or 3 views, Interp Ellie B Dossi DC Work Phone: Start: 07-03-2016 End: 07-03-2016 Radex spine lumbosacral 2/3 views Ellie B Dossi DC Work Phone: Nasal Screen MRSA/MSSA Dr. Michael gold Anthony Work Phone: Urine culture Dr. Jovon Brown en Work Phone: Plan of Treatment Date Care Activity Detail Author Start: 07-06-2024 COVID-19 Vaccine ( season) COVID-19 Vaccine ( season) [facility] Start: 07-06-2024 Influenza vaccination Influenza Vacc ine (#1) [facility] Start: 07-06-2022 Influenza vaccination Flu vacc ine (Season Ended) [facility] Start: 05-02-2022 Patient discharge [facility] Work Phone: Start: 05-01-2022 [facility] Work Phone: Start: 05-01-2022 Introduction of urin nancy catheter [facility] Work Phone: Start: 05-01-2022 Consultation [facility] Work Phone: Start: 04-30-2022 [facility] Work Phone: Start: 04-28-2022 Introduction of urin nancy catheter [facility] Work Phone: Start: 04-27-2022 [facility] Work Phone: Start: 04-26-2022 Referral to occupati onal therapist [facility] Work Phone: Start: 04-26-2022 Referral to service [facility] Work Phone: Start: 04-25-2022 End: 04-26-2022 [facility] Work Phone: Start: 04-25-2022 Following clinical pathway protocol [facility] Work Phone: Start: 04-25-2022 Application of intermittent pneumatic compression device [facility] Work Phone: Start: 04-25-2022 Bedrest [facility] Work Phone: Start: 04-25-2022 Catheterization of vein [facility] Work Phone: Start: 04-25-2022 Consultation [facility] Work Phone: Start: 04-25-2022 Elevation of head of bed [facility] Work Phone: Start: 04-25-2022 Following clinical pathway protocol [facility] Work Phone: Start: 04-25-2022 Incentive spirometry [facility] Work Phone: Start: 04-25-2022 Measuring intake and output [facility] Work Phone: Start: 04-25-2022 Neurovascular assessment [facility] Work Phone: Start: 04-25-2022 Oxygen therapy [facility] Work Phone: Start: 04-25-2022 Patient education [facility] Work Phone: Start: 04-25-2022 Procedure discontinued [facility] Work Phone: Start: 04-25-2022 Taking patient vital signs [facility] Work Phone: Start: 04-25-2022 Admission procedure [facility] Work Phone: Start: 04-20-2022 End: 04-20-2022 Evaluation and management of inpatient 04/20/2022 Office Visit Cardiology Cris Mcclure [employer] - [facility] [address] [place] [address] [facility] Start: 03-09-2022 End: 03-09-2022 Evaluation and management of inpatient 03/09/2022 Office Visit Cardiology Jun Guzman, [employer] - [employer] [address] [place] [address] [facility] Start: 02-01-2022 Annual Wellness Visi t (AWV) Annual Wellness Visit (AWV) [facility] Start: 01-24-2022 Patient referral [facility] Work Phone: Start: 10-16-2017 End: 10-16-2017 Appointment Appointment [facility] Work Phone: Start: 10-09-2017 End: 10-09-2017 Appointment Appointment [facility] Work Phone: Start: 10-08-2017 End: 10-08-2017 Appointment Appointment [facility] Work Phone: Start: 10-04-2017 End: 10-04-2017 Appointment Appointment [facility] Work Phone: Start: 10-02-2017 End: 10-02-2017 Appointment Appointment [facility] Work Phone: Start: 09-25-2017 End: 09-25-2017 Follow up Appt 2x/week Follow up Appt 2x/week [facility] Work Phone: Start: 09-25-2017 End: 09-25-2017 Appointment Appointment [facility] Work Phone: Start: 09-20-2017 End: 09-20-2017 Appointment Appointment [facility] Work Phone: Start: 09-20-2017 End: 09-20-2017 Follow up Appt 2x/week Follow up Appt 2x/week [facility] Work Phone: Start: 09-18-2017 End: 09-19-2017 Follow up Appt 2x/week Follow up Appt 2x/week [facility] Work Phone: Start: 09-18-2017 End: 09-18-2017 Appointment Appointment [facility] Work Phone: Start: 09-13-2017 End: 09-13-2017 Appointment Appointment [facility] Work Phone: Start: 09-13-2017 End: 09-13-2017 Follow up Appt 2x/week Follow up Appt 2x/week [facility] Work Phone: Start: 09-10-2017 End: 09-10-2017 Follow up Appt 2x/week Follow up Appt 2x/week [facility] Work Phone: Start: 09-10-2017 End: 09-10-2017 Appointment Appointment [facility] Work Phone: Start: 04-26-2017 End: 04-26-2017 Patient encounter procedure Appointment [facility] Work Phone: Start: 10-24-2016 End: 10-24-2016 Follow up Appt 2x/Month Follow up Appt 2x/Month [facility] Work Phone: Start: 10-24-2016 End: 10-24-2016 Follow up Appt 2x/Month Follow up Appt 2x/Month [facility] Work Phone: Start: 10-10-2016 End: 10-10-2016 Follow up Appt 2x/Month Follow up Appt 2x/Month [facility] Work Phone: Start: 10-10-2016 End: 10-10-2016 Follow up Appt 2x/Month Follow up Appt 2x/Month [facility] Work Phone: Start: 10-05-2016 End: 10-05-2016 Follow up Appt 2x/Month Follow up Appt 2x/Month [facility] Work Phone: Start: 10-05-2016 End: 10-05-2016 Follow up Appt 2x/Month Follow up Appt 2x/Month [facility] Work Phone: Start: 09-19-2016 End: 09-19-2016 Follow up Appt 2x/Month Follow up Appt 2x/Month [facility] Work Phone: Start: 09-19-2016 End: 09-19-2016 Follow up Appt 2x/Month Follow up Appt 2x/Month [facility] Work Phone: Start: 09-05-2016 End: 09-05-2016 Follow up Appt 2x/Month Follow up Appt 2x/Month [facility] Work Phone: Start: 09-05-2016 End: 09-05-2016 Follow up Appt 2x/Month Follow up Appt 2x/Month [facility] Work Phone: Start: 08-29-2016 End: 08-29-2016 Follow up Appt 1x/week Follow up Appt 1x/week [facility] Work Phone: Start: 08-29-2016 End: 08-29-2016 Follow up Appt 1x/week Follow up Appt 1x/week [facility] Work Phone: Start: 08-15-2016 End: 08-15-2016 Follow up Appt 2x/Month Follow up Appt 2x/Month [facility] Work Phone: Start: 08-15-2016 End: 08-15-2016 Follow up Appt 2x/Month Follow up Appt 2x/Month [facility] Work Phone: Start: 08-08-2016 End: 08-08-2016 Follow up Appt 1x/week Follow up Appt 1x/week [facility] Work Phone: Start: 08-08-2016 End: 08-08-2016 Follow up Appt 1x/week Follow up Appt 1x/week [facility] Work Phone: Start: 08-01-2016 End: 08-01-2016 Follow up Appt 1x/week Follow up Appt 1x/week [facility] Work Phone: Start: 08-01-2016 End: 08-01-2016 Follow up Appt 1x/week Follow up Appt 1x/week [facility] Work Phone: Start: 07-25-2016 End: 07-25-2016 Follow up Appt 1x/week Follow up Appt 1x/week [facility] Work Phone: Start: 07-25-2016 End: 07-25-2016 Follow up Appt 1x/week Follow up Appt 1x/week [facility] Work Phone: Start: 07-18-2016 End: 07-18-2016 Follow up Appt 1x/week Follow up Appt 1x/week [facility] Work Phone: Start: 07-18-2016 End: 07-18-2016 Follow up Appt 1x/week Follow up Appt 1x/week [facility] Work Phone: Start: 07-17-2016 End: 07-17-2016 Follow up Appt 3x/week Follow up Appt 3x/week [facility] Work Phone: Start: 07-17-2016 End: 07-17-2016 Follow up Appt 3x/week Follow up Appt 3x/week [facility] Work Phone: Start: 07-13-2016 End: 07-13-2016 Follow up Appt 2x/week Follow up Appt 2x/week [facility] Work Phone: Start: 07-13-2016 End: 07-13-2016 Follow up Appt 2x/week Follow up Appt 2x/week [facility] Work Phone: Start: 07-11-2016 End: 07-11-2016 Follow up Appt 3x/week Follow up Appt 3x/week [facility] Work Phone: Start: 07-11-2016 End: 07-11-2016 Follow up Appt 3x/week Follow up Appt 3x/week [facility] Work Phone: Start: 07-06-2016 End: 07-06-2016 Follow up Appt 3x/week Follow up Appt 3x/week [facility] Work Phone: Start: 07-06-2016 End: 07-06-2016 Follow up Appt 3x/week Follow up Appt 3x/week [facility] Work Phone: Start: 07-03-2016 End: 07-03-2016 Radex spine lumbosacral minimum 4 views X-Ray, Spine, Lumbosacral 2-3 views [facility] Work Phone: Start: 07-03-2016 End: 07-03-2016 Radex spine lumbosacral minimum 4 views X-Ray, Spine, Lumbosacral 2-3 views [facility] Work Phone: Start: 2003 Screening for osteoporosis DEXA (modify frequency per FRAX score) [facility] Start: 1998 Screening for malign ant neoplasm of breast Breast cancer screen [facility] Start: 1993 Screening for malign ant neoplasm of colon [facility] Start: 1988 Lipid panel Lipids [facility] Start: 1967 DTaP/Tdap/Td vaccine (1 - Tdap) DTaP/Tdap/Td vaccine (1 - Tdap) [facility] Start: 1967 DTaP/Tdap/Td Vaccine s (1 - Tdap) DTaP/Tdap/Td Vaccines (1 - Tdap) [facility] Start: 1966 Hepatitis C screening S [facility] Start: 1960 Depression Screen Depression Screen [facility] Start: 1960 Depression Screening Depression Scre ening [facility] Start: 1948 Lipid panel Lipid Panel [facility] Start: 1948 Medicare Annual Well ness (AWV) Medicare Annual Wellness (AWV) [facility] Start: 1950 Screening for osteoporosis Bone Density Scan [facility] Basic metabolic 2000 panel - Serum or Plasma Basic Metabolic Panel Lab Routine Daily until discontinued starting 02/27/2022, 2 completed [facility] Work Phone: Comment on above: Daily until disconti nued starting 02/27/2022, 2 completed CBC panel - Blood by Automated count CBC Lab Routine Daily until discontinued starting 02/27/2022, 2 completed [facility] Work Phone: Comment on above: Daily until disconti nued starting 02/27/2022, 2 completed Continuous pulse oximetry Pulse oximetry, continuous Respiratory Care Routine Every 4hr until discontinued starting 02/27/2022 [facility] Work Phone: Comment on above: Every 4hr until disc ontinued starting 02/27/2022 EKG 12 lead [facility] Work Phone: Comment on above: Daily until disconti nued starting 02/27/2022, 2 completed EKG 12 lead EKG 12 lead ECG STAT 02/28/2022 2:26 AM EDT [facility] Work Phone: Oxygen therapy [[facility] Data Set] Initiate Oxygen Therapy Protocol Respiratory Care Routine As Needed until discontinued starting 02/27/2022 [facility] Work Phone: Comment on above: As Needed until disc ontinued starting 02/27/2022 Patient referral [facility] Work Phone: Spirometry panel Incentive mark [employer] Respiratory Care Routine Every 2hr while awake until discontinued starting 02/27/2022 [facility] Work Phone: Comment on above: Every 2hr while awak e until discontinued starting 02/27/2022 Urine culture Urine Culture [facility] Work Phone: Immunizations Immunization Date Immunization Notes Care Provider [facility] 08-28-2023 influenza virus vaccine, unspecified formulation Jake Boyle PA-C Work Phone: [facility] 09-07-2021 CovcloudControl (Moderna) Dr. Merlyn phan Work Phone: [facility] 12-14-[address] [employer]. Merlyn phan Work Phone: [facility] 11-16-2020 [employer] [address]) Dr. Merlyn phan Work Phone: [facility] Payers Date Payer Category Payer Self-pay [id number] 2022 Private Health Insurance [id number] 2018 Medicare MEDICARE MEDICAR E PART A AND B [id number] 2018-Present [address] [place] [address] Medicare [id number] 2018 Medicare [id number] 2016 Unknown [id number] Unknown [id number] Unknown [id number] Unknown [id number] Unknown [id number] Unknown [id number] Unknown [id number] Unknown [id number] Unknown [id number] Unknown [id number] Unknown [id number] Unknown [id number] Unknown [id number] Unknown [id number] Social History Date Type Detail Facility Start: 01-24-2022 End: 04-17-2023 Tobacco smoking status NCIS Unknown if ever smoked [facility] Start: 1950 Sex Assigned At Female [facility] Start: 02-06-2022 End: 11-14-2023 Tobacco smoking status NCIS Never smoked tobacco [facility] Work Phone: Start: 02-06-2022 Tobacco use and exposure Smokeless tobacco non-user [facility] Work Phone: Start: 02-27-2022 End: 08-04-2024 Alcohol intake Lifetime non-drinker (finding) [facility] Work Phone: Start: 02-06-2022 History SDOH Alcohol Frequency 1 [facility] Work Phone: Start: 1950 Sex Assigned At Not on file [facility] [employer] Work Phone: Start: 02-17-2022 End: 02-27-2022 Exposure to SARS-CoV-2 (event) Not sure [facility] Work Phone: Start: 08-04-2024 History of Social function [facility] Start: 08-04-2024 Tobacco use panel [facility] Start: 02-13-2025 Sex Female (finding) [facility] Procedure Code Equipment Code Equipment Origin al Text Equipment Identifier Dates DURAGEN PLUS 2x2 FDA Start: 04-25-2022 PATCH,AMNION 4x4CM FDA Start: 04-25-2022 PATCH,AMNION 4x4CM FDA Start: 04-25-2022 ([id number]) Collagen haemost atic agent, non-antimicrobial ()[id number] FDA Start: 04-25-2022 DURAGEN PLUS 2x2 FDA Start: 04-25-2022 PATCH,AMNION 4x4CM FDA Start: 04-25-2022 PATCH,AMNION 4x4CM FDA Start: 04-25-2022 DURAGEN PLUS 2x2 FDA Start: 04-25-2022 PATCH,AMNION 4x4CM FDA Start: 04-25-2022 PATCH,AMNION 4x4CM FDA Start: 04-25-2022 DURAGEN PLUS 2x2 FDA Start: 04-25-2022 PATCH,AMNION 4x4CM FDA Start: 04-25-2022 PATCH,AMNION 4x4CM FDA Start: 04-25-2022 DURAGEN PLUS 2x2 FDA Start: 04-25-2022 PATCH,AMNION 4x4CM FDA Start: 04-25-2022 PATCH,AMNION 4x4CM FDA Start: 04-25-2022 DURAGEN PLUS 2x2 FDA Start: 04-25-2022 PATCH,AMNION 4x4CM FDA Start: 04-25-2022 PATCH,AMNION 4x4CM FDA Start: 04-25-2022 DURAGEN PLUS 2x2 FDA Start: 04-25-2022 PATCH,AMNION 4x4CM FDA Start: 04-25-2022 PATCH,AMNION 4x4CM FDA Start: 04-25-2022 Goals Date Patient Goal Desired Activity /State Functional Status Date Assessment Result Facility 05-02-2022 Functional status Ambulates [facility] Work Phone: Mental Status Date Assessment Result Facility 05-02-2022 Cognitive function Voice/Name [facility] Work Phone: Clinical Notes 02-27-2022 to 08-04-2024 Jake Boyle PA-C - 08/04/2024 1:30 PM EDT Note Date & Type Note Facility 08-04-2024 History of Present illness Narrative Vascular Surgery Outpatient Consultation Chief Complaint Patient presents with New Patient (ref Jun ANNE) 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 Requesting Provider: Jun ANNE HISTORY OF PRESENT ILLNESS: The patient is a 74 y.o. female who states presents to office today for evaluation of left carotid stenosis noted on recent carotid duplex. She states she did not have any prior knowledge. Most recent carotid duplex showed Right ICA: <50% stenosis and Left ICA: 50-59% stenosis with PSV of 150 cm/s and EDV of 44 cm/s. Patient denies history of stroke, TIA, amaurosis fugax, hemiparesis, facial drooping, and dysarthria. She is taking ASA, no statin. She has never smoked. Patient denies claudication, rest pain, or nonhealing ulcerations. Denies FH of AAA. FH positive for heart disease. Patient has history of TAVR with Dr. Melissa. Past Medical History: Past Medical History: Diagnosis Date Anxiety Aortic stenosis Arthritis Back pain Depression GERD (gastroesophageal reflux disease) History of varicose veins Leg cramps Obesity Osteoarthritis Osteoarthritis Urethral caruncle Urinary retention Past Surgical History: Past Surgical History: Procedure Laterality Date BACK SURGERY CARDIAC PROCEDURE Left 01/13/2021 Heart Cath/ Normal coronaries, Dr. Moore DILATION AND CURETTAGE (HISTORICAL) HYSTERECTOMY INCONTINENCE SURGERY KNEE ARTHROPLASTY Bilateral remote MISC SURGERY (HISTORICAL) 02/27/2022 TAVR TOTAL ABDOMINAL HYSTERECTOMY remote Current Medications: Prior to Admission medications Medication Sig Start Date End Date Taking? Authorizing Provider fluticasone (Flonase) 50 MCG/ACT nasal spray 06/24/24 Yes Historical Provider, aspirin 81 MG EC tablet Take 81 mg by mouth daily. Historical Provider, B Complex Vitamins (VITAMIN B COMPLEX PO) Take by mouth daily. Historical Provider, biotin 5 MG capsule Take 5 mg by mouth daily. Historical Provider, cinnamon 500 MG capsule Take 1 capsule by mouth daily. Historical Provider, Cranberry 500 MG capsule Take 500 mg by mouth. Historical Provider, escitalopram (Lexapro) 5 MG tablet Take 5 mg by mouth daily. Historical Provider, Allergies: Latex, Duloxetine hcl, and Tape Social History Socioeconomic History Marital status: Spouse name: Not on file Number of children: Not on file Years of education: Not on file Highest education level: Not on file Occupational History Not on file Tobacco Use Smoking status: Never Smokeless tobacco: Never Substance and Sexual Activity Alcohol use: Never Drug use: Never Sexual activity: Not on file Other Topics Concern Not on file Social History Narrative Not on file Social Determinants of Health Financial Resource Strain: Not on file Food Insecurity: Not on file Transportation Needs: Not on file Physical Activity: Not on file Stress: Not on file Social Connections: Not on file Intimate Partner Violence: Not on file Housing Stability: Not on file Family History Problem Relation Name Age of Onset Heart attack Father Heart Surgery Mother Heart Surgery Brother Pacemaker Brother Review of Systems Constitutional: Negative. HENT: Positive for hearing loss (RAMPART hearing Aides). Eyes: Negative. Respiratory: Positive for shortness of breath (ocassionally on exertion). Cardiovascular: Negative. Gastrointestinal: Negative. Endocrine: Negative. Genitourinary: Negative. Musculoskeletal: Negative. Skin: Negative. Allergic/Immunologic: Negative. Neurological: Negative. Hematological: Negative. Psychiatric/Behavioral: Negative. LABS: Lab Results Component Value Date CREATININE 0.83 03/28/2022 Lab Results Component Value Date WBC 7.1 03/28/2022 HGB 12.6 03/28/2022 MCV 92.4 03/28/2022 No results found for: INR, PROTIME No results found for: VLDL Physical Exam Vitals reviewed. HENT: Head: Normocephalic and atraumatic. Eyes: General: No visual field deficit. Extraocular Movements: Extraocular movements intact. Neck: Vascular: Carotid bruit present. Cardiovascular: Rate and Rhythm: Normal rate and regular rhythm. Pulses: Carotid pulses are 2+ on the right side and 2+ on the left side. Radial pulses are 2+ on the right side and 2+ on the left side. Dorsalis pedis pulses are 2+ on the right side and 2+ on the left side. Posterior tibial pulses are 2+ on the right side and 2+ on the left side. Heart sounds: Normal heart sounds. Pulmonary: Effort: Pulmonary effort is normal. Musculoskeletal: Cervical back: Neck supple. Right lower leg: No edema. Left lower leg: No edema. Right foot: Normal range of motion. Left foot: Normal range of motion. Feet: Right foot: Skin integrity: Skin integrity normal. No ulcer, blister or skin breakdown. Left foot: Skin integrity: Skin integrity normal. No ulcer, blister or skin breakdown. Skin: General: Skin is warm and dry. Neurological: General: No focal deficit present. Mental Status: She is alert and oriented to person, place, and time. GCS: GCS eye subscore is 4. GCS verbal subscore is 5. GCS motor subscore is 6. Cranial Nerves: No dysarthria or facial asymmetry. Sensory: Sensation is intact. Motor: Motor function is intact. Gait: Gait is intact. Psychiatric: Mood and Affect: Mood normal. Behavior: Behavior normal. Thought Content: Thought content normal. Judgment: Judgment normal. IMPRESSION/RECOMMENDATIONS: Problem List Items Addressed This Visit None Visit Diagnoses Left carotid stenosis - Primary Relevant Medications simvastatin (Zocor) 20 MG tablet Other Relevant Orders Vascular US carotid artery duplex bilateral Plan: -Discussed diagnosis of left carotid stenosis. -At this time, patient is asymptomatic from carotid standpoint. I explained based on degree of stenosis, no recommendations for surgical interventions. -repeat carotid duplex in 1 year -Recommend continuing ASA and starting statin. Discussed side effects of statins and to call office with concerns. -Encouraged patient to have healthy diet and remain active. -I discussed signs and symptoms of TIA/CVA and recommended calling 911 with any amaurosis fugax, hemiparesis, facial drooping, and dysarthria. Follow up in about 1 year (around 08/04/2025). . 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 Requesting Provider: Jun ANNE HISTORY OF PRESENT ILLNESS: The patient is a 74 y.o. female who states presents to office today for evaluation of left carotid stenosis noted on recent carotid duplex. She states she did not have any prior knowledge. Most recent carotid duplex showed Right ICA: <50% stenosis and Left ICA: 50-59% stenosis with PSV of 150 cm/s and EDV of 44 cm/s. Patient denies history of stroke, TIA, amaurosis fugax, hemiparesis, facial drooping, and dysarthria. She is taking ASA, no statin. She has never smoked. Patient denies claudication, rest pain, or nonhealing ulcerations. Denies FH of AAA. FH positive for heart disease. Patient has history of TAVR with Dr. Melissa. Past Medical History: Past Medical History: Diagnosis Date Anxiety Aortic stenosis Arthritis Back pain Depression GERD (gastroesophageal reflux disease) History of varicose veins Leg cramps Obesity Osteoarthritis Osteoarthritis Urethral caruncle Urinary retention Past Surgical History: Past Surgical History: Procedure Laterality Date BACK SURGERY CARDIAC PROCEDURE Left 01/13/2021 Heart Cath/ Normal coronaries, Dr. Moore DILATION AND CURETTAGE (HISTORICAL) HYSTERECTOMY INCONTINENCE SURGERY KNEE ARTHROPLASTY Bilateral remote MISC SURGERY (HISTORICAL) 02/27/2022 TAVR TOTAL ABDOMINAL HYSTERECTOMY remote Current Medications: Prior to Admission medications Medication Sig Start Date End Date Taking? Authorizing Provider fluticasone (Flonase) 50 MCG/ACT nasal spray 06/24/24 Yes Historical Provider, aspirin 81 MG EC tablet Take 81 mg by mouth daily. Historical Provider, B Complex Vitamins (VITAMIN B COMPLEX PO) Take by mouth daily. Historical Provider, biotin 5 MG capsule Take 5 mg by mouth daily. Historical Provider, cinnamon 500 MG capsule Take 1 capsule by mouth daily. Historical Provider, Cranberry 500 MG capsule Take 500 mg by mouth. Historical Provider, escitalopram (Lexapro) 5 MG tablet Take 5 mg by mouth daily. Historical Provider, Allergies: Latex, Duloxetine hcl, and Tape Social History Socioeconomic History Marital status: Spouse name: Not on file Number of children: Not on file Years of education: Not on file Highest education level: Not on file Occupational History Not on file Tobacco Use Smoking status: Never Smokeless tobacco: Never Substance and Sexual Activity Alcohol use: Never Drug use: Never Sexual activity: Not on file Other Topics Concern Not on file Social History Narrative Not on file Social Determinants of Health Financial Resource Strain: Not on file Food Insecurity: Not on file Transportation Needs: Not on file Physical Activity: Not on file Stress: Not on file Social Connections: Not on file Intimate Partner Violence: Not on file Housing Stability: Not on file Family History Problem Relation Name Age of Onset Heart attack Father Heart Surgery Mother Heart Surgery Brother Pacemaker Brother Review of Systems Constitutional: Negative. HENT: Positive for hearing loss (RAMPART hearing Aides). Eyes: Negative. Respiratory: Positive for shortness of breath (ocassionally on exertion). Cardiovascular: Negative. Gastrointestinal: Negative. Endocrine: Negative. Genitourinary: Negative. Musculoskeletal: Negative. Skin: Negative. Allergic/Immunologic: Negative. Neurological: Negative. Hematological: Negative. Psychiatric/Behavioral: Negative. LABS: Lab Results Component Value Date CREATININE 0.83 03/28/2022 Lab Results Component Value Date WBC 7.1 03/28/2022 HGB 12.6 03/28/2022 MCV 92.4 03/28/2022 No results found for: INR, PROTIME No results found for: VLDL Physical Exam Vitals reviewed. HENT: Head: Normocephalic and atraumatic. Eyes: General: No visual field deficit. Extraocular Movements: Extraocular movements intact. Neck: Vascular: Carotid bruit present. Cardiovascular: Rate and Rhythm: Normal rate and regular rhythm. Pulses: Carotid pulses are 2+ on the right side and 2+ on the left side. Radial pulses are 2+ on the right side and 2+ on the left side. Dorsalis pedis pulses are 2+ on the right side and 2+ on the left side. Posterior tibial pulses are 2+ on the right side and 2+ on the left side. Heart sounds: Normal heart sounds. Pulmonary: Effort: Pulmonary effort is normal. Musculoskeletal: Cervical back: Neck supple. Right lower leg: No edema. Left lower leg: No edema. Right foot: Normal range of motion. Left foot: Normal range of motion. Feet: Right foot: Skin integrity: Skin integrity normal. No ulcer, blister or skin breakdown. Left foot (more content not included)... [facility] 02-28-2022 Note Attestation signed by Barry Melissa MD at 02/28/2022 4:32 PM I, Dr. Melissa, saw and evaluated the patient. I personally obtained the pathak and critical portions of the history and physical exam. I reviewed the chart and discussed the patient with the Nurse Practitioner. I agree with the Nurse Practitioner's medical decision making. Hospital Summary: Patient was admitted for elective transcatheter aortic valve replacement. she did well with this procedure. she is now POD1 s/p TF TAVR. she is back to her baseline activity with no symptoms. she will be discharged today on her current medication list, including DAPT. she will follow up in valve clinic in 1-2 weeks. Name: Saumya Reardon Date of : 1950 Date of Admission: 02/27/2022 Date of Discharge: 02/28/2022 Admitting physician: Barry Melissa MD Discharge Attending: MANISHA Pacheco CNP, Peter BIttenbender, MD Primary Care Physician: JOVON DERAS MD Reason for Admission: Severe Symptomatic Aortic Stenosis Consultants: cardiac rehab HOSPITAL ADMISSION PROBLEM LIST: Patient Active Problem List Diagnosis ? Aortic stenosis ? Aortic stenosis, severe Review of Systems Review of Systems Constitutional: Negative for chills, diaphoresis and fever. HENT: Negative for nosebleeds. Eyes: Negative for visual disturbance. Respiratory: Negative for cough, shortness of breath and wheezing. Cardiovascular: Negative for chest pain, palpitations and leg swelling. Gastrointestinal: Negative for abdominal pain, blood in stool, constipation, diarrhea, nausea and vomiting. Genitourinary: Negative for hematuria. Musculoskeletal: Negative for myalgias. Skin: Negative for rash. Neurological: Negative for dizziness and syncope. Hematological: Does not bruise/bleed easily. Psychiatric/Behavioral: Negative for dysphoric mood and suicidal ideas. Denies Depression Physical Exam Physical Exam Constitutional: General: She is not in acute distress. Appearance: Normal appearance. She is well-developed. She is not diaphoretic. HENT: Mouth/Throat: Pharynx: No oropharyngeal exudate. Eyes: General: No scleral icterus. Right eye: No discharge. Left eye: No discharge. Neck: Thyroid: No thyromegaly. Vascular: No JVD. Cardiovascular: Rate and Rhythm: Normal rate and regular rhythm. Chest Wall: PMI is not displaced. Pulses: Normal pulses. Radial pulses are 2+ on the right side. Dorsalis pedis pulses are 2+ on the right side and 2+ on the left side. Posterior tibial pulses are 2+ on the right side and 2+ on the left side. Heart sounds: Normal heart sounds. No murmur heard. No gallop. Comments: R femoral cath site without hematoma, ecchymosis, oozing or bruit R radial cath site without hematoma, ecchymosis or oozing. R hand with brisk capillary refill Pulmonary: Effort: No accessory muscle usage or respiratory distress. Breath sounds: Normal breath sounds. Abdominal: General: Bowel sounds are normal. There is no distension. Palpations: Abdomen is soft. Tenderness: There is no abdominal tenderness. Musculoskeletal: General: Normal range of motion. Right lower leg: No edema. Left lower leg: No edema. Skin: General: Skin is warm and dry. Neurological: Mental Status: She is alert and oriented to person, place, and time. Procedures: Transfemoral transcatheter AVR with 23 mm Celso S3 valve under moderate sedation Transthoracic echocardiogram HOSPITAL COURSE : The patient was admitted to the hospital for elective TAVR on 02/27/22 . A 23 Celso S3 valve was implanted. The patient returned to [facility] for recovery. Vital signs and labs were stable. There were no groin complications. The patient was ambulatory the evening of the procedure. She initially had vision changes post procedure that resolved quickly and did not recur. Post procedure echocardiogram demonstrated : 1. Left ventricle: The cavity size is normal. Wall thickness is mildly increased. Systolic function is normal by the biplane method of disks. The estimated ejection fraction is 71%. There are no regional wall motion abnormalities. Doppler parameters are consistent with abnormal left ventricular relaxation (grade 1 diastolic dysfunction). 2. Mitral valve: Moderately calcified annulus. There is trivial, less than 1+ regurgitation. The peak diastolic gradient is 7 mm Hg. 3. Aortic valve: There is a #23mm Pierre Celso S3 bioprosthetic valve. There is no regurgitation. The peak systolic velocity is 2.9 m/sec. The mean systolic gradient is 19 mm Hg. The peak systolic gradient is 34 mm Hg. Dimensionless index: 0.51. The valve area by the velocity-time integral method is 1.6 cm^2. The valve area index by the velocity-time integr (more content not included)... [facility] 02-27-2022 Evaluation note Diagnosis Onset Date Spinal stenosis of lumbar region at multiple levels resolved History of transcatheter aortic valve replacement (TAVR) February 27, 2022 acute Spinal stenosis of lumbar region at multiple levels resolved Orthopedic aftercare acute Constipation resolved Spinal stenosis of lumbar region at multiple levels resolved Urinary retention resolved Status post lumbar surgery a [facility] DDD (degenerative disc disease), lumbar chronic Status post lumbar surgery a [facility] Work Phone: 1(803) 864-699004-25-2022 Evaluation note* Diagnosis Onset Date Resolution Status History of transcatheter aor tic valve replacement (TAVR) February 27, 2022 [facility] Work Phone: 1(256) 602-223504-25-2022 Hospital Discharge instructions* Instructions* Jun Guzman, MANISHA - SNAP SHEARER - 02/27/2022 - Please call the [facility] with any questions: [phone] -You will have have the following follow up appointments in the [facility]ve [facility]: one week post procedure, one month post procedure with echocardiogram, one year post procedure with echocardiogram. -Wash groin/wrist incision with soap and water, pat dry. Apply bandage for 5 days. If you have a chest incision, you will receive specific instructions from your surgeon regarding care of the incision. -Check incision every day. If you see any changes in the way it looks, call the [facility] at . Look for any of these problems: redness and warmth that does not go away, yellow or green drainage from the wound, fever and chills, numbness in your legs, pain that is getting worse. -It is normal to have a bruise or soft lump in the groin. This will get smaller and go away with time -Do not drive until after your first [facility]ve Clinic Appointment. -Do not lift, push, or pull anything weighing more than 5 lbs or more for one week if you had the procedure through your groin and 4 weeks if you had the procedure through the chest -We strongly encourage a regular exercise program such as cardiac rehabilitation once you have beencleared to resume normal activity. -Eating well is important for your recovery. Eat nutritious foods every day. Please follow a cardiac, 2 gram sodium diet. Please continue to follow any other dietary recommendations provided by your health care provider prior to your valve surgery. -From now on, tell your doctors and health care providers about your heart valve implantation (prosthetic heart valve ). -If you go to the emergency room or are admitted to the hospital during the first year after your procedure, please call the [facility]ve [facility] at -If you have major dental work or other invasive medical procedures (like surgery) you may need to take antibiotics before the dental work or the procedure. Please discuss with your health care provider. - You will need to take blood thinning medications(antiplatelet) after your valve procedure. Generally, this includes aspirin and clopidogrel. The clopidogrel will be for 3 months and the aspirin will be indefinite. [facility]: Evaluation note* Diagnosis Onset Date Resolution Status DDD (degenerative disc disease), lumbar chronic Neck pain resolved Spinal stenosis of lumbar region at multiple levels acute Spinal stenosis of lumbar region at multiple levels acute Spinal stenosis of lumbar region at multiple levels acute Nonrheumatic aortic (valve) stenosis [facility] Work Phone: Evaluation note* Diagnosis Aortic stenosis, severe- Primary Aortic valve disorders documented in this encounter [facility] Work Phone: Evaluation note* Diagnosis Onset Date Resolution Status DDD (degenerative disc disease), lumbar chronic Neck pain resolved Spinal stenosis of lumbar region at multiple levels acute Spinal stenosis of lumbar region at multiple levels acute Spinal stenosis of lumbar region at multiple levels acute Nonrheumatic aortic (valve) stenosis chronic Spinal stenosis of lumbar region at multiple levels acute [facility] Work Phone: Evaluation note* Diagnosis Onset Date Resolution Status Spinal stenosis of lumbar region at multiple levels acute Spinal stenosis of lumbar region at multiple levels acute Spinal stenosis of lumbar region at multiple levels acute Nonrheumatic aortic (valve) stenosis chronic Spinal stenosis of lumbar region at multiple levels acute [facility] Work Phone: Evaluation note* Diagnosis Onset Date Resolution Status Spinal stenosis of lumbar re gion at multiple levels acute Spinal stenosis of lumbar re gion at multiple levels acute Spinal stenosis of lumbar re gion at multiple levels acute Nonrheumatic aortic (valve) stenosis chronic Spinal stenosis of lumbar re gion at multiple levels acute History of transcatheter aor tic valve replacement (TAVR) February 27, 2022 acute Spinal stenosis of lumbar re gion at multiple levels acute Constipation acute Orthopedic aftercare acute Spinal stenosis of lumbar re gion at multiple levels acute Urinary retention acute [facility] Work Phone: Evaluation note* Diagnosis Onset Date Resolution Status Status post lumbar surgery a cute Status post lumbar surgery a cute [facility] Work Phone: Evaluation noteNo assessment information available [facility] Work Phone: Evaluation note* Diagnosis Left carotid stenosis- Primary documented in this encounter [facility] for referral (narrative)No reason for referral information availableWC[facility] Work Phone: Summary Purpose Family History No Family History Records Found Relationship Condition Age at Onset Recorded Date/T andrae father Coronary artery disease 62 Myocardial infarction 60 mother Coronary artery disease 68 Diabetes mellitus Unknown brother Diabetes mellitus Unknown Coronary artery disease Unknown Cardiac disease Unknown brother Cardiac disease Unknown Advance Directives No Advanced Directives Records Found Advance Directive Response Recorded Date/ Time Advance Directives Yes February 09 10:54am Living Will Yes January 16, 2022 1:59pm Power of Breaker Oiler Yes January 16 1:59pm Documents on File Type Date Recorded Patient Reed Man Expl anation ACP-Advance Directive 02/21/2022 12:00 AM Latest Code Status on File Code Status Date Activated Date Inactivated Comments Full Code 02/27/2022 1:10 PM Full Code 02/27/2022 8:53 AM 02/27/2022 10:52 AM Advance Directive Response Recorded Date/ Time Name of Medical Power of Breaker Oiler BINU REARDON January 16, 2022 1:59pm Name of Medical Power of Breaker Oiler binu reardon April 25, 2022 2:51pm Advance Directives Yes February 09 10:54am Living Will Yes April 25, 2022 2:51pm Power of Breaker Oiler Yes April 25 2:51pm Advance Directive Response Recorded Date/ Time Name of Medical Power of Breaker Oiler binu reardon April 25, 2022 2:51pm Advance Directives Yes February 09 10:54am Living Will Yes April 25, 2022 2:51pm Power of Breaker Oiler Yes April 25 2:51pm Advance Directive Response Recorded Date/ Time Advance Directives Yes February 09 9:54am Living Will Yes April 25, 2022 1:51pm Power of Breaker Oiler Yes April 25 1:51pm Advance Directive Response Recorded Date/ Time Advance Directives Yes February 09 10:54am Living Will Yes April 25, 2022 2:51pm Power of Breaker Oiler Yes April 25 2:51pm Advance Directive Response Recorded Date/ Time Advance Directives Yes February 09 10:54am Chief Complaint and Reason for Visit Chief Complaint lbp BILAT SHOULDER PAIN Lumbar spine PRE OP low back MURMUR Amb Documentation severe Reason for Visit DDD (degenerative di sc disease), lumbar Neck pain Spinal stenosis of lumbar region at multiple levels Spinal stenosis of lumbar region at multiple levels Spinal stenosis of lumbar region at multiple levels Nonrheumatic aortic (valve) stenosis Chief Complaint lbp BILAT SHOULDER PAIN Lumbar spine LAMINECTOMY, DECOMPRESSION L4-5, L3-4 PRE OP low back MURMUR Amb Documentation severe Reason for Visit DDD (degenerative di sc disease), lumbar Neck pain Spinal stenosis of lumbar region at multiple levels Spinal stenosis of lumbar region at multiple levels Spinal stenosis of lumbar region at multiple levels Nonrheumatic aortic (valve) stenosis Chief Complaint lbp BILAT SHOULDER PAIN Lumbar spine LAMINECTOMY, DECOMPRESSION L4-5, L3-4 PRE OP low back MURMUR Amb Documentation severe Amb Documentation LUMBER SPINE SEND RESULTS TO DR MOORE ALSO Reason for Visit DDD (degenerative di sc disease), lumbar Neck pain Spinal stenosis of lumbar region at multiple levels Spinal stenosis of lumbar region at multiple levels Spinal stenosis of lumbar region at multiple levels Nonrheumatic aortic (valve) stenosis Spinal stenosis of lumbar region at multiple levels Chief Complaint BILAT SHOULDER PAIN Lumbar spine LAMINECTOMY, DECOMPRESSION L4-5, L3-4 PRE OP low back MURMUR Amb Documentation severe Amb Documentation LUMBER SPINE SEND RESULTS TO DR MOORE ALSO Amb Documentation AORTIC STENOSIS Reason for Visit Spinal stenosis of l umbar region at multiple levels Spinal stenosis of lumbar region at multiple levels Spinal stenosis of lumbar region at multiple levels Nonrheumatic aortic (valve) stenosis Spinal stenosis of lumbar region at multiple levels Chief Complaint Lumbar spine LAMINECTOMY, DECOMPRESSION L4-5, L3-4 PRE OP low back MURMUR Amb Documentation severe Amb Documentation LUMBER SPINE SEND RESULTS TO DR MOORE ALSO Amb Documentation AORTIC STENOSIS 6wk fu tavr lumbar spine LUMBAR LAMINECTOMY DECOMPRESSION L4-5, LUMBAR LAMINECTOMY DECOMPRESSION L4-5, LUMBAR LAMINECTOMY DECOMPRESSION L4-5, LUMBAR LAMINECTOMY DECOMPRESSION L4-5, LUMBAR LAMINECTOMY DECOMPRESSION L4-5, LUMBAR LAMINECTOMY DECOMPRESSION L4-5, LUMBAR LAMINECTOMY DECOMPRESSION L4-5, LUMBAR LAMINECTOMY DECOMPRESSION L4-5, LUMBAR LAMINECTOMY DECOMPRESSION L4-5, LUMBAR LAMINECTOMY DECOMPRESSION L4-5, LUMBAR LAMINECTOMY DECOMPRESSION L4-5, LUMBAR LAMINECTOMY DECOMPRESSION L4-5, LUMBAR LAMINECTOMY DECOMPRESSION L4-5, LUMBAR LAMINECTOMY DECOMPRESSION L4-5, LUMBAR LAMINECTOMY DECOMPRESSION L4-5, LUMBAR LAMINECTOMY DECOMPRESSION L4-5, Reason for Visit Spinal stenosis of l umbar region at multiple levels Spinal stenosis of lumbar region at multiple levels Spinal stenosis of lumbar region at multiple levels Nonrheumatic aortic (valve) stenosis Spinal stenosis of lumbar region at multiple levels History of transcatheter aortic valve replacement (TAVR) Spinal stenosis of lumbar region at multiple levels Constipation Orthopedic aftercare Spinal stenosis of lumbar region at multiple levels Urinary retention Chief Complaint LUMBER SPINE SEND RESULTS TO DR MOORE ALSO Amb Documentation AORTIC STENOSIS 6wk fu tavr lumbar spine LUMBAR LAMINECTOMY DECOMPRESSION L4-5, LUMBAR LAMINECTOMY DECOMPRESSION L4-5, LUMBAR LAMINECTOMY DECOMPRESSION L4-5, LUMBAR LAMINECTOMY DECOMPRESSION L4-5, LUMBAR LAMINECTOMY DECOMPRESSION L4-5, LUMBAR LAMINECTOMY DECOMPRESSION L4-5, LUMBAR LAMINECTOMY DECOMPRESSION L4-5, LUMBAR LAMINECTOMY DECOMPRESSION L4-5, LUMBAR LAMINECTOMY DECOMPRESSION L4-5, LUMBAR LAMINECTOMY DECOMPRESSION L4-5, LUMBAR LAMINECTOMY DECOMPRESSION L4-5, LUMBAR LAMINECTOMY DECOMPRESSION L4-5, LUMBAR LAMINECTOMY DECOMPRESSION L4-5, LUMBAR LAMINECTOMY DECOMPRESSION L4-5, LUMBAR LAMINECTOMY DECOMPRESSION L4-5, LUMBAR LAMINECTOMY DECOMPRESSION L4-5, LUMBAR LAMINECTOMY DECOMPRESSION L4-5, lumbar spine LUMBER SPINE ANKLE PAIN LEFT LEG EDEMA Reason for Visit Spinal stenosis of l umbar region at multiple levels History of transcatheter aortic valve replacement (TAVR) Spinal stenosis of lumbar region at multiple levels Orthopedic aftercare Constipation Spinal stenosis of lumbar region at multiple levels Urinary retention Status post lumbar surgery DDD (degenerative disc disease), lumbar Status post lumbar surgery Chief Complaint LUMBER SPINE ANKLE PAIN LEFT LEG EDEMA LUMBER SPINE Reason for Visit Status post lumbar s urgery Status post lumbar surgery Chief Complaint 1 YEAR S/P TAVR Chief Complaint 6 M FU/ NEEDS EKG FO R TAVR INT LABS Encounter for screening mammogram for malignant ne Reason for Visit History of transcath eter aortic valve replacement (TAVR) Reason for Referral Specialty Diagnoses / Procedures Referred By Deloris kovacs Referred To Contact Cardiology Diagnoses Left carotid stenosis Procedures Vascular US carotid artery duplex bilateral Jake Boyle PA-C [address] [facility] [address] [place] [address] Referral ID Status Reason Start Date Expiration Date V isits Requested Visits Authorized [id number] Pending Review 08/04/2024 08/04/2025 1 1 Additional Source Comments INFORMATION SOURCE (unrecogn ized section and content) DATE CREATED AUTHOR 05/01/2018 [facility]ical [facility] DATE CREATED AUTHOR AUTHOR'S ORGANIZ ATION 05/14/2018 [facility] DATE CREATED AUTHOR AUTHOR'S ORGANIZ ATION 03/15/2022 [facility] DATE CREATED AUTHOR AUTHOR'S ORGANIZ ATION 03/20/2025 [facility] DATE CREATED AUTHOR AUTHOR'S ORGANIZ ATION 04/01/2025 [facility] Ordered Prescriptions (unrec ognized section and content) Prescription Sig Dispensed Refills Start Date End Da te clopidogrel (PLAVIX) 75 MG tablet Take 1 tablet by mouth daily 30 tablet 2 02/28/2022 Scheduled Active and Recently Administ ered Medications (unrecognized section and content) Medication Order 02/26/2022 02/27/2022 02/28/2022 aspirin EC tablet 81 mg 81 mg, Oral, DAILY, First dose on Sun02/27/22 at 1330, Until Discontinued, Do not crush or break. 1316 (Given - Provider: Jennifer Willett RN) 914 (Given - Provider: Xuan Knott, MARIBELL) clopidogrel (PLAVIX) tablet 300 mg (COMPLETED) 300 mg, Oral, ONCE, 1 dose, On Sun02/27/22 at 1330, Post-op 1316 (Given - Provider: Jennifer Willett RN) clopidogrel (PLAVIX) tablet 75 mg 75 mg, Oral, DAILY, First dose on Sun02/28/22 at 0900, Until Discontinued 914 (Given - Provid er: Xuan Knott RN) escitalopram (LEXAPRO) tablet 5 mg 5 mg, Oral, NIGHTLY, First dose (after last modification) on Sun02/27/22 at 2100, Until Discontinued 2006 (Given - Provider: Paulo Meeks RN) 2099 (Due) gabapentin (NEURONTIN) capsule 300 mg 300 mg, Oral, NIGHTLY, First dose on Sun02/27/22 at 2100, Until Discontinued 2006 (Given - Provider: Paulo Meeks RN) 2099 (Due) pantoprazole (PROTONIX) tablet 40 mg 40 mg, Oral, DAILY, First dose on Sun02/27/22 at 1330, Until Discontinued, Do not crush or break., Post-op 1316 (Given - Provider: Jennifer Willett RN) 08 (Given - Provider: Xuan Knott RN) sodium chloride flush 0.9 % injection 5-40 mL 5-40 mL, IntraVENous, EVERY 12 HOURS SCHEDULED (2 times per day), First dose on Sun02/27/22 at 2100, Until Discontinued, For Line Patency: Peripheral IV = 5 mL; Midline or Central Line = 10 mL/lumen. If following IV push medication, administer flush at same rate as the IV push. Flush volume is determined by type of infusion therapy being given. For non-viscous solutions use: Peripheral IV = 5 mL Midline or Central Line = 10 mL/lumen For viscous solutions (i.e. blood components, parenteral nutrition, contrast media, or after obtaining blood sample) use: Peripheral IV = 10 mL Midline or Central Line = 20 mL/lumen, Post-op 2007 (Given - Provider: Paulo Meeks, RN) 08 (Given - Provider: Xuan Knott, RN)2100 (Due) Continuous Medication Order 02/26/2022 02/27/2022 02/28/2022 0.9 % sodium chloride infusion IntraVENous, at 25 mL/hr, CONTINUOUS, Starting on Sun02/27/22 at 0915, Pre-op (day of surgery) 0941 (New Bag - Provider: Cheri Hinton RN)1319 (Stopped - Provider: Jennifer Willett RN) 0.9 % sodium chloride infusion IntraVENous, at 100 mL/hr, CONTINUOUS, Starting on Sun02/27/22 at 1330, For 5 hours 1319 (New Bag - Provider: Jennifer Willett RN) PRN Medication Order 02/26/2022 02/27/2022 02/28/2022 acetaminophen (TYLENOL) tablet 650 mg 650 mg, Oral, EVERY 4 HOURS PRN, Starting on Sun02/27/22 at 1310, Until Discontinued, Other, Pain (1-10), Give in addition to any other pain medication ordered at same time for any pain indication., Post-op 1316 (Given - Provider: Jennifer Willett RN)2014 (Given - Provider: Paulo Meeks RN) perflutren lipid microspheres (DEFINITY) injection 1.65 mg 1.65 mg (1.5 mL), IntraVENous, IMG ONCE PRN, Starting on Sun02/27/22 at 1310, Until Maryana 03/02/22 at 1309, Other, Suboptimal Echo Image, Administer up to 1.65 mg via slow IVP for suboptimal echocardiogram enhancement. May administer as concentrated dose or diluted in 8.5 mL of 0.9% sodium chloride for a total volume of 10 mL. May administer as divided doses to reach optimal image enhancement. 08 (Given - Provid er: Xuan Knott RN) sodium chloride flush 0.9 % injection 5-40 mL 5-40 mL, IntraVENous, PRN, Starting on Sun02/27/22 at 1310, Until Discontinued, Line Care, After every IV line use, For Line Patency: Peripheral IV = 5 mL; Midline or Central Line = 10 mL/lumen. If following IV push medication, administer flush at same rate as the IV push. Flush volume is determined by type of infusion therapy being given. For non-viscous solutions use: Peripheral IV = 5 mL Midline or Central Line = 10 mL/lumen For viscous solutions (i.e. blood components, parenteral nutrition, contrast media, or after obtaining blood sample) use: Peripheral IV = 10 mL Midline or Central Line = 20 mL/lumen, Post-op sodium chloride flush 0.9 % injection 5-40 mL 5-40 mL, IntraVENous, PRN, Starting on 02/27/22 at 1310, Until Maryana 03/02/22 at 1309, Line Care, Per Senior Marketing Coordinator Request, May use order for Line Care after every IV line use and Agitated Saline Bubble Study. Administration for Bubble Study per food service employee request for only. Remove 1 mL 0.9% sodium chloride from 10 mL syringe for creating agitated saline. If following IV push medication, administer flush at same rate as the IV push. Flush volume is determined by type of infusion therapy being given. , For non-viscous solutions use: Peripheral IV = 5 mL Midline or Central Line = 10 mL/lumen For viscous solutions (i.e. blood components, parenteral nutrition, contrast media, or after obtaining blood sample) use: Peripheral IV = 10 mL Midline or Central Line = 20 mL/lumen Care Teams (unrecognized sec tion and content) Telecommunications Switch Technician Relationship Specialty Start Date End Date Jovon Deras MD [address] [place] [id number] PCP - General Family Medicine 02/07/22 Team Status: Active Member Role Status Dates Dr. Jovon Deras MD Primary Care Provider Active Team Status: Active Member Role Status Dates Dr. Jovon Deras MD Primary Care Provider Active Dr. Ryan Moore MD Attending Provider Active Team Status: Inactive Member Role Status Dates Dr. Jovon Deras MD Primary Care Provider Active Dr. Ryan Moore MD Attending Provider Active Team Status: Active Member Role Status Dates Annalee Garcia DO Primary Care Provider Active Team Status: Inactive Member Role Status Dates Dr. Jovon Deras MD Primary Care Provider, Referring Provider Active Yumiko Kwong DEHYDRATION UNIT OPERATOR, DEHYDRATION UNIT OPERATOR-C Attending Provider Active Team Status: Inactive Member Role Status Dates Annalee Garcia DO Primary Care Provi lisy, Attending Provider, Referring Provider Active Telecommunications Switch Technician Relationship Specialty Start Date End Date Remy Goodman MD [address] [place] [address] PCP - General Family Medicine 08/04/24 Jake Boyle PA-C [address] [place] [place] [address] Physician Stonehand Physician Stonehand 08/04/24 Team Status: Active Member Role Status Dates Remy Goodman MD Primary Care Provider Active Team Status: Inactive Member Role Status Dates Remy Goodman MD Primary Care Provider Active St art: February 09, 2025 End: February 09, 2025 Dr. Sergio Ford MD Attending Provider Active Start: February 09, 2025 End: February 09, 2025 Dr. Sergio Ford MD Referring Provider Active Start: February 09, 2025 End: February 09, 2025 Reason for Visit (unrecogniz ed section and content) Reason Comments New Patient (ref Jun ANNE) DEHYDRATION UNIT OPERATOR eval for carotid stenosis, CU (Images in Media) 07/28/24 Specialty Diagnoses / Procedures Referred By Contac t Referred To Contact Vascular Surgery Diagnoses Occlusion and stenosis of unspecified carotid artery Procedures Carotid Stenosis Jun Donovan, PA [address] [place] [address] [facility] [address] [place] [address] Referral ID Status Reason Start Date Expiration Date Visits Requested Visits Authorized [id number] Pending Review Eval and Treat 07/29/2024 07/29/2025 1 1 FOR RECORDS PERTAINING TO PATIENTS WHO ARE OR HAVE BEEN ENROLLED IN A CHEMICAL DEPENDENCY/SUBSTANCEABUSE PROGRAM, SOME INFORMATION MAY BE OMITTED. This clinical summary was aggregated from multiple sources. Caution should be exercised in using it in the provision of clinical care. This summary normalizes information from multiple sources, and as a consequence, information in this document may materially change the coding, format and clinical context of patient data. In addition, data may be omitted in some cases. CLINICAL DECISIONS SHOULD BE BASED ON THE PRIMARY CLINICAL RECORDS. [facility]. provides no warranty or guarantee of the accuracy or completeness of information in this document.
== END | disposition home or self-care (01) ==
LOC: LAB 09:36
PROVIDERS: PCP Family Medicine; Referring Provider Family Medicine; Visit Provider Family Medicine
DX: R73.9 Hyperglycemia, unspecified (principal); E66.9 Obesity, unspecified
CPT/HCPCS: 36415; 80053; 84443; 85025

== ENCOUNTER → 2025-08-10 | Outpatient (CLI) | payer MEDICARE, OTHER, SELFPAY ==
--- NOTE | 2025-08-10 08:27 | BI_ITS ---
EXAM: SCRN MAMM (CAD)W/ILDA BILAT DATE: 08/10/2025 CLINICAL HISTORY: F, Age 75 y/o , SCREENING TECHNIQUE: Procedure Code: [id number] Modality: MG Procedure: SCRN MAMM (CAD)W/ILDA BILAT COMPARISON: Prior exam(s) dated 07/21/2024 and 07/19/2023. FINDINGS: TISSUE DENSITY: There are scattered areas of fibroglandular density. Bilateral Breast Mammographic Findings: No significant masses, calcifications or other abnormalities are identified. Benign-appearing round microcalcifications are seen in both breasts. A benign macrocalcification is seen in the left breast. BI/SCRN MAMM (CAD)W/ILDA BILAT IMPRESSION: Benign screening mammogram OVERALL FINAL ASSESSMENT BI-RADS 2: BENIGN RECOMMENDATION: Routine annual follow-up in 1 Year Additional Recommendation none A letter with findings and recommendations will be mailed to the patient. Reading Location: [id number]
== END | disposition home or self-care (01) ==
LOC: OPBI 08:25
PROVIDERS: PCP Family Medicine; Referring Provider Family Medicine; Visit Provider Family Medicine
DX: Z12.31 Encounter for screening mammogram for malignant neoplasm of breast (principal)
CPT/HCPCS: 77063; 77067

== ENCOUNTER → 2025-09-08 | Outpatient (CLI) | payer MEDICARE, OTHER, SELFPAY ==
--- NOTE | 2025-09-08 10:56 | RAD_ITS ---
EXAM: XR Lumbosacral Spine, 2 or 3 Views CLINICAL INDICATION: LOW BACK INJURY, FELL 2 DAYS AGO TECHNIQUE: Frontal and lateral views of the lumbar spine and sacrum. COMPARISON: No relevant prior studies available. FINDINGS: VERTEBRAE: Severe endplate degenerative changes and disc degeneration of L3-4. Mild multilevel endplate degenerative changes of the visualized spine. No acute fracture. Normal alignment. SACRUM/COCCYX: Unremarkable as visualized. No acute fracture. DISC SPACES: See above. SOFT TISSUES: Unremarkable. RAD/Lumbar Spine 2 or 3 Views IMPRESSION: Degenerative changes as above. Reading Location: [facility]
== END | disposition home or self-care (01) ==
LOC: MTRAD 10:56
PROVIDERS: PCP Family Medicine; Referring Provider Family Medicine; Visit Provider Family Medicine
DX: S39.92XA Unspecified injury of lower back, initial encounter (principal)
CPT/HCPCS: 72100

== ENCOUNTER → 2025-10-22 | Outpatient (CLI) | payer MEDICARE, OTHER, SELFPAY ==
--- NOTE | 2025-10-22 13:11 | MRI_ITS ---
PROCEDURE: SPINE LUMBAR W/WO CONTRAST 10/22/2025 REASON FOR EXAM: PAIN, DDD, L4-5 SPONDY, HX OF LAMINECTOMY TECHNIQUE: Procedure Code: [id number] Modality: MR Procedure: SPINE LUMBAR W/WO CONTRAST Multiplanar and multisequence images were obtained without and with intravenous gadolinium-based contrast administration. CONTRAST: Clariscan VOLUME: 17 mL COMPARISON: MRI lumbar spine 02/28/2021 FINDINGS: For the purposes of this report, the most caudal rectangular vertebral body will be designated L5. The next most caudal trapezoidal shaped vertebral body will be designated S1. The intervening disc at the lumbosacral angle is designated L5-S1. There has been L2-L4 bilateral laminectomies. Postsurgical changes without evidence of pathologic enhancement in the laminectomy bed. The normal lumbar lordosis is maintained. Mild compression deformity of T12 vertebral body with associated bone marrow edema. No significant retropulsion. The lumbar vertebral bodies are normal in height. Grade 1 L4-L5 anterolisthesis. Well-circumscribed T1/T2 hyperintense lesion in the T11 and T12 vertebral bodies compatible with osseous hemangiomas. There is no focal enhancing and marrow replacing lesion in the lumbar spine. Redemonstrated partially visualized mildly dilated central canal of the distal most spinal cord. Otherwise, there is no evidence of signal abnormality in the imaged distal spinal cord or abnormal enhancement within the lumbar spinal canal. The conus medullaris terminates at the level of L1. Multilevel disc desiccation. Intervertebral disc space height loss most prominent at L3-L4. T12-L1: No significant spinal canal stenosis or neural foraminal narrowing. L1-L2: No significant spinal canal stenosis or neural foraminal narrowing. L2-L3: Posterior decompression. Disc bulge and facet arthrosis contribute to moderate spinal canal stenosis. There is crowding of the descending nerve roots. Moderate bilateral neural foraminal narrowing. L3-L4: Posterior decompression. Bilateral facet arthrosis. No significant spinal canal stenosis. Moderate bilateral neural foraminal narrowing. Type 2 Modic endplate changes. L4-L5: Posterior decompression. Uncovering of the disc and bilateral facet arthrosis. Mild spinal canal stenosis. [id number] bilateral neural foraminal narrowing. L5-S1: Disc bulge, bilateral facet arthrosis, and ligamentum flavum hypertrophy. No significant spinal canal stenosis or neural foraminal narrowing. The posterior paraspinal muscles are unremarkable. MRI/Spine Lumbar W/WO Contrast IMPRESSION: 1. Acute T12 compression fracture. 2. L2-L4 bilateral laminectomies. No pathologic enhancement within the laminec almaz bed. 3. Lumbar spondylosis without high-grade spinal canal stenosis. Multiple level s of moderate neural foraminal stenosis. Communication notice: The acute T12 compression fracture mentioned in the impression was communicated directly by Dr. Pedro Castro by telephone to DAYANA Redd on 10/23/2025 at 9:59 am with readback verification. Reading Location: [id number]
== END | disposition home or self-care (01) ==
LOC: OPMRI 13:09
PROVIDERS: PCP Family Medicine; Referring Provider Student in an Organized Health Care Education/Training Program; Visit Provider Student in an Organized Health Care Education/Training Program
DX: M51.360 Other intervertebral disc degeneration, lumbar region with discogenic back pain only (principal); M43.16 Spondylolisthesis, lumbar region; Z98.890 Other specified postprocedural states
CPT/HCPCS: 72158; A9575